=== PATIENT | female | born 1945 | race Caucasian/White ===

== ENCOUNTER 2017-04-07 22:48 | Observation (INO) | payer MEDICARE, SELFPAY ==
[2017-04-07] MEDS ORDERED: Ondansetron HCl/PF 4 MG/2 ML Vial ONE (22:58)
[2017-04-07] MEDS ORDERED: Nitroglycerin 2% Ointment 1 INCH/1 GM Packet ONE (22:58)
[2017-04-07] MEDS ORDERED: Nitroglycerin 0.4 MG TAB (25 Tab Bottle) ONE (22:58)
--- NOTE | 2017-04-07 23:24 | RAD ---
PORTABLE CHEST ONE VIEW: Date: 04-07-17 Time: 10:32 p.m. History: Chest pain. FINDINGS: Comparison made with exam of 12-30-16. There are changed of median sternotomy. The heart is enlarged. The aorta is tortuous. Chronic change s in the lung arana are again seen. No lobar consolidation, pneumonia, yuliet pulmonary edema or ple ural effusions are identified. IMPRESSION: Stable exam. No acute process. POS: [facility]
[2017-04-07 23:25] LABS: #Basophils 0.1 thou/uL (0.0-0.2); #Eosinphils 0.8 thou/uL (0.0-0.7); #Lymphocytes 2.7 thou/uL (1.20-3.40); #Monocytes 0.4 thou/uL (0.11-0.59); #Neutrophils 2.7 thou/uL (1.40-6.50); %Basophils 1.1 % (0.0-1.0); %Eosinophils 11.3 % (0.0-10.0); %Lymphocytes 40.6 % (21.0-51.0); %Monocytes 6.3 % (0.0-10.0); Hematocrit 39.3 % (36.0-47.0); Mean Platelet Volume 7.4 fL (7.4-10.4); Red Blood Cell (RBC) Count 4.35 mill/uL (4.20-5.40); White Blood Cell (WBC) Count 6.6 thou/uL (4.8-10.8)
[2017-04-07 23:40] LABS: ALT (SGPT) 11 U/L (8-55); AST (SGOT) 15 U/L (5-34); Alkaline Phosphatase 70 U/L (40-150); Anion Gap 14 mmol/L (10-20); BUN (Urea Nitrogen) 22 mg/dL (9.8-20.1); CK (CPK) 76 U/L (29-168); Calc. Creatinine Clearance 0 mL/min (70-130); Calcium 9.3 mg/dL (7.8-10.44); Carbon Dioxide 23 mmol/L (23-31); Chloride 105 mmol/L (98-107); Estimated GFR-MDRD 52; Globulin 3.5 g/dL (2.4-3.5); Lipase 14 U/L (8-78); Protein, Total 6.9 g/dL (6.0-8.3)
[2017-04-07 23:43] LABS: Troponin I Less than 0.010 ng/mL (< 0.028)
[2017-04-08] MEDS ORDERED: Nitroglycerin 0.4 MG TAB (25 Tab Bottle) PO PRN (01:03)
[2017-04-08] MEDS ORDERED: Senokot 8.6 MG TAB PO PRN (01:03)
[2017-04-08] MEDS ORDERED: Dextrose 5% in Water 1,000 ML IV PRN (01:03)
[2017-04-08] MEDS ORDERED: HYDROcodone/Acetaminophen 5/325 mg Tablet PO PRN (01:03)
[2017-04-08] MEDS ORDERED: Dextrose 50% Abboject 50 ML SYRINGE SLOW IVP PRN (01:03)
[2017-04-08] MEDS ORDERED: HumaLOG 300 UNITS/3 ML VIAL SC PRN ×2 (01:03)
[2017-04-08] MEDS ORDERED: Milk Of Magnesia 30 ML UDCUP PO PRN (01:03)
[2017-04-08] MEDS ORDERED: Loperamide HCl 2 MG CAP PO PRN (01:03)
[2017-04-08] MEDS ORDERED: Ondansetron ODT 4 MG TAB PO PRN (01:03)
[2017-04-08] MEDS ORDERED: Mag-Al 1200 mg/1200 mg/30 ML UDCUP PO PRN (01:03)
[2017-04-08] MEDS ORDERED: Zolpidem Tartrate 5 MG TAB PO PRN (01:03)
[2017-04-08] MEDS ORDERED: Acetaminophen 325 MG TAB PO PRN (01:03)
[2017-04-08] MEDS ORDERED: Ondansetron HCl/PF 4 MG/2 ML Vial IVP PRN (01:03)
--- NOTE | 2017-04-08 01:37 | SS ---
PRIMARY CARE PHYSICIAN: [facility] call admission. REASON FOR ADMISSION: Chest pain. HISTORY OF PRESENT ILLNESS: A 71-year-old female who has history of coronary artery disease and required CABG in 09/2016. Subsequently, the patient came to the emergency room in 11/2016. At that time, cardiac catheterization was done by Dr. Anna and the patient was found with 2/4 graft was occluded. The patient required stent placement and she was discharged on aspirin and Plavix therapy. At that time, the patient was having substernal pressure and heaviness , pain. Today, the patient was in her garage and she was pulling staircase and she was going up and at that time, she was having left-sided chest pain which was sharp in nature. No association of nausea, vomiting or diaphoresis. This pain was different than she had in November. The patient was given pain medication and after that the pain was subsided and never returned back. The patient denies any associated nausea, vomiting, diaphoresis. She denies any radiation of pain. She denies any aggravating or relieving factor. She denies any fever, chills, cough, shortness of breath. She denies any calf tenderness. She denies any exertional related chest pain, palpitation or shortness of breath. Today in the emergency room, EKG did not show any changes from previous. EKG showed complete left bundle branch block pattern. Her chest x-ray was normal. Her CBC, BMP, LFT and cardiac enzymes came back negative. At this point, we are admitting this patient overnight for serial cardiac enzyme and rule out acute coronary syndrome. Patient denies any shoulder pain. She denies any UTI symptoms. She denies any orthopnea, PND or leg swelling. She denies any palpitation, dizziness or syncope. PAST MEDICAL HISTORY: 1. Coronary artery disease, required CABG x4 vessels in 09/2016. Subsequently , patient had a cardiac catheterization which showed 2/4 occluded graft required stenting. 2. Diabetes type 2. 3. Hypertension. 4. Dyslipidemia. PAST SURGICAL HISTORY: CABG x4, cardiac catheterization and stent placement, bilateral cataract surgery, cholecystectomy, hysterectomy, right knee surgery. PAST PSYCHIATRIC HISTORY: Anxiety and depression. SOCIAL HISTORY: The patient lives at home with her daughter. No history of tobacco, alcohol or illicit drug abuse. She drinks alcohol only occasionally and socially. FAMILY HISTORY: Hypertension, diabetes runs among several family members. No strong family history of premature coronary artery disease, stroke or cancer. EMERGENCY ROOM COURSE: Patient is given nitropatch, morphine 4 mg, Zofran 4 mg and nitroglycerin 0.4 mg sublingual. CURRENT HOME MEDICATIONS: Glipizide 5 mg twice daily, aspirin 325 mg p.o. daily , Plavix 75 mg p.o. daily, Lipitor 80 mg p.o. daily, Coreg 12.5 mg twice daily, Imdur 30 mg p.o. daily, lisinopril 5 mg p.o. b.i.d. ALLERGIES: No known drug allergies. REVIEW OF SYSTEMS: The following complete review of systems was negative, unless otherwise mentioned in the HPI or below: Constitutional: Weight loss or gain, ability to conduct usual activities. Skin: Rash, itching. Eyes: Double vision, pain. ENT/Mouth: Nose bleeding, neck stiffness, pain, tenderness. Cardiovascular: Palpitations, dyspnea on exertion, orthopnea. Respiratory: Shortness of breath, wheezing, cough, hemoptysis, fever or night sweats. Gastrointestinal: Poor appetite, abdominal pain, heartburn, nausea, vomiting, constipation, or diarrhea. Genitourinary: Urgency, frequency, dysuria, nocturia. Musculoskeletal: Pain, swelling. Neurologic/Psychiatric: Anxiety, depression. Allergy/Immunologic: Skin rash, bleeding tendency. Please see my HPI for pertinent positives and negatives. All other review of system reviewed and negative except as mentioned in the HPI. PHYSICAL EXAMINATION: VITAL SIGNS: On arrival, blood pressure 186/111 and then 150/73, pulse 94, respiratory rate 18, temperature 98.2, saturation 94% on room air, weight 81.6 kilograms. GENERAL: The patient is currently alert, awake, no obvious acute distress. HEAD: Normocephalic, atraumatic. EYES: Pupils round, reactive to light. Extraocular muscles intact. ENT: Oropharynx within normal limits. Moist mucous membranes. No oral lesions. No pharyngeal erythema. No exudate. NECK: Supple, range of motion is normal. No meningeal signs of irritation. LUNGS: Clear to auscultation without any rhonchi or rales. CARDIAC: S1, S2 regular without any murmur. ABDOMEN: Soft, bowel sounds present, nontender, nondistended. No organomegaly , no mass, no suprapubic tenderness. BACK: Unremarkable. No CVA tenderness. EXTREMITIES: Upper extremity, passive movement of all joints are normal. Lower extremity, no edema. Good peripheral pulsation. SKIN: No skin rash. HEMATOLOGIC: No lymphadenopathy. PSYCHIATRIC: Normal affect. NEUROLOGIC: Nonfocal examination. SIGNIFICANT LABORATORY DATA: CBC: WBC 6.6, hemoglobin 13.1, platelets 187. BMP: Sodium 138, potassium 3.9, chloride 105, carbon dioxide 23, BUN 22, creatinine 1.04, glucose 281, calcium 9.3. LFT: AST 15, ALT 11, alkaline phosphatase 72, albumin 3.4, lipase 14, CK 76, CK-MB 2.5, troponin I less than 0.010. ASSESSMENT AND PLAN: 1. Acute chest pain. This patient's chest pain started when she was trying to pull stair and when she was climbing stairs afterward and it was sharp in nature and it was left-sided in location. This was completely different than substernal pain when she had a cardiac catheterization done last time. At this point, EKG showing LBBB without any new finding and her troponin is negative. This patient already had a cardiac catheterization in 11/[address] Anna and this patient's current chest pain is not consistent with typical cardiac pain. She does have coronary artery disease and her 2/4 grafts are patent and that is why we will keep this patient in the hospital and we will do serial cardiac enzymes to rule out acute coronary syndrome. If her cardiac enzymes negative x3 , then this patient will continue her medical therapy and she does not need any more testing and we will consider discharging this patient in the morning. Most likely this patient has musculoskeletal pain. 2. Coronary artery disease with history of coronary artery bypass graft. This patient is currently on optimal medical therapy with aspirin 325 mg p.o. daily, Lipitor 80 mg p.o. at bedtime, Coreg 12.5 mg twice daily, Plavix 75 mg p.o. daily, Imdur 30 mg p.o. daily, lisinopril 5 mg p.o. b.i.d. 3. Ischemic cardiomyopathy with EF 40%-45% based on a recent echocardiography. The patient will need Coreg 12.5 mg twice daily, lisinopril 5 mg p.o. b.i.d., Imdur 30 mg p.o. daily. As this patient has trace edema in her lower extremity , we will also consider adding Lasix 20 mg p.o. b.i.d. 4. Diabetes type 2. We will continue glipizide 5 mg p.o. b.i.d. We will consider adding metformin 1000 mg p.o. b.i.d. for better diabetes control. 5. Left bundle branch block, chronic. 6. Dyslipidemia. Continue Lipitor 40 mg p.o. at bedtime. 7. Hypertension. Continue Coreg and lisinopril as per home dosage. 8. Obesity with BMI 30. Dietary education given, weight loss education given. 9. Chronic kidney disease stage 3. We will monitor renal function. 10. Deep venous thrombosis prophylaxis not needed, because we are expecting discharge in 24 hours. 11. Gastrointestinal prophylaxis, Pepcid 20 mg p.o. b.i.d. 12. Code status: The patient is FULL CODE. Patient's daughter is surrogate decision maker. Disposition and plan within few hours once we rule out acute coronary syndrome with serial negative cardiac enzymes, then we will consider discharging her home around 7-8 a.m. in the morning. DATE OF ADMISSION: 04/08/2017 DATE OF DISCHARGE: 04/08/2017 DISCHARGE DISPOSITION: Home. PRIMARY DISCHARGE DIAGNOSIS: Chest pain, ruled out acute coronary syndrome. SECONDARY DISCHARGE DIAGNOSES: Coronary artery disease with coronary artery bypass graft, hypertension, diabetes type 2, dyslipidemia, anxiety and depression, chronic left bundle branch block. PRIMARY PROCEDURES/OPERATIONS: None. RADIOLOGICAL INVESTIGATION: Chest x-ray normal. SIGNIFICANT LABORATORY DATA: CBC and BMP normal. Cardiac enzymes negative. DISCHARGE MEDICATIONS: The patient will continue all her medications as mentioned above. CONTRAINDICATIONS: None. CODE STATUS: FULL CODE. INPATIENT CONSULTATN: None. ALLERGIES: No known drug allergy. DISCHARGE PLAN: Post hospital, the patient will follow with primary care physician, Dr. Anna. HOSPITAL COURSE: The patient is admitted overnight for chest pain and we are doing serial cardiac enzyme and if serial cardiac enzymes is negative, then we will consider discharging her home on optimal medical therapy as above. Please see my HPI for further details. MTDD
[2017-04-08 02:44] VITALS: TEMP 98.1
[2017-04-08 02:47] LABS: Troponin I 0.059 ng/mL (< 0.028)
[2017-04-08 06:06] LABS: Troponin I 0.021 ng/mL (< 0.028)
[2017-04-08] MEDS: Nitroglycerin 2% Ointment 1 INCH/1 GM Packet TOP SCH ×2 (06:21→11:41)
[2017-04-08] MEDS ORDERED: glipiZIDE 5 MG TAB PO SCH (07:30)
[2017-04-08 08:45] VITALS: BP 171/76
[2017-04-08] MEDS ORDERED: Famotidine 20 MG TAB PO SCH (09:00)
[2017-04-08] MEDS ORDERED: Aspirin 325 MG TAB PO SCH (09:00)
[2017-04-08] MEDS ORDERED: Lisinopril 5 MG TAB PO SCH (09:00)
[2017-04-08] MEDS ORDERED: Carvedilol 6.25 MG TAB PO SCH (09:00)
[2017-04-08] MEDS ORDERED: Clopidogrel Bisulfate 75 MG TAB PO SCH (09:00)
[2017-04-08] MEDS ORDERED: FLU VACC TS2017-18 (>65YR) 0.5 ML SYRINGE IM ONE (09:00)
--- NOTE | 2017-04-08 09:20 | PDOC.PN ---
- Subjective Encounter Start Date: 04/08/17 Encounter Start Time: 09:18 Patient seen at bedside. No overnight events, no further chest pain or SOB. - Objective Resuscitation Status: Resuscitation Status FULL:Full Resuscitation MAR Reviewed: Yes Vital Signs & Weight: Vital Signs (12 hours) Temp Pulse Resp BP BP Pulse Ox 04/08/17 08:45 74 171/76 H 04/08/17 08:35 98.1 F 74 18 159/60 H 96 04/08/17 05:05 74 18 171/76 H 04/08/17 00:56 98.1 F 74 18 167/75 H 98 Weight Weight 187 lb 11.2 oz I&O: 04/07/17 04/08/17 04/09/17 06:59 06:59 06:59 Intake Total 250 Balance 250 Result Diagrams: 04/07/17 23:13 04/07/17 23:13 Additional Labs: Accuchecks 04/08/17 06:19 POC Glucose 156 H Phys Exam - Physical Examination Constitutional: NAD HEENT: moist MMs Neck: no JVD Respiratory: no wheezing, clear to auscultation bilateral Cardiovascular: RRR Gastrointestinal: soft Musculoskeletal: pulses present Neurological: moves all 4 limbs Psychiatric: A&O x 3 Dx/Plan (1) Chest pain Code(s): R07.9 - CHEST PAIN, UNSPECIFIED Status: Resolved (2) Coronary artery disease Code(s): I25.10 - ATHSCL HEART DISEASE OF [place] CORONARY ARTERY W/O ANG PCTRS Status: Chronic (3) Diabetes type 2, controlled Code(s): E11.9 - TYPE 2 DIABETES MELLITUS WITHOUT COMPLICATIONS Status: Chronic (4) Hyperlipidemia Code(s): E78.5 - HYPERLIPIDEMIA, UNSPECIFIED Status: Chronic (5) Hypertension Code(s): I10 - ESSENTIAL (PRIMARY) HYPERTENSION Status: Chronic - Plan cont current plan of care * Restart Imdur for BP control. * ASA/Plavix/BB/Statin * Cardiology consulted for further input (Has an appointment on Saturday) * Outpatient f/u vs inpatient testing
--- NOTE | 2017-04-08 14:49 | CON ---
CARDIOLOGY CONSULTATION NOTE DATE OF CONSULTATION: 04/08/2017 REASON FOR CONSULTATION: Chest pain. HISTORY OF PRESENT ILLNESS: Ms. Renee is a very pleasant 71-year-old white female who comes to the hospital for chest pain. She was at home yesterday and noticed that her garage door remote control was not working, so she reached up with her left arm and pulled the garage down, she felt sudden onset of chest pain on the left side of her chest like a pulled muscle. This was nothing like what she had felt before when she did stenting and when she needed bypass surgery. She felt a dull ache. Because it would go away, she decided to come into the hospital where she received subligual nitroglycerin, which did nothing for the pain, and it was not until she got a dose of morphine where the pain went away and it has not come back. She states that she feels much better now. She has been very active in the last few months. She has been walking up and down her stairs at home and feels just fine doing so. Currently, she has no chest pain and feels much better. She does have significant history of coronary artery disease. She had bypass surgery in 09/2016. A repeat catheterization just two months later in 11/2016 showed two of the four grafts had occluded. The HYMAN was opened and another vein was opened as well. While the vein that was occluded was to the left circumflex, so at that point, we interviewed on the platinum circumflex with a drug-eluting stent. She tells me she has been very compliant with all her medications including the Plavix. PAST MEDICAL HISTORY: 1. Coronary artery disease as above. 2. Type 2 diabetes. 3. Hypertension. 4. Hyperlipidemia. PAST SURGICAL HISTORY: 1. Bilateral cataract surgery. 2. Coronary artery bypass grafting x4 in September of this year. 3. Cholecystectomy. 4. Hysterectomy. 5. Right knee surgery. SOCIAL HISTORY: Social alcohol use. No tobacco or drugs. FAMILY HISTORY: Noncontributory. OUTPATIENT MEDICATIONS: Include; 1. Aspirin 325 mg a day. 2. Lipitor 80 mg at bedtime. 3. Plavix 75 mg a day. 4. Coreg 12.5 mg twice a day and 5. Diazepam p.r.n. for anxiety. ALLERGIES: No known drug allergies. REVIEW OF SYSTEMS: Twelve-point review of systems was done; it is all negative unless stated in the history of present illness. PHYSICAL EXAMINATION: VITAL SIGNS: Temperature 98.1, pulse 74, respiration rate 18, satting 96% on room air and blood pressure 159/60. GENERAL: Awake, alert and oriented x3, in no distress. HEENT: Normocephalic and atraumatic. NECK: Supple, no JVD. LUNGS: Clear. CARDIOVASCULAR: S1 and S2. No S3 or S4. No murmurs or rubs. ABDOMEN: Soft. Positive bowel sounds. EXTREMITIES: No edema. SKIN: Warm and dry. LABORATORY WORK: Reviewed. White count of 6, hemoglobin of 13, hematocrit of 39 and platelet count of 187. Chemistry was reviewed. It is unremarkable except for a high sugar of 281. Troponin was less than assay limit than 0.05, then 0.02, CK-MB was normal x1. Albumin was 3.4 and lipase was normal. IMAGING DATA: EKG showed a left bundle branch block, which was a known condition. Chest x-ray showed no acute process. ASSESSMENT AND PLAN: Chest pain: Less likely to be cardiac in nature. She had a recent stent with no significant elevation on troponins, which would suggest this was just a muscle pulled; however, she should be able to be discharged home as she is not having an acute coronary syndrome. We will see her as scheduled in the next 2-3 days in the office. We will try to get an echocardiogram on the same day to make sure that her LV function remains the same. At that point, we will probably schedule her for an outpatient stress test; otherwise, today she should be able to go home on her home regimen. Thank you for letting us to participate in the care of your patient. We will sign out. Please call with any questions. CHIDI
--- NOTE | 2017-04-08 16:17 | DIS ---
DATE OF OBSERVATION PLACEMENT: 04/08/2017 DATE OF DISCHARGE: 04/08/2017 DISCHARGE DISPOSITION: Home. DISCHARGE FOLLOWUP: Follow up with Dr. Anna on 04/10/2017. DISCHARGE DIAGNOSES: 1. Chest pain, acute coronary syndrome ruled out. 2. History of coronary artery disease. 3. Hypertension. 4. Hyperlipidemia. 5. Diabetes mellitus type 2. DISCHARGE MEDICATIONS: 1. Aspirin 325 mg p.o. daily. 2. Lipitor 80 mg p.o. at bedtime. 3. Carvedilol 12.5 mg p.o. daily. 4. Plavix 75 mg p.o. daily. 5. Pepcid 20 mg p.o. b.i.d. p.r.n. 6. Imdur 30 mg p.o. daily. 7. Lisinopril 5 mg p.o. daily. 8. Glucotrol 5 mg p.o. b.i.d. before meals. INPATIENT CONSULTATIONS: Dr. Anna, Cardiology. INPATIENT PROCEDURES: None. INPATIENT RADIOGRAPHIC EXAMINATIONS: Chest x-ray, which revealed no acute process. BRIEF HOSPITAL COURSE: Ms. Sari Renee is a 71-year-old female with a past medical history of russell ry artery disease, hypertension, hyperlipidemia, and diabetes mellitus type 2, who presented to the emergency room complaining of chest discomfort. Given her cardiac risk factors as well as presentat ion, the patient was then subsequently placed in observation onto the telemetry floor. Three sets o f cardiac enzymes were ordered. She does have one set, which was in the indeterminate range at 0.05 9. Her other 2 sets have been negative. She no longer had any further chest pain after being place d in observation. Given her indeterminate troponin, Cardiology was consulted. Cardiology stated th at she can be followed up in the outpatient setting in 2 to 3 days. At that time, possibly an echoc ardiogram will be done and she will possibly be scheduled for an outpatient stress test. The patien t is no longer having further chest pain. She has been cleared by Cardiology for discharge and disc harged home later today in stable condition on her home regimen. DISCHARGE DIET: Heart healthy. ACTIVITY: As tolerated. RESTRICTIONS: None. CODE STATUS: FULL CODE. ALLERGIES: No known drug allergies. I have explained all this to the patient at bedside. She is agreeable to the plan of discharge. Al l questions have been answered. Time required to prepare for discharge 32 minutes.
[2017-04-08] MEDS ORDERED: Atorvastatin Calcium 40 MG TAB PO SCH (21:00)
== END 2017-04-08 14:05 | disposition home or self-care (01) ==
LOC: ERS 22:48 → 2SW 04-08 00:11
PROVIDERS: ADMIT Internal Medicine; ATTEND Internal Medicine
DX: R07.9 Chest pain, unspecified (principal); I25.10 Atherosclerotic heart disease of native coronary artery without angina pectoris; E78.5 Hyperlipidemia, unspecified; F32.9 Major depressive disorder, single episode, unspecified; F41.9 Anxiety disorder, unspecified; I25.5 Ischemic cardiomyopathy; I44.7 Left bundle-branch block, unspecified; E66.9 Obesity, unspecified; E11.22 Type 2 diabetes mellitus with diabetic chronic kidney disease; I13.10 Hypertensive heart and chronic kidney disease without heart failure, with stage 1 through stage 4 chronic kidney disease, or unspecified chronic kidney disease; N18.3 Chronic kidney disease, stage 3 (moderate); Z68.32 Body mass index [BMI] 32.0-32.9, adult; Z79.84 Long term (current) use of oral hypoglycemic drugs; Z79.02 Long term (current) use of antithrombotics/antiplatelets; Z79.82 Long term (current) use of aspirin; Z79.899 Other long term (current) drug therapy; Z95.818 Presence of other cardiac implants and grafts; Z95.1 Presence of aortocoronary bypass graft; Z98.42 Cataract extraction status, left eye; Z98.41 Cataract extraction status, right eye; Z90.49 Acquired absence of other specified parts of digestive tract; Z90.710 Acquired absence of both cervix and uterus; Z98.890 Other specified postprocedural states; Z82.49 Family history of ischemic heart disease and other diseases of the circulatory system
CPT/HCPCS: 36415; 36416; 71010; 80053; 82550; 82553; 83690; 84484; 85025; 90471; 90682; 93005; 96374; 96375; G0008; G0378; J2270; J2405; Q2036

== ENCOUNTER 2017-06-02 19:42 | Inpatient (IN) | payer MEDICARE, SELFPAY ==
[2017-06-02 20:32] LABS: #Basophils 0.1 thou/uL (0.0-0.2); #Lymphocytes 2.1 thou/uL (1.20-3.40); #Monocytes 0.5 thou/uL (0.11-0.59); #Neutrophils 3.9 thou/uL (1.40-6.50); %Basophils 0.8 % (0.0-1.0); %Eosinophils 13.6 % (0.0-10.0); %Lymphocytes 27.5 % (21.0-51.0); %Monocytes 6.3 % (0.0-10.0); Hematocrit 41.8 % (36.0-47.0); Mean Platelet Volume 7.7 fL (7.4-10.4); Red Blood Cell (RBC) Count 4.59 mill/uL (4.20-5.40); White Blood Cell (WBC) Count 7.5 thou/uL (4.8-10.8)
[2017-06-02 20:55] LABS: ALT (SGPT) 11 U/L (8-55); AST (SGOT) 16 U/L (5-34); Alkaline Phosphatase 70 U/L (40-150); Anion Gap 11 mmol/L (10-20); BUN (Urea Nitrogen) 21 mg/dL (9.8-20.1); Bilirubin, Total 0.7 mg/dL (0.2-1.2); CK (CPK) 81 U/L (29-168); Calc. Creatinine Clearance 0 mL/min (70-130); Calcium 9.2 mg/dL (7.8-10.44); Carbon Dioxide 24 mmol/L (23-31); Chloride 106 mmol/L (98-107); Estimated GFR-MDRD 52; Globulin 3.6 g/dL (2.4-3.5); Protein, Total 7.2 g/dL (6.0-8.3)
[2017-06-02 20:59] LABS: Troponin I 0.018 ng/mL (< 0.028)
--- NOTE | 2017-06-02 21:56 | RAD ---
PA AND LATERAL CHEST: Indication: Chest pain. IMPRESSION: No acute cardiopulmonary abnormality. COMMENTS: The examination does not appear significantly changed from a comparison dated 04-07-17. Chr onic lung changes are similar. Mild cardiomegaly is similar. Post CABG change is similar. Surgical cl ips are again seen within the right upper quadrant. Mild thoracolumbar scoliosis is present. POS: [facility]
[2017-06-03] MEDS ORDERED: Famotidine 20 MG TAB PO PRN (00:16)
[2017-06-03] MEDS ORDERED: Enoxaparin Sodium 100 MG/ML SYRINGE SC SCH (00:30)
[2017-06-03] MEDS ORDERED: Clopidogrel Bisulfate 75 MG TAB PO SCH ×2 (01:45→17:00)
[2017-06-03] MEDS ORDERED: Carvedilol 6.25 MG TAB PO SCH ×2 (01:45→09:00)
[2017-06-03 02:41] LABS: #Basophils 0.1 thou/uL (0.0-0.2); #Monocytes 0.5 thou/uL (0.11-0.59); #Neutrophils 3.3 thou/uL (1.40-6.50); %Basophils 1.1 % (0.0-1.0); %Eosinophils 13.2 % (0.0-10.0); %Lymphocytes 38.5 % (21.0-51.0); %Monocytes 6.1 % (0.0-10.0); Hematocrit 37.5 % (36.0-47.0); Mean Platelet Volume 7.5 fL (7.4-10.4); Red Blood Cell (RBC) Count 4.12 mill/uL (4.20-5.40); White Blood Cell (WBC) Count 7.9 thou/uL (4.8-10.8)
[2017-06-03 03:05] LABS: Anion Gap 11 mmol/L (10-20); BUN (Urea Nitrogen) 19 mg/dL (9.8-20.1); Calc. Creatinine Clearance 86 mL/min (70-130); Calcium 8.9 mg/dL (7.8-10.44); Carbon Dioxide 22 mmol/L (23-31); Chloride 108 mmol/L (98-107); Estimated GFR-MDRD 70
[2017-06-03 03:07] LABS: Troponin I 0.895 ng/mL (< 0.028)
--- NOTE | 2017-06-03 03:09 | HP-2 ---
DATE OF ADMISSION: 06/02/2017 ATTENDING: Dr. Meza. PGY-1: Karissa Duarte MD CODE STATUS: FULL CODE. PRIMARY CARE PHYSICIAN: unknown. HISTORIAN: Patient. CHIEF COMPLAINT: Chest pain. HISTORY OF PRESENT ILLNESS: This is a 71-year-old female with a past medical history of CAD status post CABG in 09/2016, presents with chest pain while watching a movie earlier yesterday evening at 7:00 p.m. on 06/02/2017. Patient states she started having chest pain described as sharp through her left chest, described as a sharp arrow radiating to her back. She did say this did not feel the same as her usual chest pain. She did not take anything for it, but did receive aspirin in the ER, which she said did improve her chest pain. She said she did not have any radiation down her arm or up her neck, although her fourth digit in her left hand did feel numb. She says her usual chest pain is described as tight with a weird feeling in her arm. She denied nausea, vomiting , or diaphoresis. She states that she had her CABG in 09/2016. ER: The patient received aspirin in the ER, 324 mg. PAST MEDICAL HISTORY: Type 2 diabetes, hypertension, hyperlipidemia, CAD status post CABG x4 vessels in 09/2016, anxiety, and depression. PAST SURGICAL HISTORY: CABG in 2017 x 4 vessels and stent placement, bilateral cataract surgery, cholecystectomy, hysterectomy, and right knee surgery. SOCIAL HISTORY: Patient denies tobacco, alcohol, or drug abuse, states she does drink alcohol occasionally. FAMILY HISTORY: 1. Hypertension. 2. Diabetes. CURRENT MEDICATIONS: Glipizide 5 mg b.i.d., aspirin 325 mg p.o. daily, Plavix 75 mg p.o. daily, Lipitor 80 mg p.o. daily, Coreg 25 mg b.i.d., Imdur 30 mg p.o. daily, lisinopril 5 mg p.o. b.i.d. ALLERGIES: No known drug allergies. REVIEW OF SYSTEMS: General: Denies fevers and chills. Cardiovascular: Endorses chest pain. Denies palpitations. Endorses lower extremity edema when she sits for a long time. Respiratory: Denies cough, congestion, or shortness of breath. Gastrointestinal: Denies nausea, vomiting, diarrhea. Skin: Denies rashes. Musculoskeletal: Denies pain or tenderness. Neurologic: Denies weakness or numbness. Psychiatric: Endorses anxiety and denies depression symptoms. PHYSICAL EXAMINATION: VITAL SIGNS: Blood pressure 154/62, pulse of 91, respiratory rate 19, T-max 98.2, pulse ox 95% on room air. GENERAL: Alert and oriented x4, in no apparent distress, well-developed, well- nourished, appropriately interactive. HEENT: Pupils equal, round, and reactive to light and accommodation. Extraocular muscles intact. Conjunctivae within normal limits. NECK: Supple, no lymphadenopathy, no thyromegaly. CARDIOVASCULAR: Regular rate and rhythm. No murmurs, rubs, or gallops appreciated. Radial pulses 2+, pedal pulses 2+. RESPIRATORY: Normal effort, no retractions, clear to auscultation bilaterally. SKIN: Warm and dry. ABDOMEN: Soft, nontender to palpation. Bowel sounds in all 4 quadrants. No masses or distention. EXTREMITIES: No clubbing or cyanosis. MUSCULOSKELETAL: Structure within normal limits. Tone within normal limits. NEUROLOGIC: No focal deficits. Sensation within normal limits. Cranial nerves II through XII intact. GCS of 15. PSYCHIATRIC: Appropriate. LABORATORY DATA: CBC: White blood cell count 7.5, H and H 14 and 41.8, platelets 177. CMP: Sodium 137, potassium 3.9, chloride 106, bicarbonate 24, BUN 21, creatinine 1.05, glucose 360, AST 16, ALT 11, alkaline phosphatase 70, total bilirubin 0.7, CK-MB 3.3, troponin 0.018. EKG, left bundle branch block, unchanged from prior. Chest x-ray mild cardiomegaly post-CABG, lumbar scoliosis. ASSESSMENT AND PLAN: This is a 71-year-old female with coronary artery disease status post coronary artery bypass graft x4 vessel in 09/2016, presents with chest pain described as atypical chest pain compared to her baseline chest pain, admitted for atypical chest pain. 1. Atypical chest pain. We will trend troponins, monitor on tele. If troponins increase or chest pain returns, we will call Cardiology and consider therapeutic Lovenox. EKG showed left bundle branch block, which was unchanged from prior. 3. Hypertension. We will restart patient's lisinopril 5 mg p.o. b.i.d. and Coreg 12 mg twice daily. 4. Diabetes type 2. We will restart the patient's glipizide 5 mg twice daily. 5. Coronary artery disease. We will restart the patient's aspirin 325 mg daily , Plavix 75 mg p.o. daily, Lipitor 80 mg p.o. daily, Imdur 30 mg p.o. daily, and lisinopril 5 mg p.o. daily. 6. Anxiety and depression. We will provide Ativan 0.5 mg p.r.n. for patient's anxiety. 7. Deep venous thrombosis prophylaxis. We will provide patient with sequential compression device. DISPOSITION AND LENGTH OF HOSPITAL STAY: 2 days. Symptomatic medications will be provided. History and physical exam as well as management will be discussed with Dr. Meza. CHIDI
[2017-06-03 07:35] LABS: Troponin I 1.654 ng/mL (< 0.028)
[2017-06-03] MEDS ORDERED: Dextrose 5% in Water 1,000 ML IV PRN (08:27)
[2017-06-03] MEDS ORDERED: HumaLOG 300 UNITS/3 ML VIAL SC PRN (08:27)
[2017-06-03] MEDS ORDERED: Dextrose 50% Abboject 50 ML SYRINGE SLOW IVP PRN (08:27)
[2017-06-03] MEDS ORDERED: Pantoprazole 40 MG VIAL IVP SCH (09:00)
[2017-06-03] MEDS: glipiZIDE 5 MG TAB PO SCH ×2 (09:31→17:56)
[2017-06-03] MEDS: Lisinopril 5 MG TAB PO SCH (09:33)
[2017-06-03] MEDS: Aspirin 325 mg Enteric Coated Tablet PO SCH (09:33)
[2017-06-03] MEDS: Carvedilol 6.25 MG TAB PO SCH ×2 (09:33→18:46)
[2017-06-03 09:56] LABS: Troponin I 1.827 ng/mL (< 0.028)
[2017-06-03] MEDS: Enoxaparin Sodium 100 MG/ML SYRINGE SC SCH ×2 (11:55→20:20)
[2017-06-03] MEDS ORDERED: Heparin 1000 UNIT/NS 500ML(OR) 1,000 ML ONE (12:08)
[2017-06-03] MEDS ORDERED: Midazolam HCl 2 mg/2 ml Vial ONE (12:32)
[2017-06-03] MEDS ORDERED: Fentanyl 100 MCG/2 ML VIAL ONE (12:33)
[2017-06-03] MEDS ORDERED: Heparin 10,000 UNITS/1 ML VIAL ONE (12:50)
[2017-06-03] MEDS ORDERED: Clopidogrel Bisulfate 300 MG TAB ONE (13:05)
[2017-06-03] MEDS ORDERED: Clopidogrel Bisulfate 75 MG TAB ONE (13:13)
[2017-06-03] MEDS ORDERED: Iopamidol 370 76% 50 ML VIAL FS ONE (14:21)
[2017-06-03] MEDS ORDERED: Iopamidol 370 76% 100 ML VIAL ONE (14:21)
--- NOTE | 2017-06-03 14:39 | PDOC.EVN ---
Event Note - Event Note Event Note: Attending H&P I personally evaluated the patient and discussed the management with Dr. Karissa Duarte. I have reviewed the written H&P and it is repeated by me. I agree with the History, Examination, Assessment and Plan documented above with any addition or exceptions noted below.
[2017-06-03 15:00] LABS: Troponin I 2.603 ng/mL (< 0.028)
[2017-06-03] MEDS: Sodium Chloride 0.9% 1,000 ML IV SCH (17:56)
--- NOTE | 2017-06-03 17:58 | CON ---
DATE OF CONSULTATION: 06/03/2017 TYPE OF CONSULTATION: Cardiology Consultation. REASON FOR CONSULTATION: Non-STEMI. HISTORY OF PRESENT ILLNESS: Mrs. Renee is a very pleasant 71-year-old white female, who I had follow ed since earlier this year, she comes in for evaluation of chest pain. She was ruled in with positiv e troponins up trending, so cardiology has been consulted. She had a coronary bypass grafting in 2016. This was done somewhere in [place] I think. She had 4-vessel bypass. Back in November of this year, she came back with episodes of chest pain which were consistent with her h istory of angina, so we took her back to the lab and we found that two of four grafts had occluded. A vein to an OM and the vein to the RCA were gone. Her wiyot RCA was also occluded but filled from left collaterals. There was a HYMAN to the LAD which was patent; however, it landed in a very small d iffusely diseased vessel that is actually occluded distally and proximally to the HYMAN and there is a vein to a diagonal that was also open. Because of this, it was decided to treat the wiyot left cir cumflex at that time back in November and a stent was placed to the mid artery into OM which is a large v essel providing collaterals to the septal wall as well. She had done well. She had an admission abo ar a month and a half ago for chest pain that she ruled out with negative troponins and EKG. She has a left bundle branch block, so we cannot really go with that. She had a different pain at this time . She was watching [employer]: [employer] and she started having chest tightness which were concerned for h er previous angina. Her troponin is up to 1.8. Currently, she is chest pain free. PAST MEDICAL HISTORY: 1. Type 2 diabetes. 2. Hypertension. 3. Hyperlipidemia. 4. CAD as above. 5. Anxiety, depression. PAST SURGICAL HISTORY: 1. CABG x4 earlier this year. 2. Stents placed earlier this year as above. 3. Bilateral cataract surgery. 4. Cholecystectomy. 5. Hysterectomy. 6. Right knee surgery. SOCIAL HISTORY: No alcohol, tobacco or drugs. FAMILY HISTORY: Noncontributory. OUTPATIENT MEDICATIONS: Include, 1. Glipizide. 2. Aspirin 325 a day. 3. Plavix 75 mg a day. She has not stopped this medication. 4. Lipitor 80 mg a day. 5. Coreg 25 mg b.i.d. 6. Imdur 30 mg a day. 7. Lisinopril 5 mg b.i.d. ALLERGIES: No known drug allergies. REVIEW OF SYSTEMS: A 12-point review of systems was done and is all negative unless stated in the hi story of present illness. PHYSICAL EXAMINATION: VITAL SIGNS: Temperature 97.0, pulse 60, respiration rate 20, satting 94% on room air, blood pressur e 144/67. GENERAL: Awake, alert, oriented x3, in no distress. HEENT: Normocephalic, atraumatic. NECK: Supple. LUNGS: Clear. CARDIOVASCULAR: S1, S2, no S3 or S4, no murmurs or rubs. ABDOMEN: Soft. Positive bowel sounds. EXTREMITIES: No edema. SKIN: Warm and dry. LABORATORY WORK: Reviewed. CBC is unremarkable. Coags were normal. Chemistry were unremarkable. Normal GFR. Troponins went from 0.8-1.6, and 1.8. CK-MB of 12, calcium of 8.9, glucose of 183. EKG showed left bundle branch block which is a known finding. Chest x-ray was reviewed. ASSESSMENT AND PLAN: Non-ST elevation myocardial infarction: At this point, we will plan on restrat ifying again with the left heart catheterization to make sure those stents are opened and see if the other vein graft is open as well. I spoke with her about the risks and benefits of the procedure and risks include, but not limited to stroke, myocardial infarction, , bleeding and need for blood transfusion, needing for vascular repair, limb loss or organ loss. She agrees to proceed. We will d o drug-eluting stents if needed. Further recommendations per results of coronary angiogram.
--- NOTE | 2017-06-03 18:10 | EKG ---
Test Reason : POST STENTS X 2 Blood Pressure : / mmHG Vent. Rate : 054 BPM Atrial Rate : 054 BPM P-R Int : 172 ms QRS Dur : 170 ms QT Int : 524 ms P-R-T Axes : 035 056 153 degrees QTc Int : 496 ms Sinus bradycardia Left bundle branch block Abnormal ECG When compared with ECG of 03-JUN-2017 09:02, (Unconfirmed) No significant change was found Confirmed by VICTOR MANUEL DIAZ ([id number]) on 06/03/2017 6:10:08 PM Referred By: ZO Confirmed By:VICTOR MANUEL DIAZ
--- NOTE | 2017-06-03 18:21 | EKG ---
Test Reason : Blood Pressure : / mmHG Vent. Rate : 063 BPM Atrial Rate : 063 BPM P-R Int : 186 ms QRS Dur : 170 ms QT Int : 500 ms P-R-T Axes : 049 030 153 degrees QTc Int : 511 ms Normal sinus rhythm Possible Left atrial enlargement Left bundle branch block Abnormal ECG Confirmed by VICTOR MANUEL DIAZ ([id number]) on 06/03/2017 6:21:05 PM Referred By: ADEBAYO Confirmed By:VICTOR MANUEL DIAZ
--- NOTE | 2017-06-03 18:26 | EKG ---
Test Reason : STAT Blood Pressure : / mmHG Vent. Rate : 062 BPM Atrial Rate : 062 BPM P-R Int : 172 ms QRS Dur : 172 ms QT Int : 504 ms P-R-T Axes : 020 050 146 degrees QTc Int : 511 ms Normal sinus rhythm Non-specific intra-ventricular conduction block , Favor atypical LBBB Abnormal ECG When compared with ECG of 02-JUN-2017 19:52, (Unconfirmed) T wave inversion no longer evident in Inferior leads Confirmed by VICTOR MANUEL DIAZ ([id number]) on 06/03/2017 6:26:26 PM Referred By: Confirmed By:VICTOR MANUEL DIAZ
[2017-06-03] MEDS ORDERED: Acetaminophen 325 MG TAB PO PRN (18:52)
[2017-06-03] MEDS ORDERED: Atorvastatin Calcium 40 MG TAB PO SCH (21:00)
[2017-06-04] MEDS ORDERED: hydrALAZINE 20 MG/ML VIAL SLOW IVP PRN (04:46)
[2017-06-04 04:58] LABS: #Eosinphils 0.9 thou/uL (0.0-0.7); #Lymphocytes 1.8 thou/uL (1.20-3.40); #Monocytes 0.5 thou/uL (0.11-0.59); #Neutrophils 3.2 thou/uL (1.40-6.50); %Basophils 0.6 % (0.0-1.0); %Eosinophils 13.6 % (0.0-10.0); %Lymphocytes 27.9 % (21.0-51.0); %Monocytes 7.6 % (0.0-10.0); Hematocrit 35.4 % (36.0-47.0); Mean Platelet Volume 7.8 fL (7.4-10.4); Red Blood Cell (RBC) Count 3.87 mill/uL (4.20-5.40); White Blood Cell (WBC) Count 6.4 thou/uL (4.8-10.8)
[2017-06-04 05:27] LABS: ALT (SGPT) 9 U/L (8-55); AST (SGOT) 19 U/L (5-34); Alkaline Phosphatase 59 U/L (40-150); Anion Gap 9 mmol/L (10-20); BUN (Urea Nitrogen) 14 mg/dL (9.8-20.1); Bilirubin, Total 1.1 mg/dL (0.2-1.2); Calc. Creatinine Clearance 87 mL/min (70-130); Calcium 8.6 mg/dL (7.8-10.44); Carbon Dioxide 24 mmol/L (23-31); Chloride 110 mmol/L (98-107); Estimated GFR-MDRD 71; Globulin 2.8 g/dL (2.4-3.5); Protein, Total 5.8 g/dL (6.0-8.3)
[2017-06-04] MEDS: Sodium Chloride 0.9% 1,000 ML IV SCH ×2 (05:27→10:10)
[2017-06-04 06:55] LABS: Critical Call Chem Troponin I RESULT DECREASING; Troponin I 0.999 ng/mL (< 0.028)
[2017-06-04] MEDS ORDERED: Pantoprazole 40 MG VIAL IVP SCH (09:00)
[2017-06-04] MEDS: Carvedilol 6.25 MG TAB PO SCH (09:08)
[2017-06-04] MEDS: glipiZIDE 5 MG TAB PO SCH (09:09)
[2017-06-04] MEDS: Aspirin 325 mg Enteric Coated Tablet PO SCH (09:09)
[2017-06-04] MEDS: Lisinopril 5 MG TAB PO SCH (09:09)
--- NOTE | 2017-06-04 09:10 | PDOC.FM ---
- Subjective Subjective: CC: No chest pain HPI: States she is feeling better and her chest pain has resolved. Nursing states she had some issues with hematoma formation at catheter site yesterday but it has resolved. Still waiting to hear from cardiology regarding dispo today. also complains of rash in stomach folds. - Objective MAR Reviewed: Yes Vital Signs & Weight: Vital Signs (12 hours) Temp Pulse Resp BP BP Pulse Ox 06/04/17 07:25 98.1 F 71 20 140/65 97 06/04/17 05:20 70 18 156/67 H 06/04/17 04:48 57 L 18 199/76 H 199/76 H 06/03/17 23:00 98.4 F 57 L 18 170/70 H 96 Result Diagrams: 06/04/17 03:49 06/04/17 03:49 EKG Reviewed by me: Yes (SR rate 60s) <Nir Baron - Last Filed: 06/04/17 09:08> - Objective Vital Signs & Weight: Vital Signs (12 hours) Temp Pulse Pulse Pulse Resp BP BP 06/04/17 11:15 97.6 F 63 16 06/04/17 10:10 71 06/04/17 09:35 06/04/17 09:20 78 85 139/63 06/04/17 09:09 71 06/04/17 07:25 98.1 F 71 18 06/04/17 05:20 70 18 06/04/17 04:48 57 L 18 199/76 H BP BP Pulse Ox Pulse Ox Pulse Ox 06/04/17 11:15 140/66 96 06/04/17 10:10 06/04/17 09:35 97 06/04/17 09:20 176/71 H 97 96 06/04/17 09:09 06/04/17 07:25 140/65 97 06/04/17 05:20 156/67 H 06/04/17 04:48 199/76 H Result Diagrams: 06/04/17 03:49 06/04/17 03:49 <Mg Meza - Last Filed: 06/04/17 13:52> Phys Exam - Physical Examination Constitutional: NAD HEENT: moist MMs, sclera anicteric Respiratory: no wheezing, clear to auscultation bilateral Cardiovascular: RRR, no significant murmur Gastrointestinal: soft, non-tender erythematous blanching rash in skin folds. Musculoskeletal: no edema minimal bruising around cath site. Neurological: non-focal, moves all 4 limbs Psychiatric: normal affect, A&O x 3 Skin: cap refill <2 seconds Deviation from normal: rash within abdominal skin folds. <Nir Baron - Last Filed: 06/04/17 09:08> Dx/Plan (1) NSTEMI (non-ST elevated myocardial infarction) Code(s): I21.4 - NON-ST ELEVATION (NSTEMI) MYOCARDIAL INFARCTION Status: Acute Plan: S/P cath with 2 stent placement. - cards recommends life time dual antiplatelet therapy. - trop trending down - d/c pending cardiology's approval but will likely go home today. (2) Cutaneous candidiasis Code(s): B37.2 - CANDIDIASIS OF SKIN AND NAIL Status: Acute Plan: nystatin powder. (3) Diabetes type 2, controlled Code(s): E11.9 - TYPE 2 DIABETES MELLITUS WITHOUT COMPLICATIONS Status: Chronic QualifierTitle: Diabetes mellitus complication status: with circulatory complication Diabetes mellitus complication detail: with other circulatory complications Diabetes mellitus termite treater insulin use: without termite treater use Qualified Code(s): E11.59 - Type 2 diabetes mellitus with other circulatory complications Plan: well controlled in hospital - outpatient follow up. (4) Hypertension Code(s): I10 - ESSENTIAL (PRIMARY) HYPERTENSION Status: Chronic QualifierTitle: Hypertension type: essential hypertension Qualified Code( s): I10 - Essential (primary) hypertension Plan: BP remains mildly elevated in 150s to 160s increased lisinopril to 10 mg daily - close outpatient follow up. <Nir Baron - Last Filed: 06/04/17 09:08> Attending Addendum - Attending Addendum I personally evaluated the patient and discussed the management with Dr. Baron. I agree with the History, Examination, Assessment and Plan documented above with any addition or exceptions noted below. S/p cath and stent placement. Possible discharge today. <Mg Meza - Last Filed: 06/04/17 13:52>
[2017-06-04] MEDS ORDERED: Lisinopril 5 MG TAB PO SCH (09:15)
[2017-06-04] MEDS ORDERED: Nystatin Powder 15 GM BOT TOP PRN (09:15)
[2017-06-04 12:14] VITALS: BP 140/66; TEMP 97.6
--- NOTE | 2017-06-04 18:54 | PDOC.CTH ---
Cardiology Progress Note - Subjective She is doing well. Denies any chest pain, tightness, pressure, SOB. - Objective Vital Signs Temp Pulse Pulse Pulse Resp BP BP 06/04/17 11:15 97.6 F 63 16 06/04/17 10:10 71 06/04/17 09:35 06/04/17 09:20 78 85 139/63 176/71 H 06/04/17 09:09 71 06/04/17 07:25 98.1 F 71 18 BP Pulse Ox Pulse Ox Pulse Ox 06/04/17 11:15 140/66 96 06/04/17 10:10 06/04/17 09:35 97 06/04/17 09:20 97 96 06/04/17 09:09 06/04/17 07:25 140/65 97 - Physical Examination General/Neuro: alert & oriented x3, NAD Neck: no JVD present Lungs: CTA, unlabored respirations Heart: RRR Abdomen: NT/ND Extremities: other: (no edema.) - Telemetry Telemetry Rhythm: NSR - Labs Result Diagrams: 06/04/17 03:49 06/04/17 03:49 Troponin/CKMB CK-MB (CK-2) 5.3 ng/mL (0-6.6) 06/04/17 03:49 Troponin I 0.999 ng/mL (< 0.028) H* 06/04/17 03:49 - Assessment/Plan 1. NSTEMI 2. S?P PCI to LCx 3. S/P CABG 7 months ago. 4. Right groin hematoma, improved, a lot of bruising present and expected in the next few weeks. PLAN: - Continue BIRD with aspirin and Plavix. - Statin, BB , ACEI. - May discharge home - Follow up in 1 month.
--- NOTE | 2017-06-05 00:17 | DIS-2 ---
DATE OF ADMISSION: 06/02/2017 DATE OF DISCHARGE: 06/04/2017 ADMITTING ATTENDING: Mg Meza M.D. DISCHARGE ATTENDING: Mg Meza M.D. ADMITTING RESIDENT: Karissa Trivedi M.D. DISCHARGE RESIDENT: Nir Baron M.D. CONSULTATIONS: Dr. Nikhil Anna - Cardiology. PROCEDURES: Cardiac catheterization with placement of two drug-eluting stents in the left circumflex artery and the distal OM1 artery. PERTINENT LABORATORY FINDINGS: CK-MB at the time of admission is 3.3, trended up to 12.8 and down to 5.3. Troponin at the time of admission is 0.018, trended up to 2.603 and then down to 0.999. IMAGING: Chest x-ray; no interval change, mild cardiomegaly, post-CABG changes, right thoracolumbar scoliosis. PRIMARY DIAGNOSIS: [id number] elevation myocardial infarction. SECONDARY DIAGNOSES: 1. Cutaneous candidiasis. 2. Hypertension. 3. Diabetes mellitus, type 2. 4. Coronary artery disease. 5. Anxiety and depression. 6. Hyperlipidemia. DISCHARGE MEDICATIONS: 1. Aspirin 325 mg daily. 2. Lipitor 80 mg daily. 3. Carvedilol 12.5 mg b.i.d. 4. Plavix 75 mg daily. 5. Pepcid 20 mg b.i.d. 6. Glipizide 5 mg b.i.d. 7. Imdur 30 mg daily. 8. Lisinopril 10 mg daily. 9. Nystatin topical b.i.d. p.r.n. DISCONTINUED MEDICATIONS: Lisinopril 5 mg daily. HISTORY OF PRESENT ILLNESS AND HOSPITAL COURSE: Ms. Renee is a pleasant 71-year-old female , who presented with chest pain that began at rest on the evening of admission. She stated the pain did not feel like her typical chest pain. She has not taken any medication for the chest pain at the time of presentation. Serial troponins, CK-MB, and EKGs were performed with the results listed abov e. Dr. Nikhil Anna of Cardiology was consulted after the patient had been started on therapeutic Lovenox. She underwent cardiac catheterization on 06/03/2017, which found two regions of stenoses w ith drug-eluting stents placed in these regions. The patient tolerated the catheterization well. On postop day #1, her blood pressure was mildly elevated as it had been throughout the remainder of her hospitalization and her lisinopril was increased to 10 mg daily. The patient stated on the day of d ischarge, her chest pain had resolved. Vital signs at the time of discharge were within normal limit s. Dr. Anna had cleared the patient for discharge at this time. DISPOSITION: The patient was discharged in stable condition. Given her history of severe cardiovasc ular disease including coronary artery bypass graft and percutaneous stent placement, her long-term p rognosis is fair at best unless she make significant lifestyle modifications. DISCHARGE INSTRUCTIONS: 1. Location: Home. 2. Diet: Heart healthy, low sodium, consistent carbohydrates. 3. Activity: As tolerated. 4. Followup: The patient was to establish care at either [facility] or [facility] in [facility] for further management of her chronic medical conditions. She is to follo w up Dr. Anna per her routine schedule. She is also to follow up with the [facility] as instructed by Dr. Anna. Less than 30 minutes was spent on this discharge.
--- NOTE | 2017-06-05 07:57 | EKG ---
Test Reason : Blood Pressure : / mmHG Vent. Rate : 077 BPM Atrial Rate : 077 BPM P-R Int : 170 ms QRS Dur : 170 ms QT Int : 458 ms P-R-T Axes : 054 043 163 degrees QTc Int : 518 ms Normal sinus rhythm Possible Left atrial enlargement Left bundle branch block Abnormal ECG When compared with ECG of 03-JUN-2017 14:02, No significant change was found Confirmed by VICTOR MANUEL DIAZ ([id number]) on 06/05/2017 7:56:56 AM Referred By: ZO Confirmed By:VICTOR MANUEL DIAZ
[2017-06-05] MEDS ORDERED: Lisinopril 10 MG TAB PO SCH (09:00)
== END 2017-06-04 14:38 | disposition home or self-care (01) | DRG 247 ==
LOC: ERS 19:42 → 2SW 22:00 → OBSVTOIN 06-03 08:30
PROVIDERS: ADMIT Family Medicine; ATTEND Family Medicine
PROC: 027135Z Dilation of Coronary Artery, Two Arteries with Two Drug-eluting Intraluminal Devices, Percutaneous Approach (ICD-10-PCS; principal; 2017-06-03)
PROC: 4A023N7 Measurement of Cardiac Sampling and Pressure, Left Heart, Percutaneous Approach (ICD-10-PCS; 2017-06-03)
PROC: B2111ZZ Fluoroscopy of Multiple Coronary Arteries using Low Osmolar Contrast (ICD-10-PCS; 2017-06-03)
PROC: B2151ZZ Fluoroscopy of Left Heart using Low Osmolar Contrast (ICD-10-PCS; 2017-06-03)
DX: I21.4 Non-ST elevation (NSTEMI) myocardial infarction (principal); E11.22 Type 2 diabetes mellitus with diabetic chronic kidney disease; N18.3 Chronic kidney disease, stage 3 (moderate); F32.9 Major depressive disorder, single episode, unspecified; B37.2 Candidiasis of skin and nail; I12.9 Hypertensive chronic kidney disease with stage 1 through stage 4 chronic kidney disease, or unspecified chronic kidney disease; I25.10 Atherosclerotic heart disease of native coronary artery without angina pectoris; I44.7 Left bundle-branch block, unspecified; E78.5 Hyperlipidemia, unspecified; F41.9 Anxiety disorder, unspecified; Z95.1 Presence of aortocoronary bypass graft; I25.5 Ischemic cardiomyopathy; E78.00 Pure hypercholesterolemia, unspecified; M79.81 Nontraumatic hematoma of soft tissue
CPT/HCPCS: 36415; 36416; 71020; 80048; 80053; 82550; 82553; 84484; 85025; 85347; 92928; 93005; 93010; 93455; 93798; 94760; 99152; 99153; A4216; C1769; C1874; C9113; C9600; J0360; J1644; J1650; J2250; J3010

== ENCOUNTER 2017-08-12 19:28 | Observation (INO) | payer MEDICARE, SELFPAY ==
[2017-08-12 20:09] LABS: #Basophils 0.1 thou/uL (0.0-0.2); #Eosinphils 0.8 thou/uL (0.0-0.7); #Lymphocytes 2.6 thou/uL (1.20-3.40); #Monocytes 0.6 thou/uL (0.11-0.59); #Neutrophils 5.2 thou/uL (1.40-6.50); %Basophils 0.7 % (0.0-1.0); %Eosinophils 8.9 % (0.0-10.0); %Lymphocytes 27.9 % (21.0-51.0); %Neutrophils 56.5 % (42.0-75.0); Mean Corpuscular HGB CONC 34.5 g/dL (32.0-36.0); Mean Corpuscular Hemoglobin 31.4 pg (27.0-31.0); Mean Platelet Volume 7.8 fL (7.4-10.4); Platelet Count 205 thou/uL (130-400); RBC Distribution Width 12.1 % (11.5-14.5); Red Blood Cell (RBC) Count 4.76 mill/uL (4.20-5.40); White Blood Cell (WBC) Count 9.2 thou/uL (4.8-10.8)
[2017-08-12 20:31] LABS: ALT (SGPT) 14 U/L (8-55); AST (SGOT) 18 U/L (5-34); Albumin 4.3 g/dL (3.4-4.8); Alkaline Phosphatase 70 U/L (40-150); Anion Gap 13 mmol/L (10-20); BUN (Urea Nitrogen) 26 mg/dL (9.8-20.1); Bilirubin, Total 1.5 mg/dL (0.2-1.2); CK (CPK) 83 U/L (29-168); Calc. Creatinine Clearance 0 mL/min (70-130); Calcium 10.4 mg/dL (7.8-10.44); Carbon Dioxide 27 mmol/L (23-31); Chloride 104 mmol/L (98-107); Estimated GFR-MDRD 61; Glucose 129 mg/dL (83-110); Potassium 4.3 mmol/L (3.5-5.1); Protein, Total 8.3 g/dL (6.0-8.3); Sodium 140 mmol/L (136-145)
[2017-08-12 20:35] LABS: CKMB 2.5 ng/mL (0-6.6); Troponin I 0.013 ng/mL (< 0.028)
[2017-08-12] MEDS ORDERED: Nitroglycerin 0.4 MG TAB (25 Tab Bottle) ONE (20:36)
[2017-08-12] MEDS ORDERED: Nitroglycerin 2% Ointment 1 INCH/1 GM Packet ONE (20:36)
--- NOTE | 2017-08-12 20:50 | RAD ---
PA AND LATERAL CHEST: Date: 08-12-17 History: Chest pain that started one hour ago. Left jaw pain started a few days ago. Loss of appetite . Comparison: 06-02-17 FINDINGS: Post-surgical changes related to median sternotomy are again present. The cardiac silhouette is mildl y enlarged. Linear densities are again seen in the region of the lingula, probably related to mild sc arring. Lungs are otherwise clear. There has been no other interval change from prior exam. IMPRESSION: 1. No acute cardiopulmonary process. 2. Mild cardiomegaly. POS: [facility]
[2017-08-12] MEDS ORDERED: Ondansetron HCl/PF 4 MG/2 ML Vial ONE (22:13)
[2017-08-12] MEDS ORDERED: Labetalol HCl 100 MG/20 ML VIAL ONE (23:13)
[2017-08-12] MEDS ORDERED: Lisinopril 10 MG TAB ONE (23:24)
[2017-08-12 23:40] LABS: CKMB 2.3 ng/mL (0-6.6); Troponin I 0.021 ng/mL (< 0.028)
[2017-08-13] MEDS ORDERED: Famotidine 20 MG TAB PO PRN (00:50)
[2017-08-13] MEDS ORDERED: Carvedilol 6.25 MG TAB PO SCH ×2 (00:50→09:00)
[2017-08-13] MEDS ORDERED: Dextrose 50% Abboject 50 ML SYRINGE SLOW IVP PRN (00:50)
[2017-08-13] MEDS ORDERED: Nitroglycerin 0.4 MG TAB (25 Tab Bottle) PO PRN (00:50)
[2017-08-13] MEDS ORDERED: HumaLOG 300 UNITS/3 ML VIAL SC PRN (00:50)
[2017-08-13] MEDS ORDERED: Dextrose 5% in Water 1,000 ML IV PRN (00:50)
[2017-08-13] MEDS ORDERED: Nystatin Powder 15 GM BOT TOP PRN (00:50)
[2017-08-13 00:53] VITALS: BMI 30.4
[2017-08-13] MEDS ORDERED: hydrALAZINE 20 MG/ML VIAL SLOW IVP PRN (01:01)
[2017-08-13] MEDS ORDERED: hydrALAZINE 20 MG/ML VIAL IM SCH (01:45)
[2017-08-13] MEDS: Acetaminophen 325 MG TAB PO PRN ×2 (01:48→06:04)
[2017-08-13] MEDS ORDERED: hydrALAZINE 20 MG/ML VIAL SLOW IVP SCH (02:21)
[2017-08-13 02:59] LABS: CKMB 2.1 ng/mL (0-6.6); Troponin I 0.019 ng/mL (< 0.028)
--- NOTE | 2017-08-13 03:21 | HP-2 ---
TIME AND DATE OF SERVICE: 12:15 a.m. on 08/13/2017 CODE STATUS: FULL CODE. PRIMARY CARE PHYSICIAN: Tayler connor. ATTENDING: Mg Meza M.D. RESIDENT: Julio Cesar Carrera M.D. HISTORIAN: Patient. SPECIALIST: Dr. Anna, Cardiology. CHIEF COMPLAINT: Chest pain, left jaw pain. HISTORY OF PRESENT ILLNESS: Sari Renee is a 71-year-old female with past medical history of coronary artery disease, status post coronary artery bypass graft x4 in 09/2016, stent placement x1 in 7, stent placement x1 in 03/2017, stent placement x2 in 05/2017; type 2 diabetes mellitus; hypertensi on; hyperlipidemia; anxiety; and depression; who presented to the ED after acute onset of substernal pressure-like chest pain that began today. The patient stated that this chest pain is similar to epi sodes in the past. She states that the pain was only relieved by nitro, which she received in the ED . The patient states that there was no associated nausea or vomiting, diaphoresis or dyspnea with th is pain and the pain was unchanged when she was walking. She is not actively having any chest pain. She also complains of tooth pain that started today and she was unable to take her evening doses of her blood pressure medications due to her having to come to the ER. In the ED, she received nitro as well as IV labetalol. PAST MEDICAL HISTORY: 1. Coronary artery disease, status post 4-vessel CABG, stent placement x1 in November, x1 in March, x2 in May. 2. Type 2 diabetes mellitus. 3. Hypertension. 4. Hyperlipidemia. 5. Anxiety. 6. Depression. PAST SURGICAL HISTORY: 1. Coronary artery bypass graft x4 and stent placement x4. 2. Bilateral cataract surgery. 3. Cholecystectomy. 4. Hysterectomy. 5. Right knee surgery. ALLERGIES: No known drug allergies. MEDICATIONS: 1. Glipizide 5 mg p.o. b.i.d. 2. Carvedilol 12.5 mg p.o. b.i.d. 3. Imdur 30 mg p.o. daily. 4. Aspirin 325 mg p.o. daily. 5. Plavix 75 mg p.o. daily. 6. Lisinopril 10 mg p.o. daily. 7. Lipitor 80 mg p.o. daily. 8. Pepcid 20 mg p.o. b.i.d. 9. Nystatin topical b.i.d. p.r.n. FAMILY HISTORY: The patient endorses family history of hypertension and diabetes. SOCIAL HISTORY: The patient denied any tobacco or drug use and endorses occasional rare alcohol use. REVIEW OF SYSTEMS: A 12-point review of systems including general, eyes, ENT, respiratory, CV, GI, G U, skin, musculoskeletal, neuro and psych were all reviewed and were negative, unless otherwise state d in the HPI. PHYSICAL EXAMINATION: VITAL SIGNS: Blood pressure 164/71, pulse 72, respiratory rate 12, temperature 98.4, pulse ox 95% on room air, current weight 81.6 kilograms. GENERAL: The patient is alert and oriented x4, in no acute distress, well-developed, well-nourished, and appropriately interactive. EYES: Pupil are equal, round, and reactive to light and accommodation. Extraocular muscles are inta ct. Conjunctivae within normal limits. ENT: Tympanic membranes are pearly terrell without bulging or erythema. Nasal mucosa and oropharynx wi thin normal limits. No oral lesions. No obvious abscesses; however, there was tenderness to palpati on over a left lower molar. Her dentition was suboptimal. NECK: Supple, without lymphadenopathy or thyromegaly. CARDIOVASCULAR: Regular rate and rhythm. No murmurs or gallops. Radial and pedal pulses equal bila terally. RESPIRATORY: Normal effort, no retractions. LUNGS: Clear to auscultation bilaterally. SKIN: Warm and dry without cyanosis or lesions. ABDOMEN: Soft, nontender. Bowel sounds normoactive. No masses or distention. EXTREMITIES: No clubbing, cyanosis or pitting edema. MUSCULOSKELETAL: Structure and tone within normal limits. Full range of motion. NEUROLOGIC: No focal deficits. Sensation within normal limits. PSYCHIATRIC: Appropriate. LABORATORY DATA AND X-RAY FINDINGS: White blood cell count 9.2, hemoglobin 15.0, hematocrit 43.3, pl atelets 205. Sodium 140, potassium 4.3, chloride 104, carbon dioxide 27, BUN 26, creatinine 0.91, gl ucose of 124, calcium 10.4, albumin 4.3, total protein 8.3, total bilirubin 1.5, AST 18, ALT 14, mavis line phosphatase 70. CK 83, CK-MB 2.5, troponin 0.013. EKG showed old left bundle branch block and left atrial enlargement. These were compared to previous EKGs in May and November. There are no ne w ST changes on this EKG. Chest x-ray showed no acute cardiopulmonary processes, showed mild cardiom egaly. ASSESSMENT AND PLAN: A 71-year-old female with past medical history of coronary artery disease and r ecent PCI, who presents with chest pain. 1. Stable angina. Placed on telemetry observation. Consult Cardiology in the morning. Due to rece nt PCI, we will not order a stress test at this time. We will await Cardiology recommendations. We will consider therapeutic Lovenox of chest pain was returns or worsens. We will resume home medicati ons and p.r.n. nitro for pain. Trend cardiac enzymes and obtain serial EKGs. Check fasting lipid pa jayme along with morning labs. Continue aspirin, Plavix, and Lipitor. 2. Hypertension. P.r.n. IV hydralazine for blood pressures greater than 190/110. Resume all home m edications. 3. Type 2 diabetes mellitus. Mild sliding scale insulin, Accu-Cheks a.c. and at bedtime, hold glipi zide at this time. 4. Hyperlipidemia. Continue home medications. 5. Anxiety, depression. We will monitor. 6. Deep venous thrombosis prophylaxis. Prophylactic Lovenox. 7. Diet: N.p.o. at midnight. 8. Activity: Ambulate with assist. 9. Code status: FULL CODE. DISPOSITION AND LENGTH OF HOSPITAL STAY: 1-2 days. Symptomatic medications will be provided. History and physical exam as well as management discussed with Dr. Meza.
[2017-08-13 05:17] LABS: #Eosinphils 0.5 thou/uL (0.0-0.7); #Lymphocytes 1.4 thou/uL (1.20-3.40); #Monocytes 0.5 thou/uL (0.11-0.59); #Neutrophils 6.8 thou/uL (1.40-6.50); %Basophils 0.2 % (0.0-1.0); %Lymphocytes 15.7 % (21.0-51.0); %Monocytes 5.7 % (0.0-10.0); %Neutrophils 73.4 % (42.0-75.0); Hemoglobin 12.6 g/dL (12.0-16.0); Mean Corpuscular HGB CONC 33.1 g/dL (32.0-36.0); Mean Corpuscular Hemoglobin 30.4 pg (27.0-31.0); Mean Corpuscular Volume 91.8 fl (81.0-99.0); Platelet Count 184 thou/uL (130-400); RBC Distribution Width 12.1 % (11.5-14.5); Red Blood Cell (RBC) Count 4.13 mill/uL (4.20-5.40); White Blood Cell (WBC) Count 9.2 thou/uL (4.8-10.8)
[2017-08-13 05:37] LABS: Anion Gap 11 mmol/L (10-20); BUN (Urea Nitrogen) 26 mg/dL (9.8-20.1); Calc. Creatinine Clearance 69 mL/min (70-130); Calcium 9.3 mg/dL (7.8-10.44); Carbon Dioxide 23 mmol/L (23-31); Cardiac Risk 2.7 (Less than 4.5); Chloride 106 mmol/L (98-107); Cholesterol 95 mg/dl (< 200 Desired); Estimated GFR-MDRD 58; Glucose 224 mg/dL (83-110); HDL Cholesterol 35 mg/dL (>60 Neg Risk); LDL Cholesterol, Calculated 32 mg/dL; Sodium 136 mmol/L (136-145); Triglycerides 142 mg/dL (Less than 150)
[2017-08-13 05:41] LABS: Hemoglobin A1c 6.9 % (4.0-6.0)
--- NOTE | 2017-08-13 07:18 | PDOC.EVN ---
Event Note - Event Note Event Note: Attending H&P I personally evaluated the patient and discussed the management with Dr. Carrera. I have reviewed the written H&P and it si repeated by me. I agree with the History, Examination, Assessment and Plan documented above with any addition or exceptions noted below.
[2017-08-13] MEDS ORDERED: Lisinopril 10 MG TAB PO SCH (09:00)
[2017-08-13] MEDS ORDERED: Aspirin 325 MG TAB PO SCH (09:00)
[2017-08-13] MEDS ORDERED: Enoxaparin Sodium 40 MG/0.4 ML SYRINGE SC SCH (09:00)
[2017-08-13] MEDS ORDERED: Clopidogrel Bisulfate 75 MG TAB PO SCH (09:00)
--- NOTE | 2017-08-13 09:19 | CON ---
DATE OF SERVICE: 08/13/2017 REASON FOR CONSULTATION: Jaw pain. HISTORY OF PRESENT ILLNESS: Mrs. Renee is a very pleasant 71-year-old lady, well-known to myself, wh o comes to the hospital for jaw pain. She was found to have a tooth infection. She stated that her jaw pain starts there and then the pain goes up and she starts feeling a little bit of chest tightnes s. She was admitted just to make sure this was not an issue with her recently placed stents; these w ere placed back in May. She had a bypass surgery done last year in September, 4-vessel bypass overa ll, mostly failed grafts, and she has to have stenting since. She comes in, and currently, her jaw p ain is better. She is not having any more chest pain. PAST MEDICAL HISTORY: 1. Coronary artery disease. 2. Type 2 diabetes. 3. Hypertension. 4. Hyperlipidemia. 5. Anxiety/depression. PAST SURGICAL HISTORY: 1. CABG x4. 2. Stent placement in the past x4. 3. Bilateral cataract surgery. 4. Cholecystectomy. 5. Hysterectomy. 6. Right knee surgery. ALLERGIES: No known drug allergies. HOME MEDICATIONS: 1. Glipizide 5 mg b.i.d. 2. Carvedilol 12.5 mg b.i.d. 3. Imdur 30 mg a day. 4. Aspirin 325 a day. 5. Plavix 75 mg a day. 6. Lisinopril 10 mg a day. 7. Lipitor 80 mg at bedtime. 8. Pepcid. 9. Nystatin. FAMILY HISTORY: Noncontributory. SOCIAL HISTORY: No alcohol, tobacco, or drugs. REVIEW OF SYSTEMS: A 12-point review of systems was done and is negative unless stated in the histor y of present illness. PHYSICAL EXAMINATION: VITAL SIGNS: Temperature 98.8, pulse 81, respiratory rate 20, sating 92% on room air, blood pressure 117/56. GENERAL: Awake, alert, oriented x3, in no distress. HEENT: Normocephalic, atraumatic. NECK: Supple. LUNGS: Clear. CARDIOVASCULAR: S1 and S2, no S3 or S4, no murmurs, no rubs. ABDOMEN: Soft, positive bowel sounds. EXTREMITIES: No edema. SKIN: Warm and dry. LABORATORY WORK: Reviewed. CBC and chemistries were reviewed. Troponin and CK-MBs were negative x3 . Triglycerides 142, cholesterol total of 95, LDL of 32, HDL of 35. ASSESSMENT AND PLAN: 1. Jaw pain, most likely related to tooth issue: Currently, she is ruled out with negative enzymes. I will not plan on doing any further risk stratification given her normal enzymes and recent stent. She has not stopped her Plavix or aspirin. 2. Hyperlipidemia: LDL is actually really low. We will cut back on her atorvastatin to 40 mg a day . Thank you for letting us to participate in the care of your patient. From the cardiac standpoint, yasir jurado may be discharged home at any point. We will sign off. Please call with any questions. She will follow up with me in 1-2 months.
--- NOTE | 2017-08-13 11:15 | PDOC.FM ---
- Subjective Subjective: Denies chest pressure. Says tooth pain is being controlled with medicine. States that she thinks tooth pain is what caused her chest pain. - Objective MAR Reviewed: Yes Vital Signs & Weight: Vital Signs (12 hours) Temp Pulse Resp BP BP Pulse Ox 08/13/17 09:44 118/57 L 08/13/17 09:43 118/57 L 08/13/17 08:15 98.8 F 81 20 08/13/17 07:37 98.8 F 81 20 117/56 L 92 L 08/13/17 03:28 98.8 F 63 15 118/57 L 93 L 08/13/17 02:33 63 117/58 L 08/13/17 02:25 99 F 72 18 08/13/17 01:49 72 210/90 H 08/13/17 01:42 94 L 08/13/17 00:51 99 F 68 18 188/81 H 95 Weight Weight 80.456 kg I&O: 08/12/17 08/13/17 08/14/17 06:59 06:59 06:59 Intake Total 220 Balance 220 Result Diagrams: 08/13/17 04:42 08/13/17 04:42 Radiology Reviewed by me: Yes <Clive Jonas - Last Filed: 08/13/17 11:13> - Objective Vital Signs & Weight: Vital Signs (12 hours) Temp Pulse Resp BP BP Pulse Ox 08/13/17 10:57 97.8 F 70 20 138/63 92 L 08/13/17 09:44 118/57 L 08/13/17 09:43 118/57 L 08/13/17 08:15 98.8 F 81 20 08/13/17 07:37 98.8 F 81 20 117/56 L 92 L 08/13/17 03:28 98.8 F 63 15 118/57 L 93 L 08/13/17 02:33 63 117/58 L 08/13/17 02:25 99 F 72 18 08/13/17 01:49 72 210/90 H 08/13/17 01:42 94 L 08/13/17 00:51 99 F 68 18 188/81 H 95 Weight Weight 80.456 kg I&O: 08/12/17 08/13/17 08/14/17 06:59 06:59 06:59 Intake Total 220 Balance 220 Result Diagrams: 08/13/17 04:42 08/13/17 04:42 <RosaHakeem Kohler Rohit - Last Filed: 08/13/17 12:12> Phys Exam - Physical Examination Constitutional: NAD HEENT: PERRLA, moist MMs, oral pharynx no lesions Neck: no nodes, supple, full ROM Respiratory: no wheezing, no rales, no rhonchi, clear to auscultation bilateral Cardiovascular: RRR, no significant murmur, no rub Gastrointestinal: soft, non-tender, no distention, positive bowel sounds Musculoskeletal: no edema, pulses present Neurological: non-focal, moves all 4 limbs Psychiatric: normal affect Skin: no rash, normal turgor <Clive Jonas - Last Filed: 08/13/17 11:13> Dx/Plan (1) Tooth infection Code(s): K04.7 - PERIAPICAL ABSCESS WITHOUT SINUS Status: Acute (2) Coronary artery disease Code(s): I25.10 - ATHSCL HEART DISEASE OF [place] CORONARY ARTERY W/O ANG PCTRS Status: Chronic (3) Hyperlipidemia Code(s): E78.5 - HYPERLIPIDEMIA, UNSPECIFIED Status: Chronic (4) Hypertension Code(s): I10 - ESSENTIAL (PRIMARY) HYPERTENSION Status: Chronic QualifierTitle: Hypertension type: essential hypertension Qualified Code( s): I10 - Essential (primary) hypertension (5) Chest pain Code(s): R07.9 - CHEST PAIN, UNSPECIFIED Status: Resolved - Plan Plan: Chest pain -Likely related to tooth pain pt states. -Having no pain today. -Troponins indeterminante and trended down. -EKG shows old changes. No new concern -Cardiology consulted- Dr. Anna- Will follow recs Tooth Infection -Will px augmentin -Tylenol for pain HTN -continue home meds Hx of CAD -continue home meds <Clive Jonas - Last Filed: 08/13/17 11:13> Attending Addendum - Attending Addendum I personally evaluated the patient and discussed the management with Dr. Jonas. I agree with the History, Examination, Assessment and Plan documented above with any addition or exceptions noted below. Patient has been cleared for discharge from cardiology standpoint. This pain seems to be related to tooth infection. Will px Augmentin and recommend outpatient follow up. Troponins and serial EKG negative for ischemia. <Hakeem Rosa - Last Filed: 08/13/17 12:12>
[2017-08-13 12:05] VITALS: BP 138/63; TEMP 97.8
--- NOTE | 2017-08-13 13:46 | DIS-2 ---
DATE OF ADMISSION: 08/12/2017 DATE OF DISCHARGE: 08/13/2017 CONSULTATIONS: Cardiology, Dr. Anna. PROCEDURES: None. X-RAYS: Chest x-ray 08/12/2017 showed, 1. No acute cardiopulmonary process. 2. Mild cardiomegaly. PRIMARY DIAGNOSES: 1. Stable angina. 2. Tooth infection. 3. Hypertension. 4. Type 2 diabetes mellitus. 5. Hyperlipidemia. 6. Anxiety/depression. DISCHARGE MEDICATIONS: 1. Glipizide 5 mg p.o. b.i.d. 2. Carvedilol 12.5 mg p.o. b.i.d. 3. Imdur 30 mg p.o. daily. 4. Aspirin 325 mg p.o. daily. 5. Plavix 75 mg p.o. daily. 6. Lisinopril 10 mg p.o. daily. 7. Lipitor 80 mg p.o. daily. 8. Pepcid 20 mg p.o. b.i.d. 9. Nystatin topical b.i.d. p.r.n. 10. Augmentin 500 mg b.i.d. for 5 days. No discontinued medications. HISTORY OF PRESENT ILLNESS AND BRIEF HOSPITAL COURSE: This is a 71-year-old female with past history of coronary artery disease, status post coronary artery bypass graft in 09/2016, stent placement in 11/2016, stent placement in 03/2017, and stent placement in 05/2017, came in with having substernal p ressure-like chest pain that began today, and was also having tooth pain. Pain was relieved when she came in with nitro, did not be relieved by morphine, said the Tylenol helped the most of the pain. After observing her, we checked troponins on her and they would trend 0.013, 0.021, and 0.019, indete rminate. EKG showed old left bundle branch block and old left atrial enlargement, but did not show a ny new findings. Got serial EKGs, nothing new popped up. Due to her recent heart history of multipl e stents, we consulted her shipping assistant, Dr. Anna, to be sure, but after talking with her, it sound ed like that the chest pain was more from anxiety from the tooth pain, which was being relieved with the Tylenol. Dr. Anna came and saw her and signed off. Did not change anything. Also, just anxie ty that was related to tooth pain. At the time of discharge, told her to follow up with the dentist. I am going to prescribe an antibiotic, as there is a little bit of infection going on in the left mo lar side. DISPOSITION: Stable. DISCHARGE INSTRUCTIONS: 1. Location: Home. 2. Diet: Heart healthy diet. 3. Activity: As tolerated. 4. Followup. Will need to follow up with a dentist as soon as possible.
[2017-08-13] MEDS ORDERED: Atorvastatin Calcium 40 MG TAB PO SCH ×2 (21:00)
--- NOTE | 2017-08-24 18:02 | EKG ---
Test Reason : CHEST PAIN Blood Pressure : / mmHG Vent. Rate : 073 BPM Atrial Rate : 073 BPM P-R Int : 174 ms QRS Dur : 168 ms QT Int : 444 ms P-R-T Axes : 054 039 127 degrees QTc Int : 489 ms Normal sinus rhythm Possible Left atrial enlargement Left bundle branch block Abnormal ECG Confirmed by LEONIE MONSALVE, ELDON ([id number]), editor house organ TRISTEN BERNARD ([id number]) on 08/24/2017 6:02:07 PM Referred By: TRIAGE Confirmed By:ELDON HADLEY MD
--- NOTE | 2017-08-24 18:03 | EKG ---
Test Reason : Blood Pressure : / mmHG Vent. Rate : 068 BPM Atrial Rate : 068 BPM P-R Int : 172 ms QRS Dur : 168 ms QT Int : 462 ms P-R-T Axes : 050 024 152 degrees QTc Int : 491 ms Normal sinus rhythm Possible Left atrial enlargement Left bundle branch block Abnormal ECG Confirmed by LEONIE MONSALVE, ELDON ([id number]), marketing editor TRISTEN BERNARD ([id number]) on 08/24/2017 6:02:08 PM Referred By: Confirmed By:ELDON HADLEY MD
--- NOTE | 2017-10-19 13:43 | EKG ---
Test Reason : Blood Pressure : / mmHG Vent. Rate : 072 BPM Atrial Rate : 072 BPM P-R Int : 172 ms QRS Dur : 168 ms QT Int : 470 ms P-R-T Axes : 042 -36 109 degrees QTc Int : 514 ms Normal sinus rhythm Possible Left atrial enlargement Left axis deviation Left bundle branch block Abnormal ECG Confirmed by ANTONIO PUENTE MD ([id number]) on 10/19/2017 1:42:48 PM Referred By: Confirmed By:ANTONIO PUENTE MD
== END 2017-08-13 13:13 | disposition home or self-care (01) ==
LOC: ERS 19:28 → 2SW 08-13 00:28
PROVIDERS: ADMIT Family Medicine; ATTEND Family Medicine
DX: K04.7 Periapical abscess without sinus (principal); I25.119 Atherosclerotic heart disease of native coronary artery with unspecified angina pectoris; I10 Essential (primary) hypertension; E11.9 Type 2 diabetes mellitus without complications; E78.5 Hyperlipidemia, unspecified; F41.8 Other specified anxiety disorders; I51.7 Cardiomegaly; Z79.84 Long term (current) use of oral hypoglycemic drugs; Z79.82 Long term (current) use of aspirin; Z79.899 Other long term (current) drug therapy; Z95.1 Presence of aortocoronary bypass graft; Z95.5 Presence of coronary angioplasty implant and graft; Z98.42 Cataract extraction status, left eye; Z98.41 Cataract extraction status, right eye; Z90.49 Acquired absence of other specified parts of digestive tract; Z90.710 Acquired absence of both cervix and uterus; Z98.890 Other specified postprocedural states
CPT/HCPCS: 36415; 36416; 71046; 80048; 80053; 80061; 82550; 82553; 83036; 84484; 85025; 93005; 93010; 94760; 96374; 96375; 96376; G0378; J0360; J1650; J2270; J2405

== ENCOUNTER 2017-09-10 18:45 | Emergency (ER) | payer MEDICARE, SELFPAY ==
--- NOTE | 2017-09-10 19:32 | ULT ---
LEFT LOWER EXTREMITY VENOUS DUPLEX EXAM: 09/10/17 Deep veins of the left lower extremity are evaluated with color doppler with spectral analysis and co mpression. HISTORY: Left lower extremity pain and edema. Deep veins of the left lower extremity show normal blood flow and compression. No evidence of DVT. IMPRESSION: No evidence of left lower extremity DVT. POS: [facility]
[2017-09-10 21:12] LABS: #Basophils 0.1 thou/uL (0.0-0.2); #Eosinphils 0.9 thou/uL (0.0-0.7); #Lymphocytes 2.3 thou/uL (1.20-3.40); #Monocytes 0.5 thou/uL (0.11-0.59); %Basophils 1.1 % (0.0-1.0); %Eosinophils 13.3 % (0.0-10.0); %Lymphocytes 33.8 % (21.0-51.0); %Monocytes 7.3 % (0.0-10.0); %Neutrophils 44.4 % (42.0-75.0); Hemoglobin 12.5 g/dL (12.0-16.0); Mean Corpuscular HGB CONC 33.7 g/dL (32.0-36.0); Mean Corpuscular Hemoglobin 30.4 pg (27.0-31.0); Mean Corpuscular Volume 90.2 fl (81.0-99.0); Mean Platelet Volume 7.2 fL (7.4-10.4); Platelet Count 170 thou/uL (130-400); RBC Distribution Width 12.2 % (11.5-14.5); White Blood Cell (WBC) Count 6.9 thou/uL (4.8-10.8)
[2017-09-10 21:19] LABS: INR-International Normal Ratio 1.1; PTT 29.1 SEC (22.9-36.1); Prothrombin Time 14.7 SEC (12.0-14.7)
[2017-09-10 21:36] LABS: ALT (SGPT) 10 U/L (8-55); AST (SGOT) 15 U/L (5-34); Albumin 3.6 g/dL (3.4-4.8); Alkaline Phosphatase 61 U/L (40-150); Anion Gap 11 mmol/L (10-20); BUN (Urea Nitrogen) 25 mg/dL (9.8-20.1); Bilirubin, Total 0.9 mg/dL (0.2-1.2); CRP (Inflammatory) Less than 0.50 mg/dL (= or < 0.5); Calc. Creatinine Clearance 0 mL/min (70-130); Calcium 9.4 mg/dL (7.8-10.44); Carbon Dioxide 26 mmol/L (23-31); Chloride 106 mmol/L (98-107); Estimated GFR-MDRD 60; Glucose 119 mg/dL (83-110); Protein, Total 6.6 g/dL (6.0-8.3); Sodium 139 mmol/L (136-145)
== END 2017-09-10 21:49 | disposition home or self-care (01) ==
LOC: ERS 18:45
DX: R60.0 Localized edema (principal); I25.2 Old myocardial infarction; E11.9 Type 2 diabetes mellitus without complications; I10 Essential (primary) hypertension; F41.9 Anxiety disorder, unspecified; F32.9 Major depressive disorder, single episode, unspecified
CPT/HCPCS: 36415; 80053; 85025; 85610; 85652; 85730; 86140

== ENCOUNTER 2018-02-20 18:20 | Observation (INO) | payer MEDICARE ==
[2018-02-20 18:49] LABS: #Eosinphils 0.9 thou/uL (0.0-0.7); #Lymphocytes 2.7 thou/uL (1.20-3.40); #Monocytes 0.4 thou/uL (0.11-0.59); #Neutrophils 2.8 thou/uL (1.40-6.50); %Basophils 0.7 % (0.0-1.0); %Eosinophils 13.1 % (0.0-10.0); %Lymphocytes 39.4 % (21.0-51.0); %Monocytes 6.2 % (0.0-10.0); %Neutrophils 40.6 % (42.0-75.0); Hemoglobin 13.3 g/dL (12.0-16.0); Mean Corpuscular HGB CONC 34.9 g/dL (32.0-36.0); Mean Corpuscular Hemoglobin 31.5 pg (27.0-31.0); Mean Corpuscular Volume 90.1 fL (78.0-98.0); Mean Platelet Volume 7.4 fL (7.4-10.4); Platelet Count 175 thou/uL (130-400); RBC Distribution Width 11.9 % (11.5-14.5); Red Blood Cell (RBC) Count 4.23 mill/uL (4.20-5.40); White Blood Cell (WBC) Count 6.8 thou/uL (4.8-10.8)
[2018-02-20 19:08] LABS: ALT (SGPT) 14 U/L (8-55); AST (SGOT) 19 U/L (5-34); Albumin 3.7 g/dL (3.4-4.8); Alkaline Phosphatase 73 U/L (40-150); Anion Gap 11 mmol/L (10-20); BUN (Urea Nitrogen) 18 mg/dL (9.8-20.1); Bilirubin, Total 1.1 mg/dL (0.2-1.2); CK (CPK) 105 U/L (29-168); Calc. Creatinine Clearance 0 mL/min (70-130); Calcium 9.6 mg/dL (7.8-10.44); Carbon Dioxide 25 mmol/L (23-31); Chloride 106 mmol/L (98-107); Estimated GFR-MDRD 64; Globulin 3.4 g/dL (2.4-3.5); Glucose 186 mg/dL (83-110); Lipase 20 U/L (8-78); Potassium 4.1 mmol/L (3.5-5.1); Protein, Total 7.1 g/dL (6.0-8.3); Sodium 138 mmol/L (136-145)
[2018-02-20 19:10] LABS: CKMB 3.2 ng/mL (0-6.6); Troponin I Less than 0.010 ng/mL (< 0.028)
[2018-02-20] MEDS ORDERED: Mag-Al 1200 mg/1200 mg/30 ML UDCUP ONE (19:18)
[2018-02-20] MEDS ORDERED: Nitroglycerin 0.4 MG TAB (25 Tab Bottle) ONE (19:18)
[2018-02-20] MEDS ORDERED: Lidocaine Viscous Sol 2% 15 ml UD Cup ONE (19:18)
--- NOTE | 2018-02-20 20:18 | RAD ---
CHEST ONE VIEW 02/20/18 HISTORY: Chest pain. COMPARISON: Chest radiograph 2017. FINDINGS: Scarring in the lingula. The interstitial markings in the lung bases are improved, likely chronic. Th ere is cardiomegaly. No pneumothorax. Dense calcifications in the transverse aorta. Moderate degenerative changes of both shoulders. IMPRESSION: Chronic changes. No acute intrathoracic abnormality. POS: [facility]
[2018-02-20] MEDS ORDERED: Acetaminophen 325 MG TAB PO PRN (20:25)
--- NOTE | 2018-02-20 20:38 | PDOC.FPRHP ---
- History of Present Illness Chief Complaint: Chest pain History of Present Illness: Ms. Renee presents to the ED with chest pain/pressure and generalized weakness starting at 1800 while preparing dinner. She arrived to the ED, received tylenol and good results about her EKG and felt better. She currently denies any weakness or chest pain. She denies any shortness of breath, palpitations, numbness, tingling, nausea or vomiting, GUEVARA, chest pain with exertion. ED Course: Nitroglycerin/tylenol, EKG, Trop/ckmb, ddimer, CBC, CMP, BNP, CXR - Allergies/Adverse Reactions Allergies Allergy/AdvReac Type Severity Reaction Status Date / Time No Known Allergies Allergy Verified 02/20/18 21:17 - Home Medications Medication Instructions Recorded Confirmed Type Atorvastatin Calcium [Lipitor] 80 mg PO HS #30 tablet 06/04/17 02/20/18 Rx Carvedilol 12.5 mg PO BID #60 tablet 06/04/17 02/20/18 Rx Isosorbide Mononitrate [Imdur ER] 30 mg PO DAILY #30 tab 06/04/17 02/20/18 Rx Lisinopril [Zestril] 10 mg PO DAILY #30 tab 06/04/17 02/20/18 Rx Acetaminophen [Tylenol Regular 650 mg PO Q4H PRN tab 08/13/17 02/20/18 Rx Strength] Aspirin [Ecotrin Regular Strength] 325 mg PO HS 08/13/17 02/20/18 History Clopidogrel Bisulfate [Plavix] 75 mg PO QAM tab 08/13/17 02/20/18 Rx - History PMHx:CAD, DMII, HTN, HLD, anxiety PSHx: CABG/stentx2 (2017), cholecystectomy, hysterectomy FHx:non-contributory Social: none - Review of Systems General: denies: fever/chills, weight/appetite/sleep changes, fatigue Eyes: denies: vision changes ENT: reports: rhinorrhea. denies: nasal congestion Respiratory: denies: cough, congestion, shortness of breath Cardiovascular: denies: chest pain, palpitation, edema, orthopnea Gastrointestinal: denies: nausea, vomiting, diarrhea, constipation, abdominal pain Genitourinary: denies: incontinence, dysuria Skin: denies: rashes, lesions Musculoskeletal: reports: swelling (L leg). denies: pain, tenderness Neurological: denies: numbness, syncope Psychological: reports: anxiety - Vital signs BP: [174/79] HR: [52] RR: [16] Tmax: [98.8] Pox: [99]% on [RA] Wt: [81kg] - Physical Exam Constitutional: NAD HEENT: normocephalic and atraumatic, grossly normal vision, grossly normal hearing Neck: supple, trachea midline, no bruits Chest: no-tender to palpation, no lesions Heart: RRR, normal S1/S2, no murmurs/rubs/gallops, pulses present, other (LLE edema) Lungs: CTAB, no respiratory distress Abdomen: soft, non-tender Musculoskeletal: normal structure, normal tone Neurological: no focal deficit, CN II-XII intact Skin: no rash/lesions, good turgor Heme/Lymphatic: no unusual bruising or bleeding, no purpura Psychiatric: normal mood and affect FMR H&P: Results - Labs Result Diagrams: 02/20/18 18:33 02/20/18 18:33 Lab results: WBC 6.8 thou/uL (4.8-10.8) 02/20/18 18:33 Hgb 13.3 g/dL (12.0-16.0) 02/20/18 18:33 Hct 38.1 % (36.0-47.0) 02/20/18 18:33 MCV 90.1 fL (78.0-98.0) 02/20/18 18:33 Plt Count 175 thou/uL (130-400) 02/20/18 18:33 Neutrophils % 40.6 % (42.0-75.0) L 02/20/18 18:33 Sodium 138 mmol/L (136-145) 02/20/18 18:33 Potassium 4.1 mmol/L (3.5-5.1) 02/20/18 18:33 Chloride 106 mmol/L (98-107) 02/20/18 18:33 Carbon Dioxide 25 mmol/L (23-31) 02/20/18 18:33 BUN 18 mg/dL (9.8-20.1) 02/20/18 18:33 Creatinine 0.87 mg/dL (0.6-1.1) 08/23/18 18:33 Glucose 186 mg/dL (83-110) H 02/20/18 18:33 Calcium 9.6 mg/dL (7.8-10.44) 02/20/18 18:33 Total Bilirubin 1.1 mg/dL (0.2-1.2) 02/20/18 18:33 AST 19 U/L (5-34) 02/20/18 18:33 ALT 14 U/L (8-55) 02/20/18 18:33 Alkaline Phosphatase 73 U/L (40-150) 02/20/18 18:33 Creatine Kinase 105 U/L (29-168) 02/20/18 18:33 CK-MB (CK-2) 3.2 ng/mL (0-6.6) 02/20/18 18:33 B-Natriuretic Peptide 444.5 pg/mL (0-100) H 02/20/18 18:33 Serum Total Protein 7.1 g/dL (6.0-8.3) 02/20/18 18:33 Albumin 3.7 g/dL (3.4-4.8) 02/20/18 18:33 Lipase 20 U/L (8-78) 02/20/18 18:33 FMR H&P: A/P - Problem List (1) Hypertension Current Visit: No Status: Chronic Code(s): I10 - ESSENTIAL (PRIMARY) HYPERTENSION Qualifiers: Hypertension type: essential hypertension Qualified Code(s): I10 - Essential (primary) hypertension (2) Diabetes type 2, controlled Current Visit: No Status: Chronic Code(s): E11.9 - TYPE 2 DIABETES MELLITUS WITHOUT COMPLICATIONS Qualifiers: Diabetes mellitus 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 Typical chest pain - hx of stents/CABG - trend troponin x3, EKG for chest pain - obtain echco results from Dr. Anna's office - consider consulting Dr. Anna in AM - admit for observation on telemetry 2. HTN - pressures elevated in ER - continue to monitor - consider restarting lisinopril BID 3. HLD - continue home medications 4. Anxiety - possible cause of CP - encourage establishing with a PCP FMR H&P: Upper Level - Pertinent history 72 yo female presents to the ER with chest pressure starting today. PMH of CABG x4 (2017), stents x 4 (most recently 05/2017), DMII, HTN, HLD, anxiety/ depression. She reports substernal chest pressure with generalized weakness started earlier this evening when getting ready for dinner. No radiation, N/V, SOB. CP stopped when she got to the ED and learned that her EKG looked stable. Most recently seen at [facility] for similar episode in 08/2017 when she had tooth infection and chest pressure. Patient sees Dr. Anna, most recently 2 days ago. They have been working up her left leg swelling and the plan is to put in a left leg stent. - Pertinent findings GEN: NAD CARD: RRR, no m/g/r PULM: CTAB ABD: BSx4, NT/ND EXT: left LE 1+ pitting edema EKG: LBBB, which is chronic BP: 194/95 HR: 79 Temp: 98.6 S02: 99% on RA RR: 20 Troponin: <0.010 CKMB: 3.2 BNP: 445 - Plan Date/Time: 02/20/182031 I, Lai Pulliam DO, have evaluated this patient and agree with findings/plan as outlined by international relations teacher resident. Pertinent changes/additions are listed here. -typical chest pressure History of CABG and stents within the last year, most recent cath 05/2018 Trops neg x 1; EKG stable Continue to trend CE Will contact Dr. Donnelly office for records such as the most recent ECHO -elevated BNP Stable from last year Does have edema, but unilateral, and is being evaluated by Dr. Anna Will contact Dr. Donnelly office to determine if ECHO is needed Hypertension Improved, but still elevated Will continue home meds and continue to trend DMII On oral medications, will continue at this time HLD Continue home meds Anxiety/Depression Suspect this is a contributing factor to her CP as it improved upon hearing about normal EKG Attending Addendum - Attending Addendum Date/Time: 02/20/182229 I personally evaluated the patient and discussed the management with Dr. Ryan I agree with the History, Examination, Assessment and Plan documented above with any addition or exceptions noted below- 72 yo female with h/o CAD s/p CABG 09/2016, stent placement in 12/15 and 06/16, Type 2 DM, HTN, HLD presented c/o chest discomfort, substernal that occurred while she was preparing dinner. It was associated with a wave of weakness. Denies any SOB, N/V, diaphoresis. Has never had similar symptoms. PMH/PSH/Meds/All/SH reviewed and agree with resident 's documentation. Afebrile VSS Exam repeated by me and agree with resident's findings. Labs: troponin I=0.010 ->0.014, Xl=766, K=4.1, Li=693, BUN/Cr= 18/0.87 , Ynil=528, H/H=13.3/38.1, Nqi=438, EKG- NSR, LBBB, no acute ST changes (No changes from prior EKGs). A/P: 1) Chest pain- will trend cardiac enzymes; patient with significant cardiac history, may discuss with cardiology. 2) Bradycardia- no prior history. May be etiology of patient's symptoms; continue to monitor. 3) DM- continue home medications and monitor BG.
[2018-02-20 21:15] VITALS: BMI 31.2
[2018-02-20] MEDS ORDERED: HYDROcodone/Acetaminophen 5/325 mg Tablet PO PRN ×2 (21:17)
[2018-02-20 22:28] LABS: Troponin I 0.014 ng/mL (< 0.028)
[2018-02-21 01:34] LABS: Troponin I 0.029 ng/mL (< 0.028)
[2018-02-21 04:36] LABS: Troponin I 0.041 ng/mL (< 0.028)
--- NOTE | 2018-02-21 05:59 | PDOC.FM ---
- Subjective Subjective: Patient had elevated blood pressures early this morning. Most recent BP 224/88. Patient is asymptomatic. She has no complaints or concerns this morning. States pain has been resolved since last night around 1900. She denies SOB, chest pain , abdominal pain, NVD or fever. - Objective MAR Reviewed: Yes Vital Signs & Weight: Vital Signs (12 hours) Temp Pulse Resp BP Pulse Ox 02/21/18 03:59 98.1 F 64 16 202/84 H 94 L 02/21/18 00:21 98.0 F 58 L 16 157/73 H 95 02/20/18 21:20 98.4 F 56 L 18 02/20/18 20:59 98.4 F 56 L 18 174/81 H 96 02/20/18 20:57 97 Weight Weight 81.873 kg Result Diagrams: 02/21/18 03:53 02/21/18 03:53 <Odilia Mercado - Last Filed: 02/21/18 10:49> - Objective Vital Signs & Weight: Vital Signs (12 hours) Temp Pulse Resp BP BP Pulse Ox 02/21/18 11:07 60 151/67 H 95 02/21/18 10:32 62 174/72 H 02/21/18 10:04 54 L 181/75 H 02/21/18 09:53 53 L 16 188/81 H 02/21/18 09:52 64 188/81 H 02/21/18 09:50 53 L 16 188/81 H 02/21/18 09:00 192/76 H 02/21/18 08:00 98.1 F 64 16 02/21/18 07:57 224/88 H 02/21/18 07:56 224/88 H 02/21/18 03:59 98.1 F 64 16 202/84 H 94 L 02/21/18 00:21 98.0 F 58 L 16 157/73 H 95 Weight Weight 81.873 kg I&O: 02/20/18 02/21/18 02/22/18 06:59 06:59 06:59 Intake Total 0 Output Total 0 Balance 0 Result Diagrams: 02/21/18 03:53 02/21/18 03:53 <Hakeem Rosa - Last Filed: 02/21/18 11:28> Phys Exam - Physical Examination Constitutional: NAD resting HEENT: PERRLA, moist MMs, sclera anicteric Neck: supple, full ROM Respiratory: clear to auscultation bilateral Cardiovascular: RRR, no significant murmur, no rub No TTP Gastrointestinal: soft, non-tender, no distention, positive bowel sounds Musculoskeletal: pulses present, edema present +1 trace edema in LLE Neurological: non-focal, moves all 4 limbs Psychiatric: normal affect, A&O x 3 Skin: no rash <Odilia Mercado - Last Filed: 02/21/18 10:49> Dx/Plan (1) Chest pain Code(s): R07.9 - CHEST PAIN, UNSPECIFIED Status: Resolved (2) Hypertensive urgency Code(s): I16.0 - HYPERTENSIVE URGENCY Status: Acute (3) Diabetes type 2, controlled Code(s): E11.9 - TYPE 2 DIABETES MELLITUS WITHOUT COMPLICATIONS Status: Chronic Qualifiers: Diabetes mellitus fpc insulin use: without fpc use Diabetes mellitus complication status: with circulatory complication Diabetes mellitus complication detail: with other circulatory complications Qualified Code(s): E11.59 - Type 2 diabetes mellitus with other circulatory complications (4) Hyperlipidemia Code(s): E78.5 - HYPERLIPIDEMIA, UNSPECIFIED Status: Chronic (5) Anxiety and depression Code(s): F41.9 - ANXIETY DISORDER, UNSPECIFIED; F32.9 - MAJOR DEPRESSIVE DISORDER, SINGLE EPISODE, UNSPECIFIED Status: Chronic (6) Hypertension Code(s): I10 - ESSENTIAL (PRIMARY) HYPERTENSION Status: Chronic Qualifiers: Hypertension type: essential hypertension Qualified Code(s): I10 - Essential (primary) hypertension - Plan Plan: This is a 72 yo F here for chest pain r/o. She has PMH of [place] requiring CABG and stent placement in 2017. Typical chest pain - Hx of stents/CABG in 2017 - Trop neg X 2, javier to 0.04 -> .03. EKG showed no acute ischemia. Patient being monitored on tele - no events. - BNP elevated - stable from last year - Obtain echo results from Dr. Anna's office; Discussed case with Dr. Anna - he states she is good to discharge since troponins trended down and no current chest pain. She will follow up with him in clinic. - Will hold off on stress test for now as patient has recent CABG/stents within the last year Hypertensive Urgency - BP as high as 224/88. Pt takes BP at home and usually is SBP 150s. Resumed home medications this morning. Will monitor vitals q4hrs. - If BPs get under controlled will be good to discharge with follow up with cards and PCP HTN - Pressures elevated in ER. Patient usually take BP at home and runs SBP 150s. Most recent 224/88. Patient had not received nighttime meds or morning meds when this BP was taken. - PRN Hydralzine - Continue to monitor - Will restart home meds of lisniopril. Will hold carvedilol today for possible stress. HLD - Continue home medications DMII - Will continue home meds Anxiety - Possible cause of CP - Encourage establishing with a PCP - patient states she would like to follow up with [facility] DISPO: Discharge later today if BP normalizes CODE: FULL Case discussed with Dr. Rosa <Odilia Mercado - Last Filed: 02/21/18 10:49> Attending Addendum - Attending Addendum Date/Time: 02/21/18 1127 I personally evaluated the patient and discussed the management with Dr. Mercado. I agree with the History, Examination, Assessment and Plan documented above with any addition or exceptions noted below. Patient feeling well this morning. She was admitted for chest pain and likely HTN urgency that is now improved. Her alemite operator has recommended against stress testing. Will work to get improved blood pressure control today and likely discharge home later today if able to accomplish that. <Hakeem Rosa - Last Filed: 02/21/18 11:28>
[2018-02-21] MEDS ORDERED: Acetaminophen 325 MG TAB PO PRN (06:03)
[2018-02-21 06:05] LABS: #Eosinphils 0.9 thou/uL (0.0-0.7); #Lymphocytes 2.5 thou/uL (1.20-3.40); #Monocytes 0.4 thou/uL (0.11-0.59); #Neutrophils 2.4 thou/uL (1.40-6.50); %Basophils 0.7 % (0.0-1.0); %Lymphocytes 39.9 % (21.0-51.0); %Neutrophils 38.4 % (42.0-75.0); Hemoglobin 12.1 g/dL (12.0-16.0); Mean Corpuscular HGB CONC 34.8 g/dL (32.0-36.0); Mean Corpuscular Hemoglobin 31.6 pg (27.0-31.0); Mean Corpuscular Volume 90.7 fL (78.0-98.0); Mean Platelet Volume 7.8 fL (7.4-10.4); Platelet Count 152 thou/uL (130-400); RBC Distribution Width 11.8 % (11.5-14.5); Red Blood Cell (RBC) Count 3.83 mill/uL (4.20-5.40); White Blood Cell (WBC) Count 6.1 thou/uL (4.8-10.8)
[2018-02-21 06:20] LABS: Anion Gap 10 mmol/L (10-20); BUN (Urea Nitrogen) 17 mg/dL (9.8-20.1); Calc. Creatinine Clearance 77 mL/min (70-130); Calcium 9.1 mg/dL (7.8-10.44); Carbon Dioxide 25 mmol/L (23-31); Chloride 108 mmol/L (98-107); Estimated GFR-MDRD 66; Glucose 163 mg/dL (83-110); Potassium 3.9 mmol/L (3.5-5.1); Sodium 139 mmol/L (136-145)
[2018-02-21 07:48] LABS: Troponin I 0.031 ng/mL (< 0.028)
[2018-02-21] MEDS ORDERED: Lisinopril 10 MG TAB PO SCH (09:00)
[2018-02-21] MEDS ORDERED: Clopidogrel Bisulfate 75 MG TAB PO SCH (09:00)
[2018-02-21] MEDS ORDERED: Carvedilol 6.25 MG TAB PO SCH (09:00)
[2018-02-21] MEDS ORDERED: Aspirin 325 mg Enteric Coated Tablet PO SCH ×2 (09:00→21:00)
[2018-02-21] MEDS: hydrALAZINE 20 MG/ML VIAL SLOW IVP PRN ×2 (09:52→15:25)
[2018-02-21 16:09] VITALS: BP 143/65; TEMP 97.7
[2018-02-21] MEDS ORDERED: Atorvastatin Calcium 40 MG TAB PO SCH (21:00)
[2018-02-21] MEDS ORDERED: Non-Formulary Item 1 EACH (Atorvastatin Calcium [Lipitor] 80 MG) PO SCH (21:00)
--- NOTE | 2018-02-22 05:10 | DIS-2 ---
DATE OF ADMISSION: 02/20/2018 DATE OF DISCHARGE: 02/21/2018 RESIDENT: Odilia Mercado MD ADMITTING ATTENDING: Sendy Friedman M.D. DISCHARGE ATTENDING: Hakeem Rosa MD CONSULTATIONS: None. PROCEDURES: Chest x-ray showed no acute cardiopulmonary abnormalities. PRIMARY DIAGNOSIS: Atypical chest pain. SECONDARY DIAGNOSES: Hypertension, diabetes type 2, anxiety and depression, hypertensive urgency, resolved. DISCHARGE MEDICATIONS: 1. Lisinopril (Zestril) 10 mg oral daily. 2. Atorvastatin calcium (Lipitor) 80 mg oral at bedtime. 3. Carvedilol 12.5 mg oral twice daily. 4. Isosorbide mononitrate (Imdur) 30 mg oral daily. 5. Clopidogrel bisulfate (Plavix) 75 mg oral every morning. 6. Aspirin (Ecotrin) regular-strength 325 mg oral at bedtime. DISCONTINUED MEDICATIONS: None. HISTORY OF PRESENT ILLNESS/HOSPITAL COURSE: This is a 72-year-old female who presented to the ED with a chief complaint of chest pain. She has a significant past medical history of CABG and two stent placements in 2017. Her troponins were negative x2, javier to 0.04, and then trended back down to 0.03. EKG was normal showing no signs of acute ischemia. BNP was elevated, but stable from previous hospital stay. The patient's chest pain resolved after about 30 minutes from the onset. She did endorse some anxiety, which could be contributing to her chest pain. The morning of the , the patient went into hypertensive urgency with blood pressure readings as high as 224/88. The patient was asymptomatic during this time. She had not received her home medications for her blood pressure the night of the or the morning of the yet. After her home medications and a dose of hydralazine, the patient's blood pressure lowered to a systolic blood pressure in the 150s. The patient takes her blood pressure at home and she endorsed it is usually in the 150s systolic. She is a patient of Dr. Anna's. We jaiide consulted Dr. Anna to inform him of her hospitalization and he confirmed that she could be discharged with close follow up with in his office as well as with her PCP. She will be getting a stent placed in her left leg with him in a couple of weeks. DISPOSITION: Stable. DISCHARGE INSTRUCTIONS: 1. Location: Home. 2. Diet: Heart healthy. 3. Activities: Ad denzel. 4. Followup: Follow up with PCP in [address] Anna within 2 weeks. CHIDI
--- NOTE | 2018-02-22 10:56 | EKG ---
Test Reason : CHEST PAIN Blood Pressure : / mmHG Vent. Rate : 079 BPM Atrial Rate : 079 BPM P-R Int : 190 ms QRS Dur : 170 ms QT Int : 440 ms P-R-T Axes : 051 023 138 degrees QTc Int : 504 ms Normal sinus rhythm Left bundle branch block , old Abnormal ECG Confirmed by JACEK MONSALVE, SHERLYN ([id number]), international editorial producer TRISTEN BERNARD ([id number]) on 02/22/2018 10:56:33 AM Referred By: Confirmed By:SHERLYN READ MD
== END 2018-02-21 16:52 | disposition home or self-care (01) ==
LOC: ERS 18:20 → 2SW 19:32
PROVIDERS: ADMIT Family Medicine; ATTEND Family Medicine
DX: R07.89 Other chest pain (principal); I10 Essential (primary) hypertension; I16.0 Hypertensive urgency; I25.10 Atherosclerotic heart disease of native coronary artery without angina pectoris; E11.9 Type 2 diabetes mellitus without complications; E78.5 Hyperlipidemia, unspecified; F41.8 Other specified anxiety disorders; Z79.02 Long term (current) use of antithrombotics/antiplatelets; Z79.82 Long term (current) use of aspirin; Z79.899 Other long term (current) drug therapy; Z95.5 Presence of coronary angioplasty implant and graft
CPT/HCPCS: 71045; 80048; 80053; 82550; 82553; 82962; 83690; 83880; 84484 ×4; 85025 ×2; 85379; 93005; 94760 ×2; 96374; 96376; 99285; G0378 ×2; 36415; 36416; J0360

== ENCOUNTER 2018-07-31 14:28 | Inpatient (IN) | payer MEDICARE ==
[2018-07-31] MEDS ORDERED: Nitroglycerin 2% Ointment 1 INCH/1 GM Packet ONE (15:19)
[2018-07-31] MEDS ORDERED: Aspirin 325 MG TAB ONE (15:19)
--- NOTE | 2018-07-31 15:45 | RAD ---
CHEST ONE VIEW: History: Chest pain. Comparison: 02-20-18 FINDINGS: Heart size is enlarged. There are post op sternotomy changes. There are atherosclerotic changes of th e aorta. Lungs show some chronic appearing change. No acute process seen. IMPRESSION: Cardiomegaly, stable exam. POS: TPC
[2018-07-31 15:51] LABS: #Basophils 0.1 thou/uL (0.0-0.2); #Eosinphils 0.8 thou/uL (0.0-0.7); #Lymphocytes 1.5 thou/uL (1.20-3.40); #Monocytes 0.4 thou/uL (0.11-0.59); #Neutrophils 2.8 thou/uL (1.40-6.50); %Eosinophils 13.5 % (0.0-10.0); %Lymphocytes 27.7 % (21.0-51.0); %Monocytes 6.7 % (0.0-10.0); %Neutrophils 51.1 % (42.0-75.0); Hemoglobin 13.4 g/dL (12.0-16.0); Mean Corpuscular HGB CONC 32.4 g/dL (32.0-36.0); Mean Corpuscular Hemoglobin 29.4 pg (27.0-31.0); Mean Corpuscular Volume 90.9 fL (78.0-98.0); Mean Platelet Volume 8.4 fL (7.4-10.4); Platelet Count 160 thou/uL (130-400); RBC Distribution Width 11.8 % (11.5-14.5); Red Blood Cell (RBC) Count 4.57 mill/uL (4.20-5.40); White Blood Cell (WBC) Count 5.6 thou/uL (4.8-10.8)
[2018-07-31 16:07] LABS: ALT (SGPT) 22 U/L (8-55); AST (SGOT) 28 U/L (5-34); Albumin 3.7 g/dL (3.4-4.8); Alkaline Phosphatase 79 U/L (40-150); Anion Gap 15 mmol/L (10-20); BUN (Urea Nitrogen) 21 mg/dL (9.8-20.1); Bilirubin, Total 0.9 mg/dL (0.2-1.2); CK (CPK) 89 U/L (29-168); Calc. Creatinine Clearance 0 mL/min (70-130); Calcium 9.2 mg/dL (7.8-10.44); Carbon Dioxide 23 mmol/L (23-31); Chloride 106 mmol/L (98-107); Estimated GFR-MDRD 58; Globulin 3.6 g/dL (2.4-3.5); Glucose 374 mg/dL (83-110); Potassium 4.5 mmol/L (3.5-5.1); Protein, Total 7.3 g/dL (6.0-8.3); Sodium 139 mmol/L (136-145)
--- NOTE | 2018-07-31 17:01 | PDOC.FPRHP ---
- History of Present Illness Chief Complaint: chest pain History of Present Illness: The patient is a 72YO female with a PMH significant for CAD s/p CABG x2, HTN, HLD, and uncontrolled DMII who presented to the ED with a chief complaint of left-sided chest pain that began at ~14:00 today. The patient reports that she was chasing her dog to take him to the groomer and had sudden onset left-sided chest pressure with an associated "serious ache." She denied any associated SOB, diaphoresis, nausea, or vomiting but did endorse some anxiety. She reports some mild improvement once she sat down in her car and did some deep breathing and was able to drive her dog to the groomer. However, once she arrived at the grooming facility she said she just "didn't feel right" so she called her son to come pick her up and take her to the ED. The patient stated that the pressure was continuous and lasted about 40-45 minutes and said the "serious ache" was intermittent over the 40 minute time frame. She stated that she was unsure if it felt like her first MN because she had no pain with her first one, just pressure. ED Course: 325mg ASA & 1 inch nitropatch - Allergies/Adverse Reactions Allergies Allergy/AdvReac Type Severity Reaction Status Date / Time No Known Allergies Allergy Verified 02/20/18 21:17 - Home Medications Medication Instructions Recorded Confirmed Type Atorvastatin Calcium [Lipitor] 80 mg PO HS #30 tablet 06/04/17 07/31/18 Rx Carvedilol 12.5 mg PO BID #60 tablet 06/04/17 07/31/18 Rx Isosorbide Mononitrate [Imdur ER] 30 mg PO DAILY #30 tab 06/04/17 07/31/18 Rx Lisinopril [Zestril] 10 mg PO DAILY #30 tab 06/04/17 07/31/18 Rx Aspirin [Ecotrin Regular Strength] 325 mg PO HS 08/13/17 07/31/18 History Clopidogrel Bisulfate [Plavix] 75 mg PO QAM tab 08/13/17 07/31/18 Rx - History PMHx: MN x 3, CAD, PVD, DMII, HTN, HLD, anxiety PSHx: CABG x2, cholecystectomy, hysterectomy, cataracts, right knee surgery FHx: PVD- father and aunts and uncles, CAD- father Social: No EtOH, tobacco, or drug use. Lives in with her daughter. 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 - Review of Systems General: denies: fever/chills, weight/appetite/sleep changes, fatigue Eyes: denies: eye pain, vision changes ENT: reports: nasal congestion, rhinorrhea Respiratory: denies: cough, shortness of breath Cardiovascular: reports: chest pain. denies: edema, paroxysmal nocturnal dyspnea, orthopnea Gastrointestinal: denies: nausea, vomiting, diarrhea, constipation Genitourinary: denies: dysuria, polyuria Skin: denies: rashes, itching Musculoskeletal: denies: pain, swelling Neurological: denies: numbness, syncope Psychological: reports: anxiety. denies: depression - Vital signs BP: 179/79 HR: 69 RR: 12 Tmax: 98.2F Pox: 97% on RA Wt: 81.65 kg - Physical Exam Constitutional: NAD, awake, alert and oriented, well developed HEENT: normocephalic and atraumatic, conjunctiva clear, grossly normal vision, grossly normal hearing, MMM, oropharynx clear, other (pale, edematous nasal mucosa) Neck: supple, FROM, no JVD, no bruits Chest: no-tender to palpation, no lesions Heart: RRR, normal S1/S2, pulses present, no edema Lungs: CTAB, no respiratory distress, good air movement, no rales/rhonchi, no wheezing, no retractions Abdomen: soft, non-tender, bowel sounds present, no masses/distention Musculoskeletal: normal structure, normal tone, ROM grossly normal Neurological: no focal deficit, CN II-XII intact (grossly) Skin: no rash/lesions, good turgor, capillary refill <2 seconds, no jaundice Heme/Lymphatic: no unusual bruising or bleeding, no purpura, no petechia Psychiatric: normal mood and affect, good judgment and insight, intact recent and remote memory FMR H&P: Results - Labs Result Diagrams: 07/31/18 Unknown 07/31/18 Unknown Lab results: WBC 5.6 thou/uL (4.8-10.8) 07/31/18 Unknown Hgb 13.4 g/dL (12.0-16.0) 07/31/18 Unknown Hct 41.5 % (36.0-47.0) 07/31/18 Unknown MCV 90.9 fL (78.0-98.0) 07/31/18 Unknown Plt Count 160 thou/uL (130-400) 07/31/18 Unknown Neutrophils % 51.1 % (42.0-75.0) 07/31/18 Unknown Sodium 139 mmol/L (136-145) 07/31/18 Unknown Potassium 4.5 mmol/L (3.5-5.1) 07/31/18 Unknown Chloride 106 mmol/L (98-107) 07/31/18 Unknown Carbon Dioxide 23 mmol/L (23-31) 07/31/18 Unknown BUN 21 mg/dL (9.8-20.1) H 07/31/18 Unknown Creatinine 0.95 mg/dL (0.6-1.1) 07/31/18 Unknown Glucose 374 mg/dL (83-110) H 07/31/18 Unknown Calcium 9.2 mg/dL (7.8-10.44) 07/31/18 Unknown Total Bilirubin 0.9 mg/dL (0.2-1.2) 07/31/18 Unknown AST 28 U/L (5-34) 07/31/18 Unknown ALT 22 U/L (8-55) 07/31/18 Unknown Alkaline Phosphatase 79 U/L (40-150) 07/31/18 Unknown Creatine Kinase 89 U/L (29-168) 07/31/18 Unknown Serum Total Protein 7.3 g/dL (6.0-8.3) 07/31/18 Unknown Albumin 3.7 g/dL (3.4-4.8) 07/31/18 Unknown - EKG Interpretation EKG: LBBB unchanged from EKG in November of 2017 - Radiology Interpretation Chest x-ray Status: report reviewed by me (stable cardiomegaly) FMR H&P: A/P - Problem List (1) Chest pain Current Visit: No Status: Resolved Code(s): R07.9 - CHEST PAIN, UNSPECIFIED (2) Coronary artery disease Current Visit: No Status: Chronic Code(s): I25.10 - ATHSCL HEART DISEASE OF [place] CORONARY ARTERY W/O ANG PCTRS (3) Diabetes type 2, controlled Current Visit: No Status: Chronic Code(s): E11.9 - TYPE 2 DIABETES MELLITUS WITHOUT COMPLICATIONS Qualifiers: Diabetes mellitus long-term insulin use: without long-term use Diabetes mellitus complication status: with circulatory complication Diabetes mellitus complication detail: with other circulatory complications Qualified Code(s): E11.59 - Type 2 diabetes mellitus with other circulatory complications (4) Hyperlipidemia Current Visit: No Status: Chronic Code(s): E78.5 - HYPERLIPIDEMIA, UNSPECIFIED (5) Hypertension Current Visit: No Status: Chronic Code(s): I10 - ESSENTIAL (PRIMARY) HYPERTENSION Qualifiers: Hypertension type: essential hypertension Qualified Code(s): I10 - Essential (primary) hypertension (6) LBBB (left bundle branch block) Current Visit: No Status: Chronic Code(s): I44.7 - LEFT BUNDLE-BRANCH BLOCK , UNSPECIFIED (7) Obesity (BMI 30.0-34.9) Current Visit: No Status: Chronic Code(s): E66.9 - OBESITY, UNSPECIFIED - Plan 72 YOF w/ a PMH significant for CAD s/p CABG x2, HTN, HLD, & DMII who presented to the ED with a CC of left-sided CP that was exacerbated on exertion. Typical Chest Pain: CAD s/p CABG x2: HTN: HLD: DMII: PVD: FMR H&P: Upper Level - Pertinent history 72F with PMH of cabg, stents, and cath in 2017 showing extensive vessel disease , presents for chest pain of about 40 min. Pain started at about 1400 today while walking her dog. She states pain is pressure like, substernal, non radiating, improved after she sat down. It was not associated with sob, nausea, diaphoresis, headache and she says it does not feel like the episodes previously requiring cabg and stents. She said her pain resolved spontaneously in ER prior to administration of nitro paste or any other medication. Currently , she says her pain has completely resolved. - Pertinent findings Gen: Alert, grossly oriented HEENT: Watery eyes, nasal congestion, hearing grossly intact, no obvious elevation in JVD, midline trachea, moist oral mucosal membrane CV: RRR with no obvious m/g/r. No pain on palpation of chest wall. Resp: CTA bilaterally. No rhonchi, wheezing, crackles. Abd: Normoactive, soft, no guarding or rigidity Ext: 1+ pitting edema in montalvo bilaterally. Derm: No obvious traumatic lesions or bruising Neuro: No focal deficit noted, speech at normal rate, logical Psych: Stated mood and affect congruent. Glucose: 374 Trop: Negative,, less thjen 0.01 EKG: LBBB, similar to previous EKGs CXR: Enlarged cardiac shadow - Plan Date/Time: 07/31/18 1701 I, [Luke Gómez], have evaluated this patient and agree with findings/plan as outlined by internal audit manager resident. Pertinent changes/additions are listed here. 1. ACS ruleout - Patient with extensive cardiac history, HEART score of at least 5 with +2 cardiac risk, +1 nonspecifc ekg and +2 age, presents with chest pain - Her primary journeyman power plant operator have been consulted who state he will see her, appreciate cardiology recs - Patient at this time not in pain. - Plan, NPO at midnight in preparation for cards. Tele bed for monitoring. Reevaluate patient as needed for chest pain - Request records on medication as patient does not know. 2. DM2 - Patient state history of diabetes, but takes no medication. - Will obtain A1c. Previous A1c was 6.9 last year 3. HTN - Chronic stable issue on admission - Will request record for her home medication - Will treat HTN on PRN basis for now until home medication obtained 4. HLD - Chronic stable issue on admission - Will request record for her home medication and restart med at that time. Addendum - Attending - Attending Attestation Date/Time: 07/31/182041 I personally evaluated the patient and discussed the management with Dr. Araujo I agree with the History, Examination, Assessment and Plan documented above with any addition or exceptions noted below. 72 yo female with significant PMHX CAD s/p 4 V CABG in [place] September 2016 ,PTCA per Dr Anna single vessel November 2016 and Mar [address] Anna. Patient with multiple cardiac risk factor: positive FMHX,HTN,Dyslipidemia and DM2. Patient under stress today with care of pet experienced chest pressure and presented to ER after 45 minutes Chest pain EKG with LBBB a known previous finding and negative initial troponin. Patient well known to Sustainable Systems Analyst Dr Anna will admit observation and trend troponin and EKG prn further symptoms. Will await further recommendation per Sustainable Systems Analyst in AM patient unsure last echo,stress test.Patient currently stable and chest pain free.
[2018-07-31] MEDS ORDERED: Dextrose 5% in Water 1,000 ML IV PRN (18:38)
[2018-07-31] MEDS ORDERED: Nitroglycerin 0.4 MG TAB (25 Tab Bottle) PO PRN (18:38)
[2018-07-31] MEDS ORDERED: HumaLOG 300 UNITS/3 ML VIAL SC PRN ×2 (18:38)
[2018-07-31] MEDS ORDERED: Dextrose 50% Abboject 50 ML SYRINGE SLOW IVP PRN (18:38)
[2018-07-31] MEDS ORDERED: Ondansetron ODT 4 MG TAB PO PRN (18:38)
[2018-07-31 18:58] LABS: Prothrombin Time 13.7 SEC (12.0-14.7)
[2018-07-31 18:59] VITALS: BMI 31.7
[2018-07-31 19:03] LABS: Hemoglobin A1c 7.8 % (4.0-6.0)
[2018-07-31 19:16] LABS: Magnesium 1.9 mg/dL (1.6-2.6); Phosphorus 3.8 mg/dL (2.3-4.7)
[2018-07-31 19:43] LABS: Troponin I 0.348 ng/mL (< 0.028)
[2018-07-31 20:18] LABS: CKMB 4.4 ng/mL (0-6.6)
[2018-07-31] MEDS: Aspirin 325 mg Enteric Coated Tablet PO SCH (20:35)
[2018-07-31] MEDS: Atorvastatin Calcium 40 MG TAB PO SCH (20:36)
--- NOTE | 2018-07-31 21:04 | PDOC.EVN ---
Event Note - Event Note Event Note: Patient's first trop was negative, second trop came back critical at .348. Ordered EKG and 3 hour troponin. Patient is sitting reading in bed, asymptomatic. BP 160s/60s.
[2018-07-31 23:04] LABS: Troponin I 0.504 ng/mL (< 0.028)
--- NOTE | 2018-07-31 23:26 | PDOC.EVN ---
Event Note - Event Note Event Note: S: Pt subjectively is pain free and has no complaints at this time. O: Exam: General: alert and oriented x 3 Heart: mildly bradycardic; regular rhythm. No murmurs rubs or gallops. Lungs: clear to auscultation. No distress Skin: warm and dry. Troponins: 0.01, 0.348, 0.504 A/P NSTEMI - will continue to trend troponins. Optimize BP. Will resume Coreg, now dose given. Will also start therapeutic lovenox. EKGs have been stable. Will repeat if pt develops active CP. Will discuss case in AM with cardiology. Pt may possibly undergo cath.
[2018-07-31] MEDS ORDERED: Carvedilol 6.25 MG TAB PO SCH (23:45)
[2018-07-31] MEDS ORDERED: Enoxaparin Sodium 40 MG/0.4 ML SYRINGE SC SCH (23:45)
[2018-07-31] MEDS ORDERED: Enoxaparin Sodium 80 MG/0.8 ML SYRINGE SC SCH (23:45)
[2018-08-01 01:52] LABS: Critical Call Chem Troponin I RESULT DECREASING
[2018-08-01 02:10] LABS: CKMB 5.7 ng/mL (0-6.6)
--- NOTE | 2018-08-01 06:14 | PDOC.FM ---
- Subjective Subjective: Patient's troponins trended up overnight consistent with an NSTEMI. Patient also had hypertensive urgency. On exam this AM, patient states she feels alright this AM. Denies any chest pain on exam. Just anxious for cath later today per cardiology. - Objective MAR Reviewed: Yes Vital Signs & Weight: Vital Signs (12 hours) Temp Pulse Resp BP BP BP Pulse Ox 08/01/18 06:05 97.7 F 61 16 162/71 H 97 08/01/18 04:36 97.4 F L 59 L 18 148/65 H 96 08/01/18 00:50 186/76 H 07/31/18 19:46 55 L 160/70 H 07/31/18 18:38 56 L 16 186/76 H 96 Weight Admit Weight 83.824 kg Weight 83.779 kg I&O: 07/30/18 07/31/18 08/01/18 06:59 06:59 06:59 Intake Total 270 Balance 270 Result Diagrams: 08/01/18 13:19 08/01/18 13:19 Phys Exam - Physical Examination Constitutional: NAD HEENT: moist MMs Neck: supple, full ROM Respiratory: no wheezing, no rales, no rhonchi, clear to auscultation bilateral Cardiovascular: RRR, no significant murmur Gastrointestinal: no distention, positive bowel sounds Musculoskeletal: no edema, pulses present Neurological: non-focal Psychiatric: normal affect, A&O x 3 Skin: no rash, normal turgor Dx/Plan (1) NSTEMI (non-ST elevated myocardial infarction) Code(s): I21.4 - NON-ST ELEVATION (NSTEMI) MYOCARDIAL INFARCTION Status: Acute (2) Coronary artery disease Code(s): I25.10 - ATHSCL HEART DISEASE OF [place] CORONARY ARTERY W/O ANG PCTRS Status: Chronic (3) Hyperlipidemia Code(s): E78.5 - HYPERLIPIDEMIA, UNSPECIFIED Status: Chronic (4) Hypertension Code(s): I10 - ESSENTIAL (PRIMARY) HYPERTENSION Status: Chronic Qualifiers: Hypertension type: essential hypertension Qualified Code(s): I10 - Essential (primary) hypertension (5) LBBB (left bundle branch block) Code(s): I44.7 - LEFT BUNDLE-BRANCH BLOCK, UNSPECIFIED Status: Chronic (6) Obesity (BMI 30.0-34.9) Code(s): E66.9 - OBESITY, UNSPECIFIED Status: Chronic (7) Diabetes type 2, uncontrolled Code(s): E11.65 - TYPE 2 DIABETES MELLITUS WITH HYPERGLYCEMIA Status: Acute - Plan Plan: 72 YOF w/ a PMH significant for CAD s/p CABG x2, HTN, HLD, & DMII who presented to the ED with a CC of left-sided CP and was found to have a NSTEMI via trending troponins overnight. Typical Chest Pain (improved) 2/2 suspected NSTEMI: - Patient presented with typical CP and has an extensive cardiac history with multiple comorbidities giving her a heart score of 5-6. Initial troponin WNLs and ECG significant for a LBBB unchanged from last ECG obtained here. However, troponins trended up to 0.504 reaching critical values. Most recent slightly down at 0.439 but still in critical range. Cardiology consulted yesterday on admission. Recommend repeat cath this afternoon with possible d/c home tomorrow. - Mg, Phos, and TSH WNLs. - Will continue high dose ASA & PRN nitrostat for now. Will continue therapeutic lovenox initiated overnight as well. - Will continue to monitor closely on telemetry. CAD s/p CABG x2: - Aware, will resume home meds. HTN: - Will resume all home meds in addition to hydralazine IV PRN for urgency BPs > 180 systolic. Will consider increasing lisinopril dose to 20mg QD to achieve better control. - Will continue to monitor BPs closely. HLD: - Aware, will resume home meds. DMII: - Patient states she has no PCP and is currently not on any DM meds. Last A1c ~ 1 year ago was 6.9. A1c on admission now up to 7.8. - Will start on metformin as eGFR 58. Will start at 500mg BID and continue mild SSI to see how much patient requires QD and initiate CONNOR insulin therapy based on SSI requirements. - Will continue ACHS accuchecks. PVD: - Aware, will resume home meds. Dispo: Will continue to monitor closely on telemetry with cath this afternoon. Possibly d/c home tomorrow per cardiology recs. Diet: NPO, meds with sips of water DVT PPx: Th Lovenox GI PPx: none IVFs: SL Abx: none Addendum - Attending - Attending Attestation Date/Time: 08/01/18 [id number] I personally evaluated the patient and discussed the management with Dr. Oconnor I agree with the History, Examination, Assessment and Plan documented above with any addition or exceptions noted below - Patient denies any complaints. No further chest pain. Afebrile VSS. A/P: 1) NSTEMI - cardiac enzymes initially negative then became positive. Seen by cardiology who plans for cardiac cath today. Further care dependent on result of cath. 2) DM- will plan to start on metformin upon discharge. 30 HTN- adjust medications.
[2018-08-01] MEDS ORDERED: metFORMIN 500 MG TAB PO SCH (08:00)
[2018-08-01] MEDS: Fluticasone Propionate Nasal Spray 16 gm Bottle NASAL SCH (08:16)
[2018-08-01] MEDS: Clopidogrel Bisulfate 75 MG TAB PO SCH (08:16)
[2018-08-01] MEDS: Carvedilol 25 MG TAB PO SCH ×2 (08:55→16:29)
[2018-08-01] MEDS ORDERED: Lisinopril 10 MG TAB PO SCH ×2 (09:00)
[2018-08-01] MEDS ORDERED: Lisinopril 20 MG TAB PO SCH (09:00)
[2018-08-01] MEDS ORDERED: Enoxaparin Sodium 40 MG/0.4 ML SYRINGE SC SCH (09:00)
[2018-08-01] MEDS ORDERED: Communication Order-Pharmacy FS SCH (09:00)
[2018-08-01 10:00] LABS: Anion Gap 10 mmol/L (10-20); BUN (Urea Nitrogen) 19 mg/dL (9.8-20.1); Calc. Creatinine Clearance 87 mL/min (70-130); Calcium 9.2 mg/dL (7.8-10.44); Carbon Dioxide 26 mmol/L (23-31); Chloride 108 mmol/L (98-107); Estimated GFR-MDRD 74; Glucose 159 mg/dL (83-110); Potassium 4.3 mmol/L (3.5-5.1); Sodium 140 mmol/L (136-145)
[2018-08-01] MEDS: hydrALAZINE 20 MG/ML VIAL SLOW IVP PRN ×2 (11:24→16:41)
[2018-08-01] MEDS ORDERED: Enoxaparin Sodium 80 MG/0.8 ML SYRINGE SC SCH (12:00)
[2018-08-01] MEDS ORDERED: Iopamidol 370 76% 100 ML VIAL ONE (13:21)
[2018-08-01 13:37] LABS: Hemoglobin 12.6 g/dL (12.0-16.0); Platelet Count 162 thou/uL (130-400)
--- NOTE | 2018-08-01 16:13 | CON ---
DATE OF CONSULTATION: 08/01/2018 REASON FOR CONSULTATION: Non-STEMI. HISTORY OF PRESENT ILLNESS: Ms. Renee is a very pleasant 72-year-old white female, who comes to the hospital for chest pain. She had the typical pain that she gets when she has had problems with her heart in the past. She decided to come in because of this and admitted for titration of troponins. She initially had a negative one, but eventually got to the positive range, so Cardiology is being consulted. She has significant history of coronary artery disease with bypass that failed, most of her grafts failed just a few months later, and she has had to have stents to her left circumflex system, most recently about a year and a month ago. Currently on my evaluation, she was chest pain free and on her admission, her blood pressure was very high in the 170s/80s. PAST MEDICAL HISTORY: 1. Coronary artery disease. 2. Status post CABG failed about a month or two later. 3. Type 2 diabetes. 4. Hypertension. 5. Hyperlipidemia. 6. Anxiety and depression. PAST SURGICAL HISTORY: 1. CABG x4 with 3 grafts failed including HYMAN is patent, however, it lands on severely diffusely and very small and inconsequential LAD. 2. PCI to the left circumflex into the OM. 3. Bilateral cataract surgery. 4. Cholecystectomy. 5. Hysterectomy. 6. Right knee surgery. ALLERGIES: NO KNOWN DRUG ALLERGIES. OUTPATIENT MEDICATIONS: 1. Lisinopril 10 mg a day. 2. Isosorbide mononitrate 30 mg a day. 3. Plavix 75 mg a day. 4. Carvedilol 12.5 b.i.d. 5. Atorvastatin 80 mg at bedtime. 6. Aspirin 325 a day. SOCIAL HISTORY: No alcohol, tobacco, or drugs. FAMILY HISTORY: No early coronary artery disease. REVIEW OF SYSTEMS: A 12-point review of systems was done and was found to be negative unless stated in the history of present illness. PHYSICAL EXAMINATION: VITAL SIGNS: Temperature 97.4, pulse 59, respiratory rate 16 saturating 98% on room air, blood pressure 183/81, most recently 176/71. GENERAL: Awake, alert, and oriented x3. No distress. HEENT: Normocephalic and atraumatic. NECK: Supple. LUNGS: Clear. CARDIOVASCULAR: S1, S2. No S3 or S4. No murmurs. ABDOMEN: Soft. Positive bowel sounds. EXTREMITIES: No edema. SKIN: Warm and dry. LABORATORY DATA: Laboratory work was reviewed. CBC is unremarkable. Coags were reviewed. Chemistries were reviewed, unremarkable. Her troponin went from 0.34 to 0.50 and back down to 0.43. EKG was reviewed, left bundle branch block. ASSESSMENT: 1. Cgh-VL-bcsnoasit myocardial infarction. 2. Hypertension. 3. History of coronary artery disease, severe, diffuse disease. PLAN: We will further risk stratify with a heart catheterization. We spoke at length about the risks and benefits of the procedure. Risks included, but not limited to stroke, [place], , bleeding, need for blood transfusion, limb loss, organ loss. The patient understands and verbalized understanding of this and agrees to proceed. Further recommendations per results of coronary angiogram. Job ID: [id number]
[2018-08-01] MEDS: Atorvastatin Calcium 40 MG TAB PO SCH (21:15)
[2018-08-01] MEDS: Aspirin 325 mg Enteric Coated Tablet PO SCH (21:15)
--- NOTE | 2018-08-02 06:23 | PDOC.FM ---
- Subjective Subjective: Patient had urgency level BP again and required PRN hydralazine x1. Denies any chest pain, headache, blurry vision, or SOB on exam this AM. States she feels well. - Objective MAR Reviewed: Yes Vital Signs & Weight: Vital Signs (12 hours) Temp Pulse Resp BP Pulse Ox 08/02/18 04:00 98.0 F 56 L 20 178/71 H 95 08/01/18 19:45 98.6 F 70 16 149/65 H 93 L Weight Admit Weight 83.824 kg Weight 83.779 kg I&O: 07/31/18 08/01/18 08/02/18 06:59 06:59 06:59 Intake Total 270 478 Balance 270 478 Result Diagrams: 08/01/18 13:19 08/02/18 05:48 Phys Exam - Physical Examination Constitutional: NAD HEENT: moist MMs, sclera anicteric Neck: supple, full ROM Respiratory: no wheezing, no rales, no rhonchi, clear to auscultation bilateral Cardiovascular: RRR, no significant murmur Neurological: non-focal, moves all 4 limbs Psychiatric: normal affect, A&O x 3 Skin: no rash, normal turgor Dx/Plan (1) NSTEMI (non-ST elevated myocardial infarction) Code(s): I21.4 - NON-ST ELEVATION (NSTEMI) MYOCARDIAL INFARCTION Status: Acute (2) Chest pain Code(s): R07.9 - CHEST PAIN, UNSPECIFIED Status: Resolved (3) Coronary artery disease Code(s): I25.10 - ATHSCL HEART DISEASE OF [place] CORONARY ARTERY W/O ANG PCTRS Status: Chronic (4) Hyperlipidemia Code(s): E78.5 - HYPERLIPIDEMIA, UNSPECIFIED Status: Chronic (5) Hypertension Code(s): I10 - ESSENTIAL (PRIMARY) HYPERTENSION Status: Chronic Qualifiers: Hypertension type: essential hypertension Qualified Code(s): I10 - Essential (primary) hypertension (6) LBBB (left bundle branch block) Code(s): I44.7 - LEFT BUNDLE-BRANCH BLOCK, UNSPECIFIED Status: Chronic (7) Obesity (BMI 30.0-34.9) Code(s): E66.9 - OBESITY, UNSPECIFIED Status: Chronic (8) Diabetes type 2, uncontrolled Code(s): E11.65 - TYPE 2 DIABETES MELLITUS WITH HYPERGLYCEMIA Status: Acute - Plan Plan: 72 YOF w/ a PMH significant for CAD s/p CABG x2, HTN, HLD, & DMII who presented to the ED with a CC of left-sided CP and was found to have a NSTEMI via trending troponins overnight. Typical Chest Pain (improved) 2/2 suspected NSTEMI: - Patient presented with typical CP and has an extensive cardiac history with multiple comorbidities giving her a heart score of 5-6. Initial troponin WNLs and ECG significant for a LBBB unchanged from last ECG obtained here. However, troponins trended up to 0.504 reaching critical values. last & most recent slightly down at 0.439 but still in critical range. Cardiology consulted yesterday on admission. Patient underwent RHC yesterday afternoon but did not require any new interventions. - Will continue ASA QD & PRN nitrostat. - Will continue to monitor closely on telemetry. CAD s/p CABG x2: - Aware, will resume home meds. HTN, poorly controlled: - Will resume all home meds in addition to hydralazine IV PRN for urgency BPs > 180 systolic. Will increase lisinopril dose to 30mg QD to achieve better control & give a second dose of 30mg of Imdur due to persistently elevated BP after initial AM meds. - Will continue to monitor BPs closely. HLD: - Aware, will resume home meds. DMII: - Patient states she has no PCP and is currently not on any DM meds. Last A1c ~ 1 year ago was 6.9. A1c on admission now up to 7.8. - Will send in a script for Luis for patient to start at home and have patient follow-up in clinic for close monitoring of diabetes. - Will continue ACHS accuchecks & SSI. PVD: - Aware, will resume home meds. Dispo: Will continue to monitor closely on telemetry but will likely d/c home today per cardiology recs with close follow-up. Diet: CC, HH DVT PPx: Lovenox GI PPx: none IVFs: SL Abx: none
[2018-08-02 06:53] LABS: Anion Gap 9 mmol/L (10-20); BUN (Urea Nitrogen) 18 mg/dL (9.8-20.1); Calc. Creatinine Clearance 84 mL/min (70-130); Calcium 9.2 mg/dL (7.8-10.44); Carbon Dioxide 24 mmol/L (23-31); Chloride 108 mmol/L (98-107); Estimated GFR-MDRD 71; Glucose 123 mg/dL (83-110); Sodium 137 mmol/L (136-145)
[2018-08-02] MEDS: Fluticasone Propionate Nasal Spray 16 gm Bottle NASAL SCH (07:49)
[2018-08-02] MEDS: Clopidogrel Bisulfate 75 MG TAB PO SCH (07:51)
[2018-08-02] MEDS: Carvedilol 25 MG TAB PO SCH ×2 (07:51→17:07)
[2018-08-02] MEDS ORDERED: Lisinopril 20 MG TAB PO SCH (09:00)
[2018-08-02] MEDS ORDERED: Aspirin 81 mg Enteric Coated Tablet PO SCH (09:00)
[2018-08-02 16:34] VITALS: BP 160/70; TEMP 97.9
--- NOTE | 2018-08-04 10:07 | PRG ---
DATE OF SERVICE: 08/02/2018 ADDENDUM: Please see the note from Dr. Jonas, for which I agree. The patient was seen, evaluated, and discussed with the residents by bedside. This is a 72-year-old, who has history of coronary artery disease including CABG x2 and she has had some stents and MIs in the past, who is status post 1 day after heart catheterization, which did not show any kind of new areas of blockage or concerns and so is stable. Although, blood pressure little bit high and so should be able to be discharged resuming same medicines, although we will increase the nitrates for better blood pressure coverage and we will follow up with us and Cardiology. Job ID: [id number]
--- NOTE | 2018-08-04 13:55 | DIS ---
DATE OF ADMISSION: 07/31/2018 DATE OF DISCHARGE: 08/02/2018 RESIDENT: Gayle Oconnor MD ADMITTING ATTENDING: Sendy Friedman MD DISCHARGE ATTENDING: Rio Le MD CONSULTS: Cardiology, Nikhil Anna MD on 08/01/2018. PROCEDURES: 1. Chest x-ray on 07/31/2018, which showed stable cardiomegaly. 2. Cardiac catheterization on 08/01/2018, which was notable for patent left circumflex stent with 40% lesion, midvessel, and occluded LAD, and mildly reduced left ventricular ejection fraction. It was also noted that the patient had known HYMAN to an atretic LAD and known occluded RCA and occluded SVG to RCA, not imaged. 3. Echocardiogram on 08/02/2018, which showed an LVEF estimated at 50% to 55% with mild concentric left ventricular hypertrophy as well as E/A flow reversal suggestive of diastolic dysfunction. PRIMARY DIAGNOSES: 1. Ean-UM-befwian elevation myocardial infarction. 2. Hypertensive urgency. 3. Hyperglycemia. SECONDARY DIAGNOSES: 1. Hypertension. 2. Uncontrolled type 2 diabetes. 3. Chronic left bundle branch block. 4. Obesity. 5. Hyperlipidemia. 6. Coronary artery disease, status post CABG x2. DISCHARGE MEDICATIONS: 1. Aspirin 325 mg p.o. at bedtime. 2. Jardiance 10 mg p.o. daily. 3. Fluticasone 1 g inhaled nasally daily. 4. Atorvastatin 80 p.o. at bedtime. 5. Carvedilol 12.5 mg p.o. b.i.d. 6. Plavix 75 mg p.o. q.a.m. 7. Isosorbide mononitrate 60 mg p.o. daily. 8. Lisinopril 30 mg p.o. daily. DISCONTINUED MEDICATIONS: 1. Lisinopril 10 mg p.o. daily. 2. Isosorbide mononitrate 30 mg p.o. daily. HOSPITAL COURSE: The patient is a 72-year-old female with a past medical history significant for coronary artery disease, status post CABG x2 and [place] x3, hyperlipidemia, uncontrolled type 2 diabetes, and hypertension, who presented to the emergency department with a chief complaint of left-sided chest pain that began a few hours prior to her presentation to the ER. The patient reported that she was at home chasing her dog and began to have left-sided chest pain that was mildly relieved upon rest. However, in addition to the chest pain, she had a pressure- like sensation and therefore requested that her son bring her to the emergency department for further evaluation. On presentation to the emergency department, the patient's vitals were noted to be within normal limits with the exception of a significantly elevated blood pressure of 215/117. An EKG was obtained, which showed a chronic left bundle branch block that was unchanged from an EKG obtained in the ER in November of last year. Routine lab work including a CBC, CMP, and troponins were obtained which were notable only for significant hyperglycemia with a blood glucose of 374. Her initial troponin was negative at less than 0.010; however, due to the patient's significant cardiac history, she was admitted for close observation on telemetry overnight. The patient's troponins were trended over the course of her 1st night of hospitalization and did in fact up trend to as high as 0.5 over the course of the evening. Cardiology, Dr. Nikhil Anna, was therefore consulted to come and evaluate the patient. The next morning, Dr. Anna recommended repeat cardiac catheterization later that day, as the patient had been kept n.p.o. after midnight. Thus, on day two of hospitalization, the patient was taken back for a cardiac catheterization , which noted no new stenosis & the patient had no new intervention. She was therefore monitored on telemetry for the remainder of that day and by the following morning, was cleared for discharge with close follow-up with Cardiology within two weeks of discharge. Regarding the patient's elevated blood pressure, she had multiple instances of urgency level blood pressures during the course of her hospitalization with systolic blood pressures greater than 180. Her blood pressure medications were adjusted so that her daily dose of lisinopril and Imdur were increased to 30mg & 60mg PO QD. Thus, by the time of discharge, the patient's blood pressure was beneath urgency level of 160/70 and she was instructed to follow up closely at [facility] and with Cardiology for continued titration of her blood pressure medicines PRN for optimum control. Regarding the patient's hyperglycemia, the patient reported not being on any anti-hyperglycemic medications upon admission. Per chart review, an A1c obtained approximately one year ago was showed her diabetes was decently controlled as it was 6.9. However, a repeat A1c on this admission was slightly elevated at 7.8. The patient was therefore treated with sliding scale insulin for the duration of her hospital stay and did not require any doses for the entire three days she was in the hospital. Given her cardiac history, she was therefore discharged on p.o. Jardiance and instructed to follow up at [facility] within one week to monitor for diabetes control. DISPOSITION: Stable. DISCHARGE INSTRUCTIONS: 1. Location: Home. 2. Diet: Heart healthy diet and consistent carb diet. 3. Activity: As tolerated, no restrictions. 4. Follow-up: The patient was discharged to follow up with [facility] within one week of discharge and with Dr. Nikhil Anna within two weeks of discharge for close monitoring of her blood pressure and diabetes. Job ID: [id number] CHIDI
== END 2018-08-02 17:25 | disposition home or self-care (01) | DRG 281 ==
LOC: ERS 14:28 → 2SW 18:36 → OBSVTOIN 08-01 00:12 → 2NO 08-01 05:55
PROVIDERS: ADMIT Family Medicine; ATTEND Family Medicine
PROC: 4A023N7 Measurement of Cardiac Sampling and Pressure, Left Heart, Percutaneous Approach (ICD-10-PCS; principal; 2018-08-01)
PROC: B2131ZZ Fluoroscopy of Multiple Coronary Artery Bypass Grafts using Low Osmolar Contrast (ICD-10-PCS; 2018-08-01)
DX: I21.4 Non-ST elevation (NSTEMI) myocardial infarction (principal); I25.810 Atherosclerosis of coronary artery bypass graft(s) without angina pectoris; I16.0 Hypertensive urgency; E78.5 Hyperlipidemia, unspecified; I44.7 Left bundle-branch block, unspecified; I73.9 Peripheral vascular disease, unspecified; E11.65 Type 2 diabetes mellitus with hyperglycemia; F41.9 Anxiety disorder, unspecified; I25.10 Atherosclerotic heart disease of native coronary artery without angina pectoris; E66.9 Obesity, unspecified; Z68.31 Body mass index [BMI] 31.0-31.9, adult; I25.2 Old myocardial infarction; I34.0 Nonrheumatic mitral (valve) insufficiency; I36.1 Nonrheumatic tricuspid (valve) insufficiency; Z79.02 Long term (current) use of antithrombotics/antiplatelets; Z79.899 Other long term (current) drug therapy; Z95.1 Presence of aortocoronary bypass graft; Z79.82 Long term (current) use of aspirin; Z95.5 Presence of coronary angioplasty implant and graft; Z82.49 Family history of ischemic heart disease and other diseases of the circulatory system
CPT/HCPCS: 36415; 36416; 71045; 80048; 80053; 82550; 82553; 83036; 83735; 84100; 84443; 84484; 85014; 85018; 85025; 85049; 85610; 93005; 93010; 93306; 93459; 93798; 94760; 99152; C1769; J0360; J1644; J1650; Q9967

== ENCOUNTER 2018-11-18 00:11 | Inpatient (IN) | payer MEDICARE ==
[2018-11-18 00:45] LABS: #Basophils 0.1 thou/uL (0.0-0.2); #Eosinphils 1.6 thou/uL (0.0-0.7); #Lymphocytes 2.7 thou/uL (1.20-3.40); #Monocytes 0.5 thou/uL (0.11-0.59); #Neutrophils 2.8 thou/uL (1.40-6.50); %Basophils 0.9 % (0.0-1.0); %Eosinophils 20.5 % (0.0-10.0); %Lymphocytes 34.9 % (21.0-51.0); %Monocytes 6.5 % (0.0-10.0); %Neutrophils 37.2 % (42.0-75.0); Mean Corpuscular HGB CONC 33.7 g/dL (32.0-36.0); Mean Corpuscular Hemoglobin 31.1 pg (27.0-31.0); Mean Corpuscular Volume 92.3 fL (78.0-98.0); Platelet Count 143 thou/uL (130-400); RBC Distribution Width 12.2 % (11.5-14.5); Red Blood Cell (RBC) Count 4.17 mill/uL (4.20-5.40); White Blood Cell (WBC) Count 7.6 thou/uL (4.8-10.8)
[2018-11-18] MEDS ORDERED: Nitroglycerin 0.4 MG TAB 1 EACH ONE (01:01)
[2018-11-18 01:06] LABS: ALT (SGPT) 16 U/L (8-55); AST (SGOT) 18 U/L (5-34); Albumin 3.6 g/dL (3.4-4.8); Alkaline Phosphatase 65 U/L (40-150); Anion Gap 12 mmol/L (10-20); BUN (Urea Nitrogen) 25 mg/dL (9.8-20.1); Bilirubin, Total 0.9 mg/dL (0.2-1.2); CK (CPK) 89 U/L (29-168); Calc. Creatinine Clearance 0 mL/min (70-130); Calcium 9.1 mg/dL (7.8-10.44); Carbon Dioxide 24 mmol/L (23-31); Chloride 107 mmol/L (98-107); Estimated GFR-MDRD 56; Glucose 273 mg/dL (83-110); Protein, Total 6.6 g/dL (6.0-8.3); Sodium 139 mmol/L (136-145)
--- NOTE | 2018-11-18 01:22 | PDOC.FPRHP ---
- History of Present Illness Chief Complaint: Chest Pain History of Present Illness: Ms Renee is a 73yo female with pmh of CAD, MA, CABG, stent placements, DMII, HTN , HLD presenting with chest pain that started around 1130 at night. She woke up to use the restroom and developed pain like someone was sitting on her chest. Denied diaphoresis, SOB, n/v. Pain did not radiate. She took an ASA a home. Currently chest pain free. PCP: [facility] (Dr Gomez) ED Course: ASA, Nitro - Allergies/Adverse Reactions Allergies Allergy/AdvReac Type Severity Reaction Status Date / Time No Known Allergies Allergy Verified 02/20/18 21:17 - Home Medications Medication Instructions Recorded Confirmed Type Aspirin [Ecotrin Regular Strength] 325 mg PO HS 08/13/17 11/18/18 History Atorvastatin Calcium [Lipitor] 80 mg PO HS #30 tablet 08/02/18 11/18/18 Rx Carvedilol 12.5 mg PO BID #60 tablet 08/02/18 11/18/18 Rx Clopidogrel Bisulfate [Plavix] 75 mg PO QAM #30 tab 08/02/18 11/18/18 Rx Fluticasone Propionate [Flonase 1 gm NASAL DAILY #3 bot 08/02/18 11/18/18 Rx Nasal [place]] Isosorbide Mononitrate [Imdur ER] 60 mg PO DAILY #30 tab 08/02/18 11/18/18 Rx DULoxetine HCl [Cymbalta] 20 mg PO DAILY 11/18/18 11/18/18 History Lisinopril [Zestril] 10 mg PO BID 11/18/18 11/18/18 History metFORMIN [Glucophage] mg PO BID 11/18/18 History - History PMHx: DMII, CAD, HTN, HLD, CAD, CABG, MA, Squamous cell CA on hand PSHx: Hysterectomy, Cholecystectomy FHx: Father- MA at 65 Mother- HTN Social: Denies hx or current tobacco use, or drug use. Rare alcohol use. - Review of Systems General: denies: fever/chills, weight/appetite/sleep changes Eyes: denies: eye pain, vision changes ENT: denies: nasal congestion, rhinorrhea Respiratory: denies: cough, congestion, shortness of breath Cardiovascular: reports: chest pain. denies: palpitation, edema Gastrointestinal: reports: other (Bloating). denies: nausea, vomiting, abdominal pain Genitourinary: denies: dysuria, other (hematuria) Skin: reports: lesions (Left hand). denies: rashes Musculoskeletal: denies: pain, tenderness Neurological: reports: numbness (and tingling 2/2 DM). denies: syncope - Vital signs BP: 178/92 HR: 87 RR: 21 Tmax: 97.8 Pox: 95% on RA Wt: 81kg - Physical Exam Constitutional: NAD, awake, alert and oriented, well developed HEENT: normocephalic and atraumatic, conjunctiva clear, grossly normal hearing, MMM, oropharynx clear Neck: supple, trachea midline, other (possible left carotid bruit) Heart: RRR, no murmurs/rubs/gallops, pulses present Lungs: CTAB, no respiratory distress, no wheezing Abdomen: soft, non-tender, bowel sounds present Musculoskeletal: normal structure, normal tone, ROM grossly normal Neurological: no focal deficit Skin: capillary refill <2 seconds, other (small left hand lesion/discoloration) Psychiatric: normal mood and affect, good judgment and insight, intact recent and remote memory FMR H&P: Results - Labs Result Diagrams: 11/18/18 00:33 11/18/18 00:27 Lab results: WBC 7.6 thou/uL (4.8-10.8) 11/18/18 00:33 Hgb 13.0 g/dL (12.0-16.0) 11/18/18 00:33 Hct 38.5 % (36.0-47.0) 11/18/18 00:33 MCV 92.3 fL (78.0-98.0) 11/18/18 00:33 Plt Count 143 thou/uL (130-400) 11/18/18 00:33 Neutrophils % 37.2 % (42.0-75.0) L 11/18/18 00:33 Sodium 139 mmol/L (136-145) 11/18/18 00:27 Potassium 4.0 mmol/L (3.5-5.1) 11/18/18 00:27 Chloride 107 mmol/L (98-107) 11/18/18 00:27 Carbon Dioxide 24 mmol/L (23-31) 11/18/18 00:27 BUN 25 mg/dL (9.8-20.1) H 11/18/18 00:27 Creatinine 0.98 mg/dL (0.6-1.1) 11/18/18 00:27 Glucose 273 mg/dL (83-110) H 11/18/18 00:27 Calcium 9.1 mg/dL (7.8-10.44) 11/18/18 00:27 Total Bilirubin 0.9 mg/dL (0.2-1.2) 11/18/18 00:27 AST 18 U/L (5-34) 11/18/18 00:27 ALT 16 U/L (8-55) 11/18/18 00:27 Alkaline Phosphatase 65 U/L (40-150) 11/18/18 00:27 Creatine Kinase 89 U/L (29-168) 11/18/18 00:27 Serum Total Protein 6.6 g/dL (6.0-8.3) 11/18/18 00:27 Albumin 3.6 g/dL (3.4-4.8) 11/18/18 00:27 - EKG Interpretation EKG: LBBB - Radiology Interpretation Chest x-ray Status: pending FMR H&P: A/P - Problem List (1) Atypical chest pain Current Visit: Yes Status: Acute Code(s): R07.89 - OTHER CHEST PAIN (2) LBBB (left bundle branch block) Current Visit: No Status: Chronic Code(s): I44.7 - LEFT BUNDLE-BRANCH BLOCK , UNSPECIFIED (3) Anxiety and depression Current Visit: No Status: Chronic Code(s): F41.9 - ANXIETY DISORDER, UNSPECIFIED; F32.9 - MAJOR DEPRESSIVE DISORDER, SINGLE EPISODE, UNSPECIFIED (4) Coronary artery disease Current Visit: No Status: Chronic Code(s): I25.10 - ATHSCL HEART DISEASE OF [place] CORONARY ARTERY W/O ANG PCTRS (5) Diabetes type 2, controlled Current Visit: No Status: Chronic Code(s): E11.9 - TYPE 2 DIABETES MELLITUS WITHOUT COMPLICATIONS Qualifiers: Diabetes mellitus licensed psychologist manager insulin use: without licensed psychologist manager use Diabetes mellitus complication status: with circulatory complication Diabetes mellitus complication detail: with other circulatory complications Qualified Code(s): E11.59 - Type 2 diabetes mellitus with other circulatory complications (6) Hyperlipidemia Current Visit: No Status: Chronic Code(s): E78.5 - HYPERLIPIDEMIA, UNSPECIFIED (7) Hypertension Current Visit: No Status: Chronic Code(s): I10 - ESSENTIAL (PRIMARY) HYPERTENSION Qualifiers: Hypertension type: essential hypertension Qualified Code(s): I10 - Essential (primary) hypertension - Plan Víctor is a 73yo female with pmh of CAD, MA, CABG, stent placements, DMII, HTN, HLD admitted for atypical chest pain Atypical CP - EKG with LBBB but unchanged from prior. Initial trop neg. Chest pain resolved - Heart Score: 6 - Continue to trend trops. 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 Pt notes she got up to use the restroom and developed substernal, pressure-like CP that radiated to her left arm and somewhat improved with rest. Pt states she took her daily ASA. In ER, pt was given nitro SL and notes improvement in CP. Of note, pt admitted in August 2018 for CP and had LHC which showed stable stenosis of LAD, without intervention. - Pertinent findings BP 178/92, otherwise VSS Gen: NAD CV: RRR, chest wall NTTP Resp: CTAB - Plan Date/Time: 11/18/18 0122 I, Abner Quinn MD PGY3, have evaluated this patient and agree with findings/ plan as outlined by director internal audit resident. Pertinent changes/additions are listed here. 1. Typical CP likely 2/2 stable angina -Pt presents with significant cardiac history and typical CP symptoms that have improved with nitroglycerin. Will admit to telemetry observation for further cardiac observation. -Initial troponin negative, will trend. -EKG shows chronic LBBB when compared to previous EKGs. -HEART score of 6, however, pt just had LHC without intervention in 08/2018. Observe overnight and consider further work up pending clinical course. 2. Uncontrolled HTN -Resume home medications and monitor. Other medications will be resumed for chronic medical problems. PPx: Lovenox for VTE, no GI indicated. disposition: Admit to telemetry observation for anticipated length of stay less than two midnights, pending clinical course. Addendum - Attending - Attending Attestation Date/Time: 11/18/18 4837 I personally evaluated the patient and discussed the management with Dr. Rivera /Kai. I agree with the History, Examination, Assessment and Plan documented above with any addition or exceptions noted below. Patient with known history of CAD and recent LHC in 08/2018 here with acute onset of chest pain that resolved with Nitro. EKG stable from previous. She does not currently have chest pain. Will trend troponins, and further mgmt will be dependent on those results.
[2018-11-18] MEDS ORDERED: Nitroglycerin 2% Ointment 1 INCH/1 GM Packet ONE (01:54)
[2018-11-18] MEDS ORDERED: Dextrose 50% Abboject 50 ML SYRINGE SLOW IVP PRN (03:43)
[2018-11-18] MEDS ORDERED: Dextrose 5% in Water 1,000 ML IV PRN (03:43)
[2018-11-18 04:29] VITALS: BMI 31.7
[2018-11-18 05:37] LABS: Hemoglobin A1c 6.9 % (4.0-6.0)
--- NOTE | 2018-11-18 07:49 | RAD ---
SINGLE VIEW CHEST: Date: 11/18/18 COMPARISON: 07/31/18. HISTORY: Chest pain radiating to the left arm. FINDINGS: Single view of the chest shows an enlarged but stable cardiomediastinal silhouette. The patient is st atus post sternotomy. Increased interstitial lung markings are present. Linear opacities in the lung bases may represent atelectasis or infiltrates. IMPRESSION: Bibasilar atelectasis versus infiltrates. POS: [facility]
[2018-11-18] MEDS: Carvedilol 25 MG TAB PO SCH ×2 (08:34→20:53)
[2018-11-18] MEDS: Clopidogrel Bisulfate 75 MG TAB PO SCH (08:34)
[2018-11-18] MEDS: metFORMIN 500 MG TAB PO SCH ×2 (08:35→20:53)
[2018-11-18] MEDS ORDERED: Aspirin 325 mg Enteric Coated Tablet PO SCH (09:00)
[2018-11-18] MEDS ORDERED: Lisinopril 10 MG TAB PO SCH (09:00)
[2018-11-18] MEDS ORDERED: Enoxaparin Sodium 40 MG/0.4 ML SYRINGE SC SCH (09:00)
[2018-11-18 09:20] LABS: Troponin I 0.466 ng/mL (< 0.028)
--- NOTE | 2018-11-18 09:33 | PDOC.EVN ---
Event Note - Event Note Event Note: Troponin increased to 0.466. NSTEMI type I Called Dr. Anna (patient's senior foreman) and he requested for us to call Dr. Bustamante. Spoke to Dr. Bustamante and he said he would come see her. Made patient NPO. Patient currently asymptomatic.
[2018-11-18] MEDS: Fluticasone Propionate Nasal Spray 16 gm Bottle NASAL SCH (10:21)
[2018-11-18] MEDS ORDERED: Enoxaparin Sodium 80 MG/0.8 ML SYRINGE SC SCH (14:00)
[2018-11-18 17:16] LABS: Critical Call Chem Troponin I RESULT DECREASING
[2018-11-18] MEDS: Enoxaparin Sodium 80 MG/0.8 ML SYRINGE SC SCH (17:33)
[2018-11-18] MEDS: HumaLOG 300 UNITS/3 ML VIAL SC PRN (17:33)
[2018-11-18 17:51] LABS: CKMB 7.2 ng/mL (0-6.6)
[2018-11-18] MEDS: Atorvastatin Calcium 40 MG TAB PO SCH (20:52)
[2018-11-18] MEDS: Aspirin 325 mg Enteric Coated Tablet PO SCH (20:52)
[2018-11-18] MEDS: Lisinopril 10 MG TAB PO SCH (20:54)
--- NOTE | 2018-11-18 21:21 | CON ---
DATE OF CONSULTATION: HISTORY OF PRESENT ILLNESS: The patient is a pleasant 73-year-old woman with a history of severe coronary artery disease, status post coronary artery bypass surgery, who presented with recurrent chest discomfort. The patient previously underwent coronary artery bypass surgery x4. She had unfortunately developed closure of several coronary bypass grafts and had a HYMAN, which was tied into a diffusely diseased left anterior descending artery. The patient was seen here in August of this year with a non-Q-wave myocardial infarction. The patient underwent a cardiac catheterization. She was found to have mild decreased left ventricular ejection fraction of 45%. The coronary artery bypass graft to the HYMAN was patent to the LAD. There was an occluded vein graft to the RCA and vein graft also to the second diagonal branch. The patient was placed on medical therapy. She was in her usual state of health, when she suddenly was under a great deal of stress and developed left-sided chest discomfort. She presented to the emergency room with approximately an hour of chest pain. It subsequently had resolved. The patient states that she has been under severe stress. She was noted to have a markedly elevated blood pressure. The patient denies having any present chest discomfort. PAST MEDICAL HISTORY: 1. Coronary artery disease. 2. Hypertension. 3. Dyslipidemia. 4. Diabetes mellitus. 5. Squamous cell cancer of the hand. PAST SURGICAL HISTORY: Hysterectomy and cholecystectomy. SOCIAL HISTORY: Nonsmoker. FAMILY HISTORY: Strong family history of heart disease. Father had a myocardial infarction. ALLERGIES: NONE. REVIEW OF SYSTEMS: Ten-point system unremarkable. PHYSICAL EXAMINATION: GENERAL: This is a well-developed woman, in no acute distress. VITAL SIGNS: Blood pressure of 167/72. NECK: No jugular venous distention. LUNGS: Coarse breath sounds bilateral. HEART: Regular rate and rhythm. Normal S1 and S2. 1/6 systolic murmur. ABDOMEN: Nondistended. EXTREMITIES: No edema. VASCULAR: Radial pulses are 2+. LABORATORY DATA: Sodium 139, potassium 4.0, BUN 25, and creatinine 0.98. Troponin was 0.466. White blood cell count 7.6, hemoglobin 13.0, hematocrit 38.5, and platelets 143. DIAGNOSTIC DATA: EKG revealed normal sinus rhythm with left bundle-branch block. IMPRESSION: 1. Non-Q-wave myocardial infarction, type 2. 2. History of coronary artery bypass surgery. 3. History of ischemic cardiomyopathy. 4. Hypertension, poorly controlled. 5. Dyslipidemia. PLAN: This patient presents with recurrent chest discomfort and slightly elevated troponin levels. The patient had a recent catheterization. We would recommend increasing the patient's doses of her cardiac medications to lower her blood pressure. Would recommend increasing the dose of her lisinopril. We will consider increasing the dose of her Imdur. We will follow this patient with you through her hospitalatin. Job ID: [id number] MTDD
[2018-11-19] MEDS: Enoxaparin Sodium 80 MG/0.8 ML SYRINGE SC SCH ×2 (05:53→18:09)
--- NOTE | 2018-11-19 07:29 | PDOC.EVN ---
Addendum - Attending - Attending Attestation Date/Time: 11/19/18 4449 I personally evaluated the patient and discussed the management with Dr. Moyer. I agree with the History, Examination, Assessment and Plan documented above in the progress note any addition or exceptions noted below. Patient reports no issues. No return of chest pain. BP improved control after changing meds. Awaiting cardiology recs.
[2018-11-19] MEDS: Carvedilol 25 MG TAB PO SCH ×2 (08:37→20:58)
[2018-11-19] MEDS: Clopidogrel Bisulfate 75 MG TAB PO SCH (08:37)
[2018-11-19] MEDS: Lisinopril 10 MG TAB PO SCH ×2 (08:37→20:59)
[2018-11-19] MEDS: metFORMIN 500 MG TAB PO SCH ×2 (08:37→20:58)
--- NOTE | 2018-11-19 09:43 | PDOC.FM ---
- Subjective Subjective: Patient reports being asymptomatic since admission. She denies any current chest pain, SOB, diaphoresis, H/A, vision changes. - Objective MAR Reviewed: Yes Vital Signs & Weight: Vital Signs (12 hours) Temp Pulse Resp BP BP Pulse Ox 11/19/18 08:37 195/76 H 11/19/18 07:47 98.7 F 56 L 12 190/79 H 95 11/19/18 04:03 98 F 57 L 20 149/63 H 97 11/18/18 23:42 97.9 F 53 L 20 124/83 94 L Weight Weight 83.96 kg I&O: 11/18/18 11/19/18 11/20/18 06:59 06:59 06:59 Intake Total 0 240 Output Total 240 Balance -240 240 Result Diagrams: 11/18/18 00:33 11/18/18 00:27 Phys Exam - Physical Examination Constitutional: NAD HEENT: moist MMs, sclera anicteric Respiratory: no wheezing, no rales, no rhonchi, clear to auscultation bilateral Cardiovascular: RRR, no significant murmur, no rub Gastrointestinal: soft, non-tender, no distention, positive bowel sounds Musculoskeletal: no edema, pulses present Neurological: non-focal, moves all 4 limbs Psychiatric: normal affect, A&O x 3 Skin: normal turgor, cap refill <2 seconds Dx/Plan (1) NSTEMI (non-ST elevated myocardial infarction) Code(s): I21.4 - NON-ST ELEVATION (NSTEMI) MYOCARDIAL INFARCTION Status: Acute (2) Hypertensive urgency Code(s): I16.0 - HYPERTENSIVE URGENCY Status: Acute (3) Anxiety and depression Code(s): F41.9 - ANXIETY DISORDER, UNSPECIFIED; F32.9 - MAJOR DEPRESSIVE DISORDER, SINGLE EPISODE, UNSPECIFIED Status: Chronic (4) Coronary artery disease Code(s): I25.10 - ATHSCL HEART DISEASE OF [place] CORONARY ARTERY W/O ANG PCTRS Status: Chronic (5) Diabetes type 2, controlled Code(s): E11.9 - TYPE 2 DIABETES MELLITUS WITHOUT COMPLICATIONS Status: Chronic Qualifiers: Diabetes mellitus long-term insulin use: without long-term use Diabetes mellitus complication status: with circulatory complication Diabetes mellitus complication detail: with other circulatory complications Qualified Code(s): E11.59 - Type 2 diabetes mellitus with other circulatory complications (6) Hyperlipidemia Code(s): E78.5 - HYPERLIPIDEMIA, UNSPECIFIED Status: Chronic (7) Hypertension Code(s): I10 - ESSENTIAL (PRIMARY) HYPERTENSION Status: Chronic Qualifiers: Hypertension type: essential hypertension Qualified Code(s): I10 - Essential (primary) hypertension (8) LBBB (left bundle branch block) Code(s): I44.7 - LEFT BUNDLE-BRANCH BLOCK, UNSPECIFIED Status: Chronic (9) Obesity (BMI 30.0-34.9) Code(s): E66.9 - OBESITY, UNSPECIFIED Status: Chronic - Plan Plan: NSTEMI type 2 EKG with LBBB but unchanged from prior. Trop peaked at 0.682. Chest pain relieved with nitro. Heart Score: 6 - Therapeutic lovenox - Cards has been consulted, appreciate recs - Will attempt to better control BP Hypertensive Urgency BP's have been elevated to the 190s systolic. - Lisinopril was increased yesterday - Will add HCTZ today DMII A1c 6.9 - Continue home meds - ACHS accuchecks, SSI, hypoglycemic protocol - CC diet HLD - Continue home meds HTN - Continue home meds, lisinopril has been increased - Added HCTZ today for better BP control Anxiety/Depression - Continue home meds Code Status: FULL VTE ppx: Lovenox Dispo: pending cardiology clearance
[2018-11-19] MEDS ORDERED: Hydrochlorothiazide 25 MG TAB PO SCH (10:15)
[2018-11-19] MEDS: Fluticasone Propionate Nasal Spray 16 gm Bottle NASAL SCH (10:52)
--- NOTE | 2018-11-19 11:08 | PQF ---
CLINICAL DOCUMENTATION IMPROVEMENT CLARIFICATION FORM: ICD-10 Updated PLEASE DO AN ADDENDUM TO THE PROGRESS NOTE WITH ANY DOCUMENTATION UPDATES OR ADDITIONS AND CARRY THROUGH TO DC SUMMARY. THANK YOU. DATE: 11/19/18 ATTN: DR. HIRSCH Please exercise your independent, professional judgment in responding to the clarification form. Clinical indicators are provided on the bottom of this form for your review Please check appropriate box(s): Conflicting documentation was noted in the Medical Record, please clarify if patient is being treated/monitored for: [ ] NSTEMI [x] NON Q WAVE MYOCARDIAL INFARCTION TYPE 2 [ ] Other diagnosis [ ] Unable to determine In addition, please specify: Present on Admission (POA): [x] Yes [ ] No [ ] Unable to determine For continuity of documentation, please document condition throughout progress notes and discharge summary. Thank You. CLINICAL INDICATORS - SIGNS / SYMPTOMS/ LABS CARDIOLOGY NOTE: "NON Q WAVE MYOCARDIAL INFARCTION TYPE 2" FAMILY MEDICINE PROGRESS NOTE 11/19: "NSTEMI" TROPONINS 0.170 / 0.466 / 0.682 / 0624 RISKS: HYPERTENSION DIABETES CAD TREATMENT: CARDIOLOGY CONSULT SERIAL LABS TRANSDERMAL NITRO (ER) SL NITRO (ER) ASPIRIN (ER-PRESENT) LOVENOX (11/18-PRESENT) PLAVIX (11/18-PRESENT) (This form is maintained as a part of the permanent medical record) 2014 [employer]. All Rights Reserved SATHISH [email or web address] Office: [phone] [facility]
[2018-11-19] MEDS: HumaLOG 300 UNITS/3 ML VIAL SC PRN (13:12)
--- NOTE | 2018-11-19 20:03 | PDOC.CTH ---
Cardiology Progress Note - Subjective No more chest pain. Feels back to normal. She has been under a lot of stress lately with her mother and sister being sick. - Objective Vital Signs Temp Pulse Resp BP BP Pulse Ox 11/19/18 16:00 96.6 F L 67 18 167/67 H 167 H 11/19/18 12:19 96 11/19/18 11:32 98.2 F 60 16 184/76 H 93 L 11/19/18 10:18 178/70 H 11/19/18 08:37 195/76 H Weight 185 lb 1.6 oz 11/18/18 11/19/18 11/20/18 06:59 06:59 06:59 Intake Total 0 240 360 Output Total 240 Balance -240 240 360 - Physical Examination General/Neuro: alert & oriented x3, NAD Neck: no JVD present Lungs: CTA, unlabored respirations Heart: RRR Abdomen: NT/ND Extremities: + edema B (1+) - Telemetry Telemetry Rhythm: NSR - Labs Result Diagrams: 11/18/18 00:33 11/18/18 00:27 Troponin/CKMB CK-MB (CK-2) 7.2 ng/mL (0-6.6) H* 11/18/18 16:41 Troponin I 0.624 ng/mL (< 0.028) H* 11/18/18 16:41 - Assessment/Plan 1. Type 2 MN, demand type MN 2. CAD 3. S/P CABG 4. HTN emergency. PLAN: - Will add amlodipine 5 mg daily - On discharge will need a PRN hydralazine prescription at 25 mg for SBP above 180. - if stable home tomorrow.
[2018-11-19] MEDS: Aspirin 325 mg Enteric Coated Tablet PO SCH (20:58)
[2018-11-19] MEDS: Atorvastatin Calcium 40 MG TAB PO SCH (20:58)
[2018-11-20] MEDS: hydrALAZINE 20 MG/ML VIAL SLOW IVP PRN ×3 (03:58→23:32)
[2018-11-20] MEDS ORDERED: cloNIDine 0.1 MG TAB PO PRN (04:34)
[2018-11-20] MEDS: Enoxaparin Sodium 80 MG/0.8 ML SYRINGE SC SCH ×2 (04:44→17:51)
[2018-11-20] MEDS: Ondansetron PF 4 MG/2 ML Vial SLOW IVP PRN ×2 (04:44→10:11)
--- NOTE | 2018-11-20 06:29 | PDOC.FM ---
- Subjective Subjective: Patient feeling well this AM. Denies any chest pain, SOB, headache, vision changes, cough, edema. - Objective MAR Reviewed: Yes Vital Signs & Weight: Vital Signs (12 hours) Temp Pulse Resp BP BP Pulse Ox 11/20/18 05:30 65 132/60 11/20/18 04:20 62 170/72 H 11/20/18 03:58 73 235/96 H 11/20/18 03:25 97.8 F 59 L 18 194/80 H 95 11/20/18 00:25 53 L 176/74 H 11/19/18 23:30 54 L 181/74 H 11/19/18 22:31 55 L 176/74 H 11/19/18 20:59 194/77 H 11/19/18 20:00 98.2 F 66 18 194/77 H 94 L Weight Weight 82.962 kg I&O: 11/18/18 11/19/18 11/20/18 06:59 06:59 06:59 Intake Total 0 240 660 Output Total 240 Balance -240 240 660 Result Diagrams: 11/18/18 00:33 11/18/18 00:27 Phys Exam - Physical Examination Constitutional: NAD HEENT: moist MMs, sclera anicteric Respiratory: no wheezing, no rales, no rhonchi, clear to auscultation bilateral Cardiovascular: RRR, no significant murmur, no rub Gastrointestinal: soft, non-tender, no distention, positive bowel sounds Musculoskeletal: no edema, pulses present Neurological: non-focal, moves all 4 limbs Psychiatric: normal affect, A&O x 3 Skin: normal turgor, cap refill <2 seconds Dx/Plan (1) NSTEMI (non-ST elevated myocardial infarction) Code(s): I21.4 - NON-ST ELEVATION (NSTEMI) MYOCARDIAL INFARCTION Status: Acute Plan: NSTEMI type 2 (2) Hypertensive urgency Code(s): I16.0 - HYPERTENSIVE URGENCY Status: Acute (3) Anxiety and depression Code(s): F41.9 - ANXIETY DISORDER, UNSPECIFIED; F32.9 - MAJOR DEPRESSIVE DISORDER, SINGLE EPISODE, UNSPECIFIED Status: Chronic (4) Coronary artery disease Code(s): I25.10 - ATHSCL HEART DISEASE OF [place] CORONARY ARTERY W/O ANG PCTRS Status: Chronic (5) Diabetes type 2, controlled Code(s): E11.9 - TYPE 2 DIABETES MELLITUS WITHOUT COMPLICATIONS Status: Chronic Qualifiers: Diabetes mellitus termination clerk insulin use: without assisted use Diabetes mellitus complication status: with circulatory complication Diabetes mellitus complication detail: with other circulatory complications Qualified Code(s): E11.59 - Type 2 diabetes mellitus with other circulatory complications (6) Hyperlipidemia Code(s): E78.5 - HYPERLIPIDEMIA, UNSPECIFIED Status: Chronic (7) Hypertension Code(s): I10 - ESSENTIAL (PRIMARY) HYPERTENSION Status: Chronic Qualifiers: Hypertension type: essential hypertension Qualified Code(s): I10 - Essential (primary) hypertension (8) LBBB (left bundle branch block) Code(s): I44.7 - LEFT BUNDLE-BRANCH BLOCK, UNSPECIFIED Status: Chronic (9) Obesity (BMI 30.0-34.9) Code(s): E66.9 - OBESITY, UNSPECIFIED Status: Chronic - Plan Plan: NSTEMI type 2 EKG with LBBB but unchanged from prior. Trop peaked at 0.682. Chest pain relieved with nitro. Heart Score: 6 - Therapeutic lovenox - Cards has been consulted, appreciate recs - Will attempt to better control BP and d/c after this Hypertensive Urgency BP's have been elevated to the 230s systolic - Lisinopril was increased - Added amlodipine and HCTZ DMII A1c 6.9 - Continue home meds - ACHS accuchecks, SSI, hypoglycemic protocol - CC diet HLD - Continue home meds HTN - Continue home meds, lisinopril has been increased - Added HCTZ and amlodipine for better control Anxiety/Depression - Continue home meds Code Status: FULL VTE ppx: Lovenox Dispo: pending improved BP's below 180s Addendum - Attending - Attending Attestation Date/Time: 11/20/18 8066 I personally evaluated the patient and discussed the management with Dr. Moyer. I agree with the History, Examination, Assessment and Plan documented above with any addition or exceptions noted below. Patient denies complaints. Had elevated BP overnight, she reports this does normally occur but had some nausea during the episode. Increasing BP control today. Await further cardiology recs but based on their documentation, may be stable for dc later today if BP shows improved control.
[2018-11-20] MEDS: metFORMIN 500 MG TAB PO SCH ×2 (09:33→21:16)
[2018-11-20] MEDS: Lisinopril 10 MG TAB PO SCH ×2 (09:33→21:16)
[2018-11-20] MEDS: Amlodipine 5 MG TAB PO SCH (09:34)
[2018-11-20] MEDS: Carvedilol 25 MG TAB PO SCH ×2 (09:34→21:16)
[2018-11-20] MEDS: Clopidogrel Bisulfate 75 MG TAB PO SCH (09:34)
[2018-11-20] MEDS: Hydrochlorothiazide 25 MG TAB PO SCH (09:34)
[2018-11-20] MEDS: Fluticasone Propionate Nasal Spray 16 gm Bottle NASAL SCH (09:35)
[2018-11-20 11:23] LABS: Hemoglobin 13.5 g/dL (12.0-16.0); Platelet Count 152 thou/uL (130-400)
--- NOTE | 2018-11-20 18:08 | PDOC.CTH ---
Cardiology Progress Note - Subjective She had an episode of HTN. She had just been on telephone with her mother and she felt very stressed, she was not feeling well and her BP was checked and it was in the 200's over 100's, she received PRN hydralazine twice and it improved slightly to the 170's. Once she calmed down it came down to low 100's and felt lightheaded. - Objective Vital Signs Temp Pulse Resp BP BP BP Pulse Ox 11/20/18 15:59 97.8 F 65 18 125/61 11/20/18 12:30 97.6 F 54 L 16 108/53 L 96 11/20/18 10:11 86 192/80 H 11/20/18 10:10 72 197/75 H 11/20/18 09:34 86 192/80 H 11/20/18 09:33 182/80 H 11/20/18 08:00 98.0 F 86 18 192/80 H 96 Weight 182 lb 14.4 oz 11/19/18 11/20/18 11/21/18 06:59 06:59 06:59 Intake Total 948 581 7990 Balance 775 723 3260 - Physical Examination General/Neuro: alert & oriented x3, NAD Neck: no JVD present Lungs: CTA, unlabored respirations Heart: RRR Abdomen: NT/ND Extremities: other: (no edema) - Telemetry Telemetry Rhythm: NSR - Labs Result Diagrams: 11/20/18 10:45 11/20/18 10:44 Troponin/CKMB CK-MB (CK-2) 7.2 ng/mL (0-6.6) H* 11/18/18 16:41 Troponin I 0.624 ng/mL (< 0.028) H* 11/18/18 16:41 - Assessment/Plan 1. Type 2 IA, demand type IA 2. CAD 3. S/P CABG 4. HTN emergency. PLAN: - Likely a lot of her HTN episodes is related to anxiety Will get a plasma metanephrine make sure this is not a pheochromcytoma. - On discharge will need a PRN hydralazine prescription at 25 mg for SBP above 180. - Likely home in the morning.
[2018-11-20] MEDS: Atorvastatin Calcium 40 MG TAB PO SCH (21:16)
[2018-11-20] MEDS: Aspirin 325 mg Enteric Coated Tablet PO SCH (21:16)
[2018-11-21] MEDS: Ondansetron PF 4 MG/2 ML Vial SLOW IVP PRN ×2 (03:01→08:40)
[2018-11-21] MEDS: Enoxaparin Sodium 80 MG/0.8 ML SYRINGE SC SCH (05:36)
--- NOTE | 2018-11-21 06:45 | PDOC.EVN ---
Addendum - Attending - Attending Attestation Date/Time: 11/21/18 8503 I personally evaluated the patient and discussed the management with Dr. Moyer. I agree with the History, Examination, Assessment and Plan documented in her progress note with any addition or exceptions noted below. Patient here for NSTEMI 2/2 demand ischemia thought due to HTN urgency. Doing well this morning. Had some increased BP yesterday 2/2 anxiety and stress. Reports feeling better today. Overall, BP is much better with titration of her meds and addition of Norvasc. She is reporting some intermittent nausea that began yesterday and consider relation to Hydralazine. Will discuss case with cardiology and hopeful discharge home at some point today.
--- NOTE | 2018-11-21 06:54 | PDOC.FM ---
- Subjective Subjective: Patient reports some nausea yesterday and today with one episode of emesis yesterday. She reports a h/o anxiety and has been feeling very anxious lately. Denies CP, SOB, H/A, vision changes - Objective MAR Reviewed: Yes Vital Signs & Weight: Vital Signs (12 hours) Temp Pulse Resp BP BP Pulse Ox 11/21/18 04:00 98.8 F 70 16 137/61 93 L 11/20/18 23:32 66 195/80 H 11/20/18 23:10 72 187/85 H 11/20/18 21:16 175/73 H 11/20/18 20:00 98.4 F 65 18 175/73 H 96 Weight Weight 82.962 kg I&O: 11/19/18 11/20/18 11/21/18 06:59 06:59 06:59 Intake Total 556 760 2167 Balance 458 343 2180 Result Diagrams: 11/20/18 10:45 11/20/18 10:44 Phys Exam - Physical Examination Constitutional: NAD HEENT: moist MMs, sclera anicteric Respiratory: no wheezing, no rales, no rhonchi, clear to auscultation bilateral Cardiovascular: RRR, no significant murmur, no rub Gastrointestinal: soft, non-tender, no distention, positive bowel sounds Musculoskeletal: no edema, pulses present Neurological: non-focal, moves all 4 limbs Psychiatric: normal affect, A&O x 3 Skin: normal turgor, cap refill <2 seconds Dx/Plan (1) NSTEMI (non-ST elevated myocardial infarction) Code(s): I21.4 - NON-ST ELEVATION (NSTEMI) MYOCARDIAL INFARCTION Status: Acute Plan: NSTEMI type 2 (2) Hypertensive urgency Code(s): I16.0 - HYPERTENSIVE URGENCY Status: Acute (3) Anxiety and depression Code(s): F41.9 - ANXIETY DISORDER, UNSPECIFIED; F32.9 - MAJOR DEPRESSIVE DISORDER, SINGLE EPISODE, UNSPECIFIED Status: Chronic (4) Coronary artery disease Code(s): I25.10 - ATHSCL HEART DISEASE OF [place] CORONARY ARTERY W/O ANG PCTRS Status: Chronic (5) Diabetes type 2, controlled Code(s): E11.9 - TYPE 2 DIABETES MELLITUS WITHOUT COMPLICATIONS Status: Chronic Qualifiers: Diabetes mellitus prison insulin use: without prison use Diabetes mellitus complication status: with circulatory complication Diabetes mellitus complication detail: with other circulatory complications Qualified Code(s): E11.59 - Type 2 diabetes mellitus with other circulatory complications (6) Hyperlipidemia Code(s): E78.5 - HYPERLIPIDEMIA, UNSPECIFIED Status: Chronic (7) Hypertension Code(s): I10 - ESSENTIAL (PRIMARY) HYPERTENSION Status: Chronic Qualifiers: Hypertension type: essential hypertension Qualified Code(s): I10 - Essential (primary) hypertension (8) LBBB (left bundle branch block) Code(s): I44.7 - LEFT BUNDLE-BRANCH BLOCK, UNSPECIFIED Status: Chronic (9) Obesity (BMI 30.0-34.9) Code(s): E66.9 - OBESITY, UNSPECIFIED Status: Chronic - Plan Plan: NSTEMI type 2 EKG with LBBB but unchanged from prior. Trop peaked at 0.682. Chest pain relieved with nitro. Heart Score: 6 - Therapeutic lovenox - Cards has been consulted, appreciate recs - Will attempt to better control BP and d/c after this Hypertensive Urgency BP's have been elevated to the 230s systolic, now mildly improved to 180s-190s with some down to 120s-130s systolic. - Lisinopril was increased - Added amlodipine and HCTZ DMII A1c 6.9 - Continue home meds - ACHS accuchecks, SSI, hypoglycemic protocol - CC diet HLD - Continue home meds HTN - Continue home meds, lisinopril has been increased - Added HCTZ and amlodipine for better control Anxiety/Depression - Continue home meds Code Status: FULL VTE ppx: Lovenox Dispo: pending improved BP's below 180s
[2018-11-21 08:40] VITALS: BP 154/65; TEMP 97.5
[2018-11-21] MEDS: Fluticasone Propionate Nasal Spray 16 gm Bottle NASAL SCH (08:43)
[2018-11-21] MEDS: Lisinopril 10 MG TAB PO SCH (08:44)
[2018-11-21] MEDS: Amlodipine 5 MG TAB PO SCH (08:44)
[2018-11-21] MEDS: Hydrochlorothiazide 25 MG TAB PO SCH (08:44)
[2018-11-21] MEDS: Clopidogrel Bisulfate 75 MG TAB PO SCH (08:45)
[2018-11-21] MEDS: Carvedilol 25 MG TAB PO SCH (08:45)
[2018-11-21] MEDS: metFORMIN 500 MG TAB PO SCH (08:45)
--- NOTE | 2018-11-22 05:27 | DIS ---
DATE OF ADMISSION: 11/18/2018 DATE OF DISCHARGE: 11/21/2018 ADMITTING ATTENDING: Hakeem Rosa MD DISCHARGE ATTENDING: Hakeem Rosa MD ADMITTING RESIDENT: Meagan Rivera MD. DISCHARGE RESIDENT: Lola Moyer MD CONSULTS: Dr. Bustamante and Dr. Anna with Cardiology. PROCEDURES: None. PRIMARY DIAGNOSES: 1. Non-ST elevation myocardial infarction type 2. 2. Hypertensive urgency. 3. Elevated troponin. 4. Left bundle branch block. SECONDARY DIAGNOSES: 1. Coronary artery disease. 2. Diabetes type 2. 3. Anxiety and depression. 4. Hyperlipidemia. 5. Hypertension. 6. Obesity. DISCHARGE MEDICATIONS: 1. Amlodipine 5 mg p.o. daily. 2. Hydralazine 25 mg p.o. q.6 hours p.r.n. systolic blood pressure greater than 180. 3. Lisinopril 20 mg p.o. b.i.d. 4. Nitroglycerin 0.4 mg sublingual q.5 minutes p.r.n. chest pain. 5. Aspirin 325 mg p.o. at bedtime. 6. Atorvastatin 80 mg p.o. at bedtime. 7. Carvedilol 12.5 mg p.o. b.i.d. 8. Plavix 75 mg p.o. q.a.m. 9. Duloxetine 20 mg p.o. daily. 10. Isosorbide mononitrate 60 mg p.o. daily. 11. Metformin 1000 mg p.o. b.i.d. Discontinued medications: None. HISTORY OF PRESENT ILLNESS AND HOSPITAL COURSE: A 73-year-old female who presented to the emergency room complaining of typical chest pain that was relieved with nitroglycerin. The patient has an extensive coronary artery disease history, status post CABG. The patient had a recent normal cath in August 2018. The patient was found to have an initial troponin of 0.01 that trended up to 0.17 and then 0.466 and then 0.682 was the peak, after this it downtrended. The patient had no further episodes of chest pain after admission due to the nitroglycerin she was given. The patient was started on therapeutic Lovenox, which she tolerated very well. The patient was stable for discharge, however, her blood pressures remained elevated. Her lisinopril dose was increased to 20 mg b.i.d. The patient was also started on amlodipine and given hydralazine p.r.n. The patient was briefly on hydrochlorothiazide as well, however, this was not continued on discharge. The patient's blood pressures were much better controlled by the time of discharge in the 130s to 150s systolic as opposed to the 190s to 230 systolic. The patient was asymptomatic and tolerated the medications well. She did have some nausea and it was suspected this was due to the hydralazine, however, this improved with Zofran. DISPOSITION: Stable. DISCHARGE INSTRUCTIONS: 1. Location: Home. 2. Diet: Heart healthy and diabetic diet. 3. Activity: As tolerated. 4. Followup: With Dr. Gomez in [address] Anna in 2 to 3 weeks. Job ID: [id number]
== END 2018-11-21 11:28 | disposition home or self-care (01) | DRG 282 ==
LOC: ERS 00:11 → 2SW 01:23 → OBSVTOIN 13:57 → 2NO 11-19 12:27
PROVIDERS: ADMIT Student in an Organized Health Care Education/Training Program; ATTEND Student in an Organized Health Care Education/Training Program
DX: I21.A1 Myocardial infarction type 2 (principal); I25.10 Atherosclerotic heart disease of native coronary artery without angina pectoris; E11.9 Type 2 diabetes mellitus without complications; I10 Essential (primary) hypertension; E78.5 Hyperlipidemia, unspecified; I44.7 Left bundle-branch block, unspecified; F41.9 Anxiety disorder, unspecified; F32.9 Major depressive disorder, single episode, unspecified; I16.0 Hypertensive urgency; E66.9 Obesity, unspecified; I25.2 Old myocardial infarction; Z68.31 Body mass index [BMI] 31.0-31.9, adult; Z95.1 Presence of aortocoronary bypass graft; Z85.828 Personal history of other malignant neoplasm of skin; Z90.710 Acquired absence of both cervix and uterus; Z90.49 Acquired absence of other specified parts of digestive tract
CPT/HCPCS: 36415; 36416; 71045; 80053; 82550; 82553; 82565; 83036; 83835; 84484; 85014; 85018; 85025; 85049; 93005; 94760; J0360; J1650; J2405

== ENCOUNTER 2019-03-05 18:01 | Observation (INO) | payer MEDICARE ==
--- NOTE | 2019-03-05 18:32 | RAD ---
Chest 2 views HISTORY: Chest pain. COMPARISON: 08/12/2017. FINDINGS: Cardiac silhouette is enlarged. Pulmonary vasculature are unremarkable. Mediastinum is midl ine with aortic calcification and postoperative changes. Parenchymal scarring in the left lung is stable. No confluent airspace consolidation, pneumothorax, or pleural effusion. IMPRESSION: Cardiomegaly, stable.. Atherosclerosis.
[2019-03-05 18:39] LABS: #Basophils 0.1 thou/uL (0.0-0.2); #Eosinphils 0.8 thou/uL (0.0-0.7); #Lymphocytes 2.4 thou/uL (1.20-3.40); #Monocytes 0.5 thou/uL (0.11-0.59); %Basophils 1.1 % (0.0-1.0); %Eosinophils 11.7 % (0.0-10.0); %Lymphocytes 35.7 % (21.0-51.0); %Monocytes 7.3 % (0.0-10.0); %Neutrophils 44.1 % (42.0-75.0); Hemoglobin 12.7 g/dL (12.0-16.0); Mean Corpuscular HGB CONC 34.8 g/dL (32.0-36.0); Mean Platelet Volume 8.2 fL (7.4-10.4); Platelet Count 162 thou/uL (130-400); RBC Distribution Width 11.9 % (11.5-14.5); Red Blood Cell (RBC) Count 3.98 mill/uL (4.20-5.40); White Blood Cell (WBC) Count 6.8 thou/uL (4.8-10.8)
[2019-03-05 19:05] LABS: ALT (SGPT) 12 U/L (8-55); AST (SGOT) 14 U/L (5-34); Albumin 3.7 g/dL (3.4-4.8); Alkaline Phosphatase 57 U/L (40-150); Anion Gap 11 mmol/L (10-20); BUN (Urea Nitrogen) 19 mg/dL (9.8-20.1); Bilirubin, Total 0.9 mg/dL (0.2-1.2); CK (CPK) 90 U/L (29-168); Calc. Creatinine Clearance 0 mL/min (70-130); Calcium 9.4 mg/dL (7.8-10.44); Carbon Dioxide 27 mmol/L (23-31); Chloride 106 mmol/L (98-107); Estimated GFR-MDRD 58; Globulin 2.9 g/dL (2.4-3.5); Glucose 145 mg/dL (83-110); Protein, Total 6.6 g/dL (6.0-8.3); Sodium 140 mmol/L (136-145)
--- NOTE | 2019-03-05 21:18 | PDOC.FPRHP ---
- History of Present Illness Chief Complaint: palpitations and chest pressure History of Present Illness: 73 y/o F with PMHx of CAD with X4 vessel CABG, NH, and HTN presents to the ED with vague chest pressure and palpitations that was off and on on 03/05. She states that the pressure was alleviated when resting, and worsened by nothing. Denies any diaphoresis, N/V/D/abd pain. Pt admits to generalized weakness and light headedness. Denies any syncopal event, fever/chill, or recent illness. C/ o anxiousness. Pt states she took her BP at home, reading 150/60-70's. She states this does not feel like her prior heart attacks, but that the 4 she has had all felt different in nature. In the ED pt had no acute EKG changes, received hydralazine for BP of 190/80, lowering BP to 161/58, and ASA. Negative trops. BNP 235 - Allergies/Adverse Reactions Allergies Allergy/AdvReac Type Severity Reaction Status Date / Time No Known Allergies Allergy Verified 03/05/19 23:05 - Home Medications Medication Instructions Recorded Confirmed Type Aspirin [Ecotrin Regular Strength] 325 mg PO HS 08/13/17 03/05/19 History Atorvastatin Calcium [Lipitor] 80 mg PO HS #30 tablet 08/02/18 03/05/19 Rx Carvedilol 12.5 mg PO BID #60 tablet 08/02/18 03/05/19 Rx Clopidogrel Bisulfate [Plavix] 75 mg PO QAM #30 tab 08/02/18 03/05/19 Rx Amlodipine [Norvasc] 5 mg PO DAILY #30 tab 11/20/18 03/05/19 Rx Lisinopril [Zestril] 20 mg PO BID #60 tab 11/20/18 03/05/19 Rx Nitroglycerin 0.4 mg SL Q5MIN PRN #30 tab.subl 11/21/18 03/05/19 Rx hydrALAZINE [Apresoline] 25 mg PO Q6H PRN #30 tab 11/21/18 03/05/19 Rx Isosorbide Mononitrate [Imdur ER] 120 mg PO DAILY 03/05/19 03/05/19 History metFORMIN HCl [Metformin ER 500 mg PO BID 03/05/19 03/05/19 History Osmotic] - History PMHx: CAD PSHx: X4 vessel CABG, X2 Stents, Hysterectomy, Cholecystectomy, bilateral cateract sx, R-knee sx. FHx: mother: 96 and healthy. Father: NH, CAD, passed at 65 from NH. Sister: Breast CA Social: denies current or past drug, etoh, or tobacco abuse. - Review of Systems General: denies: fever/chills, weight/appetite/sleep changes Eyes: denies: vision changes ENT: denies: nasal congestion Respiratory: reports: shortness of breath. denies: cough, congestion Cardiovascular: reports: chest pain, palpitation Gastrointestinal: denies: nausea, vomiting, diarrhea, constipation, abdominal pain Skin: denies: rashes, lesions Musculoskeletal: denies: pain, tenderness Neurological: reports: weakness, other (lightheadedness). denies: numbness, syncope, seizure Psychological: reports: anxiety - Vital signs BP: 161/58 HR: 52 RR: 16 Tmax: 97.8 Pox: 97% on RA Wt: 82.327 - Physical Exam Constitutional: NAD, awake, alert and oriented, well developed HEENT: normocephalic and atraumatic, PERRLA, EOMI, conjunctiva clear, no scleral icterus, grossly normal vision, grossly normal hearing, MMM, oropharynx clear, good dention Neck: supple, FROM, trachea midline, no LAD, no JVD Chest: no-tender to palpation, no lesions Heart: RRR, normal S1/S2 (distant heart sounds), pulses present, no edema Lungs: CTAB, no respiratory distress, good air movement, no rales/rhonchi, no wheezing, no retractions Abdomen: soft, non-tender, bowel sounds present, no masses/distention, no hernias Musculoskeletal: normal structure, normal tone, ROM grossly normal Neurological: no focal deficit, CN II-XII intact, normal sensation Skin: no rash/lesions, good turgor, capillary refill <2 seconds, no jaundice Heme/Lymphatic: no unusual bruising or bleeding, no purpura, no petechia Psychiatric: normal mood and affect, good judgment and insight, intact recent and remote memory FMR H&P: Results - Labs Result Diagrams: 03/05/19 18:29 03/05/19 18:29 Lab results: WBC 6.8 thou/uL (4.8-10.8) 03/05/19 18:29 Hgb 12.7 g/dL (12.0-16.0) 03/05/19 18:29 Hct 36.6 % (36.0-47.0) 03/05/19 18:29 MCV 92.0 fL (78.0-98.0) 03/05/19 18:29 Plt Count 162 thou/uL (130-400) 03/05/19 18:29 Neutrophils % 44.1 % (42.0-75.0) 03/05/19 18:29 Sodium 140 mmol/L (136-145) 03/05/19 18:29 Potassium 4.0 mmol/L (3.5-5.1) 03/05/19 18:29 Chloride 106 mmol/L (98-107) 03/05/19 18:29 Carbon Dioxide 27 mmol/L (23-31) 03/05/19 18:29 BUN 19 mg/dL (9.8-20.1) 03/05/19 18:29 Creatinine 0.95 mg/dL (0.6-1.1) 03/05/19 18:29 Glucose 145 mg/dL (83-110) H 03/05/19 18:29 Calcium 9.4 mg/dL (7.8-10.44) 03/05/19 18:29 Total Bilirubin 0.9 mg/dL (0.2-1.2) 03/05/19 18:29 AST 14 U/L (5-34) 03/05/19 18:29 ALT 12 U/L (8-55) 03/05/19 18:29 Alkaline Phosphatase 57 U/L (40-150) 03/05/19 18:29 Creatine Kinase 90 U/L (29-168) 03/05/19 18:29 B-Natriuretic Peptide 235.0 pg/mL (0-100) H 03/05/19 18:32 Serum Total Protein 6.6 g/dL (6.0-8.3) 03/05/19 18:29 Albumin 3.7 g/dL (3.4-4.8) 03/05/19 18:29 Lipase 13 U/L (8-78) 03/05/19 18:32 - EKG Interpretation EKG: no changes from previous EKG on 11/18/18 NSR, Rate 61 FMR H&P: A/P - Problem List (1) Atypical chest pain Current Visit: Yes Status: Acute Code(s): R07.89 - OTHER CHEST PAIN (2) Diabetes type 2, uncontrolled Current Visit: Yes Status: Acute Code(s): E11.65 - TYPE 2 DIABETES MELLITUS WITH HYPERGLYCEMIA (3) Hyperlipidemia Current Visit: Yes Status: Chronic Code(s): E78.5 - HYPERLIPIDEMIA, UNSPECIFIED (4) Hypertension Current Visit: Yes Status: Chronic Code(s): I10 - ESSENTIAL (PRIMARY) HYPERTENSION Qualifiers: Hypertension type: essential hypertension Qualified Code(s): I10 - Essential (primary) hypertension (5) Obesity (BMI 30.0-34.9) Current Visit: Yes Status: Chronic Code(s): E66.9 - OBESITY, UNSPECIFIED (6) Coronary artery disease Current Visit: No Status: Chronic Code(s): I25.10 - ATHSCL HEART DISEASE OF [place] CORONARY ARTERY W/O ANG PCTRS Qualifiers: Coronary Disease-Associated Artery/Lesion type: [place] artery [place] vs. transplanted heart: [place] heart Associated angina: with stable angina Qualified Code(s): I25.118 - Atherosclerotic heart disease of [place] coronary artery with other forms of angina pectoris (7) Palpitations Current Visit: Yes Status: Acute Code(s): R00.2 - PALPITATIONS - Plan 73 y/o F admitted to Tele Observation for ACS rule out and Atypical Chest Pain. 1. Atypical Chest Pain - Pressure sensation over chest, palpitations, weakness - Hx of CAD - Stress test ordered for AM - Trops negative X3 2. Hx of CAD - S/P X4 vessel CABG - S/P X2 stents - X4 NH's - hold home plavix until decision made to stress or experimental machining lab manager. - Cxr: stable cardiomegaly 3. Palpitations - HR 52 - No EKG changes 4. HTN, uncontrolled - BP 161/58 - continue home BP medications of lisinopril, and norvasc 5. Hx of DM - Continue home metformin 6. Obesity Code Status: Full Code Diet: NPO DVT ppx: SCD's Disposition/LOS: inpatient observation anticipating less than 2 midnight hospital stay stable FMR H&P: Upper Level - Pertinent history 73 yo female with known CAD s/p CABG presents after an episode of chest pressure. She took hydralazine at home due to BP. Please see international nurse note above for further information. General: Elderly female appears stated age, NAD HEENT: Moist mucous membranes CV: RRR, no significant murmurs Respiratory: CTA-bilaterally, no wheezing Abdomen: Soft, non-tender, normoactive BS Extremities: Moving all four symmetrically, no edema Neuro: No focal deficits Psych: A&Ox3 - Plan Date/Time: 03/05/192117 I, Burak Howell MD, have evaluated this patient and agree with findings/ plan as outlined by international nurse resident. Pertinent changes/additions are listed here. 1. Chest Pain - Due to history will consult cardiology in AM - Trend troponins 2. CAD - Continue home meds - s/p CABG 3. HTN - Continue home meds PCP: [facility] CODE STATUS: FULL CODE Disposition: Stable, will admit for further evaluation. Addendum - Attending - Attending Attestation Date/Time: 03/05/19 6224 I personally evaluated the patient and discussed the management with Dr. Aguero/ Lynda. I agree with the History, Examination, Assessment and Plan documented above with any addition or exceptions noted below. Patient with history of CAD, CABG x4 and repeat stenting who was admitted here recently for NSTEMI type 2 in setting of HTN urgency is here with chest pressure. Reports increased pressure today and feeling "off" but denies overt chest pain. Her exam is benign. Initial trops and EKG stable from baseline. She will be admitted for enzyme ACS rule out. No need for repeat cath at this time unless evidence for ACS occurs as she was recently cath'd a few months ago. Will continue medical mgmt and discuss with her raw products director tomorrow if she needs something else for anginal pain such as long acting Nitro versus Ranexa. Obs and anticipate short stay in hospital.
[2019-03-05] MEDS ORDERED: Nitroglycerin 0.4 MG TAB (25 Tab Bottle) PO PRN (23:02)
[2019-03-05] MEDS ORDERED: Ondansetron ODT 4 MG TAB PO PRN (23:02)
[2019-03-05 23:17] VITALS: BMI 31.1
[2019-03-05] MEDS ORDERED: hydrALAZINE 25 MG TAB PO PRN (23:28)
[2019-03-05] MEDS ORDERED: Nitroglycerin 0.4 MG TAB (25 Tab Bottle) SL PRN (23:28)
[2019-03-05] MEDS ORDERED: Atorvastatin Calcium 40 MG TAB PO SCH (23:45)
[2019-03-05] MEDS ORDERED: Lisinopril 20 MG TAB PO SCH (23:45)
--- NOTE | 2019-03-06 05:49 | PDOC.FM ---
- Subjective Subjective: Ms. Renee is a pleasant 73yoF who presents for evaluation of atypical chest pain. She states that in the past she has had similar episodes that were attributed to anxiety, however with her extensive heart history she felt the need to be evaluated. - Objective MAR Reviewed: Yes Vital Signs & Weight: Vital Signs (12 hours) Temp Pulse Resp BP BP Pulse Ox 03/06/19 03:37 56 L 03/06/19 03:18 98 F 76 20 182/81 H 99 03/05/19 23:45 56 L 184/79 H 03/05/19 22:41 97.8 F 59 L 21 H 185/79 H 98 Weight Weight 82.327 kg I&O: 03/04/19 03/05/19 03/06/19 06:59 06:59 06:59 Intake Total 320 Output Total 200 Balance 120 Result Diagrams: 03/05/19 18:29 03/05/19 18:29 Phys Exam - Physical Examination Constitutional: NAD HEENT: moist MMs, sclera anicteric Neck: supple, full ROM Respiratory: no wheezing, no rales, no rhonchi, clear to auscultation bilateral Cardiovascular: RRR, no significant murmur, no rub Gastrointestinal: soft, non-tender, no distention, positive bowel sounds Musculoskeletal: no edema, pulses present Neurological: non-focal, moves all 4 limbs Psychiatric: normal affect, A&O x 3 Skin: no rash, cap refill <2 seconds Dx/Plan - Plan Plan: 73 y/o F admitted to Tele Observation for ACS rule out and Atypical Chest Pain. Atypical Chest Pain Denies pain. States there was pressure sensation over chest, with associated palpitations and weakness. Strong history of CAD. Heart score of 5. Stress test ordered for this morning, however we will consult her small animal caretaker prior to exam. Troponins negative x 3. Hx of CAD S/P X4 vessel CABG, failed, S/P X2 stents, X4 AL's Hold home plavix until decision made to stress or molder labels. Palpitations No arrhythmia noted on EKG. Will monitor on Tele. HTN, uncontrolled BP 161/58 continue home BP medications of lisinopril, and norvasc Hx of DM Continue home metformin Obesity Code Status: Full Code Diet: NPO DVT ppx: SCD's Addendum - Attending - Attending Attestation Date/Time: 03/06/191920 I personally evaluated the patient and discussed the management with Dr. Altman. I agree with the History, Examination, Assessment and Plan documented above with any addition or exceptions noted below. The patient's chest pain has resolved. Cardiac enzymes are negative. Dr. Anna will come by to see pt and give med recs and she can likely d/c this afternoon.
[2019-03-06] MEDS ORDERED: metFORMIN XR 500 MG TAB PO SCH (08:00)
[2019-03-06] MEDS ORDERED: Carvedilol 6.25 MG TAB PO SCH (09:00)
[2019-03-06] MEDS ORDERED: Amlodipine 5 MG TAB PO SCH (09:00)
[2019-03-06] MEDS ORDERED: Lisinopril 20 MG TAB PO SCH (09:00)
[2019-03-06] MEDS ORDERED: Clopidogrel Bisulfate 75 MG TAB PO SCH (09:00)
[2019-03-06 12:06] VITALS: BP 138/60; TEMP 97.5
--- NOTE | 2019-03-06 14:33 | CON ---
DATE OF CONSULTATION: 03/06/2019 REASON FOR CONSULTATION: Chest pain. HISTORY OF PRESENT ILLNESS: Ms. Renee is a pleasant 73-year-old white female, who comes to the hospital for chest pain. She has significant history of coronary artery disease with CABG x4, only one of the four bypass is patent. She received a stent to the OM last year. She was in the hospital back in August of this year and she had a repeat catheterization that showed a patent OM stent, diffuse disease otherwise, and a vein graft to a diagonal that was patent. The LAD is occluded. The HYMAN to the LAD is atretic. The RCA is occluded as well as a vein graft to the RCA. She was admitted for rule out. She had 3 negative troponins. Currently, she is chest-pain free. Her blood pressure on admission was in the 190s. PAST MEDICAL HISTORY: 1. Coronary artery disease. 2. Type 2 diabetes. 3. Hypertension. 4. Hyperlipidemia. 5. Anxiety and depression. PAST SURGICAL HISTORY: 1. CABG x4 with only 1 out of 4 grafts patent, which is a vein graft to a diagonal. She has an atretic HYMAN and an occluded vein graft to the RCA and an occluded vein graft to an OM. 2. PCI of the left circumflex into the OM. 3. Bilateral cataract surgery. 4. Cholecystectomy. 5. Hysterectomy. 6. Right knee surgery. ALLERGIES: NO KNOWN DRUG ALLERGIES. OUTPATIENT MEDICATIONS: Include: 1. Aspirin 325 a day. 2. Atorvastatin 80 mg at bedtime. 3. Carvedilol 12.5 b.i.d. 4. Plavix 75 a day. 5. Amlodipine 5 mg a day. 6. Lisinopril 20 mg b.i.d. 7. Sublingual nitroglycerin 0.4 p.r.n. 8. Imdur 120 mg a day. 9. Metformin 500 mg b.i.d. SOCIAL HISTORY: No alcohol, tobacco, or drugs. FAMILY HISTORY: Father with VT, passes at 65 from heart attack. REVIEW OF SYSTEMS: A 12-point review of systems was done and was all negative unless stated in the history of present illness. PHYSICAL EXAMINATION: VITAL SIGNS: Temperature 97.5, pulse 62, respiratory rate 16, saturation 95% on room air, and blood pressure 138/60. GENERAL: Awake, alert, and oriented x3. No distress. HEENT: Normocephalic and atraumatic. NECK: Supple. LUNGS: Clear. CARDIOVASCULAR: S1 and S2. No S3 or S4. No murmurs. ABDOMEN: Soft. Positive bowel sounds. EXTREMITIES: No edema. SKIN: Warm and dry. LABORATORY DATA: Laboratory work was reviewed. CBC is unremarkable. Chemistries unremarkable. Troponin was undetectable x3 and a BNP of 235. ASSESSMENT AND PLAN: Chest pain. Ruled out with negative troponins. No need to do a stress test as she has several areas of ischemia on her coronary anatomy. At this point, she either has chest pain from hypertension versus just angina. I would only increase her antianginal regimen. I would increase her amlodipine to 10 mg a day. This will control blood pressure better and provide better antianginal relief. If she continues to have chest pains, I would add Ranexa to her regimen. Thank you for letting us to participate in the care of your patient. We will sign off. Please call with any questions. We will follow up in the office in one month. Job ID: [id number]
[2019-03-06] MEDS ORDERED: Aspirin 325 mg Enteric Coated Tablet PO SCH (21:00)
[2019-03-06] MEDS ORDERED: Atorvastatin Calcium 40 MG TAB PO SCH (21:00)
[2019-03-07] MEDS ORDERED: Amlodipine 10 MG TAB PO SCH (09:00)
--- NOTE | 2019-03-09 07:50 | DIS ---
DATE OF ADMISSION: 03/05/2019 DATE OF DISCHARGE: 03/06/2019 RESIDENT: Laney Altman MD. ADMITTING ATTENDING: Dr. Hakeem Rosa. CONSULT: Cardiology, Dr. Nikhli Anna. PROCEDURES: None. PRIMARY DIAGNOSIS: Atypical chest pain. SECONDARY DIAGNOSES: History of coronary artery disease, palpitations, hypertension, history of diabetes and obesity. DISCONTINUED MEDICATIONS: None. DISCHARGE MEDICATIONS: 1. Aspirin. 2. Isosorbide mononitrate 120mg. 3. Metformin 500mg b.i.d. 4. Norvasc 10 mg daily. 5. Lipitor 80 mg daily. 6. Carvedilol 12.5mg b.i.d. 7. Plavix 75mg daily. 8. Hydralazine 25mg as needed for hypertension. 9. Lisinopril 20mg daily. 10. Nitroglycerin 0.4mg as needed. 11. Her amlodipine was increased from 5 to 10 mg on this admission. HISTORY OF PRESENT ILLNESS AND HOSPITAL COURSE: Ms. Renee is a 73-year-old female with a significant past medical history of significant coronary artery disease including prior NV, 4-vessel CABG, and hypertension. She presented to the ER with vague chest pressure and palpitation that started on the day of admission, that was alleviated with resting. However, it made her anxious due to her cardiac history. She denies any diaphoresis, nausea, vomiting, diarrhea, syncope, fever, chills, or recent illnesses, or abdominal pain, . She did endorse generalized weakness and lightheadedness. On admission, her blood pressure was 161/58. She vehemently denied chest pain, endorsing only chest pressure. Her troponins were negative x3. Labs are otherwise unremarkable. Dr. Anna, her regular multimedia teacher, increased her amlodipine and was agreeable to discharge with followup in his office. DISPOSITION: Stable. DISCHARGE INSTRUCTIONS: 1. Location: Home. 2. Diet: Heart healthy. 3. Activity: Ad denzel. 4. Follow up with Cardiology within a month. Job ID: [id number] MTDD
== END 2019-03-06 14:54 | disposition home or self-care (01) ==
LOC: ERS 18:01 → 2SW 22:46
PROVIDERS: ADMIT Hospitalist; ATTEND Hospitalist
DX: R07.89 Other chest pain (principal); I25.810 Atherosclerosis of coronary artery bypass graft(s) without angina pectoris; I10 Essential (primary) hypertension; E11.65 Type 2 diabetes mellitus with hyperglycemia; I25.2 Old myocardial infarction; F41.9 Anxiety disorder, unspecified; F32.9 Major depressive disorder, single episode, unspecified; E78.5 Hyperlipidemia, unspecified; E66.9 Obesity, unspecified; Z68.31 Body mass index [BMI] 31.0-31.9, adult; Z79.02 Long term (current) use of antithrombotics/antiplatelets; Z79.82 Long term (current) use of aspirin; Z79.84 Long term (current) use of oral hypoglycemic drugs; Z79.899 Other long term (current) drug therapy; Z95.1 Presence of aortocoronary bypass graft; Z95.5 Presence of coronary angioplasty implant and graft
CPT/HCPCS: 71046; 80053; 82550; 83690; 83880; 84484 ×3; 85025; 93005; 99285; G0378 ×3; 36415

== ENCOUNTER 2019-12-16 08:08 | Outpatient (CLI) | payer MEDICARE ==
--- NOTE | 2019-12-16 09:37 | CT ---
EXAM: CT ANGIOGRAM OF THE NECK INDICATION: Peripheral vascular disease. Abnormal right carotid ultrasound. COMPARISON: None TECHNIQUE: CT angiogram of the neck are performed in the axial plane. Three-dimensional reformatted i mages are submitted for interpretation. FINDINGS: POSTCONTRAST SOFT TISSUE NECK CT: Aerodigestive tract:Aerodigestive tract is patent. No mucosal abnormality. Sinuses: Mild mucosal thickening of the maxillary sinuses. Orbits: Bilateral ocular lenses are appropriately located. Both globes are intact. Retrobulbar fat is preserved. Symmetric attenuation the optic nerves and ocular rectus muscles. Salivary glands:Symmetric attenuation of the parotid and submandibular glands. Thyroid gland: Appropriate attenuation. Lymph nodes: No evidence of lymphadenopathy by size criteria. Paraspinal muscles: Symmetric attenuation of the sternocleidomastoid muscles. Appropriate attenuation of the paraspinal muscles. Cervical spine:Vertebral body height is maintained. No fracture. No significant central canal stenosi s or significant neural foraminal narrowing. Limited evaluation by technique. Upper mediastinum and lung apices: Chronic lung parenchymal changes are suspected. Patchy groundglass opacities. CTA OF THE NECK WITH CONTRAST: Aorta: Atherosclerosis. No aneurysm or dissection. Right carotid artery: The right carotid artery origin, innominate artery and common carotid artery hagan ve appropriate enhancement and luminal diameter. There is short segment high-grade stenosis involving the right carotid bifurcation and proximal internal carotid artery due to noncalcified plaq ue. Small focus of calcified plaque is noted. Proximal right internal carotid artery, mid internal carotid artery and distal internal carotid artery have appropriate enhancement and luminal diameter. Left carotid: Appropriate enhancement and luminal diameter of the origin of the left carotid artery. The left common carotid artery demonstrates appropriate enhancement and luminal diameter. There is atherosclerosis with mild luminal narrowing involving the left carotid bifurcation and proximal inter nal carotid artery. There is evidence of calcified and noncalcified plaque. Mid to distal left internal carotid artery has appropriate enhancement and luminal diameter. Subclavian arteries:Patent and symmetric. Vertebral arteries:Patent throughout the course in the neck. Dominant right vertebral artery IMPRESSION: 1. High-grade stenosis involving the right carotid bifurcation, based upon NASCET criteria. 2. Mild stenosis involving the left carotid bifurcation and proximal internal carotid artery. Transcribed Date/Time: 12/16/2019 10:01 AM
== END 2019-12-16 08:09 | disposition home or self-care (01) ==
LOC: CT 08:08
PROVIDERS: ATTEND Internal Medicine Cardiovascular Disease
DX: I73.9 Peripheral vascular disease, unspecified (principal); I65.23 Occlusion and stenosis of bilateral carotid arteries
CPT/HCPCS: 70498; 82565

== ENCOUNTER 2020-01-06 10:15 | Inpatient (IN) | payer MEDICARE ==
[2020-01-04 11:05] VITALS: BMI 32.5
[2020-01-11] MEDS ORDERED: Insulin Regular 300 UNITS/3 ML VIAL ONE (08:40)
[2020-01-11] MEDS ORDERED: Heparin 5,000 UNITS/ML VIAL ONE (10:10)
[2020-01-11] MEDS ORDERED: Protamine Sulfate 50 MG/5 ML VIAL ONE (10:10)
[2020-01-11] MEDS ORDERED: Bupivacaine PF 0.5% 30 ML VIAL ONE (10:10)
[2020-01-11] MEDS ORDERED: Midazolam HCl 2 mg/2 ml Vial ONE (10:11)
[2020-01-11] MEDS ORDERED: Fentanyl 100 MCG/2 ML VIAL ONE ×2 (10:11→12:38)
[2020-01-11] MEDS ORDERED: Phenylephrine 10 MG/ML VIAL ONE (10:11)
[2020-01-11] MEDS ORDERED: PHENYLEPHRINE-NS 100 MCG/ML 10 ML SYRINGE ONE (10:11)
[2020-01-11] MEDS ORDERED: Rocuronium Bromide 10 MG/ML (10ML VIAL) ONE (11:30)
[2020-01-11] MEDS ORDERED: Glycopyrrolate 0.2 MG/ML 5 ML SYRINGE ONE (11:30)
[2020-01-11] MEDS ORDERED: PROPOFOL 200 MG/20 ML VIAL ONE (11:30)
[2020-01-11] MEDS ORDERED: Ketorolac Tromethamine 30 MG/ML VIAL ONE (11:30)
[2020-01-11] MEDS ORDERED: Dexamethasone 20 MG/5 ML VIAL ONE (11:30)
[2020-01-11] MEDS ORDERED: Ondansetron PF 4 MG/2 ML Vial ONE (11:30)
[2020-01-11] MEDS ORDERED: Lidocaine 1% PF 5 ML VIAL ONE (11:30)
--- NOTE | 2020-01-11 12:20 | OP ---
DATE OF PROCEDURE: 01/11/2020 PREOPERATIVE DIAGNOSIS: Right-sided asymptomatic carotid stenosis. POSTOPERATIVE DIAGNOSIS: Right-sided asymptomatic carotid stenosis. PROCEDURES PERFORMED: 1. Ultrasound-guided evaluation of the right carotid system and left femoral system. 2. Ultrasound-guided left femoral venous access. 3. TCAR with a 10 x 30 Enroute stent. SCREEN PRINTING CLOTH SPREADER: Cedrick Ulloa MD ANESTHESIA: General endotracheal, Dr. Ade Ventura. FLUORO TIME: 2 minutes 43 seconds. CONTRAST: 23 mL. DESCRIPTION OF PROCEDURE: After consent was obtained, the patient was brought to the operating room and placed in supine position on the operating table. Appropriate central line and monitors were placed and general endotracheal anesthesia was induced. Carotid artery was interrogated on the right and marked. Femoral vein was interrogated on the left and marked. Neck and groins were prepped and draped in usual sterile fashion. Left femoral venous access was obtained using ultrasound guidance and the Enroute venous sheath placed. Cutdown on the right common carotid system was performed. The right common carotid artery was dissected free and controlled with an umbilical tape. A 5-0 Prolene pursestring was placed. The patient was systemically heparinized. Clamp was positioned proximal to the pursestring. After adequate heparinization, common carotid artery was accessed and the access wire placed. Access sheath was placed and arteriogram was performed. The lesion at the bifurcation was marked. The Enroute sheath was then placed, connected to the venous sheath, and flow reversal performed. Common carotid artery was clamped. Carotid lesion was crossed with the 0.014 wire The balloon was passed across the carotid bifurcation over the 0.014 wire. Balloon was inflated. A 10 x 30 stent was selected. This was then passed and deployed across the bifurcation. Followup angiogram showed an excellent result. After 2 minutes, the reversal of flow was discontinued. Carotid clamp was released, and the carotid sheath was removed and pursestring suture secured. Protamine was administered. Hemostasis was ensured. Venous sheath was removed and manual pressure held for hemostasis. Wounds were irrigated, closed in layers and Dermabond applied to the skin. The patient tolerated the procedure well, was awakened and neurologically intact in the operating room. The patient was transferred to recovery room in stable condition. Job ID: [id number] MTDD
[2020-01-11] MEDS ORDERED: Ondansetron PF 4 MG/2 ML Vial IVP PRN (14:35)
[2020-01-11] MEDS ORDERED: Fentanyl 100 MCG/2 ML VIAL SLOW IVP PRN (14:35)
[2020-01-11] MEDS ORDERED: Sodium Chloride 0.9% 1,000 ML IV SCH (14:35)
[2020-01-11] MEDS ORDERED: DOPamine 400 MG/D5W 250 ML 250 ML IVPB PRN (14:35)
[2020-01-11] MEDS ORDERED: Acetaminophen 325 MG TAB PO PRN (14:35)
[2020-01-11] MEDS ORDERED: hydrALAZINE 20 MG/ML VIAL SLOW IVP PRN (14:35)
[2020-01-11] MEDS ORDERED: Nitroglycerin 0.4 MG TAB 1 EACH SL PRN (14:35)
[2020-01-11] MEDS: CEFAZOLIN 2 GM in Premix Bag 1 BAG IVPB SCH (19:54)
[2020-01-11] MEDS ORDERED: Carvedilol 6.25 MG TAB PO SCH (21:00)
[2020-01-11] MEDS ORDERED: Aspirin 81 mg Enteric Coated Tablet PO SCH (21:00)
[2020-01-11] MEDS ORDERED: Atorvastatin Calcium 40 MG TAB PO SCH (21:00)
[2020-01-11] MEDS ORDERED: Lisinopril 10 MG TAB PO SCH (21:00)
[2020-01-11 21:36] VITALS: BP 158/71
[2020-01-11] MEDS: Insulin Regular 300 UNITS/3 ML VIAL SC PRN (22:07)
[2020-01-12] MEDS: CEFAZOLIN 2 GM in Premix Bag 1 BAG IVPB SCH (04:01)
[2020-01-12] MEDS: Insulin Regular 300 UNITS/3 ML VIAL SC PRN (06:22)
[2020-01-12 07:55] VITALS: TEMP 97.7
[2020-01-12] MEDS ORDERED: metFORMIN XR 500 MG TAB PO SCH (08:00)
--- NOTE | 2020-01-12 08:08 | DIS ---
DATE OF ADMISSION: 01/11/2020 DATE OF DISCHARGE: 01/12/2020 DIAGNOSIS: Asymptomatic right carotid stenosis. PROCEDURE: Right TCAR with a 10 x 30 Enroute stent discharge. DISCHARGE MEDICATIONS: Unchanged from her home regimen. HOSPITAL COURSE: Ms. Renee underwent a TCAR for asymptomatic right carotid stenosis. She has done well and being discharged to home today to follow up with me in 2 weeks. Job ID: [id number]
[2020-01-12] MEDS ORDERED: Clopidogrel Bisulfate 75 MG TAB PO SCH (09:00)
[2020-01-12] MEDS ORDERED: Amlodipine 10 MG TAB PO SCH (09:00)
== END 2020-01-12 08:33 | disposition home or self-care (01) | DRG 36 ==
LOC: SURG A 01-11 07:02 → CCU 01-11 16:03
PROVIDERS: ADMIT Thoracic Surgery (Cardiothoracic Vascular Surgery); ATTEND Thoracic Surgery (Cardiothoracic Vascular Surgery)
PROC: 037H3DZ Dilation of Right Common Carotid Artery with Intraluminal Device, Percutaneous Approach (ICD-10-PCS; principal; 2020-01-11)
DX: I65.21 Occlusion and stenosis of right carotid artery (principal); Z90.49 Acquired absence of other specified parts of digestive tract; Z95.1 Presence of aortocoronary bypass graft; Z90.710 Acquired absence of both cervix and uterus; Z95.5 Presence of coronary angioplasty implant and graft; Z79.82 Long term (current) use of aspirin; Z79.899 Other long term (current) drug therapy
CPT/HCPCS: 36416; 76000; 94640; C1876; C1884; J0690; J1100; J1642; J1644; J1815; J1885; J2250; J2370; J2405; J2704; J2720; J3010; J7620; S0020

== ENCOUNTER 2020-04-09 17:27 | Inpatient (IN) | payer MEDICARE, OTHER ==
[~2020-04-09 17:27] MED LIST: Heparin 1,000 UNITS/ML VIAL ONE
--- NOTE | 2020-04-09 18:05 | RAD ---
XR Foot Lt 3 View STANDARD History: Infection Comparison: None. Findings: Moderate dorsal and plantar cannula spurs. No acute fracture or malalignment. Advanced dege nerative disease of the second toe metatarsal phalangeal joint. No definite evidence of osteomyelitis. Mild demineralization. Impression: Plantar midfoot soft tissue swelling without definite evidence for osteomyelitis. If clin ically warranted, MRI recommended.
[2020-04-09 18:14] LABS: #Eosinphils 0.1 thou/uL (0.0-0.7); #Lymphocytes 1.9 thou/uL (1.20-3.40); #Monocytes 0.6 thou/uL (0.11-0.59); #Neutrophils 6.4 thou/uL (1.40-6.50); %Basophils 0.4 % (0.0-1.0); %Eosinophils 1.3 % (0.0-10.0); %Lymphocytes 20.7 % (21.0-51.0); %Monocytes 6.2 % (0.0-10.0); %Neutrophils 71.4 % (42.0-75.0); Hemoglobin 12.5 g/dL (12.0-16.0); Mean Corpuscular HGB CONC 34.4 g/dL (32.0-36.0); Mean Corpuscular Hemoglobin 31.2 pg (27.0-31.0); Mean Corpuscular Volume 90.7 fL (78.0-98.0); Mean Platelet Volume 8.3 fL (7.4-10.4); Platelet Count 237 thou/uL (130-400); RBC Distribution Width 11.9 % (11.5-14.5); Red Blood Cell (RBC) Count 4.01 mill/uL (4.20-5.40)
[2020-04-09 18:42] LABS: ALT (SGPT) 9 U/L (8-55); AST (SGOT) 22 U/L (5-34); Alkaline Phosphatase 93 U/L (40-110); Anion Gap 14 mmol/L (10-20); BUN (Urea Nitrogen) 13 mg/dL (9.8-20.1); Bilirubin, Total 0.7 mg/dL (0.2-1.2); Calc. Creatinine Clearance 0 mL/min (70-130); Calcium 9.1 mg/dL (7.8-10.44); Carbon Dioxide 24 mmol/L (23-31); Chloride 99 mmol/L (98-107); Estimated GFR-MDRD 58; Globulin 4.1 g/dL (2.4-3.5); Glucose 360 mg/dL (83-110); Potassium 4.8 mmol/L (3.5-5.1); Protein, Total 7.1 g/dL (6.0-8.3); Sodium 132 mmol/L (136-145)
[2020-04-09] MEDS ORDERED: Morphine 4 MG/ML VIAL ONE (20:48)
[2020-04-09] MEDS ORDERED: Piperacillin/Tazobactam 4.5 GM VIAL ONE (20:49)
[2020-04-09] MEDS ORDERED: Mag-Al 1200 mg/1200 mg/30 ML UDCUP ONE (21:07)
[2020-04-09] MEDS ORDERED: Vancomycin 1 GM/200 ML BAG ONE (21:23)
[2020-04-09] MEDS ORDERED: Ondansetron ODT 4 MG TAB PO PRN (21:27)
[2020-04-09] MEDS ORDERED: Senokot S 8.6-50 MG TAB PO PRN (21:27)
[2020-04-09] MEDS ORDERED: Ondansetron PF 4 MG/2 ML Vial IVP PRN (21:27)
--- NOTE | 2020-04-09 21:38 | PDOC.FPRHP ---
- History of Present Illness Chief Complaint: cellulitis History of Present Illness: Pt is a 74 yo F with PMH of Anxiety/Depression, CAD, MIx2 s/p quadruple bypass surgery, HTN, HLD, uncontrolled DM2 who presents for worsening left foot pain and redness. She can still move her foot and wiggle her toes, but states the sw elling makes it hard to stand/ walk normally. She states her symptoms started Saturday04/04/2020 and she went to her PCP on Saturday04/06/2020 where she was given a diagnosis of cellulitis and sent home with Bactrim. She states the pain, swelling and redness worsened despite compliance to her medication. She is unsure of any injury, but did say she tripped and fell the day before her symptoms began but does not remember an injury or lesion that developed. She denies any previous episodes like this with similar symptoms in the past. She states her diabetes is uncontrolled, but has been following with her PCP to control her sugars. She denies fever at home, but she does endorse decreased appetite and she actually presented to the ED and found to have a fever of 101.4. She denies PAULA, SOB, CP, abdominal pain, N/V. ED Course: 1g Vanc, 4.5 g Zosyn, 1L fluids, 4mg Morphine, Maalox - Allergies/Adverse Reactions Allergies Allergy/AdvReac Type Severity Reaction Status Date / Time No Known Allergies Allergy Verified 04/09/20 23:30 - Home Medications Medication Instructions Recorded Confirmed Type Aspirin [Ecotrin Regular Strength] 325 mg PO HS 08/13/17 04/09/20 History Atorvastatin Calcium [Lipitor] 80 mg PO HS #30 tablet 08/02/18 04/09/20 Rx Carvedilol 12.5 mg PO BID #60 tablet 08/02/18 04/09/20 Rx Clopidogrel Bisulfate [Plavix] 75 mg PO QAM #30 tab 08/02/18 04/09/20 Rx Lisinopril [Zestril] 20 mg PO BID #60 tab 11/20/18 04/09/20 Rx Nitroglycerin 0.4 mg SL Q5MIN PRN #30 tab.subl 11/21/18 04/09/20 Rx Isosorbide Mononitrate [Imdur ER] 60 mg PO DAILY 03/05/19 04/09/20 History metFORMIN HCl [Metformin ER 500 mg PO BID 03/05/19 04/09/20 History Osmotic] Amlodipine [Norvasc] 5 mg PO DAILY 01/04/20 04/09/20 History - History PMHx: Anxiety/Depression, CAD, MIx2 s/p quadruple bypass surgery, HTN, HLD, uncontrolled DM2 PSHx: meniscal surgery, hysterectomy, cholecystecomy quadruple bypass, carotid artery stent FHx: dad- heart disease and lung cancer Social: denies drugs, alcohol, tobacco - Review of Systems General: denies: fever/chills, weight/appetite/sleep changes Eyes: denies: vision changes Respiratory: denies: cough, shortness of breath Cardiovascular: denies: chest pain Gastrointestinal: denies: nausea, vomiting Genitourinary: denies: dysuria Skin: reports: other (worsening redness 2/2 cellulitis). denies: rashes Musculoskeletal: reports: pain (L foot), swelling (L foot) Neurological: denies: weakness Psychological: denies: anxiety, depression - Vital signs BP: 136/46 HR: 70 RR: 16 Tmax: 101.4 Pox: 96% on RA Wt: 82.55kg - Physical Exam Constitutional: NAD, awake, alert and oriented, well developed HEENT: normocephalic and atraumatic, EOMI, conjunctiva clear Neck: supple, FROM Heart: RRR, normal S1/S2, pulses present Lungs: CTAB, no respiratory distress Abdomen: soft, non-tender Musculoskeletal: normal tone, ROM grossly normal Neurological: no focal deficit -Skin: redness marked on L foot, intense erythema on dorsal aspect of foot with swelling evident on dorsal and plantar aspect of foot. Redness extends up to mid montalvo, but less intense. Warmth is apparent in areas of erythema Heme/Lymphatic: no unusual bruising or bleeding Psychiatric: normal mood and affect, good judgment and insight, intact recent and remote memory FMR H&P: Results - Labs Result Diagrams: 04/10/20 05:14 04/10/20 05:14 Lab results: WBC 9.0 thou/uL (4.8-10.8) 04/09/20 18:06 Hgb 12.5 g/dL (12.0-16.0) 04/09/20 18:06 Hct 36.4 % (36.0-47.0) 04/09/20 18:06 MCV 90.7 fL (78.0-98.0) 04/09/20 18:06 Plt Count 237 thou/uL (130-400) 04/09/20 18:06 Neutrophils % 71.4 % (42.0-75.0) 04/09/20 18:06 Sodium 132 mmol/L (136-145) L 04/09/20 18:06 Potassium 4.8 mmol/L (3.5-5.1) 04/09/20 18:06 Chloride 99 mmol/L (98-107) 04/09/20 18:06 Carbon Dioxide 24 mmol/L (23-31) 04/09/20 18:06 BUN 13 mg/dL (9.8-20.1) 04/09/20 18:06 Creatinine 0.94 mg/dL (0.6-1.1) 04/09/20 18:06 Glucose 360 mg/dL (83-110) H 04/09/20 18:06 Lactic Acid 1.7 mmol/L (0.5-2.2) 04/09/20 18:06 Calcium 9.1 mg/dL (7.8-10.44) 04/09/20 18:06 Total Bilirubin 0.7 mg/dL (0.2-1.2) 04/09/20 18:06 AST 22 U/L (5-34) 04/09/20 18:06 ALT 9 U/L (8-55) 04/09/20 18:06 Alkaline Phosphatase 93 U/L (40-110) 04/09/20 18:06 Serum Total Protein 7.1 g/dL (6.0-8.3) 04/09/20 18:06 Albumin 3.0 g/dL (3.4-4.8) L 04/09/20 18:06 FMR H&P: A/P - Plan 1. Cellulitis -failed outpatient treatment: worsening despite compliance with Bacrtim -temperature on admission of 101.4, resolved -other vitals WNL, WBC WNL -s/p Vanc and Zosyn, 1L bolus, 4mg Morphine in ED (04/09) -Procal, ESR, blood cultures pending -(04/09) XR L foot: plantar midfoot soft tissue swelling, cannot rule out osteomyelitis -follow up MRI left foot -start on Vanc and Cefepime (04/10) 2. Uncontrolled DM 2 -aware -follow up HgA1C -Continue home meds, mild SSI with goal <200 3. Anxiety/Depression -aware, continue home meds 4. CAD s/p quadruple bypass surgery -Follows with Dr. Anna, Cardiology -continue home meds 5. HTN -aware, continue home meds 6. HLD -aware, continue home meds Dispo: admit to medicine obs; anticipated LOS <48 hours Fluids: LR @150mL/hr DVT ppx: Lovenox Diet: CC, HH Code: FULL PCP: Lincoln BECKMAN H&P: Upper Level - Plan Date/Time: 04/09/202137 ISg DO, have evaluated this patient and agree with findings/plan as outlined by manufacturing intern resident. Pertinent changes/additions are listed here. 74 yo F presents with worsening redness and pain to E. She reports this started saturday, bactrim started saturday with worsening since. she reports a mechanical fall without injury to head. no known penetrating trauma. no hx of mrsa. reports dm, unsure of recent hba1c. she denies systemic symptoms. In the ED she was given vanc and zosyn, 1L of fluid and morphine. She reports her pain is well controlled and she is not in acute distress on our exam. L foot with local erythema and edema most prominent over midfoot, multiple breaks in skin between toes, minimal drainage. N/V intact. Xray reveals soft tissue involvement, no definitive evidence of osteo. VSS, pt initially febrile. labs sig for elevated glucose, mild hyponatremia. Cellulitis and DFI failing outpt treatment with concern for osteomyelitis. Obtain MRI and ESR for further eval of osteo. Vanc and cefepime for mrsa and pseudomonas coverage. pt still dry appearing, elevated glucose, addnl IVF rescus. ibuprofen/tylenol for pain. admit to medical obs for ELOS<48hrs. Addendum - Attending - Attending Attestation Date/Time: 04/10/20 1318 I personally evaluated the patient and discussed the management with Dr. Walden. I agree with the History, Examination, Assessment and Plan documented above with any addition or exceptions noted below. The patient is admitted for cellulitis of the left foot which failed outpt antibiotics. She will be treated with broad spectrum IV antibiotics. MRI of foot to ensure no osteomyelitis.
[2020-04-09] MEDS ORDERED: Dextrose 50% Abboject 50 ML SYRINGE SLOW IVP PRN (22:11)
[2020-04-09] MEDS ORDERED: Dextrose 5% in Water 1,000 ML IV PRN (22:11)
[2020-04-09] MEDS ORDERED: Insulin Regular 300 UNITS/3 ML VIAL SC PRN (22:11)
[2020-04-09] MEDS ORDERED: Cefepime 2 GM in Sodium Chloride 0.9% 100 ML IVPB SCH (22:15)
[2020-04-09] MEDS: Lactated Ringer's 1,000 ML IV SCH (23:49)
[2020-04-10] MEDS ORDERED: Nitroglycerin 0.4 MG TAB 1 EACH SL PRN (00:14)
[2020-04-10] MEDS: Ibuprofen 600 MG TAB PO PRN ×2 (00:43→18:07)
[2020-04-10 03:37] VITALS: BMI 31.2
[2020-04-10 05:53] LABS: #Basophils 0.1 thou/uL (0.0-0.2); #Eosinphils 0.3 thou/uL (0.0-0.7); #Lymphocytes 2.9 thou/uL (1.20-3.40); #Monocytes 0.7 thou/uL (0.11-0.59); #Neutrophils 5.5 thou/uL (1.40-6.50); %Basophils 0.6 % (0.0-1.0); %Eosinophils 2.8 % (0.0-10.0); %Lymphocytes 30.3 % (21.0-51.0); %Monocytes 7.5 % (0.0-10.0); %Neutrophils 58.7 % (42.0-75.0); Mean Corpuscular HGB CONC 33.6 g/dL (32.0-36.0); Mean Corpuscular Hemoglobin 31.2 pg (27.0-31.0); Mean Corpuscular Volume 92.9 fL (78.0-98.0); Mean Platelet Volume 7.6 fL (7.4-10.4); Platelet Count 229 thou/uL (130-400); Red Blood Cell (RBC) Count 3.84 mill/uL (4.20-5.40); White Blood Cell (WBC) Count 9.4 thou/uL (4.8-10.8)
[2020-04-10] MEDS: HumaLOG 300 UNITS/3 ML VIAL SC PRN ×3 (06:05→18:11)
[2020-04-10] MEDS: Lactated Ringer's 1,000 ML IV SCH (06:10)
[2020-04-10 06:12] LABS: Anion Gap 13 mmol/L (10-20); BUN (Urea Nitrogen) 17 mg/dL (9.8-20.1); Calc. Creatinine Clearance 54 mL/min (70-130); Calcium 8.7 mg/dL (7.8-10.44); Carbon Dioxide 25 mmol/L (23-31); Chloride 100 mmol/L (98-107); Estimated GFR-MDRD 44; Glucose 261 mg/dL (83-110); Potassium 3.9 mmol/L (3.5-5.1); Sodium 134 mmol/L (136-145)
--- NOTE | 2020-04-10 06:31 | PDOC.FM ---
- Subjective Subjective: Ms. Renee notes that the redness seems to be improving this morning. Has good PO intake. Discussed DM care with her, she notes taht she knows it is very uncontrolled. Metformin was started outpatient but she is willing to do anything to get it under control. - Objective Vital Signs & Weight: Vital Signs (12 hours) Temp Pulse Resp BP Pulse Ox 04/10/20 04:00 98.1 F 63 18 135/69 95 04/09/20 23:16 98.6 F 71 18 114/56 L 94 L Weight Weight 82.55 kg Result Diagrams: 04/10/20 05:14 04/10/20 05:14 Phys Exam - Physical Examination Constitutional: NAD Respiratory: no wheezing, clear to auscultation bilateral Cardiovascular: RRR, no significant murmur Gastrointestinal: soft, non-tender Neurological: non-focal Skin: normal turgor Deviation from normal: LLE cellulitis slightly receeded from marked border Dx/Plan - Plan Plan: 1. LLE Cellulitis -failed outpatient treatment: worsening despite compliance with Bacrtim -fever on admission of 101.4, resolved -other vitals WNL, WBC WNL -s/p Vanc and Zosyn, 1L bolus, 4mg Morphine in ED (04/09) -Pending Bcx -(04/09) XR L foot: plantar midfoot soft tissue swelling, cannot rule out osteomyelitis -MRI left foot pending -Vanc and Cefepime (04/10) 2. Uncontrolled DM 2 -HgA1C of 11 -Continue home metformin - discussed need for insulin considerin A1c, patient willing. Start lantus 10 u today. Titration and insulin administration education will be needed prior to discharge - DM education ordered, SSI 3. Anxiety/Depression -aware, continue home meds 4. CAD s/p quadruple bypass surgery -Follows with Dr. Anna, Cardiology -continue home ASA, plavix, nitro 5. HTN -continue home carvedilol, norvasc 6. HLD -aware, continue home statin Fluids: SL DVT ppx: Lovenox Diet: CC, HH Code: FULL PCP: [facility] Dispo:discontinue IVF, continue IV abx, pending cultures, switch to PO abx in next 24-48hrs pending course, start insulin Addendum - Attending - Attending Attestation Date/Time: 04/10/20 1354 I personally evaluated the patient and discussed the management with Dr. Tello hayes. I agree with the History, Examination, Assessment and Plan documented above with any addition or exceptions noted below. The patient's erythema has not spread over the markings. She is responding to IV antibiotics. Will continue this for 24-48 hrs before swapping to oral antibiotics. Starting insulin.
[2020-04-10] MEDS: Cefepime 2 GM in Sodium Chloride 0.9% 100 ML IVPB SCH ×2 (08:18→20:44)
[2020-04-10] MEDS: Clopidogrel Bisulfate 75 MG TAB PO SCH (08:27)
[2020-04-10] MEDS: metFORMIN 500 MG TAB PO SCH ×2 (08:31→18:07)
[2020-04-10] MEDS: Amlodipine 5 MG TAB PO SCH (08:33)
[2020-04-10] MEDS: Lisinopril 10 MG TAB PO SCH ×2 (08:33→20:43)
[2020-04-10] MEDS: Carvedilol 25 MG TAB PO SCH ×2 (08:34→18:07)
[2020-04-10] MEDS: Enoxaparin Sodium 40 MG/0.4 ML SYRINGE SC SCH (08:37)
[2020-04-10] MEDS ORDERED: FLU VACC QS2020-21(65YR UP)/PF 240 MCG/0.7 ML SYRINGE IM ONE (09:00)
[2020-04-10] MEDS ORDERED: Vancomycin 1 GM in Premix Bag 1 BAG IVPB SCH (09:00)
[2020-04-10] MEDS ORDERED: Insulin Glargine 10 UNITS in Pre-Filled Syringe 1 EACH SC SCH (11:00)
[2020-04-10] MEDS: Acetaminophen 325 MG TAB PO PRN (11:54)
[2020-04-10] MEDS ORDERED: Metamucil PACK PO SCH (12:09)
--- NOTE | 2020-04-10 13:38 | MRI ---
MRI left foot without and with gadolinium contrast HISTORY: Infection. Osteomyelitis. FINDINGS: Bone marrow signal is homogeneous without evidence of edema or abnormal enhancement. Pes pl anus and scattered mild osteoarthritic changes are apparent. Subcutaneous tissues at the plantar surface of the foot retains normal signal. Evidence of pes planus . No fluid collections or abnormal joint fluid. IMPRESSION : No evidence of osteomyelitis or other aggressive process.
[2020-04-10] MEDS ORDERED: Magnevist 469MG/ML 20 ML VIAL ONE (13:48)
[2020-04-10] MEDS ORDERED: Vancomycin 1.5 GRAM/300 ML BAG 1.5 GM in Premix Bag 1 BAG IVPB SCH (15:00)
[2020-04-10 16:15] LABS: SARS-CoV-2 MS2 Positive; SARS-CoV-2 N Gene Negative; SARS-CoV-2 S Gene Negative; SARS-CoV-2 by NAA Not Detected (NotDetected); SARS-CoV-2 orf1ab Negative
[2020-04-10] MEDS: Aspirin 325 mg Enteric Coated Tablet PO SCH (20:43)
[2020-04-10] MEDS: Atorvastatin Calcium 40 MG TAB PO SCH (20:45)
[2020-04-11] MEDS: Acetaminophen 325 MG TAB PO PRN ×3 (04:44→18:58)
[2020-04-11] MEDS: HumaLOG 300 UNITS/3 ML VIAL SC PRN ×2 (04:45→14:22)
[2020-04-11 06:10] LABS: #Eosinphils 0.3 thou/uL (0.0-0.7); #Lymphocytes 2.1 thou/uL (1.20-3.40); #Monocytes 0.6 thou/uL (0.11-0.59); #Neutrophils 5.8 thou/uL (1.40-6.50); %Basophils 0.4 % (0.0-1.0); %Eosinophils 3.6 % (0.0-10.0); %Lymphocytes 23.7 % (21.0-51.0); %Monocytes 6.8 % (0.0-10.0); %Neutrophils 65.6 % (42.0-75.0); Hemoglobin 10.3 g/dL (12.0-16.0); Mean Corpuscular HGB CONC 34.3 g/dL (32.0-36.0); Mean Corpuscular Hemoglobin 31.2 pg (27.0-31.0); Mean Platelet Volume 7.7 fL (7.4-10.4); Platelet Count 202 thou/uL (130-400); RBC Distribution Width 11.7 % (11.5-14.5); White Blood Cell (WBC) Count 8.8 thou/uL (4.8-10.8)
[2020-04-11 06:34] LABS: Anion Gap 11 mmol/L (10-20); BUN (Urea Nitrogen) 14 mg/dL (9.8-20.1); Calc. Creatinine Clearance 78 mL/min (70-130); Calcium 8.4 mg/dL (7.8-10.44); Carbon Dioxide 22 mmol/L (23-31); Chloride 106 mmol/L (98-107); Estimated GFR-MDRD 68; Glucose 175 mg/dL (83-110); Potassium 4.1 mmol/L (3.5-5.1); Sodium 135 mmol/L (136-145)
--- NOTE | 2020-04-11 06:36 | PDOC.FM ---
- Subjective Subjective: Patient was resting comfortably in bed at the time of evaluation. She denied any acute overnight events, to include worsening foot pain, fevers, chills, nausea or vomiting. - Objective Vital Signs & Weight: Vital Signs (12 hours) Temp Pulse Resp BP BP Pulse Ox 04/11/20 04:39 98.1 F 68 16 134/70 96 04/11/20 00:00 97.5 F L 68 16 138/72 96 04/10/20 20:43 131/58 L 04/10/20 20:00 98.1 F 69 16 134/73 95 Weight Weight 82.55 kg I&O: 04/09/20 04/10/20 04/11/20 06:59 06:59 06:59 Intake Total 1100 2800 Balance 1100 2800 Result Diagrams: 04/11/20 05:23 04/11/20 05:23 Phys Exam - Physical Examination Constitutional: NAD HEENT: moist MMs, oral pharynx no lesions Neck: supple, full ROM Respiratory: no wheezing, no rales, no rhonchi, clear to auscultation bilateral Cardiovascular: RRR, no significant murmur, no rub Gastrointestinal: soft, non-tender, no distention, positive bowel sounds Musculoskeletal: no edema, pulses present Neurological: moves all 4 limbs Psychiatric: normal affect Deviation from normal: Erythema / edema appears greatly reduced from 04/09 marking Dx/Plan (1) Cellulitis Code(s): L03.90 - CELLULITIS, UNSPECIFIED Status: Acute (2) Diabetes type 2, uncontrolled Code(s): E11.65 - TYPE 2 DIABETES MELLITUS WITH HYPERGLYCEMIA Status: Acute (3) Anxiety and depression Code(s): F41.9 - ANXIETY DISORDER, UNSPECIFIED; F32.9 - MAJOR DEPRESSIVE DISORDER, SINGLE EPISODE, UNSPECIFIED Status: Chronic (4) Coronary artery disease Code(s): I25.10 - ATHSCL HEART DISEASE OF [place] CORONARY ARTERY W/O ANG PCTRS Status: Chronic Qualifiers: Coronary Disease-Associated Artery/Lesion type: [place] artery [place] vs. transplanted heart: [place] heart Associated angina: with stable angina Qualified Code(s): I25.118 - Atherosclerotic heart disease of [place] coronary artery with other forms of angina pectoris (5) Hyperlipidemia Code(s): E78.5 - HYPERLIPIDEMIA, UNSPECIFIED Status: Chronic (6) Hypertension Code(s): I10 - ESSENTIAL (PRIMARY) HYPERTENSION Status: Chronic Qualifiers: Hypertension type: essential hypertension Qualified Code(s): I10 - Essential (primary) hypertension (7) Obesity (BMI 30.0-34.9) Code(s): E66.9 - OBESITY, UNSPECIFIED Status: Chronic - Plan Plan: Patient is a 74 y/o female with a PMH significant for uncontrolled DM2 who presents to the hospital for evaluation of a Diabetic Foot Infection 1. LLE Cellulitis -Started on Bactrim as an outpatient - worsening -TMax (101.4) - all other VSS on admission -s/p Vanc and Zosyn, 1L bolus, 4mg Morphine in ED (04/09) -WBC: 9 -Procal: 0.08 -ESR: 76 -Lactic Acid: 1.7 -BCx: Pending -XR L Foot (04/09): Plantar mid-foot soft tissue swelling - cannot rule out Osteomyelitis -MRI L Foot: No evidence for Osteomyelitis -Currently on Vanc and Cefepime (04/10) - will transition to PO ABx when appropriate 2. Uncontrolled DM 2 -HgA1c: 11 -Will continue home Metformin regimen -Discussed need for Insulin considering severely elevated HgA1c - patient amenable to starting therapy -Currently on Lantus 10u SC QAM - will increase to 14u SC QAM based on 04/11 insulin requirement -DM Education ordered -Mild SSI -Hypoglycemia Protocol 3. Anxiety/Depression -Will continue patient's home medication regimen 4. CAD s/p CABG *4 -Follows with Dr. Anna (Cardiology) -Will continue patient's home ASA, Plavix and Nitro regimen 5. HTN -BPs have been with acceptable range since admission -Will continue patient's home Carvedilol, Amlodipine regimen 6. HLD -Will continue patient's home Atorvastatin regimen Code: Full PCP: Mariaa ([place]) Diet: Consistent Carbohydrate, Heart Healthy Activity: Ad denzel VTE PPx: Lovenox Dispo: Patient is currently stable and admitted to the Medical Floor for ongoing treatment of LLE Cellulitis. Will transition to PO Abx when appropriate and continue to titrate insulin requirement, with particular attention paid to patient education with regard to uncontrolled DM2. Expected LOS < 48H.
[2020-04-11] MEDS: metFORMIN 500 MG TAB PO SCH ×2 (08:29→17:34)
[2020-04-11] MEDS: Carvedilol 25 MG TAB PO SCH ×2 (08:29→17:34)
[2020-04-11] MEDS: Lisinopril 10 MG TAB PO SCH ×2 (08:29→20:17)
[2020-04-11] MEDS: Clopidogrel Bisulfate 75 MG TAB PO SCH (08:30)
[2020-04-11] MEDS: Amlodipine 5 MG TAB PO SCH (08:30)
[2020-04-11] MEDS: Cefepime 2 GM in Sodium Chloride 0.9% 100 ML IVPB SCH (08:31)
[2020-04-11] MEDS: Enoxaparin Sodium 40 MG/0.4 ML SYRINGE SC SCH (08:32)
[2020-04-11] MEDS ORDERED: Insulin Glargine 10 UNITS in Pre-Filled Syringe 1 EACH SC SCH (09:00)
[2020-04-11] MEDS ORDERED: Insulin Glargine 14 UNITS in Pre-Filled Syringe 1 EACH SC SCH (09:00)
--- NOTE | 2020-04-11 14:18 | PRG ---
DATE OF SERVICE: 04/11/2020 Ms. Renee is a 74-year-old lady, who was admitted with a cellulitis of her left foot. She is proceeding well with treatment. She had an MRI of her lower extremity yesterday, which showed no evidence of osteomyelitis or other aggressive process. We will continue her on antibiotics as well as aggressive management of her type 2 diabetes. Job ID: [id number]
[2020-04-11 14:44] LABS: Vancomycin, Trough 10.4 ug/mL
[2020-04-11] MEDS: Atorvastatin Calcium 40 MG TAB PO SCH (20:16)
[2020-04-11] MEDS: traMADol HCl 50 MG TAB PO PRN (20:18)
[2020-04-11] MEDS: Aspirin 325 mg Enteric Coated Tablet PO SCH (20:18)
[2020-04-11] MEDS: Amoxicillin/Potassium Clav 875 MG TAB PO SCH (20:18)
[2020-04-12] MEDS: traMADol HCl 50 MG TAB PO PRN ×3 (05:13→22:38)
[2020-04-12 06:11] LABS: #Basophils 0.1 thou/uL (0.0-0.2); #Eosinphils 0.4 thou/uL (0.0-0.7); #Lymphocytes 2.8 thou/uL (1.20-3.40); #Monocytes 0.7 thou/uL (0.11-0.59); #Neutrophils 6.2 thou/uL (1.40-6.50); %Basophils 0.6 % (0.0-1.0); %Eosinophils 3.6 % (0.0-10.0); %Lymphocytes 27.2 % (21.0-51.0); %Monocytes 6.8 % (0.0-10.0); %Neutrophils 61.7 % (42.0-75.0); Hemoglobin 10.9 g/dL (12.0-16.0); Mean Corpuscular HGB CONC 33.2 g/dL (32.0-36.0); Mean Corpuscular Hemoglobin 30.4 pg (27.0-31.0); Mean Corpuscular Volume 91.5 fL (78.0-98.0); Mean Platelet Volume 7.5 fL (7.4-10.4); Platelet Count 240 thou/uL (130-400); RBC Distribution Width 11.9 % (11.5-14.5); White Blood Cell (WBC) Count 10.1 thou/uL (4.8-10.8)
[2020-04-12 06:46] LABS: Anion Gap 13 mmol/L (10-20); BUN (Urea Nitrogen) 12 mg/dL (9.8-20.1); Calc. Creatinine Clearance 87 mL/min (70-130); Carbon Dioxide 23 mmol/L (23-31); Chloride 105 mmol/L (98-107); Estimated GFR-MDRD 77; Glucose 135 mg/dL (83-110); Potassium 4.6 mmol/L (3.5-5.1); Sodium 136 mmol/L (136-145)
--- NOTE | 2020-04-12 07:55 | PDOC.FM ---
- Subjective Subjective: Patient was resting comfortably in her bed at the time of evaluation. She denied any acute overnight events, to include worsening pain of her left foot, as well as chest pain, SOB or N/V. - Objective Vital Signs & Weight: Vital Signs (12 hours) Temp Pulse Resp BP BP Pulse Ox 04/12/20 04:00 97.8 F 62 15 168/72 H 94 L 04/12/20 00:00 98.6 F 73 16 146/73 H 98 04/11/20 20:17 162/74 H 04/11/20 20:00 96 Weight Admit Weight 82.549 kg Weight 82.549 kg I&O: 04/11/20 04/12/20 04/13/20 06:59 06:59 06:59 Intake Total 2800 2960 Balance 2800 2960 Result Diagrams: 04/12/20 05:28 04/12/20 05:28 Phys Exam - Physical Examination Constitutional: NAD HEENT: moist MMs, oral pharynx no lesions Neck: supple, full ROM Respiratory: no wheezing, no rales, no rhonchi, clear to auscultation bilateral Cardiovascular: RRR, no significant murmur, no rub Gastrointestinal: soft, non-tender, no distention, positive bowel sounds Musculoskeletal: pulses present Stable edema, erythrema surrounding LLE wound Neurological: non-focal, moves all 4 limbs Psychiatric: normal affect Dx/Plan (1) Cellulitis Code(s): L03.90 - CELLULITIS, UNSPECIFIED Status: Acute (2) Diabetes type 2, uncontrolled Code(s): E11.65 - TYPE 2 DIABETES MELLITUS WITH HYPERGLYCEMIA Status: Acute (3) Anxiety and depression Code(s): F41.9 - ANXIETY DISORDER, UNSPECIFIED; F32.9 - MAJOR DEPRESSIVE DISORDER, SINGLE EPISODE, UNSPECIFIED Status: Chronic (4) Coronary artery disease Code(s): I25.10 - ATHSCL HEART DISEASE OF [place] CORONARY ARTERY W/O ANG PCTRS Status: Chronic Qualifiers: Coronary Disease-Associated Artery/Lesion type: [place] artery [place] vs. transplanted heart: [place] heart Associated angina: with stable angina Qualified Code(s): I25.118 - Atherosclerotic heart disease of [place] coronary artery with other forms of angina pectoris (5) Hyperlipidemia Code(s): E78.5 - HYPERLIPIDEMIA, UNSPECIFIED Status: Chronic (6) Hypertension Code(s): I10 - ESSENTIAL (PRIMARY) HYPERTENSION Status: Chronic Qualifiers: Hypertension type: essential hypertension Qualified Code(s): I10 - Essential (primary) hypertension (7) Obesity (BMI 30.0-34.9) Code(s): E66.9 - OBESITY, UNSPECIFIED Status: Chronic - Plan Plan: Patient is a 74 y/o female with a PMH significant for uncontrolled DM2 who presents to the hospital for evaluation of a Diabetic Foot Infection 1. LLE Cellulitis -Started on Bactrim as an outpatient - worsening -TMax (101.4) - all other VSS on admission -s/p Vanc and Zosyn, 1L bolus, 4mg Morphine in ED (04/09) -WBC: 10.1 on 04/12 -Procal: 0.08 -ESR: 76 -Lactic Acid: 1.7 -BCx: No Growth for > 48H -XR L Foot (04/09): Plantar mid-foot soft tissue swelling - cannot rule out Osteomyelitis -MRI L Foot: No evidence for Osteomyelitis -Started on Vanc and Cefepime (04/10) by Resident Day Team - transitioned to Augmentin on 04/11 2. Uncontrolled DM 2 -HgA1c: 11 -Will continue home Metformin regimen -Discussed need for Insulin considering severely elevated HgA1c - patient amenable to starting therapy -Currently on Lantus 15u SC QAM -DM Education ordered -Mild SSI -Hypoglycemia Protocol 3. Anxiety/Depression -Will continue patient's home medication regimen 4. CAD s/p CABG *4 -Follows with Dr. Anna (Cardiology) -Will continue patient's home ASA, Plavix and Nitro regimen 5. HTN -BPs have been with acceptable range since admission -Will continue patient's home Carvedilol, Amlodipine regimen 6. HLD -Will continue patient's home Atorvastatin regimen Code: Full PCP: Mariaa ([place]) Diet: Consistent Carbohydrate, Heart Healthy Activity: Ad denzel VTE PPx: Lovenox Dispo: Patient is currently stable and admitted to the Medical Floor for ongoing treatment of LLE Cellulitis after transition to PO ABx. Will likely observe for an additional 24H and plan to DC tomorrow. Expected LOS < 24H.
[2020-04-12] MEDS: metFORMIN 500 MG TAB PO SCH ×2 (10:05→17:42)
[2020-04-12] MEDS: Carvedilol 25 MG TAB PO SCH ×2 (10:05→17:42)
[2020-04-12] MEDS: Amoxicillin/Potassium Clav 875 MG TAB PO SCH ×2 (10:05→20:32)
[2020-04-12] MEDS: Amlodipine 5 MG TAB PO SCH (10:06)
[2020-04-12] MEDS: Lisinopril 10 MG TAB PO SCH ×2 (10:06→20:31)
[2020-04-12] MEDS: Enoxaparin Sodium 40 MG/0.4 ML SYRINGE SC SCH (10:07)
[2020-04-12] MEDS: Clopidogrel Bisulfate 75 MG TAB PO SCH (10:07)
[2020-04-12] MEDS: Insulin Glargine 15 UNITS in Pre-Filled Syringe 1 EACH SC SCH (10:33)
--- NOTE | 2020-04-12 14:18 | PRG ---
DATE OF SERVICE: 04/12/2020 Ms. Renee looks and feels much better this morning. The area of cellulitis in her foot has regressed. She does, however, have what appears to be an early abscess forming between her 2nd and 3rd toes. There is also a great deal of detritus and debris between her 2nd and 3rd digits. We will have wound care come clean this up and possibly I and D what appears to be a small abscess. Job ID: [id number]
[2020-04-12] MEDS: Aspirin 325 mg Enteric Coated Tablet PO SCH (20:32)
[2020-04-12] MEDS: Atorvastatin Calcium 40 MG TAB PO SCH (20:32)
[2020-04-12] MEDS: Calcium Carbonate 500 MG ChewTAB PO PRN (22:38)
--- NOTE | 2020-04-13 06:09 | PDOC.FM ---
- Subjective Subjective: Patient was resting comfortably in bed at the time of evaluation. Aside from mild intermittent pain, the patient denied any acute overnight events, to include fevers, chills, chest pain or SOB. - Objective Vital Signs & Weight: Vital Signs (12 hours) Temp Pulse Resp BP BP Pulse Ox 04/13/20 04:00 98.2 F 71 16 113/72 94 L 04/12/20 23:51 98.7 F 71 18 164/77 H 94 L 04/12/20 20:31 146/71 H 04/12/20 20:00 96 04/12/20 19:21 98.9 F 62 18 146/66 H 96 Weight Admit Weight 82.549 kg Weight 82.549 kg I&O: 04/11/20 04/12/20 04/13/20 06:59 06:59 06:59 Intake Total 2800 2960 2700 Balance 2800 2960 2700 Result Diagrams: 04/13/20 06:16 04/13/20 06:16 Phys Exam - Physical Examination Constitutional: NAD HEENT: moist MMs, oral pharynx no lesions Neck: supple, full ROM Respiratory: no wheezing, no rales, no rhonchi, clear to auscultation bilateral Cardiovascular: RRR, no rub 3/6 Systolic Murmur - stable Gastrointestinal: soft, non-tender, no distention, positive bowel sounds Musculoskeletal: pulses present Neurological: non-focal, moves all 4 limbs Psychiatric: normal affect Deviation from normal: Wound appears unchanged from previous evaluation Dx/Plan (1) Cellulitis Code(s): L03.90 - CELLULITIS, UNSPECIFIED Status: Acute (2) Diabetes type 2, uncontrolled Code(s): E11.65 - TYPE 2 DIABETES MELLITUS WITH HYPERGLYCEMIA Status: Acute (3) Anxiety and depression Code(s): F41.9 - ANXIETY DISORDER, UNSPECIFIED; F32.9 - MAJOR DEPRESSIVE DISORDER, SINGLE EPISODE, UNSPECIFIED Status: Chronic (4) Coronary artery disease Code(s): I25.10 - ATHSCL HEART DISEASE OF [place] CORONARY ARTERY W/O ANG PCTRS Status: Chronic Qualifiers: Coronary Disease-Associated Artery/Lesion type: [place] artery [place] vs. transplanted heart: [place] heart Associated angina: with stable angina Qualified Code(s): I25.118 - Atherosclerotic heart disease of [place] coronary artery with other forms of angina pectoris (5) Hyperlipidemia Code(s): E78.5 - HYPERLIPIDEMIA, UNSPECIFIED Status: Chronic (6) Hypertension Code(s): I10 - ESSENTIAL (PRIMARY) HYPERTENSION Status: Chronic Qualifiers: Hypertension type: essential hypertension Qualified Code(s): I10 - Essential (primary) hypertension (7) Obesity (BMI 30.0-34.9) Code(s): E66.9 - OBESITY, UNSPECIFIED Status: Chronic - Plan Plan: Patient is a 74 y/o female with a PMH significant for uncontrolled DM2 who presents to the hospital for evaluation of a Diabetic Foot Infection 1. LLE Cellulitis -Started on Bactrim as an outpatient - worsening -TMax (101.4) - all other VSS on admission -s/p Vanc and Zosyn, 1L bolus, 4mg Morphine in ED (04/09) -WBC: 10.1 on 04/12 -Procal: 0.08 -ESR: 76 -Lactic Acid: 1.7 -BCx: No Growth for > 72H -XR L Foot (04/09): Plantar mid-foot soft tissue swelling - cannot rule out Osteomyelitis -MRI L Foot: No evidence for Osteomyelitis -Started on Vanc and Cefepime (04/10) by Resident Day Team - transitioned to Augmentin on 04/11 -Wound Care to consult Dr. Parham ([place]) over concern of possible fungal infection 2. Uncontrolled DM 2 -HgA1c: 11 -Will continue home Metformin regimen -Discussed need for Insulin considering severely elevated HgA1c - patient amenable to starting therapy -Currently on Lantus 15u SC QAM -DM Education ordered -Mild SSI -Hypoglycemia Protocol 3. Anxiety/Depression -Will continue patient's home medication regimen 4. CAD s/p CABG *4 -Follows with Dr. Anna (Cardiology) -Will continue patient's home ASA, Plavix and Nitro regimen 5. HTN -BPs have been with acceptable range since admission -Will continue patient's home Carvedilol, Amlodipine regimen 6. HLD -Will continue patient's home Atorvastatin regimen Code: Full PCP: Mariaa KAUR) Diet: Consistent Carbohydrate, Heart Healthy Activity: Ad denzel VTE PPx: Lovenox Dispo: Patient is currently stable and admitted to the Medical Floor for ongoing treatment of LLE Cellulitis after transition to PO ABx. Will likely plan for DC following evaluation by Dr. Parham (ID). Expected LOS < 24H.
[2020-04-13 06:37] LABS: #Basophils 0.1 thou/uL (0.0-0.2); #Eosinphils 0.3 thou/uL (0.0-0.7); #Lymphocytes 2.7 thou/uL (1.20-3.40); #Monocytes 0.8 thou/uL (0.11-0.59); #Neutrophils 7.4 thou/uL (1.40-6.50); %Basophils 0.5 % (0.0-1.0); %Eosinophils 2.7 % (0.0-10.0); %Lymphocytes 23.7 % (21.0-51.0); %Monocytes 6.7 % (0.0-10.0); %Neutrophils 66.4 % (42.0-75.0); Hemoglobin 11.1 g/dL (12.0-16.0); Mean Corpuscular HGB CONC 33.3 g/dL (32.0-36.0); Mean Corpuscular Hemoglobin 30.6 pg (27.0-31.0); Mean Corpuscular Volume 91.8 fL (78.0-98.0); Mean Platelet Volume 6.8 fL (7.4-10.4); Platelet Count 257 thou/uL (130-400); RBC Distribution Width 11.8 % (11.5-14.5); Red Blood Cell (RBC) Count 3.64 mill/uL (4.20-5.40); White Blood Cell (WBC) Count 11.2 thou/uL (4.8-10.8)
[2020-04-13 06:58] LABS: Anion Gap 11 mmol/L (10-20); BUN (Urea Nitrogen) 13 mg/dL (9.8-20.1); Calc. Creatinine Clearance 79 mL/min (70-130); Calcium 9.2 mg/dL (7.8-10.44); Carbon Dioxide 27 mmol/L (23-31); Chloride 102 mmol/L (98-107); Estimated GFR-MDRD 69; Glucose 119 mg/dL (83-110); Potassium 4.8 mmol/L (3.5-5.1); Sodium 135 mmol/L (136-145)
[2020-04-13] MEDS: Carvedilol 25 MG TAB PO SCH ×2 (08:04→16:33)
[2020-04-13] MEDS: metFORMIN 500 MG TAB PO SCH ×2 (08:04→16:33)
[2020-04-13] MEDS: Amlodipine 5 MG TAB PO SCH (08:06)
[2020-04-13] MEDS: Lisinopril 10 MG TAB PO SCH ×2 (08:06→21:08)
[2020-04-13] MEDS: Amoxicillin/Potassium Clav 875 MG TAB PO SCH ×2 (08:06→21:08)
[2020-04-13] MEDS: Enoxaparin Sodium 40 MG/0.4 ML SYRINGE SC SCH (08:06)
[2020-04-13] MEDS: Clopidogrel Bisulfate 75 MG TAB PO SCH (08:06)
[2020-04-13] MEDS: Insulin Glargine 15 UNITS in Pre-Filled Syringe 1 EACH SC SCH (11:23)
[2020-04-13] MEDS: HumaLOG 300 UNITS/3 ML VIAL SC PRN (11:25)
[2020-04-13] MEDS: traMADol HCl 50 MG TAB PO PRN ×2 (14:44→19:15)
--- NOTE | 2020-04-13 14:50 | PRG ---
DATE OF SERVICE: 04/13/2020 Ms. Renee is a very pleasant this morning as usual. She is in no acute distress. Wound Care has not yet seen her. She still has some cellulitis and what appears to be an abscess between her 2nd and 3rd toes, which we will defer to the care of Wound Care. Otherwise, continue her on her Augmentin in anticipation that hopefully she can be discharged after the early abscess on her foot is I'd and D'd. with changes in her diabetes, which is obtaining much better control. Job ID: [id number]
[2020-04-13] MEDS: Aspirin 325 mg Enteric Coated Tablet PO SCH (21:08)
[2020-04-13] MEDS: Atorvastatin Calcium 40 MG TAB PO SCH (21:08)
[2020-04-13] MEDS: Calcium Carbonate 500 MG ChewTAB PO PRN (23:04)
[2020-04-14 06:44] LABS: #Eosinphils 0.3 thou/uL (0.0-0.7); #Lymphocytes 2.5 thou/uL (1.20-3.40); #Monocytes 0.7 thou/uL (0.11-0.59); #Neutrophils 6.8 thou/uL (1.40-6.50); %Basophils 0.3 % (0.0-1.0); %Eosinophils 2.5 % (0.0-10.0); %Lymphocytes 24.2 % (21.0-51.0); %Monocytes 6.8 % (0.0-10.0); %Neutrophils 66.2 % (42.0-75.0); Hemoglobin 10.7 g/dL (12.0-16.0); Mean Corpuscular HGB CONC 34.1 g/dL (32.0-36.0); Mean Corpuscular Hemoglobin 31.2 pg (27.0-31.0); Mean Corpuscular Volume 91.4 fL (78.0-98.0); Mean Platelet Volume 6.9 fL (7.4-10.4); Platelet Count 274 thou/uL (130-400); RBC Distribution Width 11.8 % (11.5-14.5); Red Blood Cell (RBC) Count 3.44 mill/uL (4.20-5.40); White Blood Cell (WBC) Count 10.3 thou/uL (4.8-10.8)
[2020-04-14 07:16] LABS: Anion Gap 9 mmol/L (10-20); BUN (Urea Nitrogen) 15 mg/dL (9.8-20.1); Calc. Creatinine Clearance 84 mL/min (70-130); Calcium 8.9 mg/dL (7.8-10.44); Carbon Dioxide 28 mmol/L (23-31); Chloride 100 mmol/L (98-107); Estimated GFR-MDRD 73; Glucose 95 mg/dL (83-110); Potassium 4.4 mmol/L (3.5-5.1); Sodium 133 mmol/L (136-145)
--- NOTE | 2020-04-14 07:22 | PDOC.FM ---
- Subjective Subjective: Patient was resting comfortably in bed at the time of evaluation, and denied any acute overnight events aside from poor appetite and mild nausea following her Augmentin. - Objective Vital Signs & Weight: Vital Signs (12 hours) Temp Pulse Resp BP BP Pulse Ox 04/14/20 04:00 98.9 F 70 18 149/68 H 94 L 04/14/20 00:00 99.0 F 75 18 125/68 96 04/13/20 21:08 146/70 H 04/13/20 20:00 94 L 04/13/20 19:29 99.0 F 71 18 146/70 H 94 L Weight Admit Weight 82.549 kg Weight 82.549 kg I&O: 04/13/20 04/14/20 04/15/20 06:59 06:59 06:59 Intake Total 2700 1440 Output Total 1 Balance 2700 1439 Result Diagrams: 04/14/20 05:54 04/14/20 05:54 Phys Exam - Physical Examination Constitutional: NAD HEENT: moist MMs, oral pharynx no lesions Neck: supple, full ROM Respiratory: no wheezing, no rales, no rhonchi, clear to auscultation bilateral Cardiovascular: RRR, no significant murmur, no rub Gastrointestinal: soft, non-tender, no distention, positive bowel sounds Musculoskeletal: no edema, pulses present Neurological: non-focal, moves all 4 limbs Psychiatric: normal affect Deviation from normal: Interval reduction in erythema, continued TTP Dx/Plan (1) Cellulitis Code(s): L03.90 - CELLULITIS, UNSPECIFIED Status: Acute (2) Diabetes type 2, uncontrolled Code(s): E11.65 - TYPE 2 DIABETES MELLITUS WITH HYPERGLYCEMIA Status: Acute (3) Anxiety and depression Code(s): F41.9 - ANXIETY DISORDER, UNSPECIFIED; F32.9 - MAJOR DEPRESSIVE DISORDER, SINGLE EPISODE, UNSPECIFIED Status: Chronic (4) Coronary artery disease Code(s): I25.10 - ATHSCL HEART DISEASE OF [place] CORONARY ARTERY W/O ANG PCTRS Status: Chronic Qualifiers: Coronary Disease-Associated Artery/Lesion type: [place] artery [place] vs. transplanted heart: [place] heart Associated angina: with stable angina Qualified Code(s): I25.118 - Atherosclerotic heart disease of [place] coronary artery with other forms of angina pectoris (5) Hyperlipidemia Code(s): E78.5 - HYPERLIPIDEMIA, UNSPECIFIED Status: Chronic (6) Hypertension Code(s): I10 - ESSENTIAL (PRIMARY) HYPERTENSION Status: Chronic Qualifiers: Hypertension type: essential hypertension Qualified Code(s): I10 - Essential (primary) hypertension (7) Obesity (BMI 30.0-34.9) Code(s): E66.9 - OBESITY, UNSPECIFIED Status: Chronic - Plan Plan: Patient is a 74 y/o female with a PMH significant for uncontrolled DM2 who presents to the hospital for evaluation of a Diabetic Foot Infection 1. LLE Cellulitis -Started on Bactrim as an outpatient - treatment failure -TMax (101.4) - all other VSS on admission -s/p Vanc and Zosyn, 1L bolus, 4mg Morphine in ED (04/09) -WBC: 10.3 on 04/13 -Procal: 0.08 -ESR: 76 -Lactic Acid: 1.7 -BCx: No Growth for > 72H -XR L Foot (04/09): Plantar mid-foot soft tissue swelling - cannot rule out Osteomyelitis -MRI L Foot: No evidence for Osteomyelitis -Started on Vanc and Cefepime (04/10) by Resident Day Team - transitioned to Augmentin on 04/11 -Dr. Parham ([place]) consulted after Wound Care raised concern for possible fungal infection - will continue ABx regimen unless otherwise indicated -Encouraged patient to keep foot elevated with use of wedge / pillows to aid in edema reduction 2. Uncontrolled DM 2 -HgA1c: 11 -Will continue home Metformin regimen -Discussed need for Insulin considering severely elevated HgA1c - patient amenable to starting therapy -Currently on Lantus 15u SC QAM -POC Glucose readings within acceptable range -DM Education ordered -Mild SSI -Hypoglycemia Protocol 3. Anxiety/Depression -Will continue patient's home medication regimen 4. CAD s/p CABG *4 -Follows with Dr. Anna (Cardiology) -Will continue patient's home ASA, Plavix and Nitro regimen 5. HTN -BPs have been with acceptable range since admission -Will continue patient's home Carvedilol, Amlodipine regimen 6. HLD -Will continue patient's home Atorvastatin regimen Code: Full PCP: Mariaa KAUR) Diet: Consistent Carbohydrate, Heart Healthy Activity: Ad denzel VTE PPx: Lovenox Dispo: Patient is currently stable and admitted to the Medical Floor for ongoing treatment of LLE Cellulitis after transition to PO ABx. Will likely plan for DC following evaluation by Dr. Parham (ID). Expected LOS < 24H.
[2020-04-14] MEDS: Carvedilol 25 MG TAB PO SCH ×2 (09:30→18:09)
[2020-04-14] MEDS: metFORMIN 500 MG TAB PO SCH ×2 (09:32→18:10)
[2020-04-14] MEDS: Enoxaparin Sodium 40 MG/0.4 ML SYRINGE SC SCH ×2 (09:33→09:43)
[2020-04-14] MEDS: Amoxicillin/Potassium Clav 875 MG TAB PO SCH (09:33)
[2020-04-14] MEDS: Amlodipine 5 MG TAB PO SCH (09:33)
[2020-04-14] MEDS: Clopidogrel Bisulfate 75 MG TAB PO SCH (09:33)
[2020-04-14] MEDS: Lisinopril 10 MG TAB PO SCH ×2 (09:34→19:41)
[2020-04-14] MEDS: Sodium Chloride 1 GM TAB PO SCH ×2 (09:34→19:40)
[2020-04-14] MEDS: traMADol HCl 50 MG TAB PO PRN ×3 (09:34→23:18)
[2020-04-14] MEDS: Insulin Glargine 15 UNITS in Pre-Filled Syringe 1 EACH SC SCH (10:37)
--- NOTE | 2020-04-14 14:43 | PRG ---
DATE OF SERVICE: 04/14/2020 Ms. Renee was seen by Wound Care yesterday. We appreciate their input. Evidently, they did drain a small abscess between her 2nd and 3rd toes. The erythema has receded and the swelling has diminished. Likely, we will be able to discharge her home in a day or 2. Job ID: [id number]
[2020-04-14] MEDS ORDERED: Vancomycin HCl 1.25 GM in Sodium Chloride 0.9% 250 ML 300 ML IVPB SCH (14:45)
--- NOTE | 2020-04-14 16:21 | ULT ---
ULTRASOUND DOPPLER DUPLEX ARTERIA BILATERAL: DATE: 04/14/2020 HISTORY: 74-year-old female with decreased pedal pulses, erythema of the left foot, and interdigital foot ulce r TECHNIQUE: Grayscale, color-flow, and spectral analysis, of major arteries of bilateral lower extremities. FINDINGS: Atherosclerosis: At least mild atherosclerosis in all arteries. Highest peak systolic velocity in cm/s, followed by pulsed Doppler waveform: RIGHT: Common femoral: 220; Biphasic Profunda femoral: 200; Biphasic Superficial femoral, proximal: 115; Biphasic Superficial femoral, mid: 200; Biphasic Superficial femoral, distal: 80; Biphasic Popliteal: 65; Biphasic Posterior tibial: 85; Biphasic Anterior tibial: 30; Monophasic Dorsalis pedis: 25; Monophasic LEFT: Common femoral: 165; Triphasic Profunda femoral: 110; Biphasic Superficial femoral, proximal: 125; Monophasic Superficial femoral, mid: 80; Monophasic Superficial femoral, distal: 100; Monophasic Popliteal: 125; Monophasic Posterior tibial: 65; Monophasic Anterior tibial: 45; Monophasic Dorsalis pedis: 55; Monophasic IMPRESSION: 1) evidence for high-grade arterial occlusive disease throughout left lower extremity, from proximal thigh to foot. 2) lesser degree of arterial occlusive disease throughout right lower extremity, especially at right calf
[2020-04-14] MEDS: Atorvastatin Calcium 40 MG TAB PO SCH (19:40)
[2020-04-14] MEDS: Aspirin 325 mg Enteric Coated Tablet PO SCH (19:40)
[2020-04-14] MEDS: Cefepime 2 GM in Sodium Chloride 0.9% 100 ML IVPB SCH (19:42)
[2020-04-14] MEDS: Vancomycin HCl 1.75 GM in Sodium Chloride 0.9% 500 ML IVPB SCH (19:42)
--- NOTE | 2020-04-14 21:36 | CON ---
DATE OF CONSULTATION: 04/14/2020 REASON FOR CONSULTATION: Cellulitis, left foot. HISTORY OF PRESENT ILLNESS: A 74-year-old with history of coronary artery disease, bypass graft surgery, and peripheral vascular disease with prior endarterectomy and stent in one of the carotids, who developed inflammatory process in the left foot between the second and third toes and the erythema ascending over the forefoot dorsal aspect. The process started about a week before she was admitted, so now has been almost 2 weeks now of illness. While arrival, she has had a temperature of 101.4, was saturating 96%. The exam was remarkable for the findings in the left foot with erythema in dorsal aspect, swelling, and redness. The MRI did not show any osteomyelitis or abscess. We initially treated with Zosyn and vancomycin, so this is the fifth day and she has been transitioned now to oral Augmentin. She still has marked pain in the left foot and she cannot bear weight. She denies any headaches, visual symptoms, sore throat, odynophagia, or dysphagia. No dyspnea, cough, or sputum production. No chest pain. No abdominal pain or diarrhea. No genitourinary symptoms. No other joint symptoms. No neurological symptoms. PAST MEDICAL HISTORY: Coronary artery disease, bypass graft surgery, [place] x2, hypertension, type 2 diabetes, hysterectomy, cholecystectomy, and carotid stent. FAMILY HISTORY: Coronary artery disease and lung cancer. SOCIAL HISTORY: Never smoker. Retired. ALLERGY HISTORY: Negative. MEDICATIONS: Currently, she is on: 1. Augmentin. 2. Plavix. 3. Lovenox. 4. Glucagon. 6. Glucophage. 7. Ultram. PHYSICAL EXAMINATION: VITAL SIGNS: T-max 98.9, blood pressure 111/65, heart rate 70, respiratory rate 18, and O2 saturation 90% to 93%. SKIN: The exam shows erythema in the forefoot left side or dorsal aspect. There is erythema in the bottom aspect as well at the plantar side. There is some moderate swelling. There is marked tenderness particularly in the bottom aspect of the second and third MPJ skin site. There is intertriginous bleeding and ulceration between the second and third toes. No lymphadenopathy. HEENT: Ocular movements conjugate. Oral cavity with a few missing teeth, otherwise normal mucosa. NECK: Supple. No jugular vein distention. LUNGS: Symmetric. Clear breath sounds. HEART: S1 and S2, regular rate. ABDOMEN: Soft, not distended or tender. No ascites. No bladder distention. EXTREMITIES: Pulses are faintly palpable in dorsalis pedis left side, faintly palpable in popliteal. Actually, I could not feel popliteal on the left side. Cap refill is somewhat delayed. I could not feel posterior tibialis on the left side. NEUROLOGIC: Nonfocal including cognitive function. LABORATORY DATA: White cell count is 9.4 and it was 10.3, hemoglobin 10.7, platelets 274 with a normal differential. Creatinine 0.77. Liver profile normal. Albumin 3.0. Procalcitonin 0.06. Vancomycin trough 10.4. SARS-CoV not detected. Two sets of blood culture negative. C diff negative. MRI did not show any abscess or osteomyelitis ASSESSMENT: Coronary artery disease, peripheral vascular disease, intertriginous ulceration and laceration with bleeding between second and third toes of left foot, which has resulted in cellulitis without osteomyelitis yet demonstrated. DISCUSSION: The patient has still marked inflammatory changes with pain and I do not think it is safe to switch to oral medication at this time. We will go ahead and put her back on IV coverage, and we will go back to vancomycin, but add cefepime instead of Zosyn and we will check her arterial duplex ultrasound in view of the evidence of peripheral vascular disease. I think she needs to improve further in the inflammatory process, able to tolerate the pressure in the area before she can transition to oral coverage. This sort of lesion does increase frequency of Pseudomonas aeruginosa, so I recommend coverage for that pathogen. The endpoint will be improvement of swelling and improvement in tenderness and erythema. Vascular US to eval arterial supply in view of physical exam findings. Job ID: [id number] [id number]
[2020-04-15] MEDS: traMADol HCl 50 MG TAB PO PRN ×2 (04:58→19:50)
--- NOTE | 2020-04-15 05:32 | PDOC.FM ---
- Subjective Subjective: Patient was resting comfortably in bed at the time of evaluation. She continues to complain of pain in her left foot, but denies any additional symptoms such as chest pain, SOB, N/V, fevers or chills. - Objective Vital Signs & Weight: Vital Signs (12 hours) Temp Pulse Resp BP BP Pulse Ox 04/15/20 04:00 98.4 F 70 20 130/68 92 L 04/14/20 20:00 96 04/14/20 19:41 120/69 04/14/20 19:29 98.8 F 72 18 120/69 95 Weight Admit Weight 82.549 kg Weight 82.549 kg I&O: 04/13/20 04/14/20 04/15/20 06:59 06:59 06:59 Intake Total 2700 1440 930 Output Total 1 Balance 2700 1439 930 Result Diagrams: 04/15/20 05:25 04/15/20 05:25 Phys Exam - Physical Examination Constitutional: NAD HEENT: moist MMs, oral pharynx no lesions Neck: supple, full ROM Respiratory: no wheezing, no rales, no rhonchi, clear to auscultation bilateral Cardiovascular: RRR, no significant murmur, no rub Gastrointestinal: soft, non-tender, no distention, positive bowel sounds Musculoskeletal: pulses present Neurological: non-focal, moves all 4 limbs Psychiatric: normal affect Deviation from normal: Stable erythema, edema and TTP to LLE Dx/Plan (1) Cellulitis Code(s): L03.90 - CELLULITIS, UNSPECIFIED Status: Acute (2) Diabetes type 2, uncontrolled Code(s): E11.65 - TYPE 2 DIABETES MELLITUS WITH HYPERGLYCEMIA Status: Acute (3) Anxiety and depression Code(s): F41.9 - ANXIETY DISORDER, UNSPECIFIED; F32.9 - MAJOR DEPRESSIVE DISORDER, SINGLE EPISODE, UNSPECIFIED Status: Chronic (4) Coronary artery disease Code(s): I25.10 - ATHSCL HEART DISEASE OF [place] CORONARY ARTERY W/O ANG PCTRS Status: Chronic Qualifiers: Coronary Disease-Associated Artery/Lesion type: [place] artery [place] vs. transplanted heart: [place] heart Associated angina: with stable angina Qualified Code(s): I25.118 - Atherosclerotic heart disease of [place] coronary artery with other forms of angina pectoris (5) Hyperlipidemia Code(s): E78.5 - HYPERLIPIDEMIA, UNSPECIFIED Status: Chronic (6) Hypertension Code(s): I10 - ESSENTIAL (PRIMARY) HYPERTENSION Status: Chronic Qualifiers: Hypertension type: essential hypertension Qualified Code(s): I10 - Essential (primary) hypertension (7) Obesity (BMI 30.0-34.9) Code(s): E66.9 - OBESITY, UNSPECIFIED Status: Chronic - Plan Plan: Patient is a 74 y/o female with a PMH significant for uncontrolled DM2 who presents to the hospital for evaluation of a Diabetic Foot Infection. 1. LLE Cellulitis -Started on Bactrim as an outpatient - treatment failure -TMax (101.4) - all other VSS on admission -s/p Vanc and Zosyn, 1L bolus, 4mg Morphine in ED (04/09) -WBC: 10.3 on 04/13 -Procal: 0.08 -ESR: 76 -Lactic Acid: 1.7 -BCx: No Growth for > 72H -XR L Foot (04/09): Plantar mid-foot soft tissue swelling - cannot rule out Osteomyelitis -MRI L Foot: No evidence for Osteomyelitis -Started on Vanc and Cefepime (04/10) by Resident Day Team - transitioned to Augmentin on 04/11 - placed back on Vanc and Cefepime by Dr. Parham on 04/14 because of concern for possible atypical Pseudomonal infection -Dr. Parham (ID): Consulted, Recs appreciated -LE Doppler: Marked PAD, L > R -CVSurg: Consulted, recs appreciated -Encouraged patient to keep foot elevated with use of wedge / pillows to aid in edema reduction 2. Uncontrolled DM 2 -HgA1c: 11 -Will continue home Metformin regimen -Discussed need for Insulin considering severely elevated HgA1c - patient amenable to starting therapy -Currently on Lantus 15u SC QAM -POC Glucose readings within acceptable range since upward titration of Lantus -DM Education, Wage Hand Consult ordered -ACHS Accuchecks -Mild SSI -Hypoglycemia Protocol 3. Anxiety/Depression -Will continue patient's home medication regimen 4. CAD s/p CABG *4 -Follows with Dr. Anna (Cardiology) -Will continue patient's home ASA, Plavix and Nitro regimen 5. HTN -BPs have been with acceptable range since admission -Will continue patient's home Carvedilol, Amlodipine regimen 6. HLD -Will continue patient's home Atorvastatin regimen Code: Full PCP: Mariaa ([facility]) Diet: Consistent Carbohydrate, Heart Healthy Activity: Ad denzel VTE PPx: Lovenox Dispo: Patient is currently stable and admitted to the Medical Floor for ongoing treatment of LLE Cellulitis after transition to PO ABx. Based on new recs from Dr. Parham (ID) and restarting of IV ABx, patient will likely not DC until marked regression of erythema and TTP. Will await CVSurg recs and consider additional imaging and/or procedures if indicated based on PAD. Expected LOS > 48H.
[2020-04-15 05:47] LABS: #Eosinphils 0.4 thou/uL (0.0-0.7); #Lymphocytes 2.6 thou/uL (1.20-3.40); #Monocytes 0.8 thou/uL (0.11-0.59); #Neutrophils 7.2 thou/uL (1.40-6.50); %Basophils 0.1 % (0.0-1.0); %Eosinophils 3.2 % (0.0-10.0); %Lymphocytes 23.6 % (21.0-51.0); %Neutrophils 66.1 % (42.0-75.0); Hemoglobin 10.9 g/dL (12.0-16.0); Mean Corpuscular HGB CONC 33.4 g/dL (32.0-36.0); Mean Corpuscular Volume 89.8 fL (78.0-98.0); Mean Platelet Volume 6.8 fL (7.4-10.4); Platelet Count 303 thou/uL (130-400); RBC Distribution Width 11.8 % (11.5-14.5); Red Blood Cell (RBC) Count 3.63 mill/uL (4.20-5.40)
[2020-04-15 06:13] LABS: Anion Gap 11 mmol/L (10-20); BUN (Urea Nitrogen) 14 mg/dL (9.8-20.1); Calc. Creatinine Clearance 77 mL/min (70-130); Calcium 9.1 mg/dL (7.8-10.44); Carbon Dioxide 25 mmol/L (23-31); Chloride 102 mmol/L (98-107); Estimated GFR-MDRD 67; Glucose 83 mg/dL (83-110); Potassium 4.4 mmol/L (3.5-5.1); Sodium 134 mmol/L (136-145)
[2020-04-15] MEDS ORDERED: Iopamidol 370 76% 50 ML VIAL FS ONE (08:58)
[2020-04-15] MEDS: Cefepime 2 GM in Sodium Chloride 0.9% 100 ML IVPB SCH ×2 (08:59→19:53)
[2020-04-15] MEDS: Enoxaparin Sodium 40 MG/0.4 ML SYRINGE SC SCH (09:01)
[2020-04-15] MEDS: Carvedilol 25 MG TAB PO SCH ×2 (09:02→17:44)
[2020-04-15] MEDS: Lisinopril 10 MG TAB PO SCH ×2 (09:02→19:50)
[2020-04-15] MEDS: metFORMIN 500 MG TAB PO SCH ×2 (09:02→17:44)
[2020-04-15] MEDS: Sodium Chloride 1 GM TAB PO SCH ×2 (09:03→19:16)
[2020-04-15] MEDS: Clopidogrel Bisulfate 75 MG TAB PO SCH (09:03)
[2020-04-15] MEDS: Amlodipine 5 MG TAB PO SCH (09:03)
[2020-04-15] MEDS: Insulin Glargine 15 UNITS in Pre-Filled Syringe 1 EACH SC SCH (09:15)
--- NOTE | 2020-04-15 12:46 | PRG ---
DATE OF SERVICE: 04/15/2020 We had hoped that after I and D of the small abscess on the patient's foot that the wound would start to improve. It did not do so dramatically, so we consulted Dr. Parham. He suggested studies, which indeed by Doppler did reveal poor circulation of the left leg. We have consulted CV Surgery for further input. Dr. Parham also suggested we switch the patient back to broad-spectrum IV antibiotics and we have carried out this plan. Job ID: [id number]
[2020-04-15] MEDS ORDERED: Midazolam HCl 2 mg/2 ml Vial ONE (13:20)
[2020-04-15] MEDS ORDERED: Fentanyl 100 MCG/2 ML VIAL ONE (13:20)
[2020-04-15] MEDS ORDERED: Heparin 10,000 UNITS/ 10 ML VIAL ONE (13:28)
--- NOTE | 2020-04-15 17:38 | CON ---
DATE OF CONSULTATION: 04/15/2020 HISTORY OF PRESENT ILLNESS: Ms. Renee was admitted on 04/09 with left foot infection and cellulitis. She has been managed on IV antibiotics. She has a history of peripheral vascular disease. She had an arterial ultrasound performed, which shows on the left side, monophasic signals distal to the common femoral artery. The right side has biphasic signals except in the dorsalis pedis. She says she feels some better since admission, but still has pain in the plantar surface of her foot and toes. I have been asked to see her for peripheral vascular evaluation. PAST MEDICAL HISTORY: 1. Peripheral vascular disease. 2. Carotid stenosis, status post TCAR. 3. Hypertension. 4. Dyslipidemia. 5. Coronary artery disease. 6. Depression. 7. Uncontrolled diabetes mellitus. PAST SURGICAL HISTORY: 1. Knee surgery. 2. Hysterectomy. 3. Cholecystectomy. 4. Coronary artery bypass grafting. 5. Carotid stent/TCAR. SOCIAL HISTORY: She does not use any tobacco. REVIEW OF SYSTEMS: A 10-point review of systems is performed and is negative except as above. PHYSICAL EXAMINATION: GENERAL: This is a well-developed, well-nourished woman, resting comfortably on the medical floor. VITAL SIGNS: Her height is 5 feet 4 inches and weight is 181 pounds. Temperature is 98.2, pulse is regular at 65, blood pressure is 127/69. NECK: Supple. She has a healed TCAR incision on the right. CHEST: Clear bilaterally. HEART: Rhythm is regular. ABDOMEN: Soft and nontender. EXTREMITIES: The left lower extremity has some erythema, but it is tender from the mid foot onto the toes. I cannot palpate pedal pulse. On the right, she has palpable dorsalis pedis pulse and a warm extremity throughout. ASSESSMENT AND PLAN: History of peripheral vascular disease, for angiograms and potential intervention on her left foot. Job ID: [id number]
--- NOTE | 2020-04-15 18:27 | OP ---
DATE OF PROCEDURE: 04/15/2020 PREOPERATIVE DIAGNOSIS: Peripheral vascular disease with left foot cellulitis. POSTOPERATIVE DIAGNOSIS: Peripheral vascular disease with left foot cellulitis. PROCEDURES PERFORMED: 1. Ultrasound-guided right femoral artery access. 2. Abdominal aortogram. 3. Right external iliac artery angiogram. 4. Left external iliac artery angiogram. 5. Left common femoral artery angiogram. 6. Left SFA angiogram. 7. Left popliteal angiogram. 8. Left popliteal AIR BRAKE ADJUSTER with a 6 x 40 Lutonix balloon, taken to 6 mmHg for 3 minutes. TOTAL CONTRAST: 33 mL. TOTAL FLUORO TIME: 10.1 minutes. HEPARIN: 5000 units. DESCRIPTION OF PROCEDURE: After consent was obtained, the patient was brought to the labor economics professor, placed in supine position on labor economics professor table. Appropriate central line and monitors were placed. IV sedation was given - 0.5 mg Versed and 25 mcg fentanyl. Right groin was anesthetized under ultrasound guidance with 1% lidocaine. Using ultrasound guidance, common femoral artery was accessed and a 5-[place] sheath was placed. Contra catheter was passed in the abdominal aorta. Aortogram was performed showing the aorta and iliac systems were free of any significant atherosclerotic encroachment. Contra catheter was guided over the aortic bifurcation. Its tip positioned in the external iliac artery. Using digital angiography, contrast was traced from groin to foot. The external iliac, common femoral, profunda femoris, and superficial femoral arteries were all free of any significant atherosclerotic encroachment. At the level of the popliteal artery, there was a critical stenosis. The popliteal was patent distal to this with 3-vessel runoff to the foot. The patient was given 5000 units of heparin. Wholey wire was used to cross over the aortic bifurcation. 6-[place] destination sheath was positioned with its tip in the common femoral artery. Hand-injected arteriogram was performed, and the Wholey wire and angled [place] catheter were used to cross the lesion. Multiple hand-injected arteriograms performed in the superficial femoral artery and popliteal artery to gain access into the popliteal artery distal to the lesion. Hand-injected arteriogram was performed distal to the lesion confirming intraluminal location of catheter. Wholey wire was then passed distal to this. A 6 x 40 balloon was selected. Lutonix balloon was positioned across the lesion and inflated to 6 mmHg for 3 minutes. Followup angiogram showed an excellent result. The sheath was back across the aortic bifurcation over a [employer] [place] wire. Hand-injected arteriogram was then performed using digital angiography contrast chased down the right leg. There were 2 areas in the right superficial femoral artery, which showed some stenosis, but nothing that was critically significant at this point. The sheath was then removed and ProGlide placed with adequate hemostasis. Manual pressure was held for 10 minutes to obtain final hemostasis. Heparin was not reversed. The patient tolerated the procedure well, was transferred to recovery room in stable condition. Job ID: [id number]
[2020-04-15] MEDS: Aspirin 325 mg Enteric Coated Tablet PO SCH (19:49)
[2020-04-15] MEDS: Atorvastatin Calcium 40 MG TAB PO SCH (19:50)
[2020-04-15] MEDS: Vancomycin HCl 1.75 GM in Sodium Chloride 0.9% 500 ML IVPB SCH (21:05)
--- NOTE | 2020-04-16 05:08 | PDOC.FM ---
- Subjective Subjective: Patient was sleeping at the time of evaluation but was easily arousable and easy to converse with. Patient denied any acute overnight events, but did endorse continued pain in her foot and mild fatigue after her angioplasty the day prior. Patient stated that she thought her foot looked improved from the day prior. - Objective Vital Signs & Weight: Vital Signs (12 hours) Temp Pulse Resp BP BP Pulse Ox 04/15/20 20:00 98.0 F 74 18 145/75 H 95 04/15/20 19:50 158/64 H Weight Admit Weight 82.549 kg Weight 82.549 kg I&O: 04/14/20 04/15/20 04/16/20 06:59 06:59 06:59 Intake Total 1440 1960 980 Output Total 1 Balance 1439 1960 980 Result Diagrams: 04/16/20 05:35 04/16/20 05:35 Phys Exam - Physical Examination Constitutional: NAD HEENT: moist MMs, sclera anicteric Neck: supple, full ROM Respiratory: no wheezing, no rales, no rhonchi, clear to auscultation bilateral Cardiovascular: RRR, no significant murmur, no rub Gastrointestinal: soft, non-tender, no distention, positive bowel sounds Musculoskeletal: no edema, pulses present 2/4 pulse noted at Left Dorsalis Pedis and Posterior Tibial aa. Neurological: non-focal, moves all 4 limbs Psychiatric: normal affect Deviation from normal: Stable appearing erythema and edema, with persistent TTP Dx/Plan (1) Cellulitis Code(s): L03.90 - CELLULITIS, UNSPECIFIED Status: Acute (2) Diabetes type 2, uncontrolled Code(s): E11.65 - TYPE 2 DIABETES MELLITUS WITH HYPERGLYCEMIA Status: Acute (3) Anxiety and depression Code(s): F41.9 - ANXIETY DISORDER, UNSPECIFIED; F32.9 - MAJOR DEPRESSIVE DISORDER, SINGLE EPISODE, UNSPECIFIED Status: Chronic (4) Coronary artery disease Code(s): I25.10 - ATHSCL HEART DISEASE OF [place] CORONARY ARTERY W/O ANG PCTRS Status: Chronic Qualifiers: Coronary Disease-Associated Artery/Lesion type: [place] artery [place] vs. transplanted heart: [place] heart Associated angina: with stable angina Qualified Code(s): I25.118 - Atherosclerotic heart disease of [place] coronary artery with other forms of angina pectoris (5) Hyperlipidemia Code(s): E78.5 - HYPERLIPIDEMIA, UNSPECIFIED Status: Chronic (6) Hypertension Code(s): I10 - ESSENTIAL (PRIMARY) HYPERTENSION Status: Chronic Qualifiers: Hypertension type: essential hypertension Qualified Code(s): I10 - Essential (primary) hypertension (7) Obesity (BMI 30.0-34.9) Code(s): E66.9 - OBESITY, UNSPECIFIED Status: Chronic - Plan Plan: Patient is a 74 y/o female with a PMH significant for uncontrolled DM2 who presents to the hospital for evaluation of a Diabetic Foot Infection. 1. LLE Cellulitis -Started on Bactrim as an outpatient - treatment failure -TMax (101.4) - all other VSS on admission -s/p Vanc and Zosyn, 1L bolus, 4mg Morphine in ED (04/09) -WBC: 11 on 04/15 -Procal: 0.08 -ESR: 76 -Lactic Acid: 1.7 -BCx: No Growth for > 72H -XR L Foot (04/09): Plantar mid-foot soft tissue swelling - cannot rule out Osteomyelitis -MRI L Foot: No evidence for Osteomyelitis -Started on Vanc and Cefepime (04/10) by Resident Day Team - transitioned to Augmentin on 04/11 - placed back on Vanc and Cefepime by Dr. Parham on 04/14 because of concern for possible atypical Pseudomonal infection -Dr. Parham (ID): Consulted, Recs appreciated -[place] Doppler: Marked PAD, L > R -CVSurg: Consulted, recs appreciated - Left Popliteal Artery Angioplasty performed on 04/15 -Encouraged patient to keep foot elevated with use of wedge / pillows to aid in edema reduction 2. Uncontrolled DM 2 -HgA1c: 11 -Will continue home Metformin regimen -Discussed need for Insulin considering severely elevated HgA1c - patient amenable to starting therapy -Currently on Lantus 15u SC QAM -POC Glucose readings within acceptable range since upward titration of Lantus -DM Education, Automation Application Engineer Consult ordered -ACHS Accuchecks -Mild SSI -Hypoglycemia Protocol 3. Anxiety/Depression -Will continue patient's home medication regimen 4. CAD s/p CABG *4 -Follows with Dr. Anna (Cardiology) -Will continue patient's home ASA, Plavix and Nitro regimen 5. HTN -Multiple elevated BPs noted recently despite adherence to patient's home Carvedilol, Amlodipine and Lisinopril regimen -Will increase Amlodipine to max dosage this AM and continue to trend -Will encourage close outpatient follow-up 6. HLD -Will continue patient's home Atorvastatin regimen 7. PAD -s/p Angioplasty on 04/15 as per above -Currently on appropriate medication regimen as per #4 Code: Full PCP: Mariaa KA[facility]) Diet: Consistent Carbohydrate, Heart Healthy Activity: Ad denzel VTE PPx: Lovenox Dispo: Patient is currently stable and admitted to the Medical Floor for ongoing treatment of LLE Cellulitis after transition to PO ABx. Based on new recs from Dr. Parham (ID) and restarting of IV ABx, patient will likely not DC until marked regression of erythema and TTP. CVSurg consulted - recs appreciated s/p angioplasty. Expected LOS > 48H. Addendum - Attending - Attending Attestation Date/Time: 04/16/20 2668 I personally evaluated the patient and discussed the management with Dr. Howell I agree with the History, Examination, Assessment and Plan documented above with any addition or exceptions noted below.
[2020-04-16 06:05] LABS: #Eosinphils 0.3 thou/uL (0.0-0.7); #Lymphocytes 2.1 thou/uL (1.20-3.40); #Monocytes 0.6 thou/uL (0.11-0.59); #Neutrophils 6.7 thou/uL (1.40-6.50); %Basophils 0.4 % (0.0-1.0); %Eosinophils 3.4 % (0.0-10.0); %Lymphocytes 21.6 % (21.0-51.0); %Monocytes 6.4 % (0.0-10.0); %Neutrophils 68.3 % (42.0-75.0); Hemoglobin 10.3 g/dL (12.0-16.0); Mean Corpuscular HGB CONC 33.1 g/dL (32.0-36.0); Mean Corpuscular Volume 90.4 fL (78.0-98.0); Mean Platelet Volume 6.9 fL (7.4-10.4); Platelet Count 297 thou/uL (130-400); RBC Distribution Width 11.8 % (11.5-14.5); Red Blood Cell (RBC) Count 3.44 mill/uL (4.20-5.40); White Blood Cell (WBC) Count 9.8 thou/uL (4.8-10.8)
[2020-04-16 06:25] LABS: Anion Gap 11 mmol/L (10-20); BUN (Urea Nitrogen) 13 mg/dL (9.8-20.1); Calc. Creatinine Clearance 85 mL/min (70-130); Calcium 8.4 mg/dL (7.8-10.44); Carbon Dioxide 26 mmol/L (23-31); Chloride 102 mmol/L (98-107); Estimated GFR-MDRD 74; Glucose 146 mg/dL (83-110); Potassium 4.5 mmol/L (3.5-5.1); Sodium 134 mmol/L (136-145)
[2020-04-16] MEDS: traMADol HCl 50 MG TAB PO PRN ×2 (10:11→14:57)
[2020-04-16] MEDS: Lisinopril 10 MG TAB PO SCH ×2 (10:16→20:40)
[2020-04-16] MEDS: Clopidogrel Bisulfate 75 MG TAB PO SCH (10:16)
[2020-04-16] MEDS: metFORMIN 500 MG TAB PO SCH ×2 (10:16→17:10)
[2020-04-16] MEDS: Amlodipine 10 MG TAB PO SCH (10:16)
[2020-04-16] MEDS: Enoxaparin Sodium 40 MG/0.4 ML SYRINGE SC SCH (10:17)
[2020-04-16] MEDS: Cefepime 2 GM in Sodium Chloride 0.9% 100 ML IVPB SCH ×2 (10:18→20:40)
[2020-04-16] MEDS: Insulin Glargine 15 UNITS in Pre-Filled Syringe 1 EACH SC SCH (10:22)
[2020-04-16] MEDS: Sodium Chloride 1 GM TAB PO SCH ×2 (10:23→20:45)
--- NOTE | 2020-04-16 10:32 | EKG ---
Test Reason : Blood Pressure : / mmHG Vent. Rate : 071 BPM Atrial Rate : 071 BPM P-R Int : 152 ms QRS Dur : 180 ms QT Int : 476 ms P-R-T Axes : 037 -04 128 degrees QTc Int : 517 ms Normal sinus rhythm Possible Left atrial enlargement Left bundle branch block Abnormal ECG Confirmed by FRED CHARLES ([id number]), associate editor ES MCFADDEN ([id number]) on 04/16/2020 10:32:15 AM Referred By: Confirmed By:FRED CHARLES
[2020-04-16] MEDS: Carvedilol 25 MG TAB PO SCH ×2 (10:34→17:11)
[2020-04-16] MEDS: Mupirocin 2% Ointment 22 GM Tube TOP SCH ×2 (11:47→20:45)
[2020-04-16] MEDS: HumaLOG 300 UNITS/3 ML VIAL SC PRN (11:48)
[2020-04-16] MEDS: Acetaminophen 325 MG TAB PO PRN (12:44)
[2020-04-16 20:12] LABS: Vancomycin, Trough 14.6 ug/mL
[2020-04-16] MEDS: Atorvastatin Calcium 40 MG TAB PO SCH (20:40)
[2020-04-16] MEDS: Aspirin 325 mg Enteric Coated Tablet PO SCH (20:40)
[2020-04-16] MEDS: Vancomycin HCl 1.75 GM in Sodium Chloride 0.9% 500 ML IVPB SCH (20:41)
[2020-04-16] MEDS ORDERED: Bacitracin Zinc Ointment 30 gm TUBE TOP SCH (21:00)
[2020-04-17] MEDS: traMADol HCl 50 MG TAB PO PRN ×2 (03:59→12:19)
--- NOTE | 2020-04-17 05:06 | PDOC.FM ---
- Subjective Subjective: Patient was resting comfortably in bed at the time of evaluation and denied any acute overnight events. Patient stated that her foot both felt and looked markedly improved since the day prior, with a noticeable reduction in pain. - Objective Vital Signs & Weight: Vital Signs (12 hours) Temp Pulse Resp BP BP Pulse Ox 04/16/20 20:40 158/64 H 04/16/20 20:00 96 04/16/20 19:48 98.1 F 69 20 130/72 95 Weight Admit Weight 82.549 kg Weight 82.549 kg I&O: 04/15/20 04/16/20 04/17/20 06:59 06:59 06:59 Intake Total 1959 1920 477 Output Total 900 300 Balance 1959 1020 177 Result Diagrams: 04/17/20 05:38 04/17/20 05:38 Phys Exam - Physical Examination Constitutional: NAD HEENT: oral pharynx no lesions Neck: supple, full ROM Respiratory: no wheezing, no rales, no rhonchi, clear to auscultation bilateral Cardiovascular: RRR, no significant murmur, no rub Gastrointestinal: soft, non-tender, no distention, positive bowel sounds Musculoskeletal: pulses present Neurological: non-focal, moves all 4 limbs Deviation from normal: Improving LE erythema and edema - less TTP than on previous evaluation Dx/Plan (1) Cellulitis Code(s): L03.90 - CELLULITIS, UNSPECIFIED Status: Acute (2) Diabetes type 2, uncontrolled Code(s): E11.65 - TYPE 2 DIABETES MELLITUS WITH HYPERGLYCEMIA Status: Acute (3) Anxiety and depression Code(s): F41.9 - ANXIETY DISORDER, UNSPECIFIED; F32.9 - MAJOR DEPRESSIVE DISORDER, SINGLE EPISODE, UNSPECIFIED Status: Chronic (4) Coronary artery disease Code(s): I25.10 - ATHSCL HEART DISEASE OF [place] CORONARY ARTERY W/O ANG PCTRS Status: Chronic Qualifiers: Coronary Disease-Associated Artery/Lesion type: [place] artery [place] vs. transplanted heart: [place] heart Associated angina: with stable angina Qualified Code(s): I25.118 - Atherosclerotic heart disease of [place] coronary artery with other forms of angina pectoris (5) Hyperlipidemia Code(s): E78.5 - HYPERLIPIDEMIA, UNSPECIFIED Status: Chronic (6) Hypertension Code(s): I10 - ESSENTIAL (PRIMARY) HYPERTENSION Status: Chronic Qualifiers: Hypertension type: essential hypertension Qualified Code(s): I10 - Essential (primary) hypertension (7) Obesity (BMI 30.0-34.9) Code(s): E66.9 - OBESITY, UNSPECIFIED Status: Chronic - Plan Plan: Patient is a 74 y/o female with a PMH significant for uncontrolled DM2 who pre sents to the hospital for evaluation of a Diabetic Foot Infection. 1. LLE Cellulitis -Started on Bactrim as an outpatient - treatment failure -TMax (101.4) - all other VSS on admission -s/p Vanc and Zosyn, 1L bolus, 4mg Morphine in ED (04/09) -WBC: 9.8 on 04/16 -Procal: 0.08 -ESR: 76 -Lactic Acid: 1.7 -BCx: No Growth for > 72H -XR L Foot (04/09): Plantar mid-foot soft tissue swelling - cannot rule out Osteomyelitis -MRI L Foot: No evidence for Osteomyelitis -Started on Vanc and Cefepime (04/10) by Resident Day Team - transitioned to Augmentin on 04/11 - placed back on Vanc and Cefepime by Dr. Parham on 04/14 because of concern for possible atypical Pseudomonal infection -Dr. Parham (ID): Consulted, Recs appreciated -LE Doppler: Marked PAD, L > R -CVSurg: Consulted, recs appreciated - Left Popliteal Artery Angioplasty performed on 04/15 -Encouraged patient to keep foot elevated with use of wedge / pillows to aid in edema reduction -Encouraged patient to ambulate around room, sit in chair, etc. 2. Uncontrolled DM 2 -HgA1c: 11 -Will continue home Metformin regimen -Discussed need for Insulin considering severely elevated HgA1c - patient amenable to starting therapy -Currently on Lantus 15u SC QAM -POC Glucose readings within acceptable range since upward titration of Lantus -DM Education, Bread Dumper Consult ordered -[place] Accuchecks -Mild SSI -Hypoglycemia Protocol 3. Anxiety/Depression -Will continue patient's home medication regimen 4. CAD s/p CABG *4 -Follows with Dr. Anna (Cardiology) -Will continue patient's home ASA, Plavix and Nitro regimen 5. HTN -Multiple elevated BPs noted recently despite adherence to patient's home Carvedilol, Amlodipine and Lisinopril regimen -Will increase Amlodipine to max dosage this AM and continue to trend -Will encourage close outpatient follow-up 6. HLD -Will continue patient's home Atorvastatin regimen 7. PAD -s/p Angioplasty on 04/15 as per above -Currently on appropriate medication regimen as per #4 Code: Full PCP: Mariaa KAUR) Diet: Consistent Carbohydrate, Heart Healthy Activity: Ad denzel VTE PPx: Lovenox Dispo: Patient is currently stable and admitted to the Medical Floor for ongoing treatment of LLE Cellulitis. Based on new recs from Dr. Parham (ID) and restarting of IV ABx, patient will likely not DC until marked regression of erythema and TTP. Pain appears to be adequately controlled with Tramadol 50 mg BID - a noticeable improvement from the past several days. Will encourage patient to ambulate around room, sit in chair, etc., as well as elevate foot while laying in bed to assist with reduction of inflammation. Will continue to monitor clinical progression of wound healing and pain reduction and begin planning for DC accordingly. CVSurg consulted - recs appreciated s/p angioplasty. Expected LOS > 48H. Addendum - Attending - Attending Attestation Date/Time: 04/17/20 2282 I personally evaluated the patient and discussed the management with Dr. Howell I agree with the History, Examination, Assessment and Plan documented above with any addition or exceptions noted below. Patient continues to improve increase activity and BS control.
[2020-04-17 06:18] LABS: #Eosinphils 0.5 thou/uL (0.0-0.7); #Lymphocytes 2.1 thou/uL (1.20-3.40); #Monocytes 0.7 thou/uL (0.11-0.59); #Neutrophils 7.6 thou/uL (1.40-6.50); %Basophils 0.3 % (0.0-1.0); %Eosinophils 4.4 % (0.0-10.0); %Lymphocytes 19.3 % (21.0-51.0); %Monocytes 6.8 % (0.0-10.0); %Neutrophils 69.2 % (42.0-75.0); Hemoglobin 10.1 g/dL (12.0-16.0); Mean Corpuscular HGB CONC 33.8 g/dL (32.0-36.0); Mean Corpuscular Hemoglobin 30.3 pg (27.0-31.0); Mean Corpuscular Volume 89.6 fL (78.0-98.0); Mean Platelet Volume 6.7 fL (7.4-10.4); Platelet Count 335 thou/uL (130-400); RBC Distribution Width 11.7 % (11.5-14.5); Red Blood Cell (RBC) Count 3.35 mill/uL (4.20-5.40); White Blood Cell (WBC) Count 10.9 thou/uL (4.8-10.8)
[2020-04-17 06:38] LABS: Anion Gap 11 mmol/L (10-20); BUN (Urea Nitrogen) 14 mg/dL (9.8-20.1); Calc. Creatinine Clearance 81 mL/min (70-130); Calcium 8.8 mg/dL (7.8-10.44); Carbon Dioxide 24 mmol/L (23-31); Chloride 103 mmol/L (98-107); Estimated GFR-MDRD 71; Glucose 122 mg/dL (83-110); Potassium 5.1 mmol/L (3.5-5.1); Sodium 133 mmol/L (136-145)
[2020-04-17] MEDS: Enoxaparin Sodium 40 MG/0.4 ML SYRINGE SC SCH (09:26)
[2020-04-17] MEDS: Insulin Glargine 15 UNITS in Pre-Filled Syringe 1 EACH SC SCH (09:26)
[2020-04-17] MEDS: metFORMIN 500 MG TAB PO SCH ×2 (09:28→17:01)
[2020-04-17] MEDS: Lisinopril 10 MG TAB PO SCH ×2 (09:29→21:10)
[2020-04-17] MEDS: Clopidogrel Bisulfate 75 MG TAB PO SCH (09:29)
[2020-04-17] MEDS: Carvedilol 25 MG TAB PO SCH ×2 (09:30→17:01)
[2020-04-17] MEDS: Amlodipine 10 MG TAB PO SCH (09:30)
[2020-04-17] MEDS: Cefepime 2 GM in Sodium Chloride 0.9% 100 ML IVPB SCH ×2 (09:30→21:10)
[2020-04-17] MEDS: Mupirocin 2% Ointment 22 GM Tube TOP SCH ×2 (09:31→21:59)
[2020-04-17] MEDS: Sodium Chloride 1 GM TAB PO SCH ×2 (09:32→22:27)
[2020-04-17] MEDS: Atorvastatin Calcium 40 MG TAB PO SCH (21:11)
[2020-04-17] MEDS: Aspirin 325 mg Enteric Coated Tablet PO SCH (21:11)
[2020-04-17] MEDS: Vancomycin HCl 1.75 GM in Sodium Chloride 0.9% 500 ML IVPB SCH (21:59)
[2020-04-18 06:06] LABS: #Eosinphils 0.6 thou/uL (0.0-0.7); #Lymphocytes 2.7 thou/uL (1.20-3.40); #Monocytes 0.7 thou/uL (0.11-0.59); %Basophils 0.3 % (0.0-1.0); %Eosinophils 6.1 % (0.0-10.0); %Lymphocytes 27.1 % (21.0-51.0); %Monocytes 6.9 % (0.0-10.0); %Neutrophils 59.6 % (42.0-75.0); Hemoglobin 10.4 g/dL (12.0-16.0); Mean Corpuscular Hemoglobin 30.7 pg (27.0-31.0); Mean Corpuscular Volume 90.2 fL (78.0-98.0); Mean Platelet Volume 6.5 fL (7.4-10.4); Platelet Count 336 thou/uL (130-400); RBC Distribution Width 11.9 % (11.5-14.5); Red Blood Cell (RBC) Count 3.39 mill/uL (4.20-5.40)
[2020-04-18 06:31] LABS: Anion Gap 13 mmol/L (10-20); BUN (Urea Nitrogen) 13 mg/dL (9.8-20.1); Calc. Creatinine Clearance 80 mL/min (70-130); Calcium 8.8 mg/dL (7.8-10.44); Carbon Dioxide 21 mmol/L (23-31); Chloride 105 mmol/L (98-107); Estimated GFR-MDRD 70; Glucose 94 mg/dL (83-110); Potassium 4.6 mmol/L (3.5-5.1); Sodium 134 mmol/L (136-145)
--- NOTE | 2020-04-18 08:13 | PDOC.FM ---
- Subjective Subjective: Pt is a 74 yo female with DM II uncontrolled, LLE cellulitis, and PAD who is currently being treated for LLE cellulitis. She is doing well today. She feels the pain has much improved since restarting IV abx, L popliteal artery angioplasty on 04/15. She is tolerating PO intake. Denies diarrhea, constipation. No hypoglycemic episodes overnight. - Objective Vital Signs & Weight: Vital Signs (12 hours) Temp Pulse Resp BP BP Pulse Ox 04/18/20 07:32 98.6 F 70 18 136/69 96 04/18/20 04:00 98.7 F 69 20 109/65 96 04/18/20 00:00 98.6 F 63 20 126/50 L 94 L 04/17/20 21:10 117/67 Weight Admit Weight 82.549 kg Weight 82.549 kg I&O: 04/17/20 04/18/20 04/19/20 06:59 06:59 06:59 Intake Total 1407 1057 Output Total 300 Balance 1107 1057 Result Diagrams: 04/18/20 05:46 04/18/20 05:46 Phys Exam - Physical Examination Constitutional: NAD HEENT: PERRLA, moist MMs Respiratory: no wheezing, clear to auscultation bilateral Cardiovascular: RRR, no significant murmur Gastrointestinal: soft, non-tender Musculoskeletal: no edema, pulses present Neurological: non-focal, moves all 4 limbs boot and bandages to L foot, erythema decreasing from line Psychiatric: normal affect, A&O x 3 Skin: cap refill <2 seconds Dx/Plan (1) Peripheral arterial disease Code(s): I73.9 - PERIPHERAL VASCULAR DISEASE, UNSPECIFIED Status: Acute (2) Cellulitis Code(s): L03.90 - CELLULITIS, UNSPECIFIED Status: Acute (3) Diabetes type 2, uncontrolled Code(s): E11.65 - TYPE 2 DIABETES MELLITUS WITH HYPERGLYCEMIA Status: Acute (4) Hyperlipidemia Code(s): E78.5 - HYPERLIPIDEMIA, UNSPECIFIED Status: Chronic (5) Hypertension Code(s): I10 - ESSENTIAL (PRIMARY) HYPERTENSION Status: Chronic Qualifiers: Hypertension type: essential hypertension Qualified Code(s): I10 - Essential (primary) hypertension - Plan Plan: 1. LLE Cellulitis -Started on Bactrim as an outpatient - treatment failure -TMax (101.4) - all other VSS on admission -s/p Vanc and Zosyn, 1L bolus, 4mg Morphine in ED (04/09) -WBC: 9.8 on 04/16 -Procal: 0.08 -ESR: 76 -Lactic Acid: 1.7 -BCx: No Growth for > 72H -XR L Foot (04/09): Plantar mid-foot soft tissue swelling - cannot rule out Ost eomyelitis -MRI L Foot: No evidence for Osteomyelitis -Started on Vanc and Cefepime (04/10) by Resident Day Team - transitioned to Augmentin on 04/11 - placed back on Vanc and Cefepime by Dr. Parham on 04/14 because of concern for possible atypical Pseudomonal infection -Dr. Parham (ID): Consulted, Recs appreciated -LE Doppler: Marked PAD, L > R -CVSurg: Consulted, recs appreciated - Left Popliteal Artery Angioplasty performed on 04/15 -Encouraged patient to keep foot elevated with use of wedge / pillows to aid in edema reduction -Encouraged patient to ambulate around room, sit in chair, etc. -PT consulted -Will discuss group home management with Dr. Parham - PICC line placement for half-way abx vs oral 2. Uncontrolled DM 2 -HgA1c: 11 -Will continue home Metformin regimen -Discussed need for Insulin considering severely elevated HgA1c - patient amenable to starting therapy -Currently on Lantus 15u SC QAM -POC Glucose readings within acceptable range since upward titration of Lantus -DM Education, Document Scanner Consult ordered -ACHS Accuchecks -Mild SSI -Hypoglycemia Protocol 3. Anxiety/Depression -Will continue patient's home medication regimen 4. CAD s/p CABG *4 -Follows with Dr. Anna (Cardiology) -Will continue patient's home ASA, Plavix and Nitro regimen 5. HTN -Multiple elevated BPs noted recently despite adherence to patient's home Carvedilol, Amlodipine and Lisinopril regimen -Will increase Amlodipine to max dosage this AM and continue to trend -Will encourage close outpatient follow-up 6. HLD -Will continue patient's home Atorvastatin regimen 7. PAD -s/p Angioplasty on 04/15 as per above -Currently on appropriate medication regimen as per #4 Code: Full PCP: Mariaa KAUR) Diet: Consistent Carbohydrate, Heart Healthy Activity: Ad denzel VTE PPx: Lovenox Dispo: discuss half-way care with Dr. Parham. Addendum - Attending - Attending Attestation Date/Time: 04/18/20 [id number] I personally evaluated the patient and discussed the management with Dr. Lion I agree with the History, Examination, Assessment and Plan documented above with any addition or exceptions noted below. LLE cellulitis with PVDand poorly controlled DM, s/p [employer] with stent. D/W ID, re: abx course and duration.
[2020-04-18] MEDS: Lisinopril 10 MG TAB PO SCH ×2 (08:50→19:55)
[2020-04-18] MEDS: Cefepime 2 GM in Sodium Chloride 0.9% 100 ML IVPB SCH ×2 (08:51→19:55)
[2020-04-18] MEDS: Clopidogrel Bisulfate 75 MG TAB PO SCH (08:51)
[2020-04-18] MEDS: metFORMIN 500 MG TAB PO SCH ×2 (08:51→18:22)
[2020-04-18] MEDS: Amlodipine 10 MG TAB PO SCH (08:51)
[2020-04-18] MEDS: Carvedilol 25 MG TAB PO SCH ×2 (08:51→18:22)
[2020-04-18] MEDS: Sodium Chloride 1 GM TAB PO SCH ×2 (08:52→21:00)
[2020-04-18] MEDS: Enoxaparin Sodium 40 MG/0.4 ML SYRINGE SC SCH (08:52)
[2020-04-18] MEDS: Insulin Glargine 15 UNITS in Pre-Filled Syringe 1 EACH SC SCH (09:07)
[2020-04-18] MEDS: Mupirocin 2% Ointment 22 GM Tube TOP SCH ×2 (11:53→20:54)
[2020-04-18] MEDS: traMADol HCl 50 MG TAB PO PRN (11:58)
--- NOTE | 2020-04-18 13:55 | PRG ---
DATE OF SERVICE: 04/18/2020 SUBJECTIVE: Renee still with moderate pain in the left foot. She denies any headaches. No shortness of breath, cough, or sputum production, or diarrhea. A little bit upset about possibly having to go to a alf or rehab. OBJECTIVE: VITAL SIGNS: Normal temperature, BP 130/59, pulse 73, respirations 19, O2 saturation 93 to 96. GENERAL: Does not appear in distress. HEENT: Ocular movements conjugate. LUNGS: Symmetric. Clear breath sounds. HEART: S1 and S2, regular rate. ABDOMEN: Soft, not distended. EXTREMITIES: Left foot with decrease in erythema, but there is still moderate erythema and moderate tenderness, particularly in the 1st MCP skin site, in the bottom aspect of the 2nd and 3rd MCP skin site as well. There is still the area of swelling and inflammatory change there. Not as much as before and certainly less tender than before. Pulses are faintly palpable in dorsalis pedis. Extremities are warm. LABORATORY DATA: White cell count 10,000, hemoglobin 10.4, platelets 236, with a normal differential. Creatinine 0.8. ASSESSMENT AND DISCUSSION: Coronary artery disease, peripheral vascular disease, intertriginous ulceration and maceration with cellulitis of the left foot without evidence of osteomyelitis or abscess per MRI imaging study. There has been moderate improvement, but she will need to continue antimicrobial therapy with a broad spectrum coverage as currently, and we will go ahead and order for PICC line. Will need to be transferred to a suitable place for treatment. The duration of therapy will be probably around 14 days, but it will depend on the clinical improvement. Job ID: [id number]
--- NOTE | 2020-04-18 15:25 | SPC ---
Left upper extremity PICC placement sonographic guided HISTORY: Cellulitis. FINDINGS: After explaining the procedure and answering all questions, the left upper extremity was pr epped and draped in usual sterile fashion. Sterile technique, buffered local anesthesia, sonographic guidance, and a 22-gauge needle were used t o carefully access the left basilic vein. Standard technique was used to place the tip of a 5 [place] single lumen PICC so that the tip lies at the level of the cavoatrial junction. Catheter was flushed and secured externally. Fluoroscopy time 0.1 minute. Patient tolerated the procedure well and was returned in unchanged condition. IMPRESSION : Left upper extremity PICC is ready for use.
[2020-04-18] MEDS: Atorvastatin Calcium 40 MG TAB PO SCH (19:55)
[2020-04-18] MEDS: Aspirin 325 mg Enteric Coated Tablet PO SCH (19:55)
[2020-04-18 20:23] LABS: Vancomycin, Trough 17.8 ug/mL
[2020-04-18] MEDS: Vancomycin HCl 1.75 GM in Sodium Chloride 0.9% 500 ML IVPB SCH (20:54)
[2020-04-19 05:51] LABS: #Eosinphils 0.6 thou/uL (0.0-0.7); #Lymphocytes 2.3 thou/uL (1.20-3.40); #Monocytes 0.7 thou/uL (0.11-0.59); #Neutrophils 5.6 thou/uL (1.40-6.50); %Basophils 0.4 % (0.0-1.0); %Eosinophils 6.3 % (0.0-10.0); %Lymphocytes 25.3 % (21.0-51.0); %Monocytes 7.5 % (0.0-10.0); %Neutrophils 60.5 % (42.0-75.0); Mean Corpuscular HGB CONC 33.6 g/dL (32.0-36.0); Mean Corpuscular Hemoglobin 30.1 pg (27.0-31.0); Mean Corpuscular Volume 89.8 fL (78.0-98.0); Mean Platelet Volume 6.5 fL (7.4-10.4); Platelet Count 341 thou/uL (130-400); RBC Distribution Width 11.7 % (11.5-14.5); Red Blood Cell (RBC) Count 3.31 mill/uL (4.20-5.40); White Blood Cell (WBC) Count 9.2 thou/uL (4.8-10.8)
[2020-04-19 06:20] LABS: Anion Gap 10 mmol/L (10-20); BUN (Urea Nitrogen) 10 mg/dL (9.8-20.1); Calc. Creatinine Clearance 79 mL/min (70-130); Calcium 8.5 mg/dL (7.8-10.44); Carbon Dioxide 25 mmol/L (23-31); Chloride 106 mmol/L (98-107); Estimated GFR-MDRD 69; Glucose 107 mg/dL (83-110); Potassium 4.2 mmol/L (3.5-5.1); Sodium 137 mmol/L (136-145)
--- NOTE | 2020-04-19 07:20 | PDOC.FM ---
- Subjective Subjective: PICC line placed yesterday. Pt will be discharged to a facility for abx treatment until May 14. She is agreeable. She denies worsening pain, erythema to LLE. She is currently tolerating PO intake. Denies diarrhea, constipation. - Objective Vital Signs & Weight: Vital Signs (12 hours) Temp Pulse Resp BP BP Pulse Ox 04/19/20 04:00 98.4 F 67 20 128/64 95 04/19/20 00:00 99.2 F 68 20 129/67 93 L 04/18/20 20:00 99.3 F 70 20 132/57 L 94 L 04/18/20 19:55 132/57 L 04/18/20 19:49 99.3 F 70 20 132/57 L 94 L Weight Admit Weight 82.549 kg Weight 82.549 kg I&O: 04/18/20 04/19/20 04/20/20 06:59 06:59 06:59 Intake Total 1057 400 Output Total 250 Balance 1057 150 Result Diagrams: 04/19/20 05:34 04/19/20 05:34 Phys Exam - Physical Examination Constitutional: NAD HEENT: PERRLA, moist MMs Respiratory: no wheezing, clear to auscultation bilateral Cardiovascular: RRR, no significant murmur Gastrointestinal: soft, non-tender Musculoskeletal: no edema, pulses present Neurological: non-focal, normal sensation Psychiatric: normal affect, A&O x 3 Skin: normal turgor, cap refill <2 seconds Dx/Plan (1) Peripheral arterial disease Code(s): I73.9 - PERIPHERAL VASCULAR DISEASE, UNSPECIFIED Status: Acute (2) Cellulitis Code(s): L03.90 - CELLULITIS, UNSPECIFIED Status: Acute (3) Diabetes type 2, uncontrolled Code(s): E11.65 - TYPE 2 DIABETES MELLITUS WITH HYPERGLYCEMIA Status: Acute (4) Hyperlipidemia Code(s): E78.5 - HYPERLIPIDEMIA, UNSPECIFIED Status: Chronic (5) Hypertension Code(s): I10 - ESSENTIAL (PRIMARY) HYPERTENSION Status: Chronic Qualifiers: Hypertension type: essential hypertension Qualified Code(s): I10 - Essential (primary) hypertension - Plan Plan: 1. LLE Cellulitis -BCx: No Growth for > 72H -XR L Foot (04/09): Plantar mid-foot soft tissue swelling - cannot rule out Osteomyelitis -MRI L Foot: No evidence for Osteomyelitis -Dr. Parham (ID): Consulted, Recs appreciated - IV abx until May 14, PICC line placed -LE Doppler: Marked PAD, L > R -CVSurg: Consulted, recs appreciated - Left Popliteal Artery Angioplasty performed on 04/15 -PT consulted -Pending placement for IV abx 2. Uncontrolled DM 2 -HgA1c: 11 -Will continue home Metformin regimen -Discussed need for Insulin considering severely elevated HgA1c - patient amenable to starting therapy -Currently on Lantus 15u SC QAM -POC Glucose readings within acceptable range since upward titration of Lantus -DM Education, Cylinder Inspector Consult ordered -ACHS Accuchecks -Mild SSI -Hypoglycemia Protocol 3. Anxiety/Depression -Will continue patient's home medication regimen 4. CAD s/p CABG *4 -Follows with Dr. Anna (Cardiology) -Will continue patient's home ASA, Plavix and Nitro regimen 5. HTN -Multiple elevated BPs noted recently despite adherence to patient's home Carvedilol, Amlodipine and Lisinopril regimen -Will increase Amlodipine to max dosage this AM and continue to trend -Will encourage close outpatient follow-up 6. HLD -Will continue patient's home Atorvastatin regimen 7. PAD -s/p Angioplasty on 04/15 as per above -Currently on appropriate medication regimen as per #4 Code: Full PCP: Mariaa KAUR) Diet: Consistent Carbohydrate, Heart Healthy Activity: Ad denzel VTE PPx: Lovenox Dispo: pending placement for IV abx
[2020-04-19] MEDS: metFORMIN 500 MG TAB PO SCH ×2 (08:35→17:01)
[2020-04-19] MEDS: Amlodipine 10 MG TAB PO SCH (08:36)
[2020-04-19] MEDS: Lisinopril 10 MG TAB PO SCH ×2 (08:37→20:59)
[2020-04-19] MEDS: Enoxaparin Sodium 40 MG/0.4 ML SYRINGE SC SCH (08:37)
[2020-04-19] MEDS: Clopidogrel Bisulfate 75 MG TAB PO SCH (08:37)
[2020-04-19] MEDS: Carvedilol 25 MG TAB PO SCH ×2 (08:38→17:01)
[2020-04-19] MEDS: Insulin Glargine 15 UNITS in Pre-Filled Syringe 1 EACH SC SCH (08:39)
[2020-04-19] MEDS: Mupirocin 2% Ointment 22 GM Tube TOP SCH ×2 (08:40→20:59)
[2020-04-19] MEDS: Cefepime 2 GM in Sodium Chloride 0.9% 100 ML IVPB SCH ×2 (08:40→20:53)
[2020-04-19] MEDS: Sodium Chloride 1 GM TAB PO SCH ×2 (08:43→20:58)
[2020-04-19] MEDS: HumaLOG 300 UNITS/3 ML VIAL SC PRN (13:15)
[2020-04-19] MEDS: Calcium Carbonate 500 MG ChewTAB PO PRN (14:29)
[2020-04-19] MEDS: Aspirin 325 mg Enteric Coated Tablet PO SCH (20:59)
[2020-04-19] MEDS: Atorvastatin Calcium 40 MG TAB PO SCH (20:59)
[2020-04-19] MEDS: Vancomycin HCl 1.75 GM in Sodium Chloride 0.9% 500 ML IVPB SCH (21:56)
--- NOTE | 2020-04-20 07:40 | PDOC.FM ---
- Subjective Subjective: Pt is doing well today. SHe has no complaints. BG is well controlled. She denies fever, chills, N/V, abdominal pain, diarrhea, constipation. - Objective Vital Signs & Weight: Vital Signs (12 hours) Temp Pulse Resp BP BP Pulse Ox 04/20/20 07:12 98.7 F 73 16 147/66 H 95 04/19/20 20:59 153/67 H 04/19/20 20:09 98.8 F 72 17 133/64 95 Weight Admit Weight 82.549 kg Weight 82.549 kg I&O: 04/19/20 04/20/20 04/21/20 06:59 06:59 06:59 Intake Total 400 194 Output Total 250 Balance 150 1940 Result Diagrams: 04/19/20 05:34 04/19/20 05:34 Phys Exam - Physical Examination Constitutional: NAD HEENT: PERRLA, moist MMs Respiratory: no wheezing, clear to auscultation bilateral Cardiovascular: RRR, no significant murmur Gastrointestinal: soft, non-tender Musculoskeletal: no edema, pulses present LLE erythema improving Neurological: non-focal, normal sensation Dx/Plan (1) Peripheral arterial disease Code(s): I73.9 - PERIPHERAL VASCULAR DISEASE, UNSPECIFIED Status: Acute (2) Cellulitis Code(s): L03.90 - CELLULITIS, UNSPECIFIED Status: Acute (3) Diabetes type 2, uncontrolled Code(s): E11.65 - TYPE 2 DIABETES MELLITUS WITH HYPERGLYCEMIA Status: Acute (4) Hyperlipidemia Code(s): E78.5 - HYPERLIPIDEMIA, UNSPECIFIED Status: Chronic (5) Hypertension Code(s): I10 - ESSENTIAL (PRIMARY) HYPERTENSION Status: Chronic Qualifiers: Hypertension type: essential hypertension Qualified Code(s): I10 - Essential (primary) hypertension - Plan Plan: 1. LLE Cellulitis -BCx: No Growth for > 72H -XR L Foot (04/09): Plantar mid-foot soft tissue swelling - cannot rule out Osteomyelitis -MRI L Foot: No evidence for Osteomyelitis -Dr. Parham (ID): Consulted, Recs appreciated - IV abx until May 14, PICC line placed -LE Doppler: Marked PAD, L > R -CVSurg: Consulted, recs appreciated - Left Popliteal Artery Angioplasty performed on 04/15 -PT consulted -Pending placement for IV abx 2. Uncontrolled DM 2 -HgA1c: 11 -Will continue home Metformin regimen -Discussed need for Insulin considering severely elevated HgA1c - patient amenable to starting therapy -Currently on Lantus 15u SC QAM -POC Glucose readings within acceptable range since upward titration of Lantus -DM Education, Arborist Representative Consult ordered -ACHS Accuchecks -Mild SSI -Hypoglycemia Protocol 3. Anxiety/Depression -Will continue patient's home medication regimen 4. CAD s/p CABG *4 -Follows with Dr. Anna (Cardiology) -Will continue patient's home ASA, Plavix and Nitro regimen 5. HTN -Multiple elevated BPs noted recently despite adherence to patient's home Carvedilol, Amlodipine and Lisinopril regimen -Will increase Amlodipine to max dosage this AM and continue to trend -Will encourage close outpatient follow-up 6. HLD -Will continue patient's home Atorvastatin regimen 7. PAD -s/p Angioplasty on 04/15 as per above -Currently on appropriate medication regimen as per #4 Code: Full PCP: Mariaa KAUR) Diet: Consistent Carbohydrate, Heart Healthy Activity: Ad denzel VTE PPx: Lovenox Dispo: pending placement for IV abx
[2020-04-20] MEDS: Clopidogrel Bisulfate 75 MG TAB PO SCH (09:32)
[2020-04-20] MEDS: Enoxaparin Sodium 40 MG/0.4 ML SYRINGE SC SCH (09:32)
[2020-04-20] MEDS: metFORMIN 500 MG TAB PO SCH (09:35)
[2020-04-20] MEDS: Amlodipine 10 MG TAB PO SCH (09:37)
[2020-04-20] MEDS: Carvedilol 25 MG TAB PO SCH (09:37)
[2020-04-20] MEDS: Cefepime 2 GM in Sodium Chloride 0.9% 100 ML IVPB SCH (09:37)
[2020-04-20] MEDS: Lisinopril 10 MG TAB PO SCH (09:37)
[2020-04-20] MEDS: Mupirocin 2% Ointment 22 GM Tube TOP SCH (09:38)
[2020-04-20] MEDS: Sodium Chloride 1 GM TAB PO SCH (09:39)
[2020-04-20] MEDS: Insulin Glargine 15 UNITS in Pre-Filled Syringe 1 EACH SC SCH (09:44)
[2020-04-20 15:07] VITALS: BP 130/66; TEMP 98.4
== END 2020-04-20 17:23 | disposition swing bed (61) | DRG 253 ==
LOC: ERS 17:27 → T4-B 23:22
PROVIDERS: ADMIT Family Medicine; ATTEND Family Medicine
PROC: 8E0ZXY6 Isolation (ICD-10-PCS; 2020-04-10)
PROC: 047N3ZZ Dilation of Left Popliteal Artery, Percutaneous Approach (ICD-10-PCS; principal; 2020-04-15)
PROC: B41DZZZ Fluoroscopy of Aorta and Bilateral Lower Extremity Arteries (ICD-10-PCS; 2020-04-15)
PROC: 02HV33Z Insertion of Infusion Device into Superior Vena Cava, Percutaneous Approach (ICD-10-PCS; 2020-04-15)
PROC: B5181ZA Fluoroscopy of Superior Vena Cava using Low Osmolar Contrast, Guidance (ICD-10-PCS; 2020-04-15)
PROC: B548ZZA Ultrasonography of Superior Vena Cava, Guidance (ICD-10-PCS; 2020-04-15)
PROC: 3E02340 Introduction of Influenza Vaccine into Muscle, Percutaneous Approach (ICD-10-PCS; 2020-04-20)
DX: E11.51 Type 2 diabetes mellitus with diabetic peripheral angiopathy without gangrene (principal); L03.116 Cellulitis of left lower limb; L02.612 Cutaneous abscess of left foot; E87.1 Hypo-osmolality and hyponatremia; I25.10 Atherosclerotic heart disease of native coronary artery without angina pectoris; F41.9 Anxiety disorder, unspecified; F32.9 Major depressive disorder, single episode, unspecified; I10 Essential (primary) hypertension; E11.621 Type 2 diabetes mellitus with foot ulcer; L97.529 Non-pressure chronic ulcer of other part of left foot with unspecified severity; Z20.828 Contact with and (suspected) exposure to other viral communicable diseases; E78.5 Hyperlipidemia, unspecified; E11.65 Type 2 diabetes mellitus with hyperglycemia; I25.2 Old myocardial infarction; Z95.1 Presence of aortocoronary bypass graft; Z79.84 Long term (current) use of oral hypoglycemic drugs; Z79.02 Long term (current) use of antithrombotics/antiplatelets; Z90.49 Acquired absence of other specified parts of digestive tract; Z90.710 Acquired absence of both cervix and uterus; Z95.828 Presence of other vascular implants and grafts; Z95.5 Presence of coronary angioplasty implant and graft; Z23 Encounter for immunization
CPT/HCPCS: 36415; 36416; 36569; 75710; 76942; 80048; 80053; 80202; 83036; 83605; 84145; 85025; 85347; 85652; 86140; 87040; 87635; 90471; 90662; 93005; 93923; 96365; 96366; 96367; 96375; 99152; 99153; A9579; C1725; C1751; C1760; G0008; J0692; J1644; J1650; J1815; J2250; J2270; J2543; J3010; J3370; J3490; J7030; Q9967; U0003

== ENCOUNTER 2023-03-13 17:12 | Inpatient (IN) | payer MEDICARE ==
[~2023-03-13 17:12] MED LIST changes: -Heparin 1,000 UNITS/ML VIAL ONE; +Iopamidol-370 76% 500 ML MDV (1 ML CHARGE) ONE
[2023-03-13 18:07] LABS: #Eosinphils 0.3 thou/uL (0.0-0.7); #Monocytes 0.5 thou/uL (0.11-0.59); #Neutrophils 1.8 thou/uL (1.40-6.50); %Basophils 0.6 % (0.0-1.0); %Eosinophils 5.2 % (0.0-10.0); %Lymphocytes 47.8 % (21.0-51.0); %Monocytes 9.4 % (0.0-10.0); %Neutrophils 36.6 % (42.0-75.0); Hematocrit 36.3 % (36.0-47.0); Hemoglobin 12.2 g/dL (12.0-16.0); Mean Corpuscular HGB CONC 33.6 g/dL (32.0-36.0); Mean Corpuscular Hemoglobin 30.8 pg (27.0-31.0); Mean Corpuscular Volume 91.7 fl (78.0-98.0); Mean Platelet Volume 9.9 fL (7.4-10.4); Platelet Count 259 10x3/uL (130-400); RBC Distribution Width 12.5 % (11.5-14.5); Red Blood Cell (RBC) Count 3.96 mill/uL (4.20-5.40)
[2023-03-13 18:26] LABS: PTT 28.5 sec (22.9-36.1)
[2023-03-13 18:36] LABS: ALT (SGPT) 9 U/L (8-55); AST (SGOT) 11 U/L (5-34); Albumin 3.5 g/dL (3.4-4.8); Alkaline Phosphatase 95 U/L (40-110); Anion Gap 13 mmol/L (10-20); BUN (Urea Nitrogen) 25 mg/dL (9.8-20.1); Bilirubin, Total 0.7 mg/dL (0.2-1.2); Calc. Creatinine Clearance 0 mL/min (70-130); Calcium 9.1 mg/dL (7.8-10.44); Carbon Dioxide 25 mmol/L (23-31); Chloride 99 mmol/L (98-107); Estimated GFR 28; Globulin 4.3 g/dL (2.4-3.5); Potassium 4.6 mmol/L (3.5-5.1); Protein, Total 7.8 g/dL (5.8-8.1); Sodium 132 mmol/L (136-145)
[2023-03-13 18:38] LABS: Troponin I Less than 0.010 ng/mL (< 0.028)
[2023-03-13 19:12] LABS: Glucose 464 mg/dL (83-110)
[2023-03-13 19:48] LABS: Bacteria/HPF None Seen HPF (None Seen); Bilirubin Negative (Negative); Blood, Urine 3+ (Negative); CAUTI Indications for Culture Dysuria,urgency,freq; Clarity Turbid (Clear); Glucose, Urine (Dipstick) Greater than 1000 mg/dL (Negative); Ketone, Urine Negative (Negative); Leukocyte 500 Leu/uL (Negative); Nitrite Negative (Negative); Protein, Urine (Dipstick) 30 mg/dL (Neg-Trace); Specific Gravity, Urine 1.021 (1.002-1.036); Urobilinogen Normal mg/dL (Less than 2); WBC/HPF Greater than 50 HPF (0-3); pH, Urine 6.5 (5.0-9.0)
[2023-03-13 19:53] LABS: Urine Culture Reflex Yes Yes
[2023-03-13] MEDS ORDERED: cefTRIAXone (ROCEPHIN) 2 GM VIAL ONE (20:14)
[2023-03-13] MEDS ORDERED: Glucagon 1 MG/ML KIT IM PRN (20:54)
[2023-03-13] MEDS ORDERED: Dextrose 5% in Water 1,000 ML IV PRN (20:54)
[2023-03-13] MEDS ORDERED: Dextrose 50% Abboject 50 ML SYRINGE SLOW IVP PRN (20:54)
[2023-03-13] MEDS ORDERED: HumaLOG 300 UNITS/3 ML VIAL SC PRN ×2 (20:54)
[2023-03-13] MEDS ORDERED: Acetaminophen 500 MG TAB PO PRN (20:54)
[2023-03-13] MEDS ORDERED: Carvedilol 6.25 MG TAB PO SCH (21:00)
[2023-03-13] MEDS ORDERED: Aspirin Chewable 81 MG TAB ONE (21:29)
[2023-03-13] MEDS ORDERED: Insulin Regular 300 UNITS/3 ML VIAL SC PRN (22:27)
[2023-03-14 00:27] LABS: Creatinine, Urine 34.27 mg/dL (47-110)
[2023-03-14 01:11] VITALS: BMI 33.8
[2023-03-14 05:22] LABS: #Eosinphils 0.3 thou/uL (0.0-0.7); #Monocytes 0.4 thou/uL (0.11-0.59); #Neutrophils 2.5 thou/uL (1.40-6.50); %Basophils 0.7 % (0.0-1.0); %Eosinophils 6.1 % (0.0-10.0); %Lymphocytes 39.2 % (21.0-51.0); %Monocytes 7.8 % (0.0-10.0); %Neutrophils 45.8 % (42.0-75.0); Hematocrit 32.6 % (36.0-47.0); Hemoglobin 10.6 g/dL (12.0-16.0); Mean Corpuscular HGB CONC 32.5 g/dL (32.0-36.0); Mean Corpuscular Hemoglobin 30.4 pg (27.0-31.0); Mean Corpuscular Volume 93.4 fl (78.0-98.0); Platelet Count 216 10x3/uL (130-400); RBC Distribution Width 12.5 % (11.5-14.5); Red Blood Cell (RBC) Count 3.49 mill/uL (4.20-5.40); White Blood Cell (WBC) Count 5.5 10x3/uL (4.8-10.8)
[2023-03-14 05:41] LABS: Hemoglobin A1c 9.8 % (4.0-6.0)
[2023-03-14 05:52] LABS: ALT (SGPT) 7 U/L (8-55); AST (SGOT) 10 U/L (5-34); Albumin 2.8 g/dL (3.4-4.8); Alkaline Phosphatase 73 U/L (40-110); Anion Gap 11 mmol/L (10-20); BUN (Urea Nitrogen) 21 mg/dL (9.8-20.1); Bilirubin, Total 0.3 mg/dL (0.2-1.2); Calc. Creatinine Clearance 46 mL/min (70-130); Calcium 8.3 mg/dL (7.8-10.44); Carbon Dioxide 22 mmol/L (23-31); Cardiac Risk 4.2 (Less than 4.5); Chloride 108 mmol/L (98-107); Cholesterol 144 mg/dl (< 200 Desired); Estimated GFR 37; Globulin 3.6 g/dL (2.4-3.5); Glucose 304 mg/dL (83-110); HDL Cholesterol 34 mg/dL (>60 Neg Risk); Potassium 4.6 mmol/L (3.5-5.1); Protein, Total 6.4 g/dL (5.8-8.1); Sodium 136 mmol/L (136-145)
[2023-03-14] MEDS: HumaLOG 300 UNITS/3 ML VIAL SC PRN (06:10)
[2023-03-14 06:23] LABS: LDL Cholesterol, Calculated 78 mg/dL; Triglycerides 141 mg/dL (Less than 150)
[2023-03-14] MEDS ORDERED: metFORMIN XR 500 MG TAB PO SCH (09:00)
[2023-03-14] MEDS: Clopidogrel Bisulfate 75 MG TAB PO SCH (09:05)
[2023-03-14] MEDS: Aspirin 81 mg Enteric Coated Tablet PO SCH (09:06)
[2023-03-14] MEDS ORDERED: Insulin Glargine 30 UNITS/0.3 ML VIAL SC SCH ×2 (11:45→21:00)
[2023-03-14] MEDS: Atorvastatin Calcium 40 MG TAB PO SCH (19:59)
[2023-03-14] MEDS ORDERED: cefTRIAXone\\ROCEPHIN 1 GM in Sodium Chloride 0.9% 100 ML IVPB SCH (21:00)
[2023-03-15 05:40] LABS: #Basophils 0.1 thou/uL (0.0-0.2); #Eosinphils 0.4 thou/uL (0.0-0.7); #Monocytes 0.5 thou/uL (0.11-0.59); #Neutrophils 2.4 thou/uL (1.40-6.50); %Lymphocytes 43.7 % (21.0-51.0); %Monocytes 7.9 % (0.0-10.0); %Neutrophils 40.9 % (42.0-75.0); Hematocrit 35.4 % (36.0-47.0); Hemoglobin 11.4 g/dL (12.0-16.0); Mean Corpuscular HGB CONC 32.2 g/dL (32.0-36.0); Mean Corpuscular Hemoglobin 29.9 pg (27.0-31.0); Mean Corpuscular Volume 92.9 fl (78.0-98.0); Mean Platelet Volume 9.8 fL (7.4-10.4); Platelet Count 236 10x3/uL (130-400); RBC Distribution Width 12.6 % (11.5-14.5); Red Blood Cell (RBC) Count 3.81 mill/uL (4.20-5.40); White Blood Cell (WBC) Count 5.8 10x3/uL (4.8-10.8)
[2023-03-15] MEDS: HumaLOG 300 UNITS/3 ML VIAL SC PRN ×2 (06:08→19:43)
[2023-03-15 06:15] LABS: Anion Gap 11 mmol/L (10-20); BUN (Urea Nitrogen) 16 mg/dL (9.8-20.1); Calc. Creatinine Clearance 54 mL/min (70-130); Calcium 8.8 mg/dL (7.8-10.44); Carbon Dioxide 26 mmol/L (23-31); Chloride 107 mmol/L (98-107); Estimated GFR 45; Glucose 204 mg/dL (83-110); Sodium 140 mmol/L (136-145)
[2023-03-15 06:16] LABS: ALT (SGPT) Less than 7 U/L (8-55); AST (SGOT) 11 U/L (5-34); Alkaline Phosphatase 80 U/L (40-110); Bilirubin, Total 0.4 mg/dL (0.2-1.2); Globulin 3.7 g/dL (2.4-3.5); Protein, Total 6.7 g/dL (5.8-8.1)
[2023-03-15] MEDS: Aspirin 81 mg Enteric Coated Tablet PO SCH (08:46)
[2023-03-15] MEDS: Clopidogrel Bisulfate 75 MG TAB PO SCH (08:46)
[2023-03-15] MEDS ORDERED: Insulin Glargine 30 UNITS/0.3 ML VIAL SC SCH ×2 (09:00)
[2023-03-15 19:49] VITALS: BP 173/85; TEMP 98.1
[2023-03-15] MEDS: Atorvastatin Calcium 40 MG TAB PO SCH (23:41)
== END 2023-03-15 21:50 | disposition home health service (06) | DRG 65 ==
LOC: ERS 17:12 → 2SE 20:50 → OBSVTOIN 03-14 10:15
PROVIDERS: ADMIT Student in an Organized Health Care Education/Training Program; ATTEND Student in an Organized Health Care Education/Training Program
DX: I63.9 Cerebral infarction, unspecified (principal); I50.22 Chronic systolic (congestive) heart failure; N17.9 Acute kidney failure, unspecified; E78.5 Hyperlipidemia, unspecified; I44.7 Left bundle-branch block, unspecified; F41.9 Anxiety disorder, unspecified; E11.65 Type 2 diabetes mellitus with hyperglycemia; D64.9 Anemia, unspecified; I73.9 Peripheral vascular disease, unspecified; F32.A Depression, unspecified; E66.9 Obesity, unspecified; I65.22 Occlusion and stenosis of left carotid artery; N30.90 Cystitis, unspecified without hematuria; F41.1 Generalized anxiety disorder; R29.810 Facial weakness; G83.21 Monoplegia of upper limb affecting right dominant side; I11.0 Hypertensive heart disease with heart failure; E11.51 Type 2 diabetes mellitus with diabetic peripheral angiopathy without gangrene; I25.118 Atherosclerotic heart disease of native coronary artery with other forms of angina pectoris; Z68.33 Body mass index [BMI] 33.0-33.9, adult; R29.700 NIHSS score 0; R20.2 Paresthesia of skin; Z95.1 Presence of aortocoronary bypass graft; Z90.710 Acquired absence of both cervix and uterus; Z90.49 Acquired absence of other specified parts of digestive tract; Z98.41 Cataract extraction status, right eye; Z98.42 Cataract extraction status, left eye; Z82.49 Family history of ischemic heart disease and other diseases of the circulatory system; Z98.890 Other specified postprocedural states; Z79.02 Long term (current) use of antithrombotics/antiplatelets; Z79.84 Long term (current) use of oral hypoglycemic drugs; Z79.82 Long term (current) use of aspirin; Z79.899 Other long term (current) drug therapy
CPT/HCPCS: 36415; 36416; 70450; 70496; 70498; 70551; 80053; 80061; 81001; 82570; 83036; 84300; 84443; 84484; 85025; 85610; 85730; 87077; 87086; 87186; 93005; 93306; 93880; 94760; J0696; J1650; J1815; Q9967

== ENCOUNTER 2023-04-18 09:30 | Inpatient (IN) | payer MEDICARE ==
[2023-04-19] MEDS ORDERED: Bupivacaine PF 0.5% 30 ML VIAL ONE (06:41)
[2023-04-19] MEDS ORDERED: EPINEPHrine 1 MG/ML AMP ONE (06:41)
[2023-04-19] MEDS ORDERED: Dexamethasone 4 mg/ml Vial ONE (06:41)
[2023-04-19] MEDS ORDERED: Heparin 5,000 UNITS/ML VIAL ONE (06:41)
[2023-04-19] MEDS ORDERED: Protamine Sulfate 50 MG/5 ML VIAL ONE (06:41)
[2023-04-19 06:47] LABS: Hematocrit 36.5 % (36.0-47.0); Hemoglobin 11.9 g/dL (12.0-16.0); Mean Corpuscular HGB CONC 32.6 g/dL (32.0-36.0); Mean Corpuscular Hemoglobin 30.6 pg (27.0-31.0); Mean Corpuscular Volume 93.8 fl (78.0-98.0); Mean Platelet Volume 9.7 fL (7.4-10.4); Platelet Count 237 10x3/uL (130-400); RBC Distribution Width 12.6 % (11.5-14.5); Red Blood Cell (RBC) Count 3.89 mill/uL (4.20-5.40); White Blood Cell (WBC) Count 8.3 10x3/uL (4.8-10.8)
[2023-04-19] MEDS ORDERED: Fentanyl 250 MCG/5 ML VIAL ONE (06:57)
[2023-04-19] MEDS ORDERED: Nitroglycerin 50 MG/250 ML BOT 0 ML ONE (06:58)
[2023-04-19] MEDS ORDERED: SUGAMMADEX SODIUM 200 MG/2 ML VIAL ONE (06:58)
[2023-04-19] MEDS ORDERED: Phenylephrine 10 MG/ML VIAL ONE ×2 (06:58→10:02)
[2023-04-19] MEDS ORDERED: niCARdipine 25 MG/10 ML SDV ONE (06:58)
[2023-04-19 07:13] LABS: Anion Gap 13 mmol/L (10-20); BUN (Urea Nitrogen) 24 mg/dL (9.8-20.1); Calc. Creatinine Clearance 44 mL/min (70-130); Carbon Dioxide 22 mmol/L (23-31); Chloride 105 mmol/L (98-107); Estimated GFR 37; Glucose 196 mg/dL (83-110); Potassium 5.4 mmol/L (3.5-5.1); Sodium 135 mmol/L (136-145)
[2023-04-19] MEDS ORDERED: fentaNYL 50 mcg/mL 1 mL Vial ONE (08:14)
[2023-04-19] MEDS ORDERED: Sodium Chloride 0.9% 100 ML ONE (09:24)
[2023-04-19] MEDS ORDERED: CEFAZOLIN 2 GM VIAL ONE (09:24)
[2023-04-19] MEDS ORDERED: Midazolam HCl 2 mg/2 ml Vial ONE (09:59)
[2023-04-19] MEDS ORDERED: fentaNYL PF 100 MCG/2 ML SYRINGE ONE (10:01)
[2023-04-19] MEDS ORDERED: Dexamethasone 20 MG/5 ML VIAL ONE (10:30)
[2023-04-19] MEDS ORDERED: Rocuronium Bromide 10 MG/ML (10ML VIAL) ONE (10:30)
[2023-04-19] MEDS ORDERED: Ondansetron PF 4 MG/2 ML Vial ONE (10:30)
[2023-04-19] MEDS ORDERED: Glycopyrrolate 0.2 MG/ML 5 ML SYRINGE ONE (10:30)
[2023-04-19] MEDS ORDERED: PHENYLEPHRINE-NS 100 MCG/ML 10 ML SYRINGE ONE (10:30)
[2023-04-19] MEDS ORDERED: Lidocaine 1% PF 5 ML VIAL ONE (10:30)
[2023-04-19] MEDS ORDERED: PROPOFOL 200 MG/20 ML VIAL ONE (10:30)
[2023-04-19] MEDS ORDERED: Promethazine HCl 25 MG/ML VIAL IM PRN (11:19)
[2023-04-19] MEDS ORDERED: Ondansetron HCl/PF 4 MG/2 ML Vial IVP PRN (11:19)
[2023-04-19] MEDS ORDERED: fentaNYL 50 mcg/mL 1 mL Vial SLOW IVP PRN (11:37)
[2023-04-19] MEDS ORDERED: Acetaminophen 325 MG TAB PO PRN (11:37)
[2023-04-19] MEDS ORDERED: Nitroglycerin 50 MG/250 ML BOT 250 ML IVPB PRN (11:37)
[2023-04-19] MEDS ORDERED: Ondansetron PF 4 MG/2 ML Vial IVP PRN (11:37)
[2023-04-19] MEDS ORDERED: Ipratropium/Albuterol 3 ML NEB NEB PRN (11:37)
[2023-04-19] MEDS ORDERED: Phenylephrine 40 MG in Sodium Chloride 0.9% 250 ML 250 ML IVPB PRN (11:37)
[2023-04-19] MEDS ORDERED: traMADol HCl 50 MG TAB PO PRN (11:37)
[2023-04-19] MEDS ORDERED: Nitroglycerin 50 MG/250 ML BOT 250 ML ONE (11:55)
[2023-04-19] MEDS ORDERED: Dextrose 50% Abboject 50 ML SYRINGE IVP PRN (12:00)
[2023-04-19] MEDS ORDERED: Glucagon 1 MG/ML KIT IM PRN (12:00)
[2023-04-19] MEDS ORDERED: Dextrose 5% in Water 1,000 ML IV PRN (12:00)
[2023-04-19] MEDS ORDERED: hydrALAZINE 20 MG/ML VIAL ONE (12:14)
[2023-04-19 13:10] VITALS: BMI 34.2
[2023-04-19] MEDS: Sodium Chloride 0.9% 1,000 ML IV SCH ×2 (13:29→21:00)
[2023-04-19] MEDS: hydrALAZINE 20 MG/ML VIAL SLOW IVP PRN ×2 (14:29→21:22)
[2023-04-19] MEDS: Ipratropium/Albuterol 3 ML NEB NEB SCH ×2 (14:52→19:53)
[2023-04-19] MEDS ORDERED: Phenazopyridine HCl 100 MG TAB PO SCH (16:30)
[2023-04-19] MEDS: CEFAZOLIN 2 GM in Sodium Chloride 0.9% 100 ML IVPB SCH (17:06)
[2023-04-19] MEDS ORDERED: FLU VACC QS2023(65UP)/MF59C/PF 60 MCG/0.5 ML SYRINGE IM ONE (18:00)
[2023-04-19] MEDS: Insulin Regular 300 UNITS/3 ML VIAL SC PRN ×2 (18:07→22:30)
[2023-04-19] MEDS ORDERED: Atorvastatin Calcium 40 MG TAB PO SCH (21:00)
[2023-04-19] MEDS: Phenazopyridine HCl 100 MG TAB PO SCH (21:22)
[2023-04-19 21:23] VITALS: BP 166/96
[2023-04-19] MEDS: Ranolazine 500 MG ER.TAB PO SCH (21:33)
[2023-04-20] MEDS: Ipratropium/Albuterol 3 ML NEB NEB SCH (01:45)
[2023-04-20] MEDS: CEFAZOLIN 2 GM in Sodium Chloride 0.9% 100 ML IVPB SCH ×2 (02:39→10:04)
[2023-04-20] MEDS: hydrALAZINE 20 MG/ML VIAL SLOW IVP PRN (03:05)
[2023-04-20] MEDS: Insulin Regular 300 UNITS/3 ML VIAL SC PRN ×2 (06:30→10:18)
[2023-04-20] MEDS: Sodium Chloride 0.9% 1,000 ML IV SCH (08:20)
[2023-04-20] MEDS: Phenazopyridine HCl 100 MG TAB PO SCH (08:47)
[2023-04-20] MEDS: Ranolazine 500 MG ER.TAB PO SCH (08:51)
[2023-04-20] MEDS ORDERED: Clopidogrel Bisulfate 75 MG TAB PO SCH (09:00)
[2023-04-20] MEDS ORDERED: Amlodipine 10 MG TAB PO SCH (09:00)
[2023-04-20] MEDS ORDERED: Isosorbide Mononitrate 60 MG ER.TAB PO SCH (09:00)
[2023-04-20] MEDS ORDERED: Spironolactone 25 MG TAB PO SCH (09:00)
[2023-04-20] MEDS ORDERED: Carvedilol 25 MG TAB PO SCH (09:00)
[2023-04-20] MEDS ORDERED: Aspirin 81 mg Enteric Coated Tablet PO SCH (09:00)
[2023-04-20 12:24] VITALS: TEMP 97.9
== END 2023-04-20 13:45 | disposition home or self-care (01) | DRG 36 ==
LOC: SURG A 04-19 06:13 → CCU 04-19 13:39
PROVIDERS: ADMIT Thoracic Surgery (Cardiothoracic Vascular Surgery); ATTEND Thoracic Surgery (Cardiothoracic Vascular Surgery)
PROC: 037L3DZ Dilation of Left Internal Carotid Artery with Intraluminal Device, Percutaneous Approach (ICD-10-PCS; principal; 2023-04-19)
DX: I65.22 Occlusion and stenosis of left carotid artery (principal); I10 Essential (primary) hypertension; E78.5 Hyperlipidemia, unspecified; F32.A Depression, unspecified; F41.9 Anxiety disorder, unspecified; I73.9 Peripheral vascular disease, unspecified; I25.10 Atherosclerotic heart disease of native coronary artery without angina pectoris; Z90.710 Acquired absence of both cervix and uterus; Z90.49 Acquired absence of other specified parts of digestive tract; Z98.890 Other specified postprocedural states; Z95.1 Presence of aortocoronary bypass graft
CPT/HCPCS: 36416; 80048; 85027; 90471; 90694; 94640; C1769; C1876; C1884; G0008; J0171; J0360; J1100; J1644; J1815; J2250; J2370; J2405; J2704; J2720; J3010; J3490; J7050; J7620; S0020

== ENCOUNTER 2023-12-29 20:39 | Observation (INO) | payer MEDICARE, SELFPAY ==
[2023-12-29] MEDS ORDERED: Ondansetron PF 4 MG/2 ML Vial ONE (20:49)
[2023-12-29] MEDS ORDERED: Acetaminophen 500 MG TAB ONE (20:52)
[2023-12-29] MEDS ORDERED: diphenhydrAMINE 50 MG/ML VIAL ONE (20:56)
[2023-12-29] MEDS ORDERED: Acetaminophen 650 MG/20.3 ML UDCUP ONE (20:56)
[2023-12-29 21:05] LABS: #Basophils Less than 0.03 10x3/uL (0.0-0.2); #Eosinphils Less than 0.03 10x3/uL (0.0-0.7); %Basophils 0.2 % (0.0-1.0); %Eosinophils 0.2 % (0.0-10.0); %Lymphocytes 21.9 % (21.0-51.0); %Monocytes 6.1 % (0.0-10.0); %Neutrophils 71.1 % (42.0-75.0); Hematocrit 33.8 % (36.0-47.0); Hemoglobin 11.3 g/dL (12.0-16.0); Mean Corpuscular HGB CONC 33.4 g/dL (32.0-36.0); Mean Corpuscular Volume 86.7 fL (78.0-98.0); Platelet Count 222 10x3/uL (130-400); RBC Distribution Width 14.8 % (11.5-14.5)
[2023-12-29 21:38] LABS: ALT (SGPT) 8 U/L (8-55); AST (SGOT) 19 U/L (5-34); Albumin 2.6 g/dL (3.4-4.8); Alkaline Phosphatase 86 U/L (40-110); Anion Gap 16 mmol/L (10-20); BUN (Urea Nitrogen) 25 mg/dL (9.8-20.1); Bilirubin, Total 0.3 mg/dL (0.2-1.2); Calc. Creatinine Clearance 0 mL/min (70-130); Calcium 8.9 mg/dL (7.8-10.44); Carbon Dioxide 17 mmol/L (23-31); Chloride 108 mmol/L (98-107); Estimated GFR 34; Globulin 5.5 g/dL (2.4-3.5); Glucose 195 mg/dL (83-110); Potassium 5.1 mmol/L (3.5-5.1); Protein, Total 8.1 g/dL (5.8-8.1); Sodium 136 mmol/L (136-145)
[2023-12-29 21:46] LABS: Troponin I Less than 0.010 ng/mL (< 0.028)
[2023-12-29 22:42] LABS: Bilirubin Negative (Negative); Blood, Urine 2+ (Negative); CAUTI Indications for Culture Alt mental st,lethar; Clarity Turbid (Clear); Glucose, Urine (Dipstick) 70 mg/dL (Negative); Ketone, Urine Negative (Negative); Leukocyte 500 Leu/uL (Negative); Nitrite Negative (Negative); Protein, Urine (Dipstick) 50 mg/dL (Neg-Trace); Specific Gravity, Urine 1.011 (1.002-1.036); Squamous Epithelial None Seen HPF (0-3); Urobilinogen Normal mg/dL (Less than 2); WBC/HPF Greater than 50 HPF (0-3); pH, Urine 6.5 (5.0-9.0)
[2023-12-29 22:43] LABS: Bacteria/HPF 1+ HPF (None Seen); Urine Culture Reflex Yes Yes
[2023-12-29] MEDS ORDERED: cefTRIAXone (ROCEPHIN) 1 GM VIAL ONE (23:41)
[2023-12-29] MEDS ORDERED: Sodium Chloride 0.9% 100 ML ONE (23:41)
[2023-12-30 00:49] LABS: Influenza A by NAA Not Detected (NotDetected); Influenza B by NAA Not Detected (NotDetected); SARS-CoV-2 NAA Rapid Test Not Detected (NotDetected)
[2023-12-30 02:03] VITALS: BMI 27.3
[2023-12-30] MEDS: Acetaminophen 325 MG TAB PO PRN (04:32)
[2023-12-30 04:55] LABS: #Basophils Less than 0.03 10x3/uL (0.0-0.2); #Eosinphils Less than 0.03 10x3/uL (0.0-0.7); %Basophils 0.2 % (0.0-1.0); %Eosinophils 0.2 % (0.0-10.0); %Lymphocytes 31.7 % (21.0-51.0); %Monocytes 6.8 % (0.0-10.0); %Neutrophils 60.4 % (42.0-75.0); Hematocrit 31.6 % (36.0-47.0); Hemoglobin 9.9 g/dL (12.0-16.0); Mean Corpuscular HGB CONC 31.3 g/dL (32.0-36.0); Mean Corpuscular Volume 89.5 fL (78.0-98.0); Mean Platelet Volume 9.7 fL (7.4-10.4); Platelet Count 186 10x3/uL (130-400); RBC Distribution Width 14.8 % (11.5-14.5); Red Blood Cell (RBC) Count 3.53 mill/uL (4.20-5.40)
[2023-12-30 05:30] LABS: ALT (SGPT) 6 U/L (8-55); AST (SGOT) 14 U/L (5-34); Albumin 2.2 g/dL (3.4-4.8); Alkaline Phosphatase 78 U/L (40-110); Anion Gap 12 mmol/L (10-20); BUN (Urea Nitrogen) 23 mg/dL (9.8-20.1); Bilirubin, Total 0.3 mg/dL (0.2-1.2); Calc. Creatinine Clearance 36 mL/min (70-130); Calcium 8.3 mg/dL (7.8-10.44); Carbon Dioxide 19 mmol/L (23-31); Chloride 108 mmol/L (98-107); Estimated GFR 36; Globulin 4.5 g/dL (2.4-3.5); Glucose 173 mg/dL (83-110); Potassium 4.4 mmol/L (3.5-5.1); Protein, Total 6.7 g/dL (5.8-8.1); Sodium 135 mmol/L (136-145)
[2023-12-30] MEDS: Ondansetron PF 4 MG/2 ML Vial IVP SCH (06:28)
[2023-12-30] MEDS: Lidocaine 4% Patch TD PRN (06:28)
[2023-12-30] MEDS ORDERED: Glucagon 1 MG/ML KIT IM PRN (07:17)
[2023-12-30] MEDS ORDERED: Dextrose 50% Abboject 50 ML SYRINGE SLOW IVP PRN (07:17)
[2023-12-30] MEDS ORDERED: Dextrose 5% in Water 1,000 ML IV PRN (07:17)
[2023-12-30] MEDS ORDERED: Insulin Lispro 100 UNIT/ML 10 ML VIAL SC PRN (07:21)
[2023-12-30] MEDS: Enoxaparin 30 MG (0.3 mL) SYRINGE SC SCH (09:08)
[2023-12-30] MEDS: Metoclopramide HCl 10 MG (2 mL) VIAL IVP SCH ×2 (09:08→16:18)
[2023-12-30] MEDS: Carvedilol 25 MG TAB PO SCH (11:38)
[2023-12-30] MEDS: Valsartan 80 MG TAB PO SCH (11:39)
[2023-12-30] MEDS: Spironolactone 25 MG TAB PO SCH (12:21)
[2023-12-30] MEDS: Clopidogrel Bisulfate 75 MG TAB PO SCH (12:21)
[2023-12-30] MEDS: Isosorbide Mononitrate 60 MG ER.TAB PO SCH (12:21)
[2023-12-30] MEDS: Cyclobenzaprine 10 MG TAB PO SCH (12:25)
[2023-12-30] MEDS: Amlodipine 10 MG TAB PO SCH (12:28)
[2023-12-30] MEDS: Aspirin 81 mg Enteric Coated Tablet PO SCH (12:28)
[2023-12-30] MEDS: Diclofenac 1% 50 GM TOPICAL GEL TP SCH (13:43)
[2023-12-30] MEDS: metFORMIN 500 MG TAB PO SCH (16:34)
[2023-12-30 17:26] VITALS: BMI 27.3
[2023-12-30] MEDS: Atorvastatin Calcium 40 MG TAB PO SCH (20:55)
[2023-12-30] MEDS: Transdermal Patch Removal TOP SCH (21:01)
[2023-12-30] MEDS ORDERED: cefTRIAXone\\ROCEPHIN 1 GM in Sodium Chloride 0.9% 100 ML IVPB SCH (22:00)
[2023-12-30] MEDS: cefTRIAXone\\ROCEPHIN 1 GM in Sodium Chloride 0.9% 100 ML IVPB SCH (23:33)
[2023-12-31 04:41] LABS: #Basophils Less than 0.03 10x3/uL (0.0-0.2); #Eosinphils Less than 0.03 10x3/uL (0.0-0.7); %Basophils 0.3 % (0.0-1.0); %Eosinophils 0.1 % (0.0-10.0); %Lymphocytes 23.9 % (21.0-51.0); %Monocytes 6.9 % (0.0-10.0); %Neutrophils 68.2 % (42.0-75.0); Hematocrit 28.6 % (36.0-47.0); Mean Corpuscular HGB CONC 31.5 g/dL (32.0-36.0); Mean Corpuscular Volume 88.8 fL (78.0-98.0); Mean Platelet Volume 9.8 fL (7.4-10.4); Platelet Count 167 10x3/uL (130-400); RBC Distribution Width 14.8 % (11.5-14.5); Red Blood Cell (RBC) Count 3.22 mill/uL (4.20-5.40)
[2023-12-31 04:54] LABS: ALT (SGPT) 6 U/L (8-55); AST (SGOT) 14 U/L (5-34); Alkaline Phosphatase 71 U/L (40-110); Anion Gap 14 mmol/L (10-20); BUN (Urea Nitrogen) 28 mg/dL (9.8-20.1); Bilirubin, Total 0.3 mg/dL (0.2-1.2); Calc. Creatinine Clearance 25 mL/min (70-130); Calcium 8.2 mg/dL (7.8-10.44); Carbon Dioxide 19 mmol/L (23-31); Chloride 104 mmol/L (98-107); Estimated GFR 24; Globulin 4.4 g/dL (2.4-3.5); Glucose 294 mg/dL (83-110); Potassium 4.3 mmol/L (3.5-5.1); Protein, Total 6.4 g/dL (5.8-8.1); Sodium 133 mmol/L (136-145)
[2023-12-31] MEDS: Lactated Ringer's 1,000 ML IV SCH (09:33)
[2023-12-31] MEDS: Lactated Ringer's 500 ML IV SCH (09:34)
[2023-12-31] MEDS: Insulin Lispro 100 UNIT/ML 10 ML VIAL SC PRN (11:36)
[2023-12-31 15:13] LABS: Anion Gap 12 mmol/L (10-20); BUN (Urea Nitrogen) 23 mg/dL (9.8-20.1); Calc. Creatinine Clearance 38 mL/min (70-130); Calcium 7.6 mg/dL (7.8-10.44); Carbon Dioxide 17 mmol/L (23-31); Chloride 106 mmol/L (98-107); Estimated GFR 39; Glucose 115 mg/dL (83-110); Potassium 4.1 mmol/L (3.5-5.1); Sodium 131 mmol/L (136-145)
[2023-12-31 16:12] VITALS: BP 143/61; TEMP 97.4
[2023-12-31] MEDS ORDERED: Carvedilol 6.25 MG TAB PO SCH (17:00)
[2024-01-01] MEDS ORDERED: Enoxaparin 40 MG (0.4 mL) SYRINGE SC SCH (09:00)
== END 2023-12-31 17:27 | disposition home or self-care (01) ==
LOC: ERS 20:39 → 2NO 12-30 00:24
PROVIDERS: ADMIT Family Medicine; ATTEND Family Medicine
DX: N12 Tubulo-interstitial nephritis, not specified as acute or chronic (principal); E11.22 Type 2 diabetes mellitus with diabetic chronic kidney disease; I12.9 Hypertensive chronic kidney disease with stage 1 through stage 4 chronic kidney disease, or unspecified chronic kidney disease; N18.9 Chronic kidney disease, unspecified; R73.9 Hyperglycemia, unspecified; E78.5 Hyperlipidemia, unspecified; I25.10 Atherosclerotic heart disease of native coronary artery without angina pectoris; I44.7 Left bundle-branch block, unspecified; F41.9 Anxiety disorder, unspecified; Z79.82 Long term (current) use of aspirin; Z79.02 Long term (current) use of antithrombotics/antiplatelets; Z79.899 Other long term (current) drug therapy; Z79.84 Long term (current) use of oral hypoglycemic drugs; Z95.1 Presence of aortocoronary bypass graft; Z90.710 Acquired absence of both cervix and uterus; Z90.49 Acquired absence of other specified parts of digestive tract
CPT/HCPCS: 36415; 36416; 71045; 80053; 81001; 83605; 83880; 84484; 85025; 87040; 87086; 93005; 94760; 96361; 96365; 96366; 96372; 96374; 96375; 96376; G0378; J0696; J1200; J1650; J2405; J2765; J3490; J7120

== ENCOUNTER 2024-01-06 07:49 | Inpatient (IN) | payer MEDICARE, SELFPAY ==
[2024-01-06] MEDS ORDERED: Ondansetron PF 4 MG/2 ML Vial ONE (08:23)
[2024-01-06] MEDS ORDERED: Famotidine/PF 20 mg/2ml Vial ONE (08:23)
[2024-01-06 08:34] LABS: Hematocrit 36.4 % (36.0-47.0); Hemoglobin 11.6 g/dL (12.0-16.0); Mean Corpuscular HGB CONC 31.9 g/dL (32.0-36.0); Mean Corpuscular Hemoglobin 28.1 pg (27.0-31.0); Mean Corpuscular Volume 88.1 fL (78.0-98.0); Mean Platelet Volume 9.3 fL (7.4-10.4); Platelet Count 314 10x3/uL (130-400); Red Blood Cell (RBC) Count 4.13 mill/uL (4.20-5.40)
[2024-01-06 08:43] LABS: ALT (SGPT) 17 U/L (8-55); AST (SGOT) 28 U/L (5-34); Albumin 2.7 g/dL (3.4-4.8); Alkaline Phosphatase 77 U/L (40-110); Anion Gap 15 mmol/L (10-20); BUN (Urea Nitrogen) 29 mg/dL (9.8-20.1); Calc. Creatinine Clearance 0 mL/min (70-130); Carbon Dioxide 16 mmol/L (23-31); Chloride 104 mmol/L (98-107); Estimated GFR 28; Globulin 5.2 g/dL (2.4-3.5); Glucose 189 mg/dL (83-110); Lipase 21 U/L (8-78); Magnesium 1.6 mg/dL (1.6-2.6); Potassium 4.4 mmol/L (3.5-5.1); Protein, Total 7.9 g/dL (5.8-8.1); Sodium 131 mmol/L (136-145)
[2024-01-06 08:48] LABS: #Basophils Less than 0.03 10x3/uL (0.0-0.2); #Eosinphils Less than 0.03 10x3/uL (0.0-0.7); %Basophils 0.3 % (0.0-1.0); %Lymphocytes 32.6 % (21.0-51.0); %Monocytes 6.5 % (0.0-10.0); %Neutrophils 59.7 % (42.0-75.0)
[2024-01-06 09:21] LABS: Band 1 % (5-11); Large Platelets 2.1 % (0-5); Lymphocytes 20 % (21-51); Monocytes 4 % (0-10); Neutrophil 73 % (42-75); Platelet Adequacy Comment Platelets Normal; RBC Morphology Within Normal Limits; Smudge Cells 19.1 %
[2024-01-06] MEDS ORDERED: Meclizine HCl 25 MG TAB ONE (10:28)
[2024-01-06] MEDS ORDERED: Glucagon 1 MG/ML KIT IM PRN (11:07)
[2024-01-06] MEDS ORDERED: Dextrose 5% in Water 1,000 ML IV PRN (11:07)
[2024-01-06] MEDS ORDERED: Dextrose 50% Abboject 50 ML SYRINGE SLOW IVP PRN (11:07)
[2024-01-06] MEDS ORDERED: Aspirin Chewable 81 MG TAB ONE (11:28)
[2024-01-06] MEDS ORDERED: Insulin Lispro 100 UNIT/ML 10 ML VIAL SC PRN (12:07)
[2024-01-06] MEDS ORDERED: Ondansetron ODT 4 MG TAB PO PRN (12:27)
[2024-01-06] MEDS: Lactated Ringer's 1,000 ML IV SCH (14:45)
[2024-01-06] MEDS: Heparin 5,000 UNITS/ML VIAL SC SCH (16:48)
[2024-01-06] MEDS: Cefaclor 250 MG CAP PO SCH (16:51)
[2024-01-06] MEDS: Magnesium Sulfate In Water 4 GM in Premix 1 BAG IVPB SCH (16:52)
[2024-01-06 17:01] LABS: Troponin I 0.061 ng/mL (< 0.028)
[2024-01-06] MEDS: Ondansetron PF 4 MG/2 ML Vial IVP PRN (17:05)
[2024-01-06] MEDS: Magnesium 2 GM/50 ML(in water) 2 GM in Premix 1 BAG IVPB SCH (18:03)
[2024-01-06] MEDS: Lactated Ringer's 500 ML IV SCH (19:39)
[2024-01-06] MEDS ORDERED: Sulfameth/Trimethoprim DS 800-160mg TAB PO SCH (21:00)
[2024-01-06] MEDS: Atorvastatin Calcium 40 MG TAB PO SCH (21:33)
[2024-01-06] MEDS: Ranolazine ER 500 MG TAB PO SCH (21:33)
[2024-01-06] MEDS: Carvedilol 6.25 MG TAB PO SCH (21:34)
[2024-01-06] MEDS: Fidaxomicin 200 MG TAB PO SCH (23:19)
[2024-01-07] MEDS: Acetaminophen 325 MG TAB PO PRN (04:15)
[2024-01-07 05:27] LABS: #Basophils Less than 0.03 10x3/uL (0.0-0.2); #Eosinphils Less than 0.03 10x3/uL (0.0-0.7); %Basophils 0.2 % (0.0-1.0); %Eosinophils 0.2 % (0.0-10.0); %Lymphocytes 22.8 % (21.0-51.0); %Monocytes 6.1 % (0.0-10.0); %Neutrophils 70.2 % (42.0-75.0); Hematocrit 33.5 % (36.0-47.0); Hemoglobin 10.5 g/dL (12.0-16.0); Mean Corpuscular HGB CONC 31.3 g/dL (32.0-36.0); Mean Corpuscular Hemoglobin 28.2 pg (27.0-31.0); Mean Corpuscular Volume 90.1 fL (78.0-98.0); Mean Platelet Volume 9.6 fL (7.4-10.4); Platelet Count 311 10x3/uL (130-400); RBC Distribution Width 14.3 % (11.5-14.5); Red Blood Cell (RBC) Count 3.72 mill/uL (4.20-5.40)
[2024-01-07 05:54] LABS: Anion Gap 17 mmol/L (10-20); BUN (Urea Nitrogen) 37 mg/dL (9.8-20.1); Calc. Creatinine Clearance 24 mL/min (70-130); Calcium 8.5 mg/dL (7.8-10.44); Carbon Dioxide 18 mmol/L (23-31); Chloride 103 mmol/L (98-107); Estimated GFR 24; Glucose 122 mg/dL (83-110); Potassium 4.6 mmol/L (3.5-5.1); Sodium 133 mmol/L (136-145)
[2024-01-07] MEDS: Lactated Ringer's 1,000 ML IV SCH (08:36)
[2024-01-07 08:49] LABS: Magnesium 2.7 mg/dL (1.6-2.6)
[2024-01-07] MEDS: Lactated Ringer's 500 ML IV SCH (10:34)
[2024-01-07] MEDS: Fidaxomicin 200 MG TAB PO SCH (10:35)
[2024-01-07] MEDS: Isosorbide Mononitrate 60 MG ER.TAB PO SCH (10:35)
[2024-01-07] MEDS: Carvedilol 6.25 MG TAB PO SCH (10:36)
[2024-01-07] MEDS: Clopidogrel Bisulfate 75 MG TAB PO SCH (10:36)
[2024-01-07] MEDS: Amlodipine 10 MG TAB PO SCH (10:38)
[2024-01-07] MEDS: Loratadine 10 MG TAB PO SCH (10:38)
[2024-01-07] MEDS: Aspirin 81 mg Enteric Coated Tablet PO SCH (10:38)
[2024-01-07] MEDS: Pantoprazole 40 MG VIAL IVP SCH (10:39)
[2024-01-07] MEDS: Fluticasone Propionate Nasal Spray 16 gm Bottle NASAL SCH (10:43)
[2024-01-07 16:55] LABS: Creatinine, Urine 53.21 mg/dL (47-110)
[2024-01-08 04:33] LABS: #Basophils Less than 0.03 10x3/uL (0.0-0.2); %Basophils 0.1 % (0.0-1.0); %Eosinophils 0.3 % (0.0-10.0); %Monocytes 4.9 % (0.0-10.0); %Neutrophils 68.2 % (42.0-75.0); Hematocrit 26.9 % (36.0-47.0); Hemoglobin 8.9 g/dL (12.0-16.0); Mean Corpuscular HGB CONC 33.1 g/dL (32.0-36.0); Mean Corpuscular Hemoglobin 28.5 pg (27.0-31.0); Mean Corpuscular Volume 86.2 fL (78.0-98.0); Mean Platelet Volume 9.6 fL (7.4-10.4); Platelet Count 262 10x3/uL (130-400); RBC Distribution Width 13.9 % (11.5-14.5); Red Blood Cell (RBC) Count 3.12 mill/uL (4.20-5.40)
[2024-01-08 05:07] LABS: Anion Gap 12 mmol/L (10-20); BUN (Urea Nitrogen) 40 mg/dL (9.8-20.1); Calc. Creatinine Clearance 23 mL/min (70-130); Calcium 8.2 mg/dL (7.8-10.44); Carbon Dioxide 20 mmol/L (23-31); Chloride 101 mmol/L (98-107); Estimated GFR 22; Glucose 82 mg/dL (83-110); Potassium 4.4 mmol/L (3.5-5.1); Sodium 129 mmol/L (136-145)
[2024-01-08] MEDS: Lactated Ringer's 1,000 ML IV SCH (11:05)
[2024-01-08 11:38] LABS: Iron 32 ug/dL (50-170); Iron Binding Capacity, Total 156 mcg/dL (265-497)
[2024-01-08 13:45] LABS: Clarity Clear (Clear)
[2024-01-08 13:58] LABS: Specific Gravity, Urine 1.012 (1.002-1.036)
[2024-01-08 14:00] LABS: pH, Urine 6.6 (5.0-9.0)
[2024-01-08 14:03] LABS: RBC/HPF Greater than 50 HPF (0-3); WBC/HPF 21-50 HPF (0-3)
[2024-01-08 14:04] LABS: Bacteria/HPF 1+ HPF (None Seen); Squamous Epithelial 0-3 HPF (0-3)
[2024-01-08 14:05] LABS: Leukocyte Unable to Interpret Leu/uL (Negative); Nitrite Unable to Interpret (Negative); Protein, Urine (Dipstick) Unable to Interpret mg/dL (Neg-Trace)
[2024-01-08 14:06] LABS: Bilirubin Unable to Interpret (Negative); Glucose, Urine (Dipstick) Unable to Interpret mg/dL (Negative); Ketone, Urine Unable to Interpret mg/dL (Negative); Urobilinogen UNABLE TO INTERPRET mg/dL (Less than 2)
[2024-01-08 16:19] LABS: Hematocrit 30.4 % (36.0-47.0); Hemoglobin 9.7 g/dL (12.0-16.0)
[2024-01-09] MEDS: hydrOXYzine 25 MG TAB PO PRN (04:29)
[2024-01-09 10:25] LABS: Anion Gap 10 mmol/L (10-20); BUN (Urea Nitrogen) 30 mg/dL (9.8-20.1); Calc. Creatinine Clearance 33 mL/min (70-130); Calcium 8.5 mg/dL (7.8-10.44); Carbon Dioxide 23 mmol/L (23-31); Chloride 103 mmol/L (98-107); Estimated GFR 35; Glucose 104 mg/dL (83-110); Potassium 4.3 mmol/L (3.5-5.1); Sodium 132 mmol/L (136-145)
[2024-01-09 10:50] LABS: Band 2 % (5-11); Hematocrit 28.4 % (36.0-47.0); Hemoglobin 9.4 g/dL (12.0-16.0); Large Platelets 3.9 % (0-5); Lymphocytes 20 % (21-51); Mean Corpuscular HGB CONC 33.1 g/dL (32.0-36.0); Mean Corpuscular Hemoglobin 28.6 pg (27.0-31.0); Mean Corpuscular Volume 86.3 fL (78.0-98.0); Mean Platelet Volume 9.5 fL (7.4-10.4); Monocytes 5 % (0-10); Neutrophil 73 % (42-75); Platelet Adequacy Comment Platelets Normal; Platelet Count 236 10x3/uL (130-400); RBC Morphology Within Normal Limits; Reactive Lymphocytes 1 % (0-10); Red Blood Cell (RBC) Count 3.29 mill/uL (4.20-5.40)
[2024-01-09] MEDS: Sodium Chloride 0.9% 1,000 ML IV SCH (11:28)
[2024-01-09] MEDS: Lactated Ringer's 1,000 ML IV SCH (16:58)
[2024-01-10 05:07] LABS: #Basophils Less than 0.03 10x3/uL (0.0-0.2); %Basophils 0.2 % (0.0-1.0); %Eosinophils 1.5 % (0.0-10.0); %Lymphocytes 34.2 % (21.0-51.0); %Monocytes 7.7 % (0.0-10.0); %Neutrophils 55.7 % (42.0-75.0); Hematocrit 30.2 % (36.0-47.0); Hemoglobin 9.8 g/dL (12.0-16.0); Mean Corpuscular HGB CONC 32.5 g/dL (32.0-36.0); Mean Corpuscular Hemoglobin 28.4 pg (27.0-31.0); Mean Corpuscular Volume 87.5 fL (78.0-98.0); Platelet Count 263 10x3/uL (130-400); RBC Distribution Width 14.3 % (11.5-14.5); Red Blood Cell (RBC) Count 3.45 mill/uL (4.20-5.40)
[2024-01-10 05:18] LABS: Anion Gap 10 mmol/L (10-20); BUN (Urea Nitrogen) 30 mg/dL (9.8-20.1); Calc. Creatinine Clearance 38 mL/min (70-130); Calcium 8.8 mg/dL (7.8-10.44); Carbon Dioxide 21 mmol/L (23-31); Chloride 105 mmol/L (98-107); Estimated GFR 41; Glucose 104 mg/dL (83-110); Potassium 4.6 mmol/L (3.5-5.1); Sodium 131 mmol/L (136-145)
[2024-01-11 06:04] LABS: #Basophils Less than 0.03 10x3/uL (0.0-0.2); %Basophils 0.1 % (0.0-1.0); %Eosinophils 1.7 % (0.0-10.0); %Lymphocytes 33.7 % (21.0-51.0); %Monocytes 7.8 % (0.0-10.0); Hematocrit 29.5 % (36.0-47.0); Hemoglobin 9.4 g/dL (12.0-16.0); Mean Corpuscular HGB CONC 31.9 g/dL (32.0-36.0); Mean Corpuscular Hemoglobin 28.1 pg (27.0-31.0); Mean Corpuscular Volume 88.1 fL (78.0-98.0); Mean Platelet Volume 9.9 fL (7.4-10.4); Platelet Count 287 10x3/uL (130-400); RBC Distribution Width 14.6 % (11.5-14.5); Red Blood Cell (RBC) Count 3.35 mill/uL (4.20-5.40)
[2024-01-11 06:33] LABS: Anion Gap 11 mmol/L (10-20); BUN (Urea Nitrogen) 35 mg/dL (9.8-20.1); Calc. Creatinine Clearance 33 mL/min (70-130); Calcium 8.8 mg/dL (7.8-10.44); Carbon Dioxide 22 mmol/L (23-31); Chloride 103 mmol/L (98-107); Estimated GFR 32; Glucose 164 mg/dL (83-110); Potassium 4.5 mmol/L (3.5-5.1); Sodium 131 mmol/L (136-145)
[2024-01-12 04:56] LABS: #Basophils Less than 0.03 10x3/uL (0.0-0.2); %Basophils 0.3 % (0.0-1.0); %Eosinophils 1.7 % (0.0-10.0); %Lymphocytes 35.3 % (21.0-51.0); %Monocytes 9.8 % (0.0-10.0); Hematocrit 27.2 % (36.0-47.0); Hemoglobin 8.7 g/dL (12.0-16.0); Mean Corpuscular Hemoglobin 28.3 pg (27.0-31.0); Mean Corpuscular Volume 88.6 fL (78.0-98.0); Mean Platelet Volume 10.3 fL (7.4-10.4); Platelet Count 286 10x3/uL (130-400); RBC Distribution Width 14.6 % (11.5-14.5); Red Blood Cell (RBC) Count 3.07 mill/uL (4.20-5.40)
[2024-01-12 05:29] LABS: Anion Gap 11 mmol/L (10-20); BUN (Urea Nitrogen) 33 mg/dL (9.8-20.1); Calc. Creatinine Clearance 33 mL/min (70-130); Calcium 8.8 mg/dL (7.8-10.44); Carbon Dioxide 22 mmol/L (23-31); Chloride 103 mmol/L (98-107); Estimated GFR 31; Glucose 152 mg/dL (83-110); Potassium 4.5 mmol/L (3.5-5.1); Sodium 131 mmol/L (136-145)
[2024-01-12] MEDS: Aspirin 81 mg Enteric Coated Tablet PO SCH (13:16)
[2024-01-12] MEDS: Clopidogrel Bisulfate 75 MG TAB PO SCH (13:16)
[2024-01-13 06:47] LABS: #Basophils 0.03 10x3/uL (0.0-0.2); %Basophils 0.5 % (0.0-1.0); %Eosinophils 2.8 % (0.0-10.0); %Lymphocytes 41.3 % (21.0-51.0); %Monocytes 9.2 % (0.0-10.0); %Neutrophils 45.3 % (42.0-75.0); Hematocrit 29.5 % (36.0-47.0); Hemoglobin 9.5 g/dL (12.0-16.0); Mean Corpuscular HGB CONC 32.2 g/dL (32.0-36.0); Mean Corpuscular Hemoglobin 28.4 pg (27.0-31.0); Mean Corpuscular Volume 88.3 fL (78.0-98.0); Mean Platelet Volume 9.9 fL (7.4-10.4); Platelet Count 294 10x3/uL (130-400); RBC Distribution Width 14.7 % (11.5-14.5); Red Blood Cell (RBC) Count 3.34 mill/uL (4.20-5.40)
[2024-01-13 07:05] LABS: Anion Gap 11 mmol/L (10-20); BUN (Urea Nitrogen) 30 mg/dL (9.8-20.1); Calc. Creatinine Clearance 34 mL/min (70-130); Calcium 8.9 mg/dL (7.8-10.44); Carbon Dioxide 21 mmol/L (23-31); Chloride 103 mmol/L (98-107); Estimated GFR 33; Glucose 138 mg/dL (83-110); Potassium 4.4 mmol/L (3.5-5.1); Sodium 131 mmol/L (136-145)
[2024-01-13] MEDS: Aspirin 81 mg Enteric Coated Tablet PO SCH (08:48)
[2024-01-13] MEDS: Clopidogrel Bisulfate 75 MG TAB PO SCH (08:49)
[2024-01-13] MEDS: Insulin Lispro 100 UNIT/ML 10 ML VIAL SC PRN (18:04)
[2024-01-14 05:31] VITALS: BMI 28.1
[2024-01-14 06:03] LABS: #Basophils Less than 0.03 10x3/uL (0.0-0.2); %Basophils 0.4 % (0.0-1.0); %Eosinophils 2.9 % (0.0-10.0); %Lymphocytes 44.2 % (21.0-51.0); %Neutrophils 41.7 % (42.0-75.0); Hematocrit 28.3 % (36.0-47.0); Mean Corpuscular HGB CONC 31.8 g/dL (32.0-36.0); Mean Corpuscular Hemoglobin 28.4 pg (27.0-31.0); Mean Corpuscular Volume 89.3 fL (78.0-98.0); Mean Platelet Volume 10.1 fL (7.4-10.4); Platelet Count 292 10x3/uL (130-400); RBC Distribution Width 14.7 % (11.5-14.5); Red Blood Cell (RBC) Count 3.17 mill/uL (4.20-5.40)
[2024-01-14 06:29] LABS: Anion Gap 14 mmol/L (10-20); BUN (Urea Nitrogen) 34 mg/dL (9.8-20.1); Calc. Creatinine Clearance 31 mL/min (70-130); Carbon Dioxide 23 mmol/L (23-31); Chloride 101 mmol/L (98-107); Estimated GFR 29; Glucose 144 mg/dL (83-110); Potassium 4.3 mmol/L (3.5-5.1); Sodium 134 mmol/L (136-145)
[2024-01-15 06:16] LABS: #Basophils 0.03 10x3/uL (0.0-0.2); %Basophils 0.6 % (0.0-1.0); %Eosinophils 2.6 % (0.0-10.0); %Lymphocytes 39.3 % (21.0-51.0); %Monocytes 11.8 % (0.0-10.0); %Neutrophils 45.1 % (42.0-75.0); Hematocrit 29.3 % (36.0-47.0); Hemoglobin 9.3 g/dL (12.0-16.0); Mean Corpuscular HGB CONC 31.7 g/dL (32.0-36.0); Mean Corpuscular Hemoglobin 28.4 pg (27.0-31.0); Mean Corpuscular Volume 89.6 fL (78.0-98.0); Platelet Count 278 10x3/uL (130-400); RBC Distribution Width 14.8 % (11.5-14.5); Red Blood Cell (RBC) Count 3.27 mill/uL (4.20-5.40)
[2024-01-15 06:25] LABS: Anion Gap 12 mmol/L (10-20); BUN (Urea Nitrogen) 34 mg/dL (9.8-20.1); Calc. Creatinine Clearance 32 mL/min (70-130); Carbon Dioxide 21 mmol/L (23-31); Chloride 106 mmol/L (98-107); Estimated GFR 31; Glucose 140 mg/dL (83-110); Potassium 4.2 mmol/L (3.5-5.1); Sodium 135 mmol/L (136-145)
[2024-01-15] MEDS: Pantoprazole DR 40 MG TAB PO SCH (07:59)
[2024-01-15 14:42] VITALS: BMI 28.1
[2024-01-16 09:03] LABS: #Basophils 0.03 10x3/uL (0.0-0.2); %Basophils 0.6 % (0.0-1.0); %Eosinophils 2.8 % (0.0-10.0); %Lymphocytes 43.9 % (21.0-51.0); %Monocytes 11.1 % (0.0-10.0); %Neutrophils 41.2 % (42.0-75.0); Hematocrit 30.2 % (36.0-47.0); Hemoglobin 9.8 g/dL (12.0-16.0); Mean Corpuscular HGB CONC 32.5 g/dL (32.0-36.0); Mean Corpuscular Hemoglobin 28.8 pg (27.0-31.0); Mean Corpuscular Volume 88.8 fL (78.0-98.0); Mean Platelet Volume 9.8 fL (7.4-10.4); Platelet Count 291 10x3/uL (130-400)
[2024-01-16 09:17] LABS: Anion Gap 13 mmol/L (10-20); BUN (Urea Nitrogen) 30 mg/dL (9.8-20.1); Calc. Creatinine Clearance 31 mL/min (70-130); Calcium 9.4 mg/dL (7.8-10.44); Carbon Dioxide 21 mmol/L (23-31); Chloride 106 mmol/L (98-107); Estimated GFR 29; Glucose 165 mg/dL (83-110); Potassium 4.2 mmol/L (3.5-5.1); Sodium 136 mmol/L (136-145)
[2024-01-16 13:10] VITALS: BP 167/89; TEMP 99.3
== END 2024-01-16 15:24 | DRG 372 ==
LOC: ERS 07:49 → 2SE 12:16 → OBSVTOIN 01-07 08:24 → T4-A 01-10 13:48
PROVIDERS: ADMIT Student in an Organized Health Care Education/Training Program; ATTEND Student in an Organized Health Care Education/Training Program
DX: A04.72 Enterocolitis due to Clostridium difficile, not specified as recurrent (principal); I50.22 Chronic systolic (congestive) heart failure; N17.9 Acute kidney failure, unspecified; N12 Tubulo-interstitial nephritis, not specified as acute or chronic; I25.10 Atherosclerotic heart disease of native coronary artery without angina pectoris; E11.9 Type 2 diabetes mellitus without complications; E78.5 Hyperlipidemia, unspecified; F41.9 Anxiety disorder, unspecified; I12.9 Hypertensive chronic kidney disease with stage 1 through stage 4 chronic kidney disease, or unspecified chronic kidney disease; I44.7 Left bundle-branch block, unspecified; I45.81 Long QT syndrome; E83.42 Hypomagnesemia; N18.9 Chronic kidney disease, unspecified; I95.1 Orthostatic hypotension; D63.1 Anemia in chronic kidney disease; L89.322 Pressure ulcer of left buttock, stage 2; R31.0 Gross hematuria; Z86.73 Personal history of transient ischemic attack (TIA), and cerebral infarction without residual deficits; Z95.1 Presence of aortocoronary bypass graft; Z95.9 Presence of cardiac and vascular implant and graft, unspecified; Z90.49 Acquired absence of other specified parts of digestive tract; Z90.710 Acquired absence of both cervix and uterus; Z79.84 Long term (current) use of oral hypoglycemic drugs; Z79.899 Other long term (current) drug therapy; Z79.02 Long term (current) use of antithrombotics/antiplatelets
CPT/HCPCS: 36415; 36416; 70450; 70551; 71045; 80048; 80053; 81001; 82570; 82728; 83540; 83550; 83690; 83735; 84300; 84443; 84484; 85025; 87086; 87324; 87449; 87493; 93005; 96374; 96375; 97139; C9113; J1644; J1815; J2405; J3475; J7120; S0028

== ENCOUNTER 2024-06-13 21:04 | Inpatient (IN) | payer MEDICARE ==
[2024-06-13] MEDS ORDERED: Cefepime 2 GM VIAL ONE (21:31)
[2024-06-13] MEDS ORDERED: Acetaminophen 500 MG TAB ONE (21:31)
[2024-06-13] MEDS ORDERED: Sodium Chloride 0.9% 100 ML ONE (21:31)
[2024-06-13 21:39] LABS: #Basophils 0.04 10x3/uL (0.0-0.2); %Basophils 0.6 % (0.0-1.0); %Eosinophils 1.9 % (0.0-10.0); %Lymphocytes 26.8 % (21.0-51.0); %Monocytes 7.9 % (0.0-10.0); %Neutrophils 62.1 % (42.0-75.0); Hemoglobin 10.1 g/dL (12.0-16.0); Mean Corpuscular HGB CONC 33.7 g/dL (32.0-36.0); Mean Corpuscular Hemoglobin 28.8 pg (27.0-31.0); Mean Corpuscular Volume 85.5 fL (78.0-98.0); Mean Platelet Volume 9.2 fL (7.4-10.4); Platelet Count 296 10x3/uL (130-400); Red Blood Cell (RBC) Count 3.51 mill/uL (4.20-5.40)
[2024-06-13] MEDS: Vancomycin (BATCH) 1.25 GM in Premix 1 BAG IVPB SCH (22:00)
[2024-06-13 22:04] LABS: ALT (SGPT) 7 U/L (8-55); AST (SGOT) 11 U/L (5-34); Albumin 2.6 g/dL (3.4-4.8); Alkaline Phosphatase 98 U/L (40-110); Anion Gap 15 mmol/L (10-20); BUN (Urea Nitrogen) 26 mg/dL (9.8-20.1); Bilirubin, Total 0.6 mg/dL (0.2-1.2); Calc. Creatinine Clearance 0 mL/min (70-130); Calcium 8.8 mg/dL (7.8-10.44); Carbon Dioxide 16 mmol/L (23-31); Chloride 106 mmol/L (98-107); Estimated GFR 36; Globulin 4.6 g/dL (2.4-3.5); Glucose 145 mg/dL (83-110); Potassium 4.1 mmol/L (3.5-5.1); Protein, Total 7.2 g/dL (5.8-8.1); Sodium 133 mmol/L (136-145)
[2024-06-13 22:08] LABS: Troponin I Less than 0.010 ng/mL (< 0.028)
[2024-06-13 23:03] LABS: Bilirubin Negative (Negative); Blood, Urine 2+ (Negative); CAUTI Indications for Culture Pelvic or flank pain; Clarity Extra Turbid (Clear); Glucose, Urine (Dipstick) Normal (Negative); Ketone, Urine Negative (Negative); Leukocyte 500 Leu/uL (Negative); Nitrite 1+ (Negative); Protein, Urine (Dipstick) 70 mg/dL (Neg-Trace); RBC/HPF 21-50 HPF (0-3); Specific Gravity, Urine 1.009 (1.002-1.036); Squamous Epithelial None Seen HPF (0-3); Urobilinogen Normal mg/dL (Less than 2); WBC/HPF Greater than 50 HPF (0-3)
[2024-06-13 23:04] LABS: Bacteria/HPF Rare-Few HPF (None Seen); Urine Culture Reflex Yes Yes
[2024-06-13] MEDS ORDERED: Dextrose 50% Abboject 50 ML SYRINGE SLOW IVP PRN (23:08)
[2024-06-13] MEDS ORDERED: Dextrose 5% in Water 1,000 ML IV PRN (23:08)
[2024-06-13] MEDS ORDERED: Glucagon 1 MG/ML KIT IM PRN (23:08)
[2024-06-13] MEDS ORDERED: Acetaminophen 325 MG TAB PO PRN (23:13)
[2024-06-13] MEDS ORDERED: Insulin Lispro 100 UNIT/ML 10 ML VIAL SC PRN (23:16)
[2024-06-13] MEDS ORDERED: Nitroglycerin 0.4 MG TAB (25 Tab Bottle) SL PRN (23:16)
[2024-06-13 23:45] LABS: Hemoglobin A1c 6.7 % (4.0-6.0)
[2024-06-14 01:56] LABS: Troponin I Less than 0.010 ng/mL (< 0.028)
[2024-06-14 03:58] LABS: #Basophils 0.03 10x3/uL (0.0-0.2); %Basophils 0.6 % (0.0-1.0); %Eosinophils 2.2 % (0.0-10.0); %Lymphocytes 34.9 % (21.0-51.0); %Monocytes 9.8 % (0.0-10.0); %Neutrophils 51.9 % (42.0-75.0); Hematocrit 29.1 % (36.0-47.0); Hemoglobin 9.5 g/dL (12.0-16.0); Mean Corpuscular HGB CONC 32.6 g/dL (32.0-36.0); Mean Corpuscular Hemoglobin 28.4 pg (27.0-31.0); Mean Corpuscular Volume 86.9 fL (78.0-98.0); Mean Platelet Volume 9.4 fL (7.4-10.4); Platelet Count 221 10x3/uL (130-400); RBC Distribution Width 13.1 % (11.5-14.5); Red Blood Cell (RBC) Count 3.35 mill/uL (4.20-5.40)
[2024-06-14 04:51] LABS: ALT (SGPT) 6 U/L (8-55); AST (SGOT) 9 U/L (5-34); Albumin 2.2 g/dL (3.4-4.8); Alkaline Phosphatase 81 U/L (40-110); Anion Gap 11 mmol/L (10-20); BUN (Urea Nitrogen) 26 mg/dL (9.8-20.1); Bilirubin, Total 0.4 mg/dL (0.2-1.2); Calc. Creatinine Clearance 34 mL/min (70-130); Calcium 8.3 mg/dL (7.8-10.44); Carbon Dioxide 18 mmol/L (23-31); Chloride 111 mmol/L (98-107); Cholesterol 99 mg/dl (< 200 Desired); Estimated GFR 36; Globulin 3.9 g/dL (2.4-3.5); Glucose 215 mg/dL (83-110); HDL Cholesterol 33 mg/dL (>60 Neg Risk); LDL Cholesterol, Calculated 50 mg/dL; Potassium 3.9 mmol/L (3.5-5.1); Protein, Total 6.1 g/dL (5.8-8.1); Sodium 136 mmol/L (136-145); Triglycerides 78 mg/dL (Less than 150)
[2024-06-14 05:19] LABS: Troponin I Less than 0.010 ng/mL (< 0.028)
[2024-06-14] MEDS ORDERED: Enoxaparin 40 MG (0.4 mL) SYRINGE SC SCH (09:00)
[2024-06-14 09:01] VITALS: BMI 26.0
[2024-06-14] MEDS: Fluticasone Propionate Nasal Spray 16 gm Bottle NASAL SCH (10:23)
[2024-06-14] MEDS: Loratadine 10 MG TAB PO SCH (10:24)
[2024-06-14] MEDS: Amlodipine 10 MG TAB PO SCH (10:24)
[2024-06-14] MEDS: cefTRIAXone\\ROCEPHIN 1 GM in Sodium Chloride 0.9% 100 ML IVPB SCH (10:24)
[2024-06-14] MEDS: Clopidogrel Bisulfate 75 MG TAB PO SCH (10:27)
[2024-06-14] MEDS: Aspirin 81 mg Enteric Coated Tablet PO SCH (10:27)
[2024-06-14] MEDS: Isosorbide Mononitrate 30 MG ER.TAB PO SCH (17:45)
[2024-06-14] MEDS: Atorvastatin Calcium 40 MG TAB PO SCH (21:48)
[2024-06-15 05:45] LABS: #Basophils 0.04 10x3/uL (0.0-0.2); %Basophils 0.6 % (0.0-1.0); %Eosinophils 3.7 % (0.0-10.0); %Lymphocytes 29.7 % (21.0-51.0); %Monocytes 8.8 % (0.0-10.0); %Neutrophils 56.6 % (42.0-75.0); Hematocrit 28.3 % (36.0-47.0); Hemoglobin 9.1 g/dL (12.0-16.0); Mean Corpuscular HGB CONC 32.2 g/dL (32.0-36.0); Mean Corpuscular Hemoglobin 28.3 pg (27.0-31.0); Mean Corpuscular Volume 87.9 fL (78.0-98.0); Mean Platelet Volume 9.1 fL (7.4-10.4); Platelet Count 259 10x3/uL (130-400); RBC Distribution Width 13.1 % (11.5-14.5); Red Blood Cell (RBC) Count 3.22 mill/uL (4.20-5.40)
[2024-06-15 06:34] LABS: ALT (SGPT) 7 U/L (8-55); AST (SGOT) 15 U/L (5-34); Albumin 2.1 g/dL (3.4-4.8); Alkaline Phosphatase 83 U/L (40-110); Anion Gap 13 mmol/L (10-20); BUN (Urea Nitrogen) 26 mg/dL (9.8-20.1); Bilirubin, Total 0.5 mg/dL (0.2-1.2); Calc. Creatinine Clearance 31 mL/min (70-130); Calcium 8.4 mg/dL (7.8-10.44); Carbon Dioxide 19 mmol/L (23-31); Chloride 108 mmol/L (98-107); Estimated GFR 33; Glucose 117 mg/dL (83-110); Potassium 3.8 mmol/L (3.5-5.1); Protein, Total 6.1 g/dL (5.8-8.1); Sodium 136 mmol/L (136-145)
[2024-06-15] MEDS: Lisinopril 5 MG TAB PO SCH (08:10)
[2024-06-15] MEDS: Isosorbide Mononitrate 30 MG ER.TAB PO SCH (09:24)
[2024-06-15] MEDS: Loratadine 10 MG TAB PO SCH (13:16)
[2024-06-15] MEDS: Carvedilol 3.125 MG TAB PO SCH (18:17)
[2024-06-15] MEDS: Insulin Lispro 100 UNIT/ML 10 ML VIAL SC PRN (18:21)
[2024-06-16 04:39] LABS: #Basophils 0.06 10x3/uL (0.0-0.2); %Basophils 0.7 % (0.0-1.0); %Eosinophils 4.6 % (0.0-10.0); %Lymphocytes 36.8 % (21.0-51.0); %Monocytes 9.1 % (0.0-10.0); %Neutrophils 48.3 % (42.0-75.0); Hematocrit 28.3 % (36.0-47.0); Hemoglobin 9.1 g/dL (12.0-16.0); Mean Corpuscular HGB CONC 32.2 g/dL (32.0-36.0); Mean Corpuscular Hemoglobin 28.3 pg (27.0-31.0); Mean Corpuscular Volume 88.2 fL (78.0-98.0); Mean Platelet Volume 9.2 fL (7.4-10.4); Platelet Count 263 10x3/uL (130-400); Red Blood Cell (RBC) Count 3.21 mill/uL (4.20-5.40)
[2024-06-16 04:56] LABS: ALT (SGPT) 6 U/L (8-55); AST (SGOT) 14 U/L (5-34); Albumin 2.2 g/dL (3.4-4.8); Alkaline Phosphatase 83 U/L (40-110); Anion Gap 11 mmol/L (10-20); BUN (Urea Nitrogen) 28 mg/dL (9.8-20.1); Bilirubin, Total 0.3 mg/dL (0.2-1.2); Calc. Creatinine Clearance 29 mL/min (70-130); Calcium 8.4 mg/dL (7.8-10.44); Carbon Dioxide 20 mmol/L (23-31); Chloride 107 mmol/L (98-107); Estimated GFR 30; Globulin 4.3 g/dL (2.4-3.5); Glucose 141 mg/dL (83-110); Potassium 3.7 mmol/L (3.5-5.1); Protein, Total 6.5 g/dL (5.8-8.1); Sodium 134 mmol/L (136-145)
[2024-06-16] MEDS: Carvedilol 3.125 MG TAB PO SCH (10:01)
[2024-06-16 12:32] VITALS: BP 149/70; TEMP 97.6
== END 2024-06-16 15:57 | disposition home or self-care (01) | DRG 690 ==
LOC: ERS 21:04 → ERHOLD 23:08 → 2NO 06-14 08:31 → OBSVTOIN 06-15 17:05
PROVIDERS: ADMIT Internal Medicine; ATTEND Internal Medicine
DX: N39.0 Urinary tract infection, site not specified (principal); I50.22 Chronic systolic (congestive) heart failure; I13.0 Hypertensive heart and chronic kidney disease with heart failure and stage 1 through stage 4 chronic kidney disease, or unspecified chronic kidney disease; I24.9 Acute ischemic heart disease, unspecified; E11.22 Type 2 diabetes mellitus with diabetic chronic kidney disease; N18.32 Chronic kidney disease, stage 3b; I25.2 Old myocardial infarction; Z95.1 Presence of aortocoronary bypass graft; E78.5 Hyperlipidemia, unspecified; Z79.84 Long term (current) use of oral hypoglycemic drugs; Z79.82 Long term (current) use of aspirin; Z79.899 Other long term (current) drug therapy; Z90.710 Acquired absence of both cervix and uterus; Z90.49 Acquired absence of other specified parts of digestive tract; Z98.41 Cataract extraction status, right eye; Z98.42 Cataract extraction status, left eye; I25.10 Atherosclerotic heart disease of native coronary artery without angina pectoris; D63.1 Anemia in chronic kidney disease
CPT/HCPCS: 36415; 36416; 71045; 80053; 80061; 81001; 83036; 83605; 83735; 83880; 84443; 84484; 85025; 87040; 87077; 87086; 87186; 87428; 93005; 93306; 96365; 96375; 96376; G0378; J0692; J0696; J1815; J3370

== ENCOUNTER 2024-10-18 18:12 | Inpatient (IN) | payer MEDICARE, SELFPAY ==
[2024-10-18] MEDS ORDERED: Ketorolac Tromethamine 30 MG (1 mL) VIAL ONE (19:21)
[2024-10-18] MEDS ORDERED: Morphine 4 MG/ML VIAL ONE (19:21)
[2024-10-18] MEDS ORDERED: Ondansetron PF 4 MG/2 ML Vial ONE (19:21)
[2024-10-18] MEDS ORDERED: Cefepime 2 GM VIAL ONE (19:22)
[2024-10-18] MEDS ORDERED: Sodium Chloride 0.9% 100 ML ONE (19:22)
[2024-10-18 19:37] LABS: Bilirubin Negative (Negative); Blood, Urine 2+ (Negative); CAUTI Indications for Culture Pelvic or flank pain; Clarity Extra Turbid (Clear); Glucose, Urine (Dipstick) 30 mg/dL (Negative); Ketone, Urine Negative (Negative); Leukocyte 500 Leu/uL (Negative); Nitrite Negative (Negative); Protein, Urine (Dipstick) 100 mg/dL (Neg-Trace); RBC/HPF Greater than 50 HPF (0-3); Specific Gravity, Urine 1.003 (1.002-1.036); Squamous Epithelial None Seen HPF (0-3); Urobilinogen Normal mg/dL (Less than 2); WBC/HPF Greater than 50 HPF (0-3)
[2024-10-18 19:40] LABS: Bacteria/HPF Rare-Few HPF (None Seen)
[2024-10-18 19:41] LABS: Urine Culture Reflex Yes Yes
[2024-10-18 19:46] LABS: #Basophils 0.06 10x3/uL (0.0-0.2); %Eosinophils 2.9 % (0.0-10.0); %Monocytes 8.9 % (0.0-10.0); %Neutrophils 39.9 % (42.0-75.0); Hemoglobin 10.1 g/dL (12.0-16.0); Mean Corpuscular HGB CONC 31.6 g/dL (32.0-36.0); Mean Corpuscular Hemoglobin 28.3 pg (27.0-31.0); Mean Corpuscular Volume 89.6 fL (78.0-98.0); Mean Platelet Volume 9.1 fL (7.4-10.4); Platelet Count 355 10x3/uL (130-400); RBC Distribution Width 14.2 % (11.5-14.5); Red Blood Cell (RBC) Count 3.57 mill/uL (4.20-5.40)
[2024-10-18 19:56] LABS: ALT (SGPT) 9 U/L (Less than 34); AST (SGOT) 42 U/L (11-34); Albumin 2.9 g/dL (3.1-4.5); Alkaline Phosphatase 112 U/L (40-110); Anion Gap 15 mmol/L (10-20); BUN (Urea Nitrogen) 34 mg/dL (9.8-20.1); Bilirubin, Total 0.3 mg/dL (0.3-1.2); Calc. Creatinine Clearance 0 mL/min (70-130); Calcium 9.5 mg/dL (7.8-10.44); Carbon Dioxide 21 mmol/L (23-31); Chloride 106 mmol/L (98-107); Estimated GFR 23; Globulin 5.5 g/dL (2.4-3.5); Glucose 227 mg/dL (83-110); Potassium 4.5 mmol/L (3.5-5.1); Protein, Total 8.4 g/dL (5.8-8.1); Sodium 137 mmol/L (136-145)
[2024-10-18] MEDS ORDERED: Dextrose 50% Abboject 50 ML SYRINGE SLOW IVP PRN (21:24)
[2024-10-18] MEDS ORDERED: Dextrose 5% in Water 1,000 ML IV PRN (21:24)
[2024-10-18] MEDS ORDERED: Acetaminophen 325 MG TAB PO PRN (21:24)
[2024-10-18] MEDS ORDERED: Glucagon 1 MG/ML KIT IM PRN (21:24)
[2024-10-18] MEDS ORDERED: Insulin Lispro 100 UNIT/ML 10 ML VIAL SC PRN (21:33)
[2024-10-18 22:18] LABS: Phosphorus 3.4 mg/dL (2.5-4.5)
[2024-10-18 22:19] LABS: Magnesium 2.1 mg/dL (1.6-2.6)
[2024-10-18] MEDS: Vancomycin 1.5 GM / NS 500ML VIAL-2-BAG IVPB SCH (23:34)
[2024-10-18 23:35] VITALS: BMI 26.2
[2024-10-19] MEDS ORDERED: Vancomycin Dose by Levels Sliding Scale (Wt <71) FS SCH (00:15)
[2024-10-19] MEDS: Acetaminophen 325 MG TAB PO SCH (00:30)
[2024-10-19] MEDS: Nitroglycerin 0.4 MG TAB (25 Tab Bottle) SL PRN (05:00)
[2024-10-19 05:33] LABS: #Basophils 0.05 10x3/uL (0.0-0.2); %Basophils 0.7 % (0.0-1.0); %Eosinophils 3.3 % (0.0-10.0); %Lymphocytes 28.1 % (21.0-51.0); %Monocytes 7.1 % (0.0-10.0); %Neutrophils 60.4 % (42.0-75.0); Hematocrit 29.9 % (36.0-47.0); Hemoglobin 9.1 g/dL (12.0-16.0); Mean Corpuscular HGB CONC 30.4 g/dL (32.0-36.0); Platelet Count 285 10x3/uL (130-400); RBC Distribution Width 14.2 % (11.5-14.5); Red Blood Cell (RBC) Count 3.25 mill/uL (4.20-5.40)
[2024-10-19 05:59] LABS: ALT (SGPT) 7 U/L (Less than 34); AST (SGOT) 16 U/L (11-34); Albumin 2.4 g/dL (3.1-4.5); Alkaline Phosphatase 92 U/L (40-110); Anion Gap 11 mmol/L (10-20); BUN (Urea Nitrogen) 37 mg/dL (9.8-20.1); Bilirubin, Total 0.3 mg/dL (0.3-1.2); Calc. Creatinine Clearance 23 mL/min (70-130); Calcium 8.6 mg/dL (7.8-10.44); Carbon Dioxide 21 mmol/L (23-31); Chloride 112 mmol/L (98-107); Estimated GFR 22; Globulin 4.6 g/dL (2.4-3.5); Glucose 135 mg/dL (83-110); Potassium 4.5 mmol/L (3.5-5.1); Sodium 139 mmol/L (136-145)
[2024-10-19 07:19] LABS: Troponin I Less than 0.010 ng/mL (< 0.028)
[2024-10-19] MEDS ORDERED: metFORMIN 850 MG TAB PO SCH (08:00)
[2024-10-19] MEDS: Isosorbide Mononitrate 30 MG ER.TAB PO SCH (09:15)
[2024-10-19] MEDS: Carvedilol 3.125 MG TAB PO SCH (09:16)
[2024-10-19] MEDS: Cefepime 1 GM in Sodium Chloride 0.9% 100 ML IVPB SCH (09:17)
[2024-10-19] MEDS: Fluticasone Propionate Nasal Spray 16 gm Bottle NASAL SCH (09:17)
[2024-10-19 10:16] LABS: Troponin I Less than 0.010 ng/mL (< 0.028)
[2024-10-19 10:57] VITALS: BMI 26.3
[2024-10-19] MEDS: hydrOXYzine 10 MG TAB PO PRN (11:31)
[2024-10-19] MEDS: Enoxaparin 80 MG (0.8 mL) SYRINGE SC SCH (12:45)
[2024-10-19] MEDS ORDERED: metroNIDAZOLE 500 MG TAB PO SCH (15:00)
[2024-10-19] MEDS: Atorvastatin Calcium 40 MG TAB PO SCH (19:57)
[2024-10-19 23:25] LABS: Vancomycin, Trough 12.4 ug/mL
[2024-10-20 05:22] LABS: #Basophils 0.04 10x3/uL (0.0-0.2); %Basophils 0.6 % (0.0-1.0); %Eosinophils 3.7 % (0.0-10.0); %Lymphocytes 33.5 % (21.0-51.0); %Monocytes 7.4 % (0.0-10.0); %Neutrophils 54.5 % (42.0-75.0); Hematocrit 26.8 % (36.0-47.0); Hemoglobin 8.5 g/dL (12.0-16.0); Mean Corpuscular HGB CONC 31.7 g/dL (32.0-36.0); Mean Corpuscular Hemoglobin 28.4 pg (27.0-31.0); Mean Corpuscular Volume 89.6 fL (78.0-98.0); Platelet Count 279 10x3/uL (130-400); RBC Distribution Width 14.4 % (11.5-14.5); Red Blood Cell (RBC) Count 2.99 mill/uL (4.20-5.40)
[2024-10-20 05:47] LABS: ALT (SGPT) 9 U/L (Less than 34); AST (SGOT) 17 U/L (11-34); Albumin 2.2 g/dL (3.1-4.5); Alkaline Phosphatase 96 U/L (40-110); Anion Gap 10 mmol/L (10-20); BUN (Urea Nitrogen) 31 mg/dL (9.8-20.1); Bilirubin, Total 0.4 mg/dL (0.3-1.2); Calc. Creatinine Clearance 27 mL/min (70-130); Calcium 8.2 mg/dL (7.8-10.44); Carbon Dioxide 20 mmol/L (23-31); Chloride 113 mmol/L (98-107); Estimated GFR 26; Globulin 4.2 g/dL (2.4-3.5); Glucose 116 mg/dL (83-110); Potassium 4.5 mmol/L (3.5-5.1); Protein, Total 6.4 g/dL (5.8-8.1); Sodium 138 mmol/L (136-145)
[2024-10-20] MEDS: Vancomycin HCl 500 MG in Sodium Chloride 0.9% 100 ML IV SCH (08:31)
[2024-10-20] MEDS ORDERED: Bupivacaine PF 0.5% 30 ML VIAL ONE (11:08)
[2024-10-20] MEDS ORDERED: fentaNYL 50 mcg/mL 1 mL Vial ONE (11:23)
[2024-10-20] MEDS ORDERED: Famotidine/PF 20 mg/2ml Vial ONE (11:24)
[2024-10-20] MEDS ORDERED: Midazolam HCl 2 mg/2 ml Vial ONE (11:24)
[2024-10-20] MEDS ORDERED: PROPOFOL 20 ML ONE (11:25)
[2024-10-20] MEDS ORDERED: Lidocaine 2% PF 5 ML VIAL ONE (11:25)
[2024-10-20] MEDS ORDERED: Ondansetron PF 4 MG/2 ML Vial ONE (11:41)
[2024-10-20] MEDS ORDERED: PHENYLEPHRINE-NS 100 MCG/ML 10 ML SYRINGE ONE (11:42)
[2024-10-21 04:58] LABS: #Basophils 0.05 10x3/uL (0.0-0.2); %Basophils 0.8 % (0.0-1.0); %Eosinophils 3.9 % (0.0-10.0); %Lymphocytes 32.9 % (21.0-51.0); %Monocytes 7.6 % (0.0-10.0); %Neutrophils 54.3 % (42.0-75.0); Hemoglobin 9.1 g/dL (12.0-16.0); Mean Corpuscular HGB CONC 31.4 g/dL (32.0-36.0); Mean Corpuscular Hemoglobin 28.2 pg (27.0-31.0); Mean Corpuscular Volume 89.8 fL (78.0-98.0); Mean Platelet Volume 8.9 fL (7.4-10.4); Platelet Count 289 10x3/uL (130-400); RBC Distribution Width 14.4 % (11.5-14.5); Red Blood Cell (RBC) Count 3.23 mill/uL (4.20-5.40)
[2024-10-21 05:04] LABS: ALT (SGPT) 8 U/L (Less than 34); AST (SGOT) 15 U/L (11-34); Albumin 2.3 g/dL (3.1-4.5); Alkaline Phosphatase 100 U/L (40-110); Anion Gap 10 mmol/L (10-20); BUN (Urea Nitrogen) 33 mg/dL (9.8-20.1); Bilirubin, Total 0.3 mg/dL (0.3-1.2); Calc. Creatinine Clearance 28 mL/min (70-130); Calcium 8.5 mg/dL (7.8-10.44); Carbon Dioxide 19 mmol/L (23-31); Chloride 113 mmol/L (98-107); Estimated GFR 28; Globulin 4.7 g/dL (2.4-3.5); Glucose 131 mg/dL (83-110); Potassium 4.3 mmol/L (3.5-5.1); Sodium 138 mmol/L (136-145)
[2024-10-21 07:47] LABS: Vancomycin, Trough 13.2 ug/mL
[2024-10-21] MEDS: HYDROcodone/Acetaminophen 5/325 mg Tablet PO PRN (08:22)
[2024-10-21] MEDS: Vancomycin HCl 500 MG in Sodium Chloride 0.9% 100 ML IV SCH (12:01)
[2024-10-21] MEDS: Insulin Lispro 100 UNIT/ML 10 ML VIAL SC PRN (12:24)
[2024-10-22] MEDS: Nystatin Powder 15 GM BOT TOP PRN (00:31)
[2024-10-22 06:01] LABS: #Basophils 0.07 10x3/uL (0.0-0.2); %Basophils 1.1 % (0.0-1.0); %Eosinophils 4.9 % (0.0-10.0); %Lymphocytes 44.7 % (21.0-51.0); %Monocytes 7.4 % (0.0-10.0); %Neutrophils 41.1 % (42.0-75.0); Hematocrit 29.3 % (36.0-47.0); Hemoglobin 9.2 g/dL (12.0-16.0); Mean Corpuscular HGB CONC 31.4 g/dL (32.0-36.0); Mean Corpuscular Volume 89.3 fL (78.0-98.0); Mean Platelet Volume 8.8 fL (7.4-10.4); Platelet Count 301 10x3/uL (130-400); RBC Distribution Width 14.1 % (11.5-14.5); Red Blood Cell (RBC) Count 3.28 mill/uL (4.20-5.40)
[2024-10-22 06:51] LABS: ALT (SGPT) Less than 7 U/L (Less than 34); AST (SGOT) 16 U/L (11-34); Albumin 2.4 g/dL (3.1-4.5); Alkaline Phosphatase 91 U/L (40-110); Anion Gap 13 mmol/L (10-20); BUN (Urea Nitrogen) 35 mg/dL (9.8-20.1); Bilirubin, Total 0.3 mg/dL (0.3-1.2); Calc. Creatinine Clearance 25 mL/min (70-130); Calcium 8.7 mg/dL (7.8-10.44); Carbon Dioxide 15 mmol/L (23-31); Chloride 112 mmol/L (98-107); Estimated GFR 25; Globulin 4.5 g/dL (2.4-3.5); Glucose 121 mg/dL (83-110); Potassium 4.6 mmol/L (3.5-5.1); Protein, Total 6.9 g/dL (5.8-8.1); Sodium 135 mmol/L (136-145)
[2024-10-22 08:21] LABS: Vancomycin, Trough 13.8 ug/mL
[2024-10-22] MEDS: Cefepime 1 GM in Sodium Chloride 0.9% 100 ML IVPB SCH (09:15)
[2024-10-22] MEDS: Vancomycin HCl 500 MG in Sodium Chloride 0.9% 100 ML IV SCH (10:13)
[2024-10-22] MEDS: Cephalexin 250 MG CAP PO SCH (18:31)
[2024-10-22] MEDS: Amlodipine 5 MG TAB PO SCH (20:35)
[2024-10-23 04:32] LABS: #Basophils 0.04 10x3/uL (0.0-0.2); %Basophils 0.7 % (0.0-1.0); %Eosinophils 5.8 % (0.0-10.0); %Lymphocytes 47.9 % (21.0-51.0); %Monocytes 8.1 % (0.0-10.0); %Neutrophils 36.5 % (42.0-75.0); Hematocrit 27.5 % (36.0-47.0); Hemoglobin 8.6 g/dL (12.0-16.0); Mean Corpuscular HGB CONC 31.3 g/dL (32.0-36.0); Mean Corpuscular Hemoglobin 28.1 pg (27.0-31.0); Mean Corpuscular Volume 89.9 fL (78.0-98.0); Mean Platelet Volume 9.2 fL (7.4-10.4); Platelet Count 302 10x3/uL (130-400); RBC Distribution Width 14.2 % (11.5-14.5); Red Blood Cell (RBC) Count 3.06 mill/uL (4.20-5.40)
[2024-10-23 04:50] LABS: ALT (SGPT) Less than 7 U/L (Less than 34); AST (SGOT) 15 U/L (11-34); Albumin 2.3 g/dL (3.1-4.5); Alkaline Phosphatase 88 U/L (40-110); Anion Gap 12 mmol/L (10-20); BUN (Urea Nitrogen) 30 mg/dL (9.8-20.1); Bilirubin, Total 0.2 mg/dL (0.3-1.2); Calc. Creatinine Clearance 28 mL/min (70-130); Calcium 8.5 mg/dL (7.8-10.44); Carbon Dioxide 22 mmol/L (23-31); Chloride 109 mmol/L (98-107); Estimated GFR 29; Globulin 4.4 g/dL (2.4-3.5); Glucose 142 mg/dL (83-110); Potassium 4.1 mmol/L (3.5-5.1); Protein, Total 6.7 g/dL (5.8-8.1); Sodium 139 mmol/L (136-145)
[2024-10-23] MEDS: Clopidogrel Bisulfate 75 MG TAB PO SCH (09:50)
[2024-10-23] MEDS: Cephalexin 250 MG CAP PO SCH ×2 (09:51→16:11)
[2024-10-23] MEDS: NACL 0.9% IV SCH (11:28)
[2024-10-23] MEDS: VANCOMYCIN IV SCH (11:28)
[2024-10-23 12:27] VITALS: TEMP 98.2
[2024-10-23 16:10] VITALS: BP 150/68
[2024-10-24] MEDS ORDERED: NACL 0.9% IV SCH (09:00)
[2024-10-24] MEDS ORDERED: VANCOMYCIN IV SCH (09:00)
== END 2024-10-23 16:40 | disposition home or self-care (01) | DRG 617 ==
LOC: ERS 18:12 → 2NO 21:21 → OBSVTOIN 10-19 15:50
PROVIDERS: ADMIT Family Medicine; ATTEND Family Medicine
PROC: 0Y6R0Z1 Detachment at Right 2nd Toe, High, Open Approach (ICD-10-PCS; principal; 2024-10-20)
DX: E11.69 Type 2 diabetes mellitus with other specified complication (principal); I13.0 Hypertensive heart and chronic kidney disease with heart failure and stage 1 through stage 4 chronic kidney disease, or unspecified chronic kidney disease; I50.22 Chronic systolic (congestive) heart failure; N39.0 Urinary tract infection, site not specified; N17.9 Acute kidney failure, unspecified; I25.10 Atherosclerotic heart disease of native coronary artery without angina pectoris; E78.5 Hyperlipidemia, unspecified; E11.22 Type 2 diabetes mellitus with diabetic chronic kidney disease; N18.4 Chronic kidney disease, stage 4 (severe); I25.2 Old myocardial infarction; Z90.49 Acquired absence of other specified parts of digestive tract; Z90.710 Acquired absence of both cervix and uterus; Z79.82 Long term (current) use of aspirin; F41.9 Anxiety disorder, unspecified; Z79.84 Long term (current) use of oral hypoglycemic drugs; E11.51 Type 2 diabetes mellitus with diabetic peripheral angiopathy without gangrene; I44.7 Left bundle-branch block, unspecified; D63.1 Anemia in chronic kidney disease; Z86.73 Personal history of transient ischemic attack (TIA), and cerebral infarction without residual deficits; I25.5 Ischemic cardiomyopathy
CPT/HCPCS: 36415; 36416; 80053; 80202; 81001; 83605; 83735; 84100; 84145; 85025; 86141; 87040; 87070; 87077; 87086; 87186; 87205; 88305; 88311; 93005; 93010; 96365; 96367; 96375; 97139; J0665; J0692; J1650; J1885; J2250; J2270; J2405; J2704; J3010; J3370; J3490; J7030